=== PATIENT | female | born 1935 | race Caucasian/White ===

== ENCOUNTER → 2016-03-06 | Outpatient (CLI) | payer OTHER ==
[~2016-03-06] MED LIST: ALEN70TA2 PO; ASPI81TA28 PO; CHOL100010 PO; CLCC1250 PO; CYAN100020 PO; CYM/30 PO; ENAL10TA88 PO; HYDR-3983 PO; LORA-741 PO; LPT/40 PO; LVQ250 PO; METO25TA3 PO; MULTTAB52 PO; POLY335019 PO; RXC5 PO; SNK PO; TRAM-10 PO; WLLSR/100 PO
[2016-03-06 11:21] LABS: BASO % 0.4 %; BASO ABS # 0.05 K/uL (0-0.2); COMPLETE YES; EOS % 2.4 %; IG% 0.2 %; LYMPH % 27.5 %; LYMPH ABS # 3.17 K/uL (1.2-3.4); MEAN CELL VOLUME 89.6 fL (80-100); MEAN CORPUSCULAR HEMOGLOBIN 30.4 pg (25-34); MEAN PLATELET VOLUME 10.5 fL (7.4-10.4); MONO % 4.9 %; NEUT % 64.6 %; PLATELET COUNT 396 K/uL (130-400); WHITE BLOOD COUNT 11.53 K/uL (4.8-10.8)
[2016-03-06 11:32] LABS: BLOOD UREA NITROGEN 24 mg/dl (7-18); BUN/CREATININE RATIO 21.4 (10-20); CALCIUM 10.1 mg/dl (8.5-10.1); CARBON DIOXIDE 25 mmol/L (21-32); CHLORIDE 107 mmol/L (98-107); GLUCOSE 128 mg/dl (70-99); POTASSIUM 4.1 mmol/L (3.5-5.1); SODIUM 142 mmol/L (136-145)
[2016-03-06 11:51] LABS: MANUAL MICROSCOPIC REQUIRED? NO; URINE APPEARANCE SL CLOUDY (CLEAR); URINE BILIRUBIN NEG (NEG); URINE COLOR YELLOW; URINE NITRITE NEG (NEG); URINE PH 5.5 (4.5-7.5); UROBILINOGEN NEG (NEG)
[2016-03-06 12:03] LABS: REVIEW REQ? NO
== END | disposition home or self-care (01) ==
LOC: C.LAB 09:49
PROVIDERS: ATTEND Orthopaedic Surgery Orthopaedic Surgery of the Spine
DX: Z01.812 Encounter for preprocedural laboratory examination (principal)

== ENCOUNTER 2016-03-13 10:44 | Inpatient (IN) | payer OTHER ==
[2016-03-06 15:38] VITALS: BMI 26.0
[~2016-03-13] VITALS: Ht 167.6 cm; Wt 75.0 kg
[~2016-03-13 10:44] MED LIST changes: -ALEN70TA2 PO; -ASPI81TA28 PO; +CEFAZOLIN 2000 MG/60 ML D5W IV SCH; -CHOL100010 PO; -CLCC1250 PO; -CYAN100020 PO; +CeleBREX 200 MG CAP PO SCH; -ENAL10TA88 PO; -HYDR-3983 PO; +LACTATED RINGER'S 1000ML 1,000 ML IV SCH; -LVQ250 PO; -MULTTAB52 PO; -POLY335019 PO; +PREGABALIN 75 MG CAP PO SCH; -RXC5 PO; -SNK PO; -WLLSR/100 PO
[2016-03-13 11:13] VITALS: BP 134/71; PULSE 74; TEMP 36.5; O2SAT 99; Ht 167.6 cm; Wt 75.0 kg
[2016-03-13] MEDS ORDERED: LIDOCAINE HCL 2% 2 ML VIAL (20MG/ML) ONE ×2 (11:42→11:46)
[2016-03-13] MEDS ORDERED: FENTANYL CITRATE INJ 50 MCG/1 ML 2 ML VIAL ONE ×3 (11:42→14:38)
[2016-03-13] MEDS ORDERED: MIDAZOLAM HCL 1 MG/ML 2ML VIAL ONE (11:46)
[2016-03-13] MEDS ORDERED: NEOSTIGMINE METHYLSULFATE 1 MG/ML 10ML VIAL ONE (11:46)
[2016-03-13] MEDS ORDERED: DEXAMETHASONE SOD INJ 4 MG/ML VIAL ONE (11:46)
[2016-03-13] MEDS ORDERED: ONDANSETRON INJ 2 MG/ML 2 ML VIAL ONE ×2 (11:46→14:41)
[2016-03-13] MEDS ORDERED: PROPOFOL IV EMULSION 10 MG/ML 20 ML VIAL IV ONE (11:46)
[2016-03-13] MEDS ORDERED: ROCURONIUM BROMIDE 10 MG/ML 5 ML VIAL ONE ×2 (11:46→13:42)
[2016-03-13] MEDS ORDERED: GLYCOPYRROLATE INJ 0.2 MG/ML VIAL ONE (11:46)
[2016-03-13] MEDS ORDERED: ONDANSETRON INJ 2 MG/ML 2 ML VIAL IV PRN ×2 (12:30→15:45)
[2016-03-13] MEDS ORDERED: LACTATED RINGER'S 1000ML 1,000 ML IV PRN (12:30)
--- NOTE | 2016-03-13 12:32 | History and Physical ---
History & Physical Date Mar 13, 2016. Chief Complaint LBP and neurogenic claudication History of Present Illness The patient is a 80 year old female with complaints of above that are longstanding and progressive. She reports a significant decline in ambulation and independence. MRI shows multilevel spinal stenosis and scoliosis. She had a prior hemilaminectomy at L3-4. No numbness. functional weakness. She was cleared by cardiology from a cardiac perspective. He expressed concern about possible cognitive concerns, but her mentation improved after stopping her cymbalta. Past Medical/Surgical History Medical Problems: (1) Degenerative joint disease of low back (2) Diabetes mellitus, type II (3) Dyslipidemia (4) Hypertension (5) Osteoarthritis (6) PMR (polymyalgia rheumatica) (7) Temporal arteritis CAD Surgical Problems: (1) H/O thumb surgery (2) H/O tubal ligation (3) History of arthroscopy of left shoulder (4) History of arthroscopy of right shoulder (5) History of cataract surgery (6) History of hysterectomy (7) S/P hip replacement (8) S/P knee replacement Additional History Hepatic Disease: No Endocrine Disorder: No Kidney Disease: No Hypertension: Yes Heart Disease: Yes (recent stress test negative) Bleeding Tendencies: No Infectious Diseases: No Allergies Coded Allergies: Propoxyphene (Verified Adverse Reaction, Intermediate, N/V, 03/13/16) Morphine (Verified Adverse Reaction, Unknown, SEVERE NAUSEA AND VOMITING, 03/13/16) Home Medications Scheduled Aspirin (Aspirin Ec), 81 MG PO QAM Bupropion Hcl (Wellbutrin Sr), 100 MG PO BID Calcium Carbonate (Os-Calixto 500 *), 1 TAB PO BID Cholecalciferol (Vitamin D), 1,000 INTER.UNIT PO QAM Cyanocobalamin (Vitamin B12), 1 TAB PO QAM Enalapril (Vasotec), 20 MG PO BID Multiple Vitamins W/ Minerals (Cerovite Senior), 1 TAB PO QPM Scheduled PRN Lorazepam (Ativan), 0.5 MG PO TID PRN for Anxiety Polyethylene Glycol 3350 (Miralax), 17 GM PO DAILY PRN for PRN Tramadol (Ultram), 100 MG PO Q6H PRN for Pain Physical Examination Skin: warm/dry Eyes: normal inspection ENT: normal ENT inspection Head: normocephalic, atraumatic Neck: supple, trachea midline Respiratory/Chest: lungs clear, no respiratory distress Cardiovascular: regular rate, rhythm Back: normal inspection (scar) Extremities: normal inspection Neurologic/Psych: no motor/sensory deficits, alert, normal reflexes, oriented x 3 Diagnosis lumbar stenosis and scoliosis/spondylolisthesis Plan of Treatment L1-5 decompression/fusion
[2016-03-13] MEDS ORDERED: ALBUMIN HUMAN 5% 12.5 GM/250 ML VIAL IV ONE (14:36)
[2016-03-13] MEDS ORDERED: THROMBIN 5000 UNITS KIT TOP ONE (15:21)
[2016-03-13] MEDS ORDERED: FLOSEAL HEMOSTATIC MATRIX 10ML TOP ONE (15:21)
[2016-03-13] MEDS ORDERED: THROMBIN FOR SOLN 20000 UNIT KIT TOP ONE (15:21)
[2016-03-13] MEDS ORDERED: BACITRACIN 50000 UNIT VIAL IR ONE (15:21)
[2016-03-13] MEDS ORDERED: BUPIVACAINE/EPINEPHRINE 0.5% MPF 1:200,000 30 ML VIAL INJ ONE (15:21)
[2016-03-13] MEDS: SODIUM CHLORIDE 0.9% 1000ML 1,000 ML IV SCH (15:31)
[2016-03-13] MEDS ORDERED: SODIUM CHLORIDE 0.9% 1000ML 1,000 ML IV SCH (15:31)
--- NOTE | 2016-03-13 15:31 | [facility] Post Operative Brief Note ---
Immediate Operative Summary Operative Date Mar 13, 2016. Pre-Operative Diagnosis L1-L5 Lumbar Stenosis and Scoliosis/Spondylolisthesis Post-Operative Diagnosis L1-L5 Lumbar Stenosis and Scoliosis/Spondylolisthesis Procedure(s) Performed L1-L5 Decompression and Instrumented Fusion; [place] Arteriocyte Surgeon Dr. Chavira Field Irrigation Worker Surgeon(s) Amy Meneses RN Estimated Blood Loss 300mL Findings dict Specimens None
[2016-03-13] MEDS ORDERED: HYDROmorphone HCL 0.5MG/ML 50 ML CASSETTE ONE (15:40)
[2016-03-13] MEDS ORDERED: LORAZEPAM INJ 0.5 MG in SYRINGE 0 ML IV PRN (15:45)
[2016-03-13] MEDS ORDERED: NALOXONE HCL 0.4 MG/1 ML VIAL/CARP IV PRN ×2 (15:45)
[2016-03-13] MEDS ORDERED: PROMETHAZINE HCL INJ 12.5 MG in SODIUM CHLORIDE 0.9% 50ML 50 ML IV PRN (15:45)
[2016-03-13] MEDS ORDERED: SOD PHOSPHATE/SOD BIPHOSPHATE ENEMA 132 ML BTL PR PRN (15:45)
[2016-03-13] MEDS ORDERED: HYDROmorphone HCL 0.5MG/ML 50 ML CASSETTE IV PRN (15:45)
[2016-03-13] MEDS ORDERED: METOCLOPRAMIDE HCL INJ 5 MG/ML 2 ML VIAL IV PRN (15:45)
[2016-03-13] MEDS ORDERED: LORAZEPAM 0.5 MG TAB PO PRN (15:45)
[2016-03-13] MEDS ORDERED: hydrOXYzine HCL 25 MG TAB PO PRN (15:45)
[2016-03-13] MEDS ORDERED: MAGNESIUM HYDROXIDE SUSP 30 ML UDC PO PRN (15:45)
[2016-03-13] MEDS ORDERED: ACETAMINOPHEN IV 100 ML IV PRN (15:45)
[2016-03-13] MEDS ORDERED: ALUMINUM/MAGNESIUM SUSP 30 ML UDC PO PRN (15:45)
[2016-03-13] MEDS ORDERED: BISACODYL 10 MG SUPP PR PRN (15:45)
--- NOTE | 2016-03-13 15:45 | DIAGNOSTIC IMAGING REPORT ---
INTRAOPERATIVE RADIOGRAPHS CLINICAL HISTORY: L1-L5 spinal fusion. Fluoroscopy time: 7 seconds. FINDINGS: 3 spot fluoroscopic views of lumbar spine are presented. There are changes from laminectomy and posterior fusion from L1 -L5. Interpedicular screws are present at all levels. The orthopedic hardware is grossly intact. A surgical drain is in place. IMPRESSION: Intraoperative images from L1 -L5 spinal fusion as above. Electronically signed by: Betito Nguyễn M.D. 03/13/2016 3:44 PM Dictated Date/Time: 03/13/2016 3:43 PM
[2016-03-13] MEDS ORDERED: ESMOLOL HCL 10 MG/ML 10 ML VIAL ONE (15:46)
[2016-03-13] MEDS: FENTANYL CITRATE INJ 50 MCG/1 ML 2 ML VIAL IV PRN ×4 (15:47→16:02)
--- NOTE | 2016-03-13 16:09 | Anesthesiology Progress Note ---
Anesthesia Post Op Note Date & Time Mar 13, 2016 at 16:09 Vital Signs Pain Intensity: 6.0 Vital Signs Past 12 Hours Date Time Temp Pulse Resp B/P Pulse Ox O2 Delivery O2 Flow Rate FiO2 03/13/16 15:55 73 16 144/72 99 Mask 10 03/13/16 15:44 36.6 87 16 154/84 100 Mask 10 03/13/16 11:13 36.5 74 18 134/71 99 Room Air Notes Mental Status: alert / awake / arousable, participated in evaluation Pt Amnestic to Procedure: Yes Nausea / Vomiting: adequately controlled Pain: adequately controlled Airway Patency, RR, SpO2: stable & adequate BP & HR: stable & adequate Hydration State: stable & adequate Anesthetic Complications: no major complications apparent
[2016-03-13 16:45] VITALS: O2SAT 100
[2016-03-13 17:45] VITALS: BP 131/74; PULSE 74; TEMP 36.6; O2SAT 99
[2016-03-13] MEDS: DEXAMETHASONE INJ 6 MG in SYRINGE 0 ML IV SCH (18:17)
[2016-03-13 18:45] VITALS: BP 116/62; PULSE 75; TEMP 36.7; O2SAT 99
[2016-03-13 19:45] VITALS: BP 100/60; PULSE 75; TEMP 37.3; O2SAT 99
[2016-03-13] MEDS: BuPROPion SR 100 MG TABCR PO SCH (20:29)
[2016-03-13] MEDS: CEFAZOLIN IV 1,000 MG in DEXTROSE 5% 50ML 50 ML IV SCH (20:29)
[2016-03-13] MEDS: DOCUSATE SODIUM/SENNA 50/8.6MG TAB PO SCH (20:29)
[2016-03-13] MEDS ORDERED: FAMOTIDINE 20 MG TAB PO PRN (21:00)
[2016-03-13] MEDS: ENALAPRIL MALEATE 10 MG TAB PO SCH (21:00)
--- NOTE | 2016-03-13 22:01 | History and Physical ---
History & Physical Date & Time of Service: Mar 13, 2016 at 21:51 Chief Complaint: Lumbar Spinal Stenosis Primary Care Physician: Dedrick Restrepo III, M.D. History of Present Illness Source: patient This is a 80 yo f that was referred to us for medical mx s/p l2-l3 hemilaminectomy. The surgery was today and patient has been doing well since. She has a h/o Dm and HTN. She states that her diabetes was controlled with metformin but she was recently d/c from metformin. She typically checks her sugars in the am only and they have been acceptable. She also has htn which is well controlled with her current medication regimen. Pain is well controlled with current regiment at this time. Past Medical/Surgical History Medical Problems: (1) Degenerative joint disease of low back Status: Chronic (2) Diabetes mellitus, type II Status: Chronic (3) Dyslipidemia Status: Chronic (4) Hypertension Status: Chronic (5) Osteoarthritis Status: Chronic (6) PMR (polymyalgia rheumatica) Status: Chronic (7) Temporal arteritis Status: Resolved Surgical Problems: (1) H/O thumb surgery Status: Chronic (2) H/O tubal ligation Status: Chronic (3) History of arthroscopy of left shoulder Status: Chronic (4) History of arthroscopy of right shoulder Status: Chronic (5) History of cataract surgery Status: Chronic (6) History of hysterectomy Status: Chronic (7) S/P hip replacement Status: Chronic (8) S/P knee replacement Status: Chronic Family History Heart disease Hypertension Lung disease Social History Smoking Status: Never Smoker Smokeless Tobacco Use: No Alcohol Use: none Drug Use: none Marital Status: Housing status: lives with significant other Immunizations History of Influenza Vaccine: Yes Influenza Vaccine Date: May 17, 2015 History of Tetanus Vaccine?: Yes Tetanus Immunization Date: May 28, 2010 History of Pneumococcal: Yes Pneumococcal Date: Apr 26, 2014 Multi-Drug Resistant Organisms History of MDRO: No Allergies Coded Allergies: Propoxyphene (Verified Adverse Reaction, Intermediate, N/V, 03/13/16) Morphine (Verified Adverse Reaction, Unknown, SEVERE NAUSEA AND VOMITING, 03/13/16) Home Medications Scheduled Aspirin (Aspirin Ec), 81 MG PO QAM Bupropion Hcl (Wellbutrin Sr), 100 MG PO BID Calcium Carbonate (Os-Calixto 500 *), 1 TAB PO BID Cholecalciferol (Vitamin D), 1,000 INTER.UNIT PO QAM Cyanocobalamin (Vitamin B12), 1 TAB PO QAM Enalapril (Vasotec), 20 MG PO BID Multiple Vitamins W/ Minerals (Cerovite Senior), 1 TAB PO QPM Scheduled PRN Lorazepam (Ativan), 0.5 MG PO TID PRN for Anxiety Polyethylene Glycol 3350 (Miralax), 17 GM PO DAILY PRN for PRN Tramadol (Ultram), 100 MG PO Q6H PRN for Pain Review of Systems Constitutional: No fever Eyes: No worsening of vision ENT: No hearing loss Respiratory: No cough, No dyspnea at rest, No dyspnea on exertion, No shortness of breath, No sputum, No wheezing Cardiovascular: No chest pain Abdomen: + problem reported (abdominal bloating since surgery), No constipation , No diarrhea, No nausea, No pain, No vomiting Musculoskeletal: + joint pain, + muscle pain Genitourinary - Female: + dysuria, + hematuria Endocrine: No fatigue Integumentary: No rash Physical Exam Vital Signs Date Time Temp Pulse Resp B/P Pulse Ox O2 Delivery O2 Flow Rate FiO2 03/13/16 19:45 37.3 75 18 100/60 99 Nasal Cannula 2.0 03/13/16 18:45 36.7 75 16 116/62 99 Nasal Cannula 2.0 03/13/16 17:45 36.6 74 18 131/74 99 Nasal Cannula 2.0 03/13/16 16:15 68 16 137/70 100 Nasal Cannula 4 03/13/16 16:05 70 16 139/67 100 Nasal Cannula 4 03/13/16 15:55 73 16 144/72 99 Mask 10 03/13/16 15:44 36.6 87 16 154/84 100 Mask 10 03/13/16 11:13 36.5 74 18 134/71 99 Room Air General Appearance: WD/WN, no apparent distress Head: normocephalic, atraumatic Eyes: normal inspection ENT: normal ENT inspection Neck: supple Respiratory/Chest: lungs clear, normal breath sounds, no respiratory distress, no accessory muscle use Cardiovascular: regular rate, rhythm, no murmur Abdomen/GI: normal bowel sounds, non tender, soft, + distended (mildly) Back: normal inspection Extremities/Musculoskelatal: normal inspection, no calf tenderness, no pedal edema, + pertinent finding (SCD on) Neurologic/Psych: alert, normal mood/affect, oriented x 3 Skin: normal color, warm/dry, no rash Lymphatic: no adenopathy Diagnostics Laboratory Results Results Past 24 Hours Test 03/13/16 15:47 Range/Units Bedside Glucose 152 70-90 mg/dl Impression Assessment and Plan This is an 80 yo f s/p l2-l3 hemilaminectomy with a h/o DM, HTN HTN - continue enalapril Depression/ anxiety - continue bupropion and lorazepam prn DMII - ISS - BSG AC/HS s/p Hemilaminectomy - mx per primary team DVT Prophylaxis scd discharge per primary team Resident Physician Supervision Note: I was present with [Name of resident] during the history and exam. I discussed the case with the resident and agree with the findings and plan as documented in the note. Any exceptions or clarifications are listed here: Pt seen/examined - discussed above with management with resident Pt is post laminectomy and we are consulted for DM and HTN Pt as no specific complaints aside from surgery-related pain Placed on sliding scale post-op and will resume scheduled antihypertensives Med to follow pending D/C Documented By: Henry Jimenez Advanced Directives Existing Advance Directive: Yes Existing Living Will: Yes Existing Power of Dynamite Reclaimer: Yes Resuscitation Status FULL RESUSCITATION VTE Prophylaxis VTE Risk Assessment Done? Y/N: Yes Risk Level: Low Given or contraindicated: SCD's Social Service Consult None Apply Note Total Time: Critical Care 30 - 74 minutes Additional Copies To Dedrick Restrepo III, M.D.
[2016-03-13] MEDS ORDERED: GLUCAGON FOR INJ 1 MG VIAL SQ PRN (22:15)
[2016-03-13] MEDS ORDERED: DEXTROSE 50% 50 ML SYR IV PRN (22:15)
[2016-03-13] MEDS ORDERED: GLUCOSE 40% GEL 15 GM TUBE PO PRN (22:15)
[2016-03-13] MEDS ORDERED: GLUCOSE 10 TABS/TUBE PO PRN (22:15)
[2016-03-13 23:26] VITALS: BP 108/61; PULSE 103; TEMP 36.7; O2SAT 98
[2016-03-14] MEDS: DEXAMETHASONE INJ 6 MG in SYRINGE 0 ML IV SCH ×2 (02:16→10:00)
[2016-03-14 03:54] VITALS: BP 99/51; PULSE 71; TEMP 36.8; O2SAT 100
[2016-03-14] MEDS: CEFAZOLIN IV 1,000 MG in DEXTROSE 5% 50ML 50 ML IV SCH (04:08)
[2016-03-14] MEDS: SODIUM CHLORIDE 0.9% 1000ML 1,000 ML IV SCH (05:19)
[2016-03-14 05:43] LABS: COMPLETE YES; HEMATOCRIT 30.3 % (37-47); IG% 0.2 %; LYMPH % 6.1 %; LYMPH ABS # 0.95 K/uL (1.2-3.4); MEAN CELL VOLUME 90.2 fL (80-100); MEAN CORPUSCULAR HEMOGLOBIN 29.8 pg (25-34); MEAN PLATELET VOLUME 10.2 fL (7.4-10.4); MONO % 1.4 %; NEUT % 92.3 %; PLATELET COUNT 253 K/uL (130-400); RED BLOOD COUNT 3.36 M/uL (4.2-5.4); WHITE BLOOD COUNT 15.68 K/uL (4.8-10.8)
[2016-03-14] MEDS ORDERED: DC PCA PRN (06:00)
[2016-03-14] MEDS ORDERED: HYDROmorphone INJ 0.5 MG/0.5 ML SYR IV PRN ×2 (06:00)
[2016-03-14 06:11] LABS: BUN/CREATININE RATIO 12.1 (10-20); CALCIUM 8.5 mg/dl (8.5-10.1); CREATININE 1.3 mg/dl (0.60-1.20); POTASSIUM 4.5 mmol/L (3.5-5.1)
--- NOTE | 2016-03-14 07:48 | Clinical Documentation Query ---
RELL Farah : CLINICAL DOCUMENTATION QUERY QUERY 1 OF 2 Patient is an 80 year old female who on 03/13 underwent L1-L5 posterior decompression and fusion. EBL for the procedure was 300 ml's with subsequently documented losses totaling an additional 255 ml's to date. I/O is positive at this time for a net of 600 ml's. Preoperative hemoglobin and hematocrit were 14.6 g/dl and 43%. POD #1, repeat values are 10.0 g/dl and 30.3%. She is being monitored with serial hematology and I/O including drain outputs. In your clinical opinion is this patient being managed for: ( ) Acute blood loss and hemodilutional anemia ( ) Other explanation of clinical findings (Please Explain) ( ) Unable to determine (Please Define) ( ) Need to Discuss ( ) Not Agree The medical record reflects the following clinical findings, treatment, and risk factors. Clinical Indicators: As above Treatment:She is being monitored with serial hematology and I/O including drain outputs. Risk Factors: Acute perioperative blood losses and IVF administration. QUERY 2 OF 2 Chemistries this a.m. (03/14) demonstrate a BUN, creatinine, and estimated GFR value of 16 mg/dl, 1.30 mg/dl, and 38 ml/min. Estimated GFR range from 10/13/14 to present is 35-62 ml/min. Risk factors include age, hypertension, and type 2 diabetes mellitus. In your clinical opinion is this patient being managed for: ( ) Chronic kidney disease, stage 3 ( ) Other explanation of clinical findings (Please Explain) ( ) Unable to determine (Please Define) ( ) Need to Discuss ( ) Not Agree The medical record reflects the following clinical findings, treatment, and risk factors. Clinical Indicators: As above Treatment: Monitoring of serum chemistries, IVF Risk Factors:age, hypertension, and type 2 diabetes mellitus. Please clarify and document your clinical opinion in the progress notes and discharge summary. Terms such as "probable", "suspected", "likely", "questionable", "possible", or "still to be ruled out" are acceptable. IF IN AGREEMENT, YOU MUST DOCUMENT ABOVE DIAGNOSTIC STATEMENT IN DAILY PROGRESS NOTES AND DISCHARGE SUMMARY. This document is not part of the patient's record. Thank You, Kemar Issa, ANNE MARIE [phone]
--- NOTE | 2016-03-14 07:57 | Anesthesiology Progress Note ---
Anesthesia Post Op Note Date & Time Mar 14, 2016 at 07:57 Vital Signs Vital Signs Past 12 Hours Date Time Temp Pulse Resp B/P Pulse Ox O2 Delivery O2 Flow Rate FiO2 03/14/16 03:54 36.8 71 16 99/51 100 Nasal Cannula 2.0 03/14/16 00:10 Room Air 03/13/16 23:26 36.7 103 16 108/61 98 Nasal Cannula 2.0 Notes Mental Status: alert / awake / arousable, participated in evaluation Pt Amnestic to Procedure: Yes Nausea / Vomiting: adequately controlled Pain: adequately controlled Airway Patency, RR, SpO2: stable & adequate BP & HR: stable & adequate Hydration State: stable & adequate Anesthetic Complications: no major complications apparent
--- NOTE | 2016-03-14 07:59 | Hospitalist Progress Note ---
Hospitalist Progress Note Date of Service Mar 14, 2016. (Barbie Zee PA-C) Subjective Pt evaluation today including: conversation w/ patient, physical exam, chart review, lab review, review of studies, review of inpatient medication list Pain: Mild, lower back PO Intake: Good Voiding: dent catheter in place The patient was seen and examined this morning. Pt reports feeling well today. She is slightly sore in her low back. While sitting up it seems to be more painful vs lying flat. Pt denies numbness/tingling or pain radiating down her legs. She is passing gas, denies bowel movement since surgery. PT reports a history of issues with constipation. Dent catheter still in place but reports nursing was planning on removing this today. She is anticipating working with PT/OT today as well. Pt is from home and lives with her . She already has home health care and plans on having PT come into her home once she's discharged. Constitutional: No chills, No fever, No sweats Eyes: No problem reported ENT: No sore throat, No tinnitus Respiratory: No cough, No dyspnea at rest, No shortness of breath Cardiovascular: No chest pain, No palpitations Abdomen: + nausea (early this morning but has since gone away), No pain, No vomiting Musculoskeletal: No calf pain, No joint pain, No swelling Skin: No rash (Barbie Zee, SVETLANA) Objective Vital Signs Date Time Temp Pulse Resp B/P Pulse Ox O2 Delivery O2 Flow Rate FiO2 03/14/16 03:54 36.8 71 16 99/51 100 Nasal Cannula 2.0 03/14/16 00:10 Room Air 03/13/16 23:26 36.7 103 16 108/61 98 Nasal Cannula 2.0 03/13/16 19:45 37.3 75 18 100/60 99 Nasal Cannula 2.0 03/13/16 18:45 36.7 75 16 116/62 99 Nasal Cannula 2.0 03/13/16 17:45 36.6 74 18 131/74 99 Nasal Cannula 2.0 03/13/16 16:45 100 Nasal Cannula 4.0 03/13/16 16:45 100 Nasal Cannula 4.0 03/13/16 16:15 68 16 137/70 100 Nasal Cannula 4 03/13/16 16:05 70 16 139/67 100 Nasal Cannula 4 03/13/16 15:55 73 16 144/72 99 Mask 10 03/13/16 15:44 36.6 87 16 154/84 100 Mask 10 03/13/16 11:13 36.5 74 18 134/71 99 Room Air (Barbie Zee PA-C) Physical Exam General Appearance: WD/WN, no apparent distress Eyes: PERRL, EOMI ENT: hearing grossly normal, pharynx normal Neck: supple, no JVD Respiratory/Chest: lungs clear, normal breath sounds, no respiratory distress, no accessory muscle use Cardiovascular: regular rate, rhythm, no murmur Abdomen: normal bowel sounds, non tender, soft Extremities: non-tender, no pedal edema Neurologic/Psychiatric: alert, normal mood/affect, oriented x 3 Skin: normal color, warm/dry (Barbie Zee, SVETLANA) Laboratory Results Last 24 Hours Test 03/13/16 15:47 03/13/16 21:56 03/14/16 05:20 Bedside Glucose 152 mg/dl 225 mg/dl White Blood Count 15.68 K/uL Red Blood Count 3.36 M/uL Hemoglobin 10.0 g/dL Hematocrit 30.3 % Mean Corpuscular Volume 90.2 fL Mean Corpuscular Hemoglobin 29.8 pg Mean Corpuscular Hemoglobin Concent 33.0 g/dl Platelet Count 253 K/uL Mean Platelet Volume 10.2 fL Neutrophils (%) (Auto) 92.3 % Lymphocytes (%) (Auto) 6.1 % Monocytes (%) (Auto) 1.4 % Eosinophils (%) (Auto) 0.0 % Basophils (%) (Auto) 0.0 % Neutrophils # (Auto) 14.48 K/uL Lymphocytes # (Auto) 0.95 K/uL Monocytes # (Auto) 0.22 K/uL Eosinophils # (Auto) 0.00 K/uL Basophils # (Auto) 0.00 K/uL RDW Standard Deviation 45.7 fL RDW Coefficient of Variation 13.8 % Immature Granulocyte % (Auto) 0.2 % Immature Granulocyte # (Auto) 0.03 K/uL Sodium Level 143 mmol/L Potassium Level 4.5 mmol/L Chloride Level 107 mmol/L Carbon Dioxide Level 26 mmol/L Anion Gap 10.0 mmol/L Blood Urea Nitrogen 16 mg/dl Creatinine 1.30 mg/dl Est Creatinine Clear Calc Drug Dose 34.5 ml/min Estimated GFR () 44.2 Estimated GFR (Non- 38.2 BUN/Creatinine Ratio 12.1 Random Glucose 221 mg/dl Calcium Level 8.5 mg/dl (Barbie Zee PA-C) Assessment and Plan 80 yo F with PMHx HTN, DM, who underwent a L1-L2 hemilaminectomy on 03/13/[address] Dee. She has been consulted for medical management. S/p L1-L2 hemilaminectomy - Analgesia per the primary team - pt is not on anticoagulation. - Continue bowel regimen daily with narcotic use and pt hx of constipation. - PT/OT conuslted. pt is anticipating d/c with home health and PT services. Lives with her at home and cares for him. Currently has aids coming into their house every day. Acute blood loss and hemodilutional anemia - Hgb dropped to 10.0 from 14.6 - LEXUS drain in place with outs ~140 mL since 2400 today with total 395mL out. Other blood loss estimated at ~600. HTN - Cont airplane captain asa 81 mg, enalapril maleate 20 mg BID - Currently on NSS running at 75mL/hr - pt ate breakfast but had some nausea so will keep fluids for the morning and can likely dc if she tolerates lunch DM - ISS with accuchecks ACHS - Here glucose has been running around 150 - 200, considering decadron inj prior to surg this is expected. Can titrate sliding scale appropriately. CKD stage III - Cr. baseline appears to be about 1.2-1.3, currently 1.3 - Encourage oral hydration Depression/Anxiety - Cont wellbutrin SR 100 mg BID for depression and ativan 0.5 mg PO TID for anxiety DVT ppx: SCDs, OOB Disposition: From home, will ask CM to assist with home health services/PT upon discharge. (Barbie Zee, SVETLANA) Reviewed: Pt Seen/Exam by Me, HO Notes, Labs (Arely Toledo MD) History PA Supervision Note: I interviewed and examined the patient. Discussed with the PA and agree with findings and plan as documented in the note. Any exceptions or clarifications are listed here: Pt doing very well, pain controlled. No CP or SOB. Is collins po. Vitals reviewed NAD, AAOx3 RRR no mgr CTAB no wcr Abd soft NT ND +BS Ext no edema MSK-back with dressing in place c/d/i A/P: 80 yo female with HTN, DMII, here for hemilaminectomy. DOing well post-op, continue home BP meds, SSI and accuchecks, not on home meds for DMII. Renally dose all meds for CKD stage III. Plan for dc in 2 days, will follow Documented By: Arely Toledo (Arely Toledo MD)
[2016-03-14 08:04] VITALS: BP 119/52; PULSE 70; TEMP 36.6; O2SAT 98
[2016-03-14] MEDS: ASPIRIN 81 MG ECTAB PO SCH (08:43)
[2016-03-14] MEDS: BuPROPion SR 100 MG TABCR PO SCH ×2 (08:43→21:05)
[2016-03-14] MEDS: ENALAPRIL MALEATE 10 MG TAB PO SCH ×2 (08:44→21:05)
[2016-03-14] MEDS: OXYCODONE HCL IR 5 MG TAB (IMMEDIATE RELEASE) PO PRN ×4 (08:52→21:06)
[2016-03-14] MEDS ORDERED: COUGH DROP (SUGAR FREE) LOZ 24 LOZ/1 BOX PO PRN (09:00)
[2016-03-14] MEDS ORDERED: NURSING DECISION MEDICATION ORDER SCH (09:00)
[2016-03-14] MEDS: INSULIN ASPART 100 UNITS/ML 3 ML PEN SC SCH ×4 (09:12→21:00)
[2016-03-14] MEDS ORDERED: NURSING VERBAL MED ORDER ONE (09:30)
[2016-03-14 09:45] VITALS: O2SAT 98
[2016-03-14 11:47] VITALS: BP 139/60; PULSE 76; TEMP 36.7; O2SAT 98
--- NOTE | 2016-03-14 12:38 | Clinical Documentation Query ---
FABIANA OCASIO : CLINICAL DOCUMENTATION QUERIES QUERY 1 OF 2 Patient is an 80 year old female who on 03/13 underwent L1-L5 posterior decompression and fusion. EBL for the procedure was 300 ml's with subsequently documented losses totaling an additional 255 ml's to date. I/O is positive at this time for a net of 600 ml's. Preoperative hemoglobin and hematocrit were 14.6 g/dl and 43%. POD #1, repeat values are 10.0 g/dl and 30.3%. She is being monitored with serial hematology and I/O including drain outputs. In your clinical opinion is this patient being managed for: ( X ) Acute blood loss and hemodilutional anemia ( ) Other explanation of clinical findings (Please Explain) ( ) Unable to determine (Please Define) ( ) Need to Discuss ( ) Not Agree The medical record reflects the following clinical findings, treatment, and risk factors. Clinical Indicators: As above Treatment:She is being monitored with serial hematology and I/O including drain outputs. Risk Factors: Acute perioperative blood losses and IVF administration. QUERY 2 OF 2 Chemistries this a.m. (03/14) demonstrate a BUN, creatinine, and estimated GFR value of 16 mg/dl, 1.30 mg/dl, and 38 ml/min. Estimated GFR range from 10/13/14 to present is 35-62 ml/min. Risk factors include age, hypertension, and type 2 diabetes mellitus. In your clinical opinion is this patient being managed for: (X ) Chronic kidney disease, stage 3 ( ) Other explanation of clinical findings (Please Explain) ( ) Unable to determine (Please Define) ( ) Need to Discuss ( ) Not Agree The medical record reflects the following clinical findings, treatment, and risk factors. Clinical Indicators: As above Treatment: Monitoring of serum chemistries, IVF Risk Factors:age, hypertension, and type 2 diabetes mellitus. Please clarify and document your clinical opinion in the progress notes and discharge summary. Terms such as "probable", "suspected", "likely", "questionable", "possible", or "still to be ruled out" are acceptable. IF IN AGREEMENT, YOU MUST DOCUMENT ABOVE DIAGNOSTIC STATEMENT IN DAILY PROGRESS NOTES AND DISCHARGE SUMMARY. This document is not part of the patient's record. Thank You, Kemar Issa, ANNE MARIE [phone]
--- NOTE | 2016-03-14 14:46 | Orthopedic Progress Note ---
Orthopedic Progress Note Date of Service Mar 14, 2016. Subjective Post OP Day: 1 Reports: feeling well Objective calves soft nontender, N/V intact, dressing C/D/I, A&O x3 Date Time Temp Pulse Resp B/P Pulse Ox O2 Delivery O2 Flow Rate FiO2 03/14/16 11:47 36.7 76 12 139/60 98 Room Air 03/14/16 09:45 98 Room Air 03/14/16 08:04 36.6 70 12 119/52 98 Room Air 03/14/16 07:30 Room Air 03/14/16 03:54 36.8 71 16 99/51 100 Nasal Cannula 2.0 03/14/16 00:10 Room Air 03/13/16 23:26 36.7 103 16 108/61 98 Nasal Cannula 2.0 03/13/16 19:45 37.3 75 18 100/60 99 Nasal Cannula 2.0 03/13/16 18:45 36.7 75 16 116/62 99 Nasal Cannula 2.0 03/13/16 17:45 36.6 74 18 131/74 99 Nasal Cannula 2.0 03/13/16 16:45 100 Nasal Cannula 4.0 03/13/16 16:45 100 Nasal Cannula 4.0 03/13/16 16:15 68 16 137/70 100 Nasal Cannula 4 03/13/16 16:05 70 16 139/67 100 Nasal Cannula 4 03/13/16 15:55 73 16 144/72 99 Mask 10 03/13/16 15:44 36.6 87 16 154/84 100 Mask 10 Laboratory Results 24 Hours: Test 03/14/16 05:20 White Blood Count 15.68 K/uL Red Blood Count 3.36 M/uL Hemoglobin 10.0 g/dL Hematocrit 30.3 % Mean Corpuscular Volume 90.2 fL Mean Corpuscular Hemoglobin 29.8 pg Mean Corpuscular Hemoglobin Concent 33.0 g/dl Platelet Count 253 K/uL Mean Platelet Volume 10.2 fL Neutrophils (%) (Auto) 92.3 % Lymphocytes (%) (Auto) 6.1 % Monocytes (%) (Auto) 1.4 % Eosinophils (%) (Auto) 0.0 % Basophils (%) (Auto) 0.0 % Neutrophils # (Auto) 14.48 K/uL Lymphocytes # (Auto) 0.95 K/uL Monocytes # (Auto) 0.22 K/uL Eosinophils # (Auto) 0.00 K/uL Basophils # (Auto) 0.00 K/uL Discharge Planning Discharge Planning: home with home health Pain Management: Oxy IR DVT Prophylaxis: SCDs Therapy: Physical Therapy, Occupational Therapy
[2016-03-14 15:00] VITALS: BP 125/69; PULSE 74; TEMP 36.5; O2SAT 98
[2016-03-14] MEDS: DOCUSATE SODIUM/SENNA 50/8.6MG TAB PO SCH (21:05)
[2016-03-14 23:08] VITALS: BP 104/55; PULSE 66; TEMP 36.7; O2SAT 98
[2016-03-15 06:12] LABS: EOS % 0.1 %; HEMATOCRIT 25.8 % (37-47); IG% 0.2 %; LYMPH % 18.9 %; LYMPH ABS # 2.72 K/uL (1.2-3.4); MEAN CELL VOLUME 89.3 fL (80-100); MEAN CORPUSCULAR HEMOGLOBIN 29.8 pg (25-34); MEAN CORPUSCULAR HGB CONC 33.3 g/dl (32-36); MEAN PLATELET VOLUME 10.3 fL (7.4-10.4); MONO % 7.5 %; NEUT % 73.3 %; PLATELET COUNT 226 K/uL (130-400); RED BLOOD COUNT 2.89 M/uL (4.2-5.4)
[2016-03-15] MEDS: POLYETHYLENE (MIRALAX) 17 GM PACK PO SCH ×3 (06:20→17:21)
[2016-03-15] MEDS: OXYCODONE HCL IR 5 MG TAB (IMMEDIATE RELEASE) PO PRN ×3 (06:26→20:57)
[2016-03-15 06:35] LABS: BUN/CREATININE RATIO 24.3 (10-20); CALCIUM 8.8 mg/dl (8.5-10.1); CREATININE 1.2 mg/dl (0.60-1.20); POTASSIUM 4.4 mmol/L (3.5-5.1)
[2016-03-15 07:09] VITALS: BP 94/55; PULSE 64; TEMP 36.7; O2SAT 98
[2016-03-15 07:20] LABS: COMPLETE YES
--- NOTE | 2016-03-15 07:42 | Orthopedic Progress Note ---
Orthopedic Progress Note Date of Service Mar 15, 2016. Subjective Post OP Day: 2 Reports: feeling well, pain controlled w PO medications, Denies: SOB, calf pain , chest pain, complaints, light headedness, nausea / vomiting Additional Notes: Doing well, lying in bed. No complaints. Pain is controlled with medication. She did not do PT yesterday although she was up with OT without difficulty. She is stable medically. No other issues to report. Objective calves soft nontender, N/V intact, capillary refill less than 2 sec., dressing C /D/I, A&O x3, toes mobile, hemovac drainage Date Time Temp Pulse Resp B/P Pulse Ox O2 Delivery O2 Flow Rate FiO2 03/15/16 07:09 36.7 64 16 94/55 98 Room Air 03/15/16 00:45 Room Air 03/14/16 23:08 36.7 66 16 104/55 98 Room Air 03/14/16 16:15 Room Air 03/14/16 15:00 36.5 74 18 125/69 98 Room Air 03/14/16 11:47 36.7 76 12 139/60 98 Room Air 03/14/16 09:45 98 Room Air 03/14/16 08:04 36.6 70 12 119/52 98 Room Air Laboratory Results 24 Hours: Test 03/15/16 05:47 White Blood Count 14.40 K/uL Red Blood Count 2.89 M/uL Hemoglobin 8.6 g/dL Hematocrit 25.8 % Mean Corpuscular Volume 89.3 fL Mean Corpuscular Hemoglobin 29.8 pg Mean Corpuscular Hemoglobin Concent 33.3 g/dl Platelet Count 226 K/uL Mean Platelet Volume 10.3 fL Neutrophils (%) (Auto) 73.3 % Lymphocytes (%) (Auto) 18.9 % Monocytes (%) (Auto) 7.5 % Eosinophils (%) (Auto) 0.1 % Basophils (%) (Auto) 0.0 % Neutrophils # (Auto) 10.56 K/uL Lymphocytes # (Auto) 2.72 K/uL Monocytes # (Auto) 1.08 K/uL Eosinophils # (Auto) 0.01 K/uL Basophils # (Auto) 0.00 K/uL Assessment & Plan Assessment: s/p L1-5 decomp/fusion Plan: Patient is to complete PT today. She continues to want to return home. I had a long discussion with her regarding this. We will base our final decision off PT progress. Continue LEXUS drain. Pain control as indicated. Disposition to follow. Discharge Planning Discharge Planning: home with home health Pain Management: Oxy IR DVT Prophylaxis: SCDs Therapy: Physical Therapy, Occupational Therapy
[2016-03-15] MEDS ORDERED: RXC5 PO (07:43)
--- NOTE | 2016-03-15 07:44 | Discharge Instructions ---
Discharge Instructions Admission Reason for Admission: Lumbar Spinal Stenosis Discharge Discharge Diagnosis / Problem: Lumbar Stenosis Discharge Goals Goal(s): Decrease discomfort, Improve function, Increase independence Activity Recommendations Activity Limitations: as noted below Lifting Limitations: no more than 5 pounds Exercise/Sports Limitations: until after follow-up appointment May Resume Sexual Activity: after follow-up appointment Shower/Bathe: may shower/bathe in 3 days . Instructions / Follow-Up Instructions / Follow-Up ACTIVITY RECOMMENDATIONS: SELF CARE INSTRUCTIONS AFTER THORACIC/LUMBAR FUSIONS 1. You may walk to your tolerance. It is good exercise for your legs and back. Expect some back and intermittent leg aches and pains. 2. You may perform "counter-top" level activities (make a sandwich, jyotsna with a project, etc.). 3. No bending or lifting of more than 10 pounds or back twisting of any nature (roll like a log when turning in bed). 4. You may ride in a car for 20-30 minutes at a time. No driving until after your first visit with your doctor. 5. Frequent changes of position and restricting sitting to 30 minutes at a time will help limit the amount of back spasms and stiffness you may experience. 6. You may discontinue the use of ambulatory aids (cane, crutches, etc.) once your strength and confidence allow. 7. You may foreclosure field inspector the shower and let water strike your incision when you arrive home at least once daily. Do not take a tub bath, sit in a hot tub or go into a swimming pool until after your first recheck in the office. SPECIAL CARE INSTRUCTIONS: VERY IMPORTANT TO READ AND REVIEW A. Your surgical incision has been closed with a cosmetic suture under the skin that will dissolve in about 6 weeks. In 14 days, you can use a pair of clean scissors and cut the suture that is left outside of the skin at the ends of your incision. 1. The small skin tapes can be removed 7 days after surgery if they have not fallen off by that point. 2. You may keep the wound open to air as much as possible to promote healing after post-op day number 5 unless told otherwise by your doctor. 3. If you think the wound looks like it is becoming infected (redness or worsening drainage) and/or you are experiencing fever, chill or worsening back pain and muscle spasms, contact the office so that we may evaluate you as soon as possible. B. Complications are uncommon, but please contact us if you have any signs or symptoms of: 1. wound infection (fever higher than 102.5 degrees F, redness, separation of wound, drainage, or increasing pain from the incision) 2. blood clots in legs (pain, swelling, redness and warmth in legs) 3. urinary tract infection (fever higher than 102.5 degrees F, burning upon urination or increased frequency of urination) 4. nerve problems (inability to walk on your toes or heels, numbness, loss of bowel or bladder control) 5. any other symptoms that concern you C. Please call the office at if you have any concerns or questions about your operation or recovery. D. No smoking! Smoking drastically decreases the chance of a solid fusion. E. Do not take any anti-inflammatory medications (Indocin, Advil, Motrin, Aspirin, Naprosyn, etc.) as these may inhibit the chance of a solid fusion. Tylenol is okay to take for pain. MANAGING PAIN AFTER SPINAL SURGERY 1. Narcotic medication is intended for short-term use and will be provided for surgical pain. Surgical pain usually lasts for a period of 4-6 weeks. Narcotic medication includes Percocet, Vicodin, Darvocet, Tylenol #3 or Lortab. 2. Longer-term pain is more appropriately treated with non-narcotic medication such as Tylenol ES. 3. Muscle spasm is not appropriately treated with narcotics. Muscle relaxers such as Soma, Flexeril or Skelaxin can be used along with Tylenol ES. 4. Remember that we all live with some "aches and pains". This is not unusual or uncommon after an injury or as we get older. a. Back pain is expected and may include muscle spasms for 4 to 6 weeks after surgery. The pain should gradually improve. If the pain worsens for no apparent reason, please contact the office. b. Intermittent leg pain may also be experienced and should not be concerned about unless it worsens for no apparent reason. If so, please contact the office. 5. We will provide appropriate medication within the normal guidelines of their prescribed use. We will also be very cautious and aware of potential abuse and extended duration of patients' medication needs. a. Pain medications are for your comfort and to assist with sleep and rest so that the tissue can heal. They are not provided in order to return to normal activity and should not be used through the day. To do so or worsening pain at night can result from ongoing tissue damage and development of tolerance to the prescribed medicine. 6. Please allow 2-3 days to process refills. Prescriptions will not be mailed but must be picked up at the office. FOLLOW UP VISIT: Keep your scheduled follow-up appointment. Any questions, please call the office at . Current Hospital Diet Patient's current hospital diet: Diabetes Type 2 Diet Discharge Diet Recommended Diet: Regular Diet Procedures Procedures Performed: L1-L5 Decompression and Instrumented Fusion; Infuse, Arteriocyte Pending Studies Studies pending at discharge: no Medical Emergencies . Who to Call and When: Medical Emergencies: If at any time you feel your situation is an emergency, please call 911 immediately. . Non-Emergent Contact Non-Emergency issues call your: Surgeon Call Non-Emergent contact if: temperature is above 101, your pain is not controlled, your pain is worsening, your pain is unusual for you, your pain is concerning you, wound has increased drainage, wound has increased redness, wound has increased pain, you have any medication questions . "Provider Documentation" section prepared by Ahmet Lackey. VTE Core Measure Inpt VTE Proph given/why not?: Lauryn Fletcher, SCD's
[2016-03-15 08:28] VITALS: BP 150/53
[2016-03-15] MEDS: ENALAPRIL MALEATE 10 MG TAB PO SCH ×2 (08:47→20:53)
[2016-03-15] MEDS: BuPROPion SR 100 MG TABCR PO SCH ×2 (08:47→20:50)
[2016-03-15] MEDS: ASPIRIN 81 MG ECTAB PO SCH (08:47)
[2016-03-15] MEDS: INSULIN ASPART 100 UNITS/ML 3 ML PEN SC SCH ×4 (08:49→20:57)
--- NOTE | 2016-03-15 14:32 | Hospitalist Progress Note ---
Hospitalist Progress Note Date of Service Mar 15, 2016. Subjective Pt evaluation today including: conversation w/ patient, conversation w/ family , physical exam, chart review, lab review, review of inpatient medication list PO Intake: collins po Voiding: no voiding problems Doing well, pain controlled, was up with PT today. BP low this AM but was just waking up and now is high normal. No CP or SOB. No BM yet. Constitutional: No fever Respiratory: No shortness of breath Cardiovascular: No chest pain Abdomen: No nausea, No pain All Other Systems: Reviewed and Negative Objective Vital Signs Date Time Temp Pulse Resp B/P Pulse Ox O2 Delivery O2 Flow Rate FiO2 03/15/16 08:28 150/53 03/15/16 07:12 Room Air 03/15/16 07:09 36.7 64 16 94/55 98 Room Air 03/15/16 00:45 Room Air 03/14/16 23:08 36.7 66 16 104/55 98 Room Air 03/14/16 16:15 Room Air 03/14/16 15:00 36.5 74 18 125/69 98 Room Air Physical Exam General Appearance: WD/WN, no apparent distress Eyes: normal inspection, sclerae normal Neck: trachea midline Respiratory/Chest: lungs clear, normal breath sounds, no respiratory distress, no accessory muscle use Cardiovascular: regular rate, rhythm, no edema, no gallop, no murmur Abdomen: normal bowel sounds, non tender, soft Extremities: non-tender, normal inspection, no pedal edema Neurologic/Psychiatric: alert, normal mood/affect, oriented x 3 Skin: normal color, warm/dry, no rash Laboratory Results Last 24 Hours Test 03/14/16 17:06 03/14/16 21:00 03/15/16 05:47 03/15/16 08:18 Bedside Glucose 141 mg/dl 177 mg/dl 125 mg/dl White Blood Count 14.40 K/uL Red Blood Count 2.89 M/uL Hemoglobin 8.6 g/dL Hematocrit 25.8 % Mean Corpuscular Volume 89.3 fL Mean Corpuscular Hemoglobin 29.8 pg Mean Corpuscular Hemoglobin Concent 33.3 g/dl Platelet Count 226 K/uL Mean Platelet Volume 10.3 fL Neutrophils (%) (Auto) 73.3 % Lymphocytes (%) (Auto) 18.9 % Monocytes (%) (Auto) 7.5 % Eosinophils (%) (Auto) 0.1 % Basophils (%) (Auto) 0.0 % Neutrophils # (Auto) 10.56 K/uL Lymphocytes # (Auto) 2.72 K/uL Monocytes # (Auto) 1.08 K/uL Eosinophils # (Auto) 0.01 K/uL Basophils # (Auto) 0.00 K/uL RDW Standard Deviation 46.0 fL RDW Coefficient of Variation 14.1 % Immature Granulocyte % (Auto) 0.2 % Immature Granulocyte # (Auto) 0.03 K/uL Red Blood Cell Morphology Unremarkable Sodium Level 144 mmol/L Potassium Level 4.4 mmol/L Chloride Level 108 mmol/L Carbon Dioxide Level 27 mmol/L Anion Gap 9.0 mmol/L Blood Urea Nitrogen 29 mg/dl Creatinine 1.20 mg/dl Est Creatinine Clear Calc Drug Dose 37.4 ml/min Estimated GFR () 48.7 Estimated GFR (Non- 42.1 BUN/Creatinine Ratio 24.3 Random Glucose 135 mg/dl Calcium Level 8.8 mg/dl Test 03/15/16 12:12 Bedside Glucose 144 mg/dl Assessment and Plan 80 yo F with PMHx HTN, DMII, who underwent a L1-L2 hemilaminectomy on 03/13/[address] Dee. Hospitalist service has been consulted for medical management. S/p L1-L2 hemilaminectomy - Analgesia per the primary team - Continue bowel regimen daily with narcotic use and pt hx of constipation. - PT/OT -pt is anticipating d/c with home health and PT services. Lives with her at home and cares for him. Currently has aides coming into their house every day. Acute blood loss and hemodilutional anemia - Hgb dropped to 8.6 from 10.0 from 14.6, however vitals fairly stable, no need for transfusion - follow CBC, transfuse for Hgb<7-8 HTN-stable - Cont lpta asa 81 mg, enalapril maleate 20 mg BID DMII-diet controlled at home - ISS with accuchecks ACHS - Here glucose initially running around 150 - 200, considering decadron inj prior to surg this is expected. Now improved - Can titrate sliding scale appropriately. -expect no meds upon return to home CKD stage III - Cr. baseline appears to be about 1.2-1.3, currently 1.2 - Encourage oral hydration -renally dose all meds -avoid nephrotoxins Depression/Anxiety - Cont wellbutrin SR 100 mg BID for depression and ativan 0.5 mg PO TID prn for anxiety Pulm nodules-seen on CT 10/2015 -due for repeat CT Chest 04/2016 DVT ppx: SCDs, OOB Disposition: to home, will ask CM to assist with home health services/PT upon discharge.
[2016-03-15 15:30] VITALS: BP 101/59; PULSE 71; TEMP 36.8; O2SAT 99
[2016-03-15 20:51] VITALS: BP 119/66; PULSE 70
[2016-03-15] MEDS: DOCUSATE SODIUM/SENNA 50/8.6MG TAB PO SCH (20:53)
[2016-03-15] MEDS: LORAZEPAM 0.5 MG TAB PO PRN (20:56)
[2016-03-15 23:39] VITALS: BP 102/56; PULSE 72; TEMP 36.7; O2SAT 98
[2016-03-16] MEDS: POLYETHYLENE (MIRALAX) 17 GM PACK PO SCH ×3 (00:55→12:00)
[2016-03-16] MEDS: OXYCODONE HCL IR 5 MG TAB (IMMEDIATE RELEASE) PO PRN ×2 (05:17→10:35)
[2016-03-16 07:18] VITALS: BP 113/65; PULSE 81; TEMP 36.6; O2SAT 97
[2016-03-16] MEDS: LORAZEPAM 0.5 MG TAB PO PRN (07:47)
--- NOTE | 2016-03-16 08:04 | Orthopedic Progress Note ---
Orthopedic Progress Note Date of Service Mar 16, 2016. Subjective Additional Notes: Doing well with PT, pain is controlled for the most part, medically stable. Objective calves soft nontender, N/V intact, capillary refill less than 2 sec., dressing C /D/I, A&O x3, toes mobile, hemovac drainage Date Time Temp Pulse Resp B/P Pulse Ox O2 Delivery O2 Flow Rate FiO2 03/16/16 07:25 Room Air 03/16/16 07:18 36.6 81 16 113/65 97 Room Air 03/15/16 23:39 36.7 72 18 102/56 98 Room Air 03/15/16 20:51 70 119/66 03/15/16 19:25 Room Air 03/15/16 15:30 36.8 71 16 101/59 99 Room Air 03/15/16 14:57 Room Air 03/15/16 08:28 150/53 Assessment & Plan Assessment: s/p L1-5 decomp/fusion Plan: Patient is cleared by PT, pain is controlled, ok for discharge home today Discharge Planning Discharge Planning: home with home health Pain Management: Oxy IR DVT Prophylaxis: SCDs Therapy: Physical Therapy, Occupational Therapy
[2016-03-16] MEDS: BuPROPion SR 100 MG TABCR PO SCH (08:31)
[2016-03-16] MEDS: ASPIRIN 81 MG ECTAB PO SCH (08:31)
[2016-03-16] MEDS: ENALAPRIL MALEATE 10 MG TAB PO SCH (08:31)
[2016-03-16] MEDS: INSULIN ASPART 100 UNITS/ML 3 ML PEN SC SCH (08:33)
[2016-03-16 08:35] VITALS: BP 113/65; PULSE 81; TEMP 36.6; O2SAT 97
[2016-03-17] MEDS ORDERED: MULTTAB52 PO (10:42)
[2016-03-17] MEDS ORDERED: WLLSR/100 PO (11:16)
[2016-03-17] MEDS ORDERED: CHOL100010 PO (11:17)
[2016-03-17] MEDS ORDERED: CYAN100020 PO (13:44)
[2016-03-17] MEDS ORDERED: ASPI81TA28 PO (13:44)
[2016-03-17] MEDS ORDERED: POLY335019 PO (16:08)
[2016-03-17] MEDS ORDERED: CLCC1250 PO (20:01)
[2016-03-17] MEDS ORDERED: ENAL10TA88 PO (20:01)
--- NOTE | 2016-03-25 11:05 | DISCHARGE SUMMARY ---
PRINCIPAL DIAGNOSES: Included, L1-L5 lumbar spinal stenosis, scoliosis and spondylolisthesis. POSTOPERATIVE DIAGNOSIS: Remained the same. PROCEDURE: L1-L5 decompression and instrumented fusion. SURGEON: Dr. Domenico Chavira. HISTORY OF PRESENT ILLNESS: Please refer to EMR. HOSPITAL COURSE: On 03/13/2016, Ms. Lopez was admitted to [facility] with the above diagnoses. She was taken to preoperative holding where she was identified and evaluated in clear surgical procedure. She was transported to the operating room, introduced to general endotracheal anesthesia, sterile conditions were set and she successfully underwent the above procedure without complication or issue. She was awakened in stable and satisfactory condition and transported to postoperative recovery. Here her vital signs and pain were monitored and managed. She remained medically stable with no complications to note. She was then taken to orthopedic floor for continued care throughout her stay. Pain was well managed. Vital signs and labs were routinely monitored and managed through physician directions. She participated in physical therapy with good noted progress. DVT and GI prophylactic measures were taken. Throughout her stay there were no complications or noted issues. She was evaluated on 03/16/2016 and indicated for return home. On this date, she was discharged from [facility]. DISPOSITION: Home. DISPOSITION CONDITION: Stable. NOTED COMPLICATIONS OR ISSUES: Zero. DISCHARGE INSTRUCTIONS: Please refer to EMR.
--- NOTE | 2016-03-25 14:52 | OPERATIVE REPORT ---
DATE OF OPERATION: 03/13/2016 PREOPERATIVE DIAGNOSES: Lumbar scoliosis, spondylolisthesis and spinal stenosis. POSTOPERATIVE DIAGNOSIS: Same. PROCEDURES: 1. Laminectomies of L2-3 with midline decompression L1-2 and L2-3 with foraminotomies L1-2 and L2-3. 2. Segmental pedicle screw instrumentation -- bilateral L1, L2, L3, L4 and L5 with K2M Columbia pedicle screws. 3. Posterolateral fusion L1-L5 -- bilateral with Infuse BMP on a collagen sponge, tricalcium phosphate, local bone, bone putty and bone marrow aspirate concentrated with Arteriocyte. 4. Right iliac crest bone marrow aspiration with stem cell concentration with Arteriocyte. SURGEON: Dr. Chavira. RECORDS COORDINATOR: OR staff. ANESTHESIA: General endotracheal anesthesia. COMPLICATIONS: None. ESTIMATED BLOOD LOSS: 300 mL. OPERATION AND FINDINGS: PROCEDURE: After identification of patient and operative level, she was brought to the OR where she underwent induction of general anesthesia. She was then positioned prone on Cheng OR table with all bony prominences well padded. Care was taken to avoid pressure on the periorbital area. Lumbosacral area was sterilely prepped and draped in usual fashion. Antibiotics were administered. Time-out was performed. Level was confirmed and skin incision was made after infiltration with Marcaine from spinous process of T12 to the sacrum. Posterior exposure was accomplished. Gelpi retractors were placed and level was confirmed with fluoroscopy and operative levels were marked. Areas of greatest stenosis were decompressed with midline decompression being accomplished by removing the spinous process and lamina of L2 and L3 and undercutting the L1 lamina. I then removed the medial facets at L2-L3 and L3-L4 to facilitate decompression. I completed decompression with Kerrisons, palpated the nerve roots were decompressed from L1 to L4 bilaterally. I then proceeded to place pedicle screws bilaterally at L1, L2, L3, L4 and L5 with K2M Columbia pedicle screws. I checked screw lengths, trajectory and position with fluoroscopy and then lowered the Rashaad frame to restore lordosis. I then applied rods and end caps with final tightening of all end CAPS and placement of a crosslink. Bone marrow aspirate was taken from the right iliac crest via separate stab incision with a Jamshidi needle and concentrated with Arteriocyte system applied to bone graft software solutions architect. I then decorticated the transverse process from L1-L5 bilaterally with a high speed bur as well as the remaining facets. I then irrigated with bacitracin solution and packed the lateral gutters with bone graft mixture from L1-L5 bilaterally. I then closed in layered fashion over LEXUS drain. All sponge and needle counts were correct at the end of the case. I attest to the content of the Intraoperative Record and any orders documented therein. Any exceptio ns are noted below.
== END 2016-03-16 12:45 | disposition home health service (06) | DRG 460 ==
LOC: ENRESERVDT → ENRESERVTM → C.ACU 10:44 → C.3E 12:30
PROVIDERS: ADMIT Orthopaedic Surgery Orthopaedic Surgery of the Spine; ATTEND Orthopaedic Surgery Orthopaedic Surgery of the Spine
PROC: 0SG10A1 (ICD-10-PCS; principal; 2016-03-13 12:15)
DX: M48.06 Spinal stenosis, lumbar region (principal); D62 Acute posthemorrhagic anemia; E78.5 Hyperlipidemia, unspecified; I12.9 Hypertensive chronic kidney disease with stage 1 through stage 4 chronic kidney disease, or unspecified chronic kidney disease; N18.3 Chronic kidney disease, stage 3 (moderate); E11.22 Type 2 diabetes mellitus with diabetic chronic kidney disease; I25.10 Atherosclerotic heart disease of native coronary artery without angina pectoris; F32.9 Major depressive disorder, single episode, unspecified; M43.16 Spondylolisthesis, lumbar region; F41.9 Anxiety disorder, unspecified

== ENCOUNTER 2016-03-17 08:50 | Emergency (ER) | payer OTHER ==
[~2016-03-17] VITALS: Ht 170.2 cm; Wt 80.0 kg
[~2016-03-17 08:50] MED LIST changes: -CEFAZOLIN 2000 MG/60 ML D5W IV SCH; -CYM/30 PO; -CeleBREX 200 MG CAP PO SCH; -LACTATED RINGER'S 1000ML 1,000 ML IV SCH; -LPT/40 PO; -METO25TA3 PO; -PREGABALIN 75 MG CAP PO SCH; +RXC5 PO; -TRAM-10 PO
[2016-03-17 09:04] VITALS: TEMP 37.6; Ht 170.2 cm; Wt 80.0 kg
[2016-03-17] MEDS ORDERED: SODIUM CHLORIDE 0.9% 1000ML 1,000 ML IV STA (09:11)
--- NOTE | 2016-03-17 09:20 | EMERGENCY ROOM VISIT NOTE ---
History Report prepared by Jose M: Suki Oquendo Under the Supervision of: Gerhard SouthO. First contact with patient: 09:01 Chief Complaint: BACK PAIN Stated Complaint: FALL/ BACK PAIN History of Present Illness The patient is an 80 year old female who presents to the Emergency Room with complaints of persistent back pain. The patient arrived at the emergency department via ambulance. The patient slid off of the bed and had low back pain. She did not have a significant fall but she is status post lumbar decompression. The patient was given fentanyl en route to the hospital. She also received Percocet at home. The patient describes low back pain. She also complains of shortness of breath. She denies any numbness or weakness in her legs however it sounds as though they had a very difficult time getting her off the floor and the family finally called the influence after she sat on the floor for approximate 5 hours. The patient appears somewhat confused and only answers questions intermittently. There is no other family members here at this time. History significantly limited secondary to intermittent alteration in mental status. I'm unsure if the patient is understanding my questions half of the time. I was alerted by the nursing staff that the patient has been having episodes of narrow complex tachycardia. On one instance when I was in the room she appeared to go into SVT. This broke spontaneously. Source of History: patient History Limited By: AMS Onset: today Position: back Timing: other (persistent) Review of Systems See HPI for pertinent positives & negatives. A total of 10 systems reviewed and were otherwise negative. 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 (2) Diabetes mellitus, type II (3) Dyslipidemia (4) Hypertension (5) Osteoarthritis (6) PMR (polymyalgia rheumatica) (7) Scoliosis (8) Temporal arteritis Surgical Problems: (1) H/O thumb surgery (2) H/O tubal ligation (3) History of arthroscopy of left shoulder (4) History of arthroscopy of right shoulder (5) History of cataract surgery (6) History of hysterectomy (7) S/P hip replacement (8) S/P knee replacement Family History Heart disease Hypertension Lung disease Social History Smoking Status: Never Smoker Alcohol Use: none Drug Use: none Marital Status: Housing Status: lives with significant other Current/Historical Medications Scheduled Aspirin (Aspirin Ec), 81 MG PO QAM Bupropion Hcl (Wellbutrin Sr), 100 MG PO BID Calcium Carbonate (Os-Calixto 500 *), 1 TAB PO BID Cholecalciferol (Vitamin D), 1,000 INTER.UNIT PO QAM Cyanocobalamin (Vitamin B12), 1 TAB PO QAM Enalapril (Vasotec), 20 MG PO BID Multiple Vitamins W/ Minerals (Cerovite Senior), 1 TAB PO QPM Scheduled PRN Lorazepam (Ativan), 0.5 MG PO TID PRN for Anxiety Oxycodone HCl (Oxycodone HCl), 5-10 MG PO Q4H PRN for Moderate - severe pain Polyethylene Glycol 3350 (Miralax), 17 GM PO DAILY PRN for PRN Allergies Coded Allergies: Propoxyphene (Verified Adverse Reaction, Intermediate, N/V, 03/17/16) Morphine (Verified Adverse Reaction, Unknown, SEVERE NAUSEA AND VOMITING, 03/17/16) Physical Exam Vital Signs Date Time Temp Pulse Resp B/P Pulse Ox O2 Delivery O2 Flow Rate FiO2 03/17/16 15:45 82 18 138/72 96 Room Air 03/17/16 14:55 83 18 140/75 100 Room Air 03/17/16 13:37 79 18 143/51 96 Room Air 03/17/16 13:09 85 03/17/16 12:03 84 18 140/60 100 Room Air 03/17/16 11:31 182 03/17/16 11:31 72 03/17/16 10:38 85 16 159/65 97 Room Air 03/17/16 09:26 78 03/17/16 09:25 162 03/17/16 09:04 37.6 106 20 115/61 97 Room Air 03/17/16 09:00 68 03/17/16 09:00 174 03/17/16 08:56 107 Physical Exam GENERAL: Patient is awake to verbal commands. She is very slow to answer questions. She appears listless. She follows commands intermittently. EYES: The conjunctivae are clear. The pupils are round and reactive. EARS, NOSE, MOUTH AND THROAT: The nose is without any evidence of any deformity. Mucous members are dry. NECK: The neck is nontender and supple. RESPIRATORY: Normal respiratory effort is noted there is no evidence of wheezing rhonchi or rales CARDIOVASCULAR: Regular rate and rhythm noted there no murmurs rubs or gallops normal S1 normal S2 GASTROINTESTINAL: The abdomen is soft. Bowel sounds are present in all quadrants. Abdomen is nontender BACK: Diffuse tenderness is noted. There is a wound dressing in place. There is no significant erythema noted. MUSCULOSKELETAL/EXTREMITIES: There is no evidence of gross deformity full range of motion is noted in the hips and shoulders SKIN: There is no obvious evidence of any rash. Trace pedal edema was noted bilaterally. NEUROLOGIC: Patient is awake to verbal stimuli. She is oriented to person but not place time or situation at this time. Strength is symmetric but diminished motor lower extremity's. Patellar tendon reflexes are 1 plus bilaterally. Medical Decision & Procedures ER Provider Diagnostic Interpretation: X ray results and stated below per my interpretation and radiology interpretation. Other radiology results per my review and radiologist interpretation: CHEST ONE VIEW PORTABLE CLINICAL HISTORY: fall trauma COMPARISON STUDY: 11/05/2015 FINDINGS: The bones soft tissues and hemidiaphragms are normal. The cardiomediastinal silhouette is normal. The lungs are clear. The pulmonary vasculature is normal. IMPRESSION: Negative chest. Electronically signed by: Molina Alicea M.D. 03/17/2016 9:51 AM Dictated Date/Time: 03/17/2016 9:[address] DOSE: 3148.84 mGy.cm HISTORY: Trauma. Pain. fall TECHNIQUE: Multiaxial CT images of the lumbar spine were performed and reformatted in the sagittal and coronal plane without the use of contrast. COMPARISON: 08/29/2015 FINDINGS: Interval posterior laminectomy and fusion from L1 through L5. Hardware appears to be intact. Degenerative intervertebral disc change is stable. There are no new or interval findings of that noted. No evidence for compression deformity. IMPRESSION: Postoperative and degenerative change. No acute bony abnormality. Electronically signed by: Molina Alicea M.D. 03/17/2016 10:41 AM Dictated Date/Time: 03/17/2016 10:[address] CT DOSE: HISTORY: Trauma. Pain. fall TECHNIQUE: Multiaxial CT images of the head were performed without the use of intravenous contrast. Comparison: 08/04/2015 Findings: The paranasal sinuses and mastoid air cells are clear. The calvarium and skull base are intact. The ventricles and sulci are within normal limits. There is no mass, hematoma, midline shift, or acute infarct. Impression: No acute intracranial abnormality. Electronically signed by: Molina Alicea M.D. 03/17/2016 10:34 AM Dictated Date/Time: 03/17/2016 10:[address] DOSE: HISTORY: Trauma. Pain. fall TECHNIQUE: Multiaxial CT images of the cervical spine were performed and reformatted in the sagittal and coronal plane without the use of contrast. COMPARISON: 08/04/2015 FINDINGS: No fractures. No subluxation. Prevertebral soft tissues and the C1-C2 interval are intact. No pneumothorax. Old mild wedge deformity superior endplates of C6, C7, T1, and T2. These are unchanged from the prior study. Moderate degenerative changes noted throughout. IMPRESSION: Degenerative and chronic changes throughout. No acute process. Electronically signed by: Molina Alicea M.D. 03/17/2016 10:38 AM Dictated Date/Time: 03/17/2016 10:35 AM The status of this report is Signed. Laboratory Results 03/17/16 09:35 Red Blood Count 3.55, Mean Corpuscular Volume 88.7, Mean Corpuscular Hemoglobin 30.1, Mean Corpuscular Hemoglobin Concent 34.0, Mean Platelet Volume 10.6, Neutrophils (%) (Auto) 80.0, Lymphocytes (%) (Auto) 10.8, Monocytes (%) (Auto) 8.7, Eosinophils (%) (Auto) 0.1, Basophils (%) (Auto) 0.1, Neutrophils # (Auto) 13.22, Lymphocytes # (Auto) 1.79, Monocytes # (Auto) 1.44, Eosinophils # (Auto) 0.01, Basophils # (Auto) 0.02 03/17/16 09:35 Test 03/17/16 09:25 03/17/16 09:35 Urine Color YELLOW Urine Appearance CLEAR (CLEAR) Urine pH >= 9.0 (4.5-7.5) Urine Specific Sarver 1.018 (1.000-1.030) Urine Protein NEG (NEG) Urine Glucose (UA) NEG (NEG) Urine Ketones 1+ (NEG) Urine Occult Blood NEG (NEG) Urine Nitrite NEG (NEG) Urine Bilirubin NEG (NEG) Urine Urobilinogen NEG (NEG) Urine Leukocyte Esterase TRACE (NEG) Urine WBC (Auto) 1-5 /hpf (0-5) Urine RBC (Auto) 0-4 /hpf (0-4) Urine Hyaline Casts (Auto) 1-5 /lpf (0-5) Urine Epithelial Cells (Auto) >30 /lpf (0-5) Urine Bacteria (Auto) NEG (NEG) White Blood Count 16.53 K/uL (4.8-10.8) Red Blood Count 3.55 M/uL (4.2-5.4) Hemoglobin 10.7 g/dL (12.0-16.0) Hematocrit 31.5 % (37-47) Mean Corpuscular Volume 88.7 fL (80-100) Mean Corpuscular Hemoglobin 30.1 pg (25-34) Mean Corpuscular Hemoglobin Concent 34.0 g/dl (32-36) Platelet Count 306 K/uL (130-400) Mean Platelet Volume 10.6 fL (7.4-10.4) Neutrophils (%) (Auto) 80.0 % Lymphocytes (%) (Auto) 10.8 % Monocytes (%) (Auto) 8.7 % Eosinophils (%) (Auto) 0.1 % Basophils (%) (Auto) 0.1 % Neutrophils # (Auto) 13.22 K/uL (1.4-6.5) Lymphocytes # (Auto) 1.79 K/uL (1.2-3.4) Monocytes # (Auto) 1.44 K/uL (0.11-0.59) Eosinophils # (Auto) 0.01 K/uL (0-0.5) Basophils # (Auto) 0.02 K/uL (0-0.2) RDW Standard Deviation 45.0 fL (36.4-46.3) RDW Coefficient of Variation 13.7 % (11.5-14.5) Immature Granulocyte % (Auto) 0.3 % Immature Granulocyte # (Auto) 0.05 K/uL (0.00-0.02) Prothrombin Time 10.5 SECONDS (9.0-12.0) Prothromb Time International Ratio 1.0 (0.9-1.1) Activated Partial Thromboplast Time 25.4 SECONDS (21.0-31.0) Partial Thromboplastin Ratio 1.0 Anion Gap 11.0 mmol/L (3-11) Est Creatinine Clear Calc Drug Dose 47.2 ml/min Estimated GFR () 60.8 Estimated GFR (Non- 52.4 BUN/Creatinine Ratio 19.5 (10-20) Calcium Level 9.2 mg/dl (8.5-10.1) Magnesium Level 1.9 mg/dl (1.8-2.4) Total Bilirubin 1.0 mg/dl (0.2-1) Direct Bilirubin 0.2 mg/dl (0-0.2) Aspartate Amino Transf (AST/SGOT) 16 U/L (15-37) Alanine Aminotransferase (ALT/SGPT) 12 U/L (12-78) Alkaline Phosphatase 83 U/L (45-117) Total Creatine Kinase 172 U/L (26-192) Creatine Kinase MB < 0.5 ng/ml (0.5-3.6) Creatine Kinase MB Ratio (0-3.0) Troponin I < 0.015 ng/ml (0-0.045) Total Protein 7.6 gm/dl (6.4-8.2) Albumin 3.0 gm/dl (3.4-5.0) Lipase 55 U/L (73-393) Thyroid Stimulating Hormone (TSH) 1.290 uIu/ml (0.300-4.500) Free Thyroxine 1.64 ng/dl (0.80-1.60) Laboratory results per my review. Medications Administered Medications (Trade) Dose Ordered Sig/Eve Route Start Time Stop Time Status Last Admin Dose Admin Sodium Chloride (Nss 1000ml) 1,000 ml @ 999 mls/hr Q1H1M STAT IV 03/17/16 09:11 03/17/16 10:11 DC 03/17/16 09:11 999 MLS/HR Fentanyl Citrate (Fentanyl Inj) 25 mcg NOW STAT IV 03/17/16 14:05 03/17/16 14:06 DC 03/17/16 14:57 25 MCG ECG Indication: altered mental status Rate (beats per minute): 81 Rhythm: normal sinus Findings: no acute ischemic change, no ectopy Change: no significant change (11/06/2015) ED Course 0901: The patient was evaluated in room B3B. A complete history and physical examination were performed. 0911: Ordered Sodium Chloride 1000 ml @ 999 mls/hr IV. 1059: I reevaluated the patient and she is resting comfortably. I discussed the exam findings with her and I discussed the treatment plan. She verbalized complete understanding and agreement. We are waiting for a call back from orthopedics. 1123: I discussed the patients case with Zach Singerspine. He reviewed the scans and does not feel that there are any new compromises. 1402: The patient has been accepted at [facility] for further evaluation and treatment. She will be transferred there shortly. 1405: Ordered Fentanyl Inj 25 mcg IV. Medical Decision Prior records/ancillary studies reviewed and summarized above. Nursing notes reviewed. The patient's history was concerning for altered mental status. Differential diagnosis: Etiologies such as metabolic, infection, hypoglycemia, electrolyte abnormalities , cardiac sources, intracerebral event, toxicologic, neurologic, as well as others were entertained. The patient is an 80-year-old female who presented to the emergency department for an evaluation of back pain. The patient had recent lumbar decompression surgery. She had a fall where she slid out of bed early this morning. Her family members were unable to get her back into bed. The ambulance was called this morning and the patient was brought to the emergency department for evaluation. I discussed patient's laboratory and radiographic studies with her. She was treated with pain medication at home as well as prior to arrival. Her mental status was somewhat confused upon arrival. I have a feeling this is secondary to the patient's recent pain medication use could longer she was evaluated in the emergency department she started to be much more awake alert and oriented times 3. I discussed the patient's laboratory and radiographic studies with her. She also had a few episodes of SVT while she was in the emergency department. These were nonsustained. After she was treated with IV fluids this seemed to resolve. I discussed his case with the patient's primary orthopedic surgeon. Initial attempts were made to send the patient to inpatient rehabilitation after surgery but she refused to do this. When I discussed this with her she agreed that she would probably need inpatient rehabilitation management after what happened this morning. I discussed his case with the emergency Department showcase maker and they were able to refer the patient for inpatient rehabilitation. The patient was transferred to rehabilitation for further management. Transfer paperwork was filled out by myself. Consults Time Called: 1049 Consulting Physician: Alejandra Singer-spine Returned Call: [phone] I discussed the patients case with Zach Singerspine. He reviewed the scans and does not feel that there are any new compromises. Impression Primary Impression: Low back pain Additional Impressions: Weakness recent lumbar spine surgery SVT (supraventricular tachycardia) Scribe Attestation The scribe's documentation has been prepared under my direction and personally reviewed by me in its entirety. I confirm that the note above accurately reflects all work, treatment, procedures, and medical decision making performed by me. Departure Information Dispostion Rehab Inpatient Facility Referrals Dedrick Restrepo III, M.D. (PCP) Problem Qualifiers
[2016-03-17 09:44] LABS: URINE APPEARANCE CLEAR (CLEAR); URINE BILIRUBIN NEG (NEG); URINE COLOR YELLOW; URINE EPITHELIAL CELL AUTO >30 /lpf (0-5); URINE NITRITE NEG (NEG); URINE PH >= 9.0 (4.5-7.5); URINE SPECIFIC GRAVITY 1.018 (1.000-1.030); UROBILINOGEN NEG (NEG); ZZURINE CULT IF INDIC CATH NO
[2016-03-17 09:49] LABS: MANUAL MICROSCOPIC REQUIRED? NO; REVIEW REQ? NO; SULFASALICYLIC ACID NEG (NEG)
--- NOTE | 2016-03-17 09:52 | DIAGNOSTIC IMAGING REPORT ---
CHEST ONE VIEW PORTABLE CLINICAL HISTORY: fall trauma COMPARISON STUDY: 11/05/2015 FINDINGS: The bones soft tissues and hemidiaphragms are normal. The cardiomediastinal silhouette is normal. The lungs are clear. The pulmonary vasculature is normal. IMPRESSION: Negative chest. Electronically signed by: Molina Alicea M.D. 03/17/2016 9:51 AM Dictated Date/Time: 03/17/2016 9:50 AM
[2016-03-17 10:07] LABS: BASO % 0.1 %; BASO ABS # 0.02 K/uL (0-0.2); COMPLETE YES; EOS % 0.1 %; HEMATOCRIT 31.5 % (37-47); IG% 0.3 %; LYMPH % 10.8 %; LYMPH ABS # 1.79 K/uL (1.2-3.4); MEAN CELL VOLUME 88.7 fL (80-100); MEAN CORPUSCULAR HEMOGLOBIN 30.1 pg (25-34); MEAN PLATELET VOLUME 10.6 fL (7.4-10.4); MONO % 8.7 %; PLATELET COUNT 306 K/uL (130-400); RED BLOOD COUNT 3.55 M/uL (4.2-5.4); WHITE BLOOD COUNT 16.53 K/uL (4.8-10.8)
[2016-03-17 10:14] LABS: PROTHROMBIN TIME (PATIENT) 10.5 SECONDS (9.0-12.0)
[2016-03-17 10:30] LABS: ALT/SGPT 12 U/L (12-78); BLOOD UREA NITROGEN 20 mg/dl (7-18); BUN/CREATININE RATIO 19.5 (10-20); CALCIUM 9.2 mg/dl (8.5-10.1); CARBON DIOXIDE 24 mmol/L (21-32); CHLORIDE 101 mmol/L (98-107); GLUCOSE 163 mg/dl (70-99); POTASSIUM 3.6 mmol/L (3.5-5.1); SODIUM 136 mmol/L (136-145)
[2016-03-17 10:34] LABS: ALKALINE PHOSPHATASE 83 U/L (45-117); AST/SGOT 16 U/L (15-37)
--- NOTE | 2016-03-17 10:35 | DIAGNOSTIC IMAGING REPORT ---
HEAD CT NONCONTRAST CT DOSE: HISTORY: Trauma. Pain. fall TECHNIQUE: Multiaxial CT images of the head were performed without the use of intravenous contrast. Comparison: 08/04/2015 Findings: The paranasal sinuses and mastoid air cells are clear. The calvarium and skull base are intact. The ventricles and sulci are within normal limits. There is no mass, hematoma, midline shift, or acute infarct. Impression: No acute intracranial abnormality. Electronically signed by: Molina Alicea M.D. 03/17/2016 10:34 AM Dictated Date/Time: 03/17/2016 10:31 AM
--- NOTE | 2016-03-17 10:39 | DIAGNOSTIC IMAGING REPORT ---
CERVICAL SPINE CT CT DOSE: HISTORY: Trauma. Pain. fall TECHNIQUE: Multiaxial CT images of the cervical spine were performed and reformatted in the sagittal and coronal plane without the use of contrast. COMPARISON: 08/04/2015 FINDINGS: No fractures. No subluxation. Prevertebral soft tissues and the C1-C2 interval are intact. No pneumothorax. Old mild wedge deformity superior endplates of C6, C7, T1, and T2. These are unchanged from the prior study. Moderate degenerative changes noted throughout. IMPRESSION: Degenerative and chronic changes throughout. No acute process. Electronically signed by: Molina Alicea M.D. 03/17/2016 10:38 AM Dictated Date/Time: 03/17/2016 10:35 AM
[2016-03-17] MEDS ORDERED: MULTTAB52 PO (10:42)
--- NOTE | 2016-03-17 10:42 | DIAGNOSTIC IMAGING REPORT ---
LUMBAR SPINE CT CT DOSE: 3148.84 mGy.cm HISTORY: Trauma. Pain. fall TECHNIQUE: Multiaxial CT images of the lumbar spine were performed and reformatted in the sagittal and coronal plane without the use of contrast. COMPARISON: 08/29/2015 FINDINGS: Interval posterior laminectomy and fusion from L1 through L5. Hardware appears to be intact. Degenerative intervertebral disc change is stable. There are no new or interval findings of that noted. No evidence for compression deformity. IMPRESSION: Postoperative and degenerative change. No acute bony abnormality. Electronically signed by: Molina Alicea M.D. 03/17/2016 10:41 AM Dictated Date/Time: 03/17/2016 10:38 AM
[2016-03-17 10:44] LABS: MAGNESIUM 1.9 mg/dl (1.8-2.4); THYROID STIMULATING HORMONE 1.29 uIu/ml (0.300-4.500)
[2016-03-17] MEDS ORDERED: WLLSR/100 PO (11:16)
[2016-03-17] MEDS ORDERED: CHOL100010 PO (11:17)
[2016-03-17] MEDS ORDERED: CYAN100020 PO (13:44)
[2016-03-17] MEDS ORDERED: ASPI81TA28 PO (13:44)
[2016-03-17] MEDS ORDERED: FENTANYL CITRATE INJ 50 MCG/1 ML 2 ML VIAL IV STA (14:05)
[2016-03-17 15:45] VITALS: BP 138/72; PULSE 82; O2SAT 96
[2016-03-17] MEDS ORDERED: POLY335019 PO (16:08)
[2016-03-17] MEDS ORDERED: CLCC1250 PO (20:01)
[2016-03-17] MEDS ORDERED: ENAL10TA88 PO (20:01)
== END 2016-03-17 16:02 ==
LOC: EDBD 08:50 → C.EDB 08:51
DX: M54.5 Low back pain (principal); R53.1 Weakness; I47.1 Supraventricular tachycardia; R06.02 Shortness of breath; R41.82 Altered mental status, unspecified; E11.9 Type 2 diabetes mellitus without complications; E78.5 Hyperlipidemia, unspecified; I10 Essential (primary) hypertension; M35.3 Polymyalgia rheumatica; M19.90 Unspecified osteoarthritis, unspecified site; Z79.82 Long term (current) use of aspirin; Z79.899 Other long term (current) drug therapy; Z98.890 Other specified postprocedural states; Z88.5 Allergy status to narcotic agent; Z88.8 Allergy status to other drugs, medicaments and biological substances; Z82.49 Family history of ischemic heart disease and other diseases of the circulatory system; Z83.6 Family history of other diseases of the respiratory system; W06.XXXA Fall from bed, initial encounter; Y92.003 Bedroom of unspecified non-institutional (private) residence as the place of occurrence of the external cause

== ENCOUNTER 2017-07-03 21:14 | Emergency (ER) | payer OTHER ==
[~2017-07-03] VITALS: Ht 167.6 cm; Wt 84.0 kg
[~2017-07-03 21:14] MED LIST changes: +ASPI81TA28 PO; +CHOL100010 PO; +CLCC1250 PO; +CYAN100020 PO; +ENAL10TA88 PO; +MULTTAB52 PO; +POLY335019 PO; +WLLSR/100 PO
[2017-07-03 21:18] VITALS: TEMP 36.5; Ht 167.6 cm; Wt 84.0 kg
[2017-07-03] MEDS ORDERED: SODIUM CHLORIDE 0.9% 1000ML 1,000 ML IV STA (21:34)
[2017-07-03] MEDS ORDERED: OPTIRAY 320 IV PRN (21:45)
[2017-07-03 22:02] LABS: ISTAT CREATININE 1.3 mg/dl (0.6-1.3); ISTAT IONIZED CALCIUM 1.22 mmol/l (1.12-1.32); ISTAT POTASSIUM 3.9 mEq/L (3.3-5.0)
[2017-07-03 22:07] LABS: BASO % 0.2 %; BASO ABS # 0.02 K/uL (0-0.2); EOS % 1.4 %; EOS ABS # 0.15 K/uL (0-0.5); HEMATOCRIT 39.6 % (37-47); HEMOGLOBIN 13.8 g/dL (12.0-16.0); IG# 0.04 K/uL (0.00-0.02); LYMPH % 31.6 %; LYMPH ABS # 3.31 K/uL (1.2-3.4); MEAN CELL VOLUME 89.2 fL (80-100); MEAN CORPUSCULAR HEMOGLOBIN 31.1 pg (25-34); MEAN CORPUSCULAR HGB CONC 34.8 g/dl (32-36); MEAN PLATELET VOLUME 10.1 fL (7.4-10.4); MONO % 9.6 %; MONO ABS # 1.01 K/uL (0.11-0.59); NEUT % 56.8 %; NEUT ABS # 5.96 K/uL (1.4-6.5); PLATELET COUNT 268 K/uL (130-400); RED CELL DISTRIBUTION WIDTH CV 14.2 % (11.5-14.5); RED CELL DISTRIBUTION WIDTH SD 46.8 fL (36.4-46.3); WHITE BLOOD COUNT 10.49 K/uL (4.8-10.8)
--- NOTE | 2017-07-03 22:20 | DIAGNOSTIC IMAGING REPORT ---
CHEST ONE VIEW PORTABLE CLINICAL HISTORY: EVALUATE FOR TRAUMA/INJURY COMPARISON STUDY: Chest radiograph March 17, 2016. FINDINGS: Linear left lower lung opacity suggests atelectasis. There is no consolidation or evidence for pulmonary edema. No pneumothorax or pleural effusion is noted. Cardiomediastinal silhouette is unremarkable. IMPRESSION: No acute cardiopulmonary findings. Electronically signed by: Kiran Lyle M.D. 07/03/2017 10:19 PM Dictated Date/Time: 07/03/2017 10:17 PM
[2017-07-03] MEDS ORDERED: ROSU5TAB PO (22:22)
[2017-07-03] MEDS ORDERED: PRED-301 PO (22:22)
[2017-07-03] MEDS ORDERED: CALC12502 PO (22:22)
[2017-07-03] MEDS ORDERED: PRD/1 PO (22:22)
[2017-07-03] MEDS ORDERED: BUPR150T7 PO (22:22)
[2017-07-03] MEDS ORDERED: TRAM-10 PO (22:22)
[2017-07-03 22:29] LABS: ALBUMIN 3.6 gm/dl (3.4-5.0); CALCIUM 9.8 mg/dl (8.5-10.1); TOTAL PROTEIN 7.5 gm/dl (6.4-8.2)
--- NOTE | 2017-07-03 22:32 | DIAGNOSTIC IMAGING REPORT ---
L HUMERUS MIN 2 VIEWS ROUTINE CLINICAL HISTORY: Left arm pain following fall. COMPARISON: Left elbow radiograph November 04, 2015. FINDINGS: No acute fracture of the left humerus is identified. Degenerative changes of the left shoulder and elbow are noted. The anterior fat pad of the left elbow is prominent and the posterior fat pad may be visualized. This raises the possibility of an occult left elbow fracture. IMPRESSION: 1. No definite acute fracture of the left humerus. 2. Possible left elbow joint effusion which raises the possibility of an occult intra-articular fracture. Electronically signed by: Kiran Lyle M.D. 07/03/2017 10:30 PM Dictated Date/Time: 07/03/2017 10:28 PM
[2017-07-03 22:33] VITALS: O2SAT 98
[2017-07-03] MEDS ORDERED: MoRPHine SULFATE 4 MG/ML 1 ML CARP\\VIAL IV STA (22:36)
--- NOTE | 2017-07-03 22:37 | DIAGNOSTIC IMAGING REPORT ---
L FOREARM 2 VIEWS ROUTINE CLINICAL HISTORY: Left arm and wrist pain following fall. COMPARISON: Left elbow radiographs November 04, 2015. FINDINGS: No acute fracture of the left radius or ulna is identified. Prominence of the anterior fat pad of the left elbow. Degenerative changes of the left wrist and elbow are noted. IMPRESSION: No acute fracture of the left radius or ulna identified. However, prominence of the anterior fat pad of the left elbow raises the possibility of an occult intra-articular fracture. Electronically signed by: Kiran Lyle M.D. 07/03/2017 10:36 PM Dictated Date/Time: 07/03/2017 10:31 PM
--- NOTE | 2017-07-03 22:40 | DIAGNOSTIC IMAGING REPORT ---
L HAND MIN 3 VIEWS ROUTINE CLINICAL HISTORY: FALL COMPARISON: None FINDINGS: No acute fracture within the left hand is identified. Chondrocalcinosis within the left wrist is noted. There is severe arthritis within multiple articulations of the left hand. There is dorsal left wrist soft tissue swelling. IMPRESSION: 1. No acute fracture or dislocation within the left hand. 2. Dorsal left wrist soft tissue swelling. No definite fracture identified although sensitivity for detection of distal left radial fractures is diminished given extensive chondrocalcinosis. 3. 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 Electronically signed by: Kiran Lyle M.D. 07/03/2017 10:39 PM Dictated Date/Time: 07/03/2017 10:36 PM
--- NOTE | 2017-07-03 22:49 | DIAGNOSTIC IMAGING REPORT ---
CT OF THE HEAD WITHOUT CONTRAST CLINICAL HISTORY: EVALUATE FOR TRAUMA/INJURY COMPARISON STUDY: Head CT March 27, 2016. CT DOSE: 3143.68 mGy.cm TECHNIQUE: Helical axial images of the head were obtained without IV contrast. Automated exposure control was utilized for the study. A dose lowering technique was utilized adhering to the principles of ALARA. FINDINGS: No acute intracranial hemorrhage, midline shift or mass effect is present. Ventricular system is stable. Basilar cisterns are patent. There are no extra-axial collections. There is no calvarial fracture. Note is made of small right temporal and frontal scalp contusions. There is mild mucosal thickening of the sinuses. Mastoid air cells are clear. IMPRESSION: 1. No acute intracranial findings. 2. Small frontal and right temporal scalp contusions. No calvarial fracture. Electronically signed by: Kiran Lyle M.D. 07/03/2017 10:47 PM Dictated Date/Time: 07/03/2017 10:45 PM
--- NOTE | 2017-07-03 22:52 | DIAGNOSTIC IMAGING REPORT ---
MAXILLOFACIAL CT WITHOUT CONTRAST CLINICAL HISTORY: EVALUATE FOR TRAUMA/INJURY COMPARISON STUDY: Head CT March 27, 2016. TECHNIQUE: A maxillofacial CT was performed without IV contrast. Coronal and sagittal reformats were viewed. A dose lowering technique was utilized adhering to the principles of ALARA. FINDINGS: Right temporal scalp contusion is noted. Globes are intact. There is no retrobulbar hematoma. There is no acute facial fracture. Cervical spine CT will be reported separately. There is moderate mucosal thickening of the ethmoid sinuses. Alignment of the temporomandibular joints is anatomic. The orbital floors are intact. IMPRESSION: No acute facial fracture. Electronically signed by: Kiran Lyle M.D. 07/03/2017 10:50 PM Dictated Date/Time: 07/03/2017 10:48 PM
[2017-07-03 22:53] LABS: CREATININE 1.34 mg/dl (0.60-1.20)
[2017-07-03] MEDS ORDERED: ONDANSETRON INJ 2 MG/ML 2 ML VIAL ONE (22:55)
--- NOTE | 2017-07-03 23:13 | DIAGNOSTIC IMAGING REPORT ---
CT OF THE CERVICAL SPINE WITHOUT CONTRAST CLINICAL HISTORY: EVALUATE FOR TRAUMA/INJURY COMPARISON STUDY: Cervical spine CT March 17, 2016. TECHNIQUE: Helical axial images of the cervical spine were obtained without IV contrast. Sagittal and coronal reconstructions were viewed. A dose lowering technique was utilized adhering to the principles of ALARA. FINDINGS: Alignment of the cervical spine is anatomic with the exception of mild anterolisthesis of C5 on C6 which is unchanged. There is no fracture. Moderate multilevel degenerative disc disease and facet arthrosis is present. There is no prevertebral edema. The chest CT will be reported separately. IMPRESSION: No acute cervical spine fracture or subluxation. Electronically signed by: Kiran Lyle M.D. 07/03/2017 11:12 PM Dictated Date/Time: 07/03/2017 11:09 PM
--- NOTE | 2017-07-03 23:22 | DIAGNOSTIC IMAGING REPORT ---
CT OF THE CHEST WITH IV CONTRAST CLINICAL HISTORY: Trauma. COMPARISON STUDY: Chest CT November 04, 2015 and chest radiograph performed earlier today. TECHNIQUE: Following IV administration of 116 mL of Optiray-320, helical axial images of the chest were obtained. Sagittal and coronal reconstructions were viewed as well as maximal intensity projections on an independent 3-D workstation. A dose lowering technique was utilized adhering to the principles of ALARA. FINDINGS: There is no evidence of traumatic injury to the thoracic aorta. The size the heart is at the upper limits of normal. There is moderate coronary artery calcification. No enlarged thoracic lymph nodes are present. There is no pneumothorax or pulmonary contusion. No acute rib or thoracic spine fracture is identified. The CT of the abdomen and pelvis will be reported separate. There are old left-sided rib fractures. IMPRESSION: No acute traumatic findings within the chest. Electronically signed by: Kiran Lyle M.D. 07/03/2017 11:21 PM Dictated Date/Time: 07/03/2017 11:12 PM
--- NOTE | 2017-07-03 23:28 | DIAGNOSTIC IMAGING REPORT ---
CT OF THE ABDOMEN AND PELVIS WITH CONTRAST CLINICAL HISTORY: fall down 12 steps COMPARISON STUDY: CT of the abdomen and pelvis November 04, 2015. TECHNIQUE: Following IV administration of 116 mL of Optiray-320, axial images of the abdomen and pelvis were obtained from the lung bases to the proximal femurs. Images were reviewed in the axial, sagittal, and coronal planes. IV contrast was administered without complication. A dose lowering technique was utilized adhering to the principles of ALARA. FINDINGS: There is no hemoperitoneum or pneumoperitoneum. The chest will be reported separately. There is no evidence for traumatic injury to the liver, spleen, adrenal glands, kidneys or pancreas. Caliber and wall thickness of small and large bowel are normal. There are postoperative findings within the spine as well as bilateral total hip resurfacing. Streak artifact from hardware compromises this exam but no acute traumatic findings are identified. There is no free fluid. No acute pelvic fractures identified. Sacroiliac joints are intact. IMPRESSION: No acute traumatic findings within the abdomen or pelvis. Electronically signed by: Kiran Lyle M.D. 07/03/2017 11:27 PM Dictated Date/Time: 07/03/2017 11:21 PM
--- NOTE | 2017-07-03 23:48 | EMERGENCY ROOM VISIT NOTE ---
History Report prepared by Brianibbenson: Carole Kidd Under the Supervision of: Dr. Doyle Burroughs D.O. First contact with patient: 21:22 Chief Complaint: FALL Stated Complaint: FELL DOWN 12 STEPS, LUMP ON HEAD, WRIST,BLEEDING History of Present Illness The patient is an 82 year old female who presents to the Emergency Room with complaints of a fall that occurred prior to arrival. She states she missed a step and lost her balance, falling down 12 steps. She did hit her head but denies any loss of consciousness. She does take a daily Aspirin. She denies any hip or leg pain. She sustained skin tears to her left wrist and elbow as well as an abrasion to the right knee and left lower zaragoza. She complains of a headache, but states "it's not that bad". Pt denies change in vision, fevers, chest pain, shortness of breath, nausea, vomiting, diarrhea, pain with urination , and melena. 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 A total of 10 systems reviewed and were otherwise negative. 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 (2) Diabetes mellitus, type II (3) Dyslipidemia (4) Hypertension (5) Osteoarthritis (6) PMR (polymyalgia rheumatica) (7) Scoliosis (8) Temporal arteritis Surgical Problems: (1) H/O thumb surgery (2) H/O tubal ligation (3) History of arthroscopy of left shoulder (4) History of arthroscopy of right shoulder (5) History of cataract surgery (6) History of hysterectomy (7) S/P hip replacement (8) S/P knee replacement Family History Heart disease Hypertension Lung disease Social History Smoking Status: Never Smoker Alcohol Use: none Drug Use: none Marital Status: Housing Status: lives with significant other Occupation Status: retired Current/Historical Medications Scheduled Aspirin (Aspirin Ec), 81 MG PO QAM Bupropion Hcl (Wellbutrin Sr), 150 MG PO BID Calcium Carbonate (Os-Calixto 500), 500 MG PO QAM Cyanocobalamin (Vitamin B12), 1 TAB PO QAM Enalapril (Vasotec), 20 MG PO BID Polyethylene Glycol 3350 (Miralax), 17 GM PO DAILY Prednisone (Prednisone), 1 MG PO DAILY Prednisone (Prednisone), 5 MG PO DAILY Rosuvastatin Calcium (Crestor), 5 MG PO DAILY Tramadol (Ultram), 100 MG PO BID Scheduled PRN Lorazepam (Ativan), 0.5 MG PO BID PRN for Anxiety Allergies Coded Allergies: Morphine (Verified Adverse Reaction, Severe, SEVERE NAUSEA AND VOMITING, ) Propoxyphene (Verified Adverse Reaction, Intermediate, N/V, 03/17/16) Physical Exam Vital Signs Date Time Temp Pulse Resp B/P (MAP) Pulse Ox O2 Delivery O2 Flow Rate FiO2 07/03/17 22:42 81 07/03/17 22:33 98 Room Air 07/03/17 22:33 68 18 147/67 98 Room Air 07/03/17 21:18 36.5 81 20 145/77 98 Room Air Physical Exam GENERAL: alert, well appearing, well nourished, no distress, non-toxic HEAD: normal cephalic, atraumatic EYE EXAM: normal conjunctiva, PERRL and EOM's grossly intact OROPHARYNX: no exudate, no erythema, lips, buccal mucosa, and tongue normal and mucous membranes are moist EARS: TMs clear b/l NECK: supple, no nuchal rigidity, no adenopathy, non-tender CHEST: stable to compression anteriorly and posteriorly LUNGS: clear to auscultation. Normal chest wall mechanics HEART: no murmurs, S1 normal and S2 normal ABDOMEN: abdomen soft, non-tender, normo-active bowel sounds, no masses, no rebound or guarding. PELVIS: stable to compression anteriorly and posteriorly BACK: Back is symmetrical on inspection and there is no deformity, no midline tenderness, no CVA tenderness. UPPER EXTREMITIES: full active and passive range of motion of all joints without tenderness to palpation, abrasion and contusion to medial aspect of right elbow, small contusion/abrasion to dorsal aspect of the left thumb, skin tear to dorsal aspect of left wrist and elbow LOWER EXTREMITIES: full active and passive range of motion of all joints without tenderness to palpation, scrapes to bilateral legs NEURO EXAM: Normal sensorium, cranial nerves II-XII grossly intact, normal speech, no gross weakness of arms, no gross weakness of legs. GCS: 15. Medical Decision & Procedures ER Provider Diagnostic Interpretation: Radiology results as stated below per my review and the radiologist's interpretation: CHEST ONE VIEW PORTABLE CLINICAL HISTORY: EVALUATE FOR TRAUMA/INJURY COMPARISON STUDY: Chest radiograph March 17, 2016. FINDINGS: Linear left lower lung opacity suggests atelectasis. There is no consolidation or evidence for pulmonary edema. No pneumothorax or pleural effusion is noted. Cardiomediastinal silhouette is unremarkable. IMPRESSION: No acute cardiopulmonary findings. Electronically signed by: Kiran Lyle M.D. 07/03/2017 10:19 PM L HAND MIN 3 VIEWS ROUTINE CLINICAL HISTORY: FALL COMPARISON: None FINDINGS: No acute fracture within the left hand is identified. Chondrocalcinosis within the left wrist is noted. There is severe arthritis within multiple articulations of the left hand. There is dorsal left wrist soft tissue swelling. IMPRESSION: 1. No acute fracture or dislocation within the left hand. 2. Dorsal left wrist soft tissue swelling. No definite fracture identified although sensitivity for detection of distal left radial fractures is diminished given extensive chondrocalcinosis. 3. 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 Electronically signed by: Kiran Lyle M.D. 07/03/2017 10:39 PM L FOREARM 2 VIEWS ROUTINE CLINICAL HISTORY: Left arm and wrist pain following fall. COMPARISON: Left elbow radiographs November 04, 2015. FINDINGS: No acute fracture of the left radius or ulna is identified. Prominence of the anterior fat pad of the left elbow. Degenerative changes of the left wrist and elbow are noted. IMPRESSION: No acute fracture of the left radius or ulna identified. However, prominence of the anterior fat pad of the left elbow raises the possibility of an occult intra-articular fracture. Electronically signed by: Kiran Lyle M.D. 07/03/2017 10:[address] OF THE HEAD WITHOUT CONTRAST CLINICAL HISTORY: EVALUATE FOR TRAUMA/INJURY COMPARISON STUDY: Head CT March 27, 2016. CT DOSE: 3143.68 mGy.cm TECHNIQUE: Helical axial images of the head were obtained without IV contrast. Automated exposure control was utilized for the study. A dose lowering technique was utilized adhering to the principles of ALARA. FINDINGS: No acute intracranial hemorrhage, midline shift or mass effect is present. Ventricular system is stable. Basilar cisterns are patent. There are no extra-axial collections. There is no calvarial fracture. Note is made of small right temporal and frontal scalp contusions. There is mild mucosal thickening of the sinuses. Mastoid air cells are clear. IMPRESSION: 1. No acute intracranial findings. 2. Small frontal and right temporal scalp contusions. No calvarial fracture. Electronically signed by: Kiran Lyle M.D. 07/03/2017 10:47 PM L HUMERUS MIN 2 VIEWS ROUTINE CLINICAL HISTORY: Left arm pain following fall. COMPARISON: Left elbow radiograph November 04, 2015. FINDINGS: No acute fracture of the left humerus is identified. Degenerative changes of the left shoulder and elbow are noted. The anterior fat pad of the left elbow is prominent and the posterior fat pad may be visualized. This raises the possibility of an occult left elbow fracture. IMPRESSION: 1. No definite acute fracture of the left humerus. 2. Possible left elbow joint effusion which raises the possibility of an occult intra-articular fracture. Electronically signed by: Kiran Lyle M.D. 07/03/2017 10:[address] WITHOUT CONTRAST CLINICAL HISTORY: EVALUATE FOR TRAUMA/INJURY COMPARISON STUDY: Head CT March 27, 2016. TECHNIQUE: A maxillofacial CT was performed without IV contrast. Coronal and sagittal reformats were viewed. A dose lowering technique was utilized adhering to the principles of ALARA. FINDINGS: Right temporal scalp contusion is noted. Globes are intact. There is no retrobulbar hematoma. There is no acute facial fracture. Cervical spine CT will be reported separately. There is moderate mucosal thickening of the ethmoid sinuses. Alignment of the temporomandibular joints is anatomic. The orbital floors are intact. IMPRESSION: No acute facial fracture. Electronically signed by: Kiran Lyle M.D. 07/03/2017 10:[address] OF THE CERVICAL SPINE WITHOUT CONTRAST CLINICAL HISTORY: EVALUATE FOR TRAUMA/INJURY COMPARISON STUDY: Cervical spine CT March 17, 2016. TECHNIQUE: Helical axial images of the cervical spine were obtained without IV contrast. Sagittal and coronal reconstructions were viewed. A dose lowering technique was utilized adhering to the principles of ALARA. FINDINGS: Alignment of the cervical spine is anatomic with the exception of mild anterolisthesis of C5 on C6 which is unchanged. There is no fracture. Moderate multilevel degenerative disc disease and facet arthrosis is present. There is no prevertebral edema. The chest CT will be reported separately. IMPRESSION: No acute cervical spine fracture or subluxation. Electronically signed by: Kiran Lyle M.D. 07/03/2017 11:[address] OF THE ABDOMEN AND PELVIS WITH CONTRAST CLINICAL HISTORY: fall down 12 steps COMPARISON STUDY: CT of the abdomen and pelvis November 04, 2015. TECHNIQUE: Following IV administration of 116 mL of Optiray-320, axial images of the abdomen and pelvis were obtained from the lung bases to the proximal femurs. Images were reviewed in the axial, sagittal, and coronal planes. IV contrast was administered without complication. A dose lowering technique was utilized adhering to the principles of ALARA. FINDINGS: There is no hemoperitoneum or pneumoperitoneum. The chest will be reported separately. There is no evidence for traumatic injury to the liver, spleen, adrenal glands, kidneys or pancreas. Caliber and wall thickness of small and large bowel are normal. There are postoperative findings within the spine as well as bilateral total hip resurfacing. Streak artifact from hardware compromises this exam but no acute traumatic findings are identified. There is no free fluid. No acute pelvic fractures identified. Sacroiliac joints are intact. IMPRESSION: No acute traumatic findings within the abdomen or pelvis. Electronically signed by: Kiran Lyle M.D. 07/03/2017 11:[address] OF THE CHEST WITH IV CONTRAST CLINICAL HISTORY: Trauma. COMPARISON STUDY: Chest CT November 04, 2015 and chest radiograph performed earlier today. TECHNIQUE: Following IV administration of 116 mL of Optiray-320, helical axial images of the chest were obtained. Sagittal and coronal reconstructions were viewed as well as maximal intensity projections on an independent 3-D workstation. A dose lowering technique was utilized adhering to the principles of ALARA. FINDINGS: There is no evidence of traumatic injury to the thoracic aorta. The size the heart is at the upper limits of normal. There is moderate coronary artery calcification. No enlarged thoracic lymph nodes are present. There is no pneumothorax or pulmonary contusion. No acute rib or thoracic spine fracture is identified. The CT of the abdomen and pelvis will be reported separate. There are old left-sided rib fractures. IMPRESSION: No acute traumatic findings within the chest. Electronically signed by: Kiran Lyle M.D. 07/03/2017 11:21 PM Radiology results as stated below per my review and interpretation: RIGHT ELBOW, 3 VIEWS No acute fracture or dislocation seen on X-Ray Laboratory Results 07/03/17 21:43 Red Blood Count 4.44, Mean Corpuscular Volume 89.2, Mean Corpuscular Hemoglobin 31.1, Mean Corpuscular Hemoglobin Concent 34.8, Mean Platelet Volume 10.1, Neutrophils (%) (Auto) 56.8, Lymphocytes (%) (Auto) 31.6, Monocytes (%) (Auto) 9.6, Eosinophils (%) (Auto) 1.4, Basophils (%) (Auto) 0.2, Neutrophils # (Auto) 5.96, Lymphocytes # (Auto) 3.31, Monocytes # (Auto) 1.01, Eosinophils # (Auto) 0.15, Basophils # (Auto) 0.02 07/03/17 21:43 Test 07/03/17 21:43 07/03/17 21:49 07/03/17 21:52 07/03/17 22:11 White Blood Count 10.49 K/uL (4.8-10.8) Red Blood Count 4.44 M/uL (4.2-5.4) Hemoglobin 13.8 g/dL (12.0-16.0) Hematocrit 39.6 % (37-47) Mean Corpuscular Volume 89.2 fL (80-100) Mean Corpuscular Hemoglobin 31.1 pg (25-34) Mean Corpuscular Hemoglobin Concent 34.8 g/dl (32-36) Platelet Count 268 K/uL (130-400) Mean Platelet Volume 10.1 fL (7.4-10.4) Neutrophils (%) (Auto) 56.8 % Lymphocytes (%) (Auto) 31.6 % Monocytes (%) (Auto) 9.6 % Eosinophils (%) (Auto) 1.4 % Basophils (%) (Auto) 0.2 % Neutrophils # (Auto) 5.96 K/uL (1.4-6.5) Lymphocytes # (Auto) 3.31 K/uL (1.2-3.4) Monocytes # (Auto) 1.01 K/uL (0.11-0.59) Eosinophils # (Auto) 0.15 K/uL (0-0.5) Basophils # (Auto) 0.02 K/uL (0-0.2) RDW Standard Deviation 46.8 fL (36.4-46.3) RDW Coefficient of Variation 14.2 % (11.5-14.5) Immature Granulocyte % (Auto) 0.4 % Immature Granulocyte # (Auto) 0.04 K/uL (0.00-0.02) Est Creatinine Clear Calc Drug Dose 34.1 ml/min Estimated GFR () 42.1 Estimated GFR (Non- 36.3 BUN/Creatinine Ratio 26.0 (10-20) Calcium Level 9.8 mg/dl (8.5-10.1) Total Bilirubin 0.4 mg/dl (0.2-1) Direct Bilirubin 0.2 mg/dl (0-0.2) Aspartate Amino Transf (AST/SGOT) 14 U/L (15-37) Alanine Aminotransferase (ALT/SGPT) 21 U/L (12-78) Alkaline Phosphatase 80 U/L (45-117) Total Protein 7.5 gm/dl (6.4-8.2) Albumin 3.6 gm/dl (3.4-5.0) Bedside Glucose 160 mg/dl (70-90) Bedside Hemoglobin 13.6 g/dl (12.0-16.0) Bedside Hematocrit 40 % (37-47) Bedside Sodium 139 mEq/L (135-144) Bedside Potassium 3.9 mEq/L (3.3-5.0) Bedside Chloride 108 mEq/L (101-112) Bedside Total CO2 23 mEq/l (24-31) Anion Gap 13.0 mmol/L (16-25) Bedside Blood Urea Nitrogen 40 mg/dl (7-18) Bedside Creatinine 1.3 mg/dl (0.6-1.3) Bedside Glucose (other) 156 mg/dl (70-99) Bedside Ionized Calcium (Ana) 1.22 mmol/l (1.12-1.32) Urine Color YELLOW Urine Appearance CLEAR (CLEAR) Urine pH 5.0 (4.5-7.5) Urine Specific [place] 1.022 (1.000-1.030) Urine Protein NEG (NEG) Urine Glucose (UA) TRACE (NEG) Urine Ketones NEG (NEG) Urine Occult Blood NEG (NEG) Urine Nitrite NEG (NEG) Urine Bilirubin NEG (NEG) Urine Urobilinogen NEG (NEG) Urine Leukocyte Esterase NEG (NEG) Laboratory results per my review. Medications Administered Medications (Trade) Dose Ordered Sig/Eve Route Start Time Stop Time Status Last Admin Dose Admin Sodium Chloride 1,000 ml @ 999 mls/hr Q1H1M STAT IV 07/03/17 21:34 07/03/17 22:35 DC 07/03/17 21:34 999 MLS/HR Morphine Sulfate (MoRPHine SULFATE INJ) 4 mg NOW STAT IV 07/03/17 22:36 07/03/17 22:37 DC 07/03/17 22:59 4 MG Ondansetron HCl (Zofran Inj) 4 mg STK-MED ONCE .ROUTE 07/03/17 22:55 07/03/17 22:56 DC 07/03/17 22:58 4 MG ED Course ED COURSE: Vital signs were reviewed and showed normal vital signs. The patients medical record was reviewed The above diagnostic studies were performed and reviewed. ED treatments and interventions as stated above. 8: The patient was evaluated in room C6. A complete history and physical examination was performed. 2134: NSS 1000 ml @ 999 mls/hr IV. 5: I reevaluated the patient. She is doing well and resting. 2236: Morphine Sulfate 4 mg IV. 2255: Zofran 4 mg IV. 2336: I updated the patient on her imaging results. She verbalized complete understanding. 0005: Upon reevaluation, the patient is resting comfortably and ready to go home. I discussed my findings with the patient and she understands and agrees with the treatment plan. Based on the patients age, coexisting illnesses, exam and lab findings the decision to treat as an outpatient was made. The patient remained stable while under my care. The patient appeared well at the time of discharge. Medical Decision Differential diagnoses include major intracranial, cervical, spinal, thoracic, abdominal, pelvic and neurologic injury. Fracture, contusion, sprain, strain, laceration, abrasions included as well. Patient is an 82-year-old female who presents the ER status post mechanical fall down 12 steps. Patient has a headache and left elbow and hand pain. CT of the head, cervical spine, chest abdomen pelvis were all benign. X-rays of the left elbow do show small joint effusion. X-rays of the left hand are otherwise unremarkable. Ring was removed. CBC along with BMP, LFTs, bilirubin was unremarkable. UA was negative. Patient was cleaned and skin was repaired by my PA. Tetanus is up-to-date. She did have some pain in her right elbow and consequently x-rays obtained and were unremarkable. She was discharged with an arm sling to follow-up with orthopedics early next week and take Tylenol or Motrin as needed for pain. Discussed with Pt concerning signs and symptoms to watch out for. Pt was instructed to follow up with their PCP and discussed with the patient their option to return to the ED at anytime for persistent or worsening symptoms. The appropriate anticipatory guidance and out- patient management, including indications for return to the emergency department , were explained at length to the patient and understood. Medication Reconcilliation Current Medication List: was personally reviewed by me Blood Pressure Screening Patient's blood pressure: Elevated blood pressure Blood pressure disposition: Referred to PCP Impression Primary Impression: Effusion into joint Additional Impressions: Contusion Abrasion Contusion of multiple sites Scribe Attestation The scribe's documentation has been prepared under my direction and personally reviewed by me in its entirety. I confirm that the note above accurately reflects all work, treatment, procedures, and medical decision making performed by me. Departure Information Dispostion Home / Self-Care Referrals Dedrick Restrepo III, M.D. (PCP) Patient Instructions My [facility] Additional Instructions Please follow up with your primary care doctor with in the next 24 hours. Any worsening of your symptoms, please return to the ED immediately. This includes any fevers greater than 100.4, worsening pain, chest pain, shortness breath, persistent nausea, vomiting, unable to eat or drink, or any other concerning signs or symptoms from your standpoint. Please keep your wounds clean and dry. Please take Tylenol or Motrin as needed for pain. Your found to have a small joint effusion of the left elbow. Please have this followed up by orthopedics on Thursday. Their numbers listed below contact. Problem Qualifiers Additional Impressions: Contusion Encounter type: initial encounter Contusion area: head Contusion of head detail: unspecified part of head Qualified Codes: S00.93XA - Contusion of unspecified part of head, initial encounter
[2017-07-04 00:11] VITALS: BP 142/67; PULSE 67; O2SAT 96
--- NOTE | 2017-07-04 00:36 | EMERGENCY ROOM VISIT NOTE ---
ED Visit Note Patient was seen and evaluated by Dr. Burroughs. I was asked to perform wound cleansing and closure of the abrasion/wounds. Consent was obtained. She has an abrasion noted to left elbow which was cleansed and dressed with a bacitracin dressing. She also has a skin tear to the dorsal left wrist which was cleansed also with Betadine and sterile saline and was closed with Steri- Strips. This repair was approximately 3 cm in length. I then cleansed the other wound on the right elbow which was an abrasion with normal saline and placed a bacitracin dressing. Patient tolerated this well. No suturable wounds. Please refer to further documentation regarding her stay.
--- NOTE | 2017-07-04 07:59 | DIAGNOSTIC IMAGING REPORT ---
RIGHT ELBOW 3 VIEWS HISTORY: Right elbow pain. COMPARISON: None. FINDINGS: There is no fracture or dislocation. Soft tissue swelling along the ulnar side of the elbow. Chondrocalcinosis. Mild degenerative changes within the right elbow. No significant elbow effusion. No radiopaque foreign bodies. IMPRESSION: Soft tissue swelling along the ulnar side of the elbow. No fracture or dislocation. Electronically signed by: Sachin Maya M.D. 07/04/2017 7:58 AM Dictated Date/Time: 07/04/2017 7:56 AM
== END 2017-07-04 00:25 | disposition home or self-care (01) ==
LOC: C.EDB 21:15 → C.EDC 07-04 00:25
DX: M25.422 Effusion, left elbow (principal); S80.211A Abrasion, right knee, initial encounter; S80.811A Abrasion, right lower leg, initial encounter; S80.812A Abrasion, left lower leg, initial encounter; S50.311A Abrasion of right elbow, initial encounter; S60.312A Abrasion of left thumb, initial encounter; S61.512A Laceration without foreign body of left wrist, initial encounter; S51.012A Laceration without foreign body of left elbow, initial encounter; W10.9XXA Fall (on) (from) unspecified stairs and steps, initial encounter; R40.2412 Glasgow coma scale score 13-15, at arrival to emergency department; R51 Headache; E11.9 Type 2 diabetes mellitus without complications; I10 Essential (primary) hypertension; Z79.82 Long term (current) use of aspirin; Z79.52 Long term (current) use of systemic steroids; Z79.899 Other long term (current) drug therapy; Z88.6 Allergy status to analgesic agent

== ENCOUNTER 2021-02-01 10:12 | Inpatient (IN) ==
--- NOTE | 2021-02-01 10:56 | Emergency Department Note ---
ED Visit Note This patient was seen in concert with Dr. Chapman and we discussed and agreed upon the history, physical, assessment and plan. See attending's note for details. . Resident Activity Tracking Resident Involvement: Resident Care Provided Care Provided: Adult ED
--- NOTE | 2021-02-01 11:20 | XRay Report ---
XR chest 1V portable CLINICAL HISTORY: cough COMPARISON STUDY: Chest radiograph April 13, 2019. FINDINGS: Lung volumes are normal. Incidental note is made of degenerative changes of both shoulders with elevation of the humeral heads. There is no pneumothorax or pleural effusion. There is no eviden ce for pulmonary edema. Cardiomediastinal silhouette is normal. Bilateral airspace opacities are note d, predominantly linear in configuration. A few nodular opacities are also present. IMPRESSION: Mild bilateral airspace opacities. The findings favor an infectious process. Atelectasis could appear similar. Radiographic follow-up to ensure resolution is recommended. ACT 112: Negative or not required by law. Electronically signed by: Kiran Lyle M.D. 02/01/2021 11:19 AM
[2021-02-01 11:33] LABS: Basophils # (auto) 0.02 K/uL (0-0.2); Basophils % (auto) 0.1 %; Eosinophils # (auto) 0.02 K/uL (0-0.5); Eosinophils % (auto) 0.1 %; Hematocrit (blood only) 39.8 % (37-47); Hemoglobin 13.4 g/dL (12.0-16.0); Immature Granulocytes # (auto) 0.71 K/uL (0.00-0.02); Immature Granulocytes % (auto) 3.8 %; Lymphocytes # (auto) 1.26 K/uL (1.2-3.4); Lymphocytes % (auto) 6.8 %; Mean Corpuscular Hemoglobin 32.1 pg (25-34); Mean Corpuscular Hgb Conc 33.7 g/dL (32-36); Mean Corpuscular Volume 95.2 fL (80-100); Mean Platelet Volume 9.6 fL (7.4-10.4); Monocytes # (auto) 1.07 K/uL (0.11-0.59); Monocytes % (auto) 5.8 %; Neutrophils % (auto) 83.4 %; Platelet Count 397 K/uL (130-400); RDW Coefficient of Variation 13.7 % (11.5-14.5); RDW Standard Deviation 47.3 fL (36.4-46.3); Red Blood Count 4.18 M/uL (4.2-5.4); White Blood Count 18.58 K/uL (4.8-10.8)
[2021-02-01 12:15] LABS: Albumin Globulin Ratio 0.4 (0.9-2); Albumin Level 2.5 gm/dl (3.4-5.0); BUN Creatinine Ratio 26.3 (10-20); Bilirubin,Total 0.5 mg/dl (0.2-1); Creatinine Clr Calc Pharmacy 30.2 ml/min; Est GFR (African American) 40.1 ml/min; Est GFR (Non-African American) 34.6 ml/min; Globulin 5.7 gm/dl (2.5-4.0); Total Protein 8.2 gm/dl (6.4-8.2)
[2021-02-01] MEDS ORDERED: CEFEPIME 2,000 MG/20 ML VIAL IV STA (12:16)
[2021-02-01 12:34] LABS: Influenza A virus by PCR Negative (Neg); Influenza B virus by PCR Negative (Neg); RSV by PCR Negative (Neg)
[2021-02-01 12:49] LABS: SARS CoV2 RNA(COVID-19) InHosp POSITIVE (Negative)
[2021-02-01 13:02] LABS: Appearance Urine Clear (Clear); Bacteria Urine Automated 3+ (Negative); Bilirubin Urine Negative (Negative); Blood Urine Negative (Negative); Color Urine Yellow; Epithelial Cell Urine Auto >30 /lpf (0-5); Glucose Urine UA Negative (Negative); Ketones Urine Trace (Negative); Leukocyte Esterase Urine 1+ (Negative); Nitrite Urine Negative (Negative); Protein Urine Negative (Negative); RBC Urine Automated 0-4 /hpf (0-4); Specific Gravity Urine 1.018 (1.000-1.030); Urobilinogen Urine Negative (Negative)
[2021-02-01 13:17] LABS: Potassium 4.1 mmol/L (3.5-5.1)
[2021-02-01] MEDS ORDERED: dexAMETHasone**PF** 10 MG/ML VIAL IV ONE (13:43)
--- NOTE | 2021-02-01 14:27 | Emergency Department Note ---
History of Present Illness General Chief complaint: Illness Stated complaint: Illness Time Seen by Provider: 02/01/21 10:42 History of Present Illness 85-year-old female presents to the ED with a somewhat poor historian. She reports a cough. She states that she has had it for couple of months although this does not seem to be the case per EMS who provided much of the history. The patient has a daughter who recently had Covid believes to be a couple weeks ago. The patient has fallen sick recently. She states that she was so sick she has not been able to eat or drink. She was sent in here for some weakness and shortness of breath. Her mental status baseline is unclear at this time. She is somewhat of a poor historian. She reports feeling weak. No additional useful information was obtained from the patient. Home Medications Medication Instructions Recorded Confirmed Type aspirin 81 mg tablet,delayed 81 mg PO QAM 01/07/18 04/13/19 History release bupropion HCl 200 mg tablet,12 hr 200 mg PO BID 01/07/18 02/01/21 History sustained-release cyanocobalamin (vitamin B-12) 1,000 mg PO QAM 01/07/18 02/01/21 History 1,000 mcg tablet enalapril maleate 20 mg tablet 20 mg PO BID 01/07/18 02/01/21 History prednisone 5 mg tablet 5 mg PO QAM 01/07/18 02/01/21 History rosuvastatin 5 mg tablet 5 mg PO DAILY 01/07/18 04/13/19 History calcium carbonate 600 mg calcium 600 mg PO DAILY 04/13/19 04/13/19 History (1,500 mg) tablet (Calcium) tramadol 50 mg tablet 100 mg PO BID PRN 04/13/19 02/01/21 History vitamins A,C,W-fwcc-ealjxb 14,320 1 cap PO BID 04/13/19 04/13/19 History unit-226 mg-200 unit capsule (PreserVision AREDS) Allergies Allergy/AdvReac Type Severity Reaction Status Date / Time morphine AdvReac Severe SEVERE Verified 04/13/19 12:02 NAUSEA AND VOMITING; confusion propoxyphene AdvReac Intermediate N/V Verified 04/13/19 12:02 Opioids - Morphine Analogues AdvReac Confusion Verified 04/13/19 12:02 oxycodone AdvReac Confusion Verified 04/13/19 12:02 Past Med/Surg History Medical History (Updated 02/01/21 @ 14:43 by Tarun Chapman DO) Degenerative joint disease of low back Diabetes mellitus, type II Dyslipidemia Hypertension Multiple rib fractures Osteoarthritis PMR (polymyalgia rheumatica) Surgical History H/O tubal ligation History of arthroscopy of left shoulder History of arthroscopy of right shoulder History of cataract surgery History of hysterectomy S/P hip replacement Family History Other Family history non-contributory Social History Smoking Status: Former smoker Second Hand Exposure: No; Hx Alcohol Use: No Hx Substance Use: No Preferred Language: Portuguese Communication Ability: Effective 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 Beliefs That Will Affect Care: None marital status: Current Living Situation: Spouse current occupational status: retired Feels Safe at Home: Yes Assistive Devices: Walker Review of Systems Unobtainable due to cognitive status Physical Exam Vital Signs Vital Signs - 24 hr 02/01/21 10:37 02/01/21 10:44 02/01/21 12:37 Temperature 36.7 C 36.7 C Temperature Source Oral Oral Pulse Rate [Apical] 82 74 Pulse Rhythm [Apical] Regular Pulse Strength [Apical] Normal Respiratory Rate 20 28 H Respiratory Effort / Characteristics Non-Labored Respiratory Depth Normal Respiratory Pattern Regular Blood Pressure [Right Arm] 142/65 H 106/72 Blood Pressure Mean [Right Arm] 90 83 Blood Pressure Position [Right Arm] Sitting Pulse Oximetry 92 91 Oxygen Delivery Method Nasal Cannula Nasal Cannula Oxygen Flow Rate 2 3 Sepsis Recent Fever Within 48 Hours Yes Sepsis New/Unexplained Change in Mental Status No Sepsis Action Taken by Nursing No Action Required 02/01/21 13:30 Temperature Temperature Source Pulse Rate [Apical] 73 Pulse Rhythm [Apical] Pulse Strength [Apical] Respiratory Rate 18 Respiratory Effort / Characteristics Respiratory Depth Respiratory Pattern Blood Pressure [Right Arm] 134/62 Blood Pressure Mean [Right Arm] 86 Blood Pressure Position [Right Arm] Pulse Oximetry 95 Oxygen Delivery Method Room Air Oxygen Flow Rate Sepsis Recent Fever Within 48 Hours Sepsis New/Unexplained Change in Mental Status Sepsis Action Taken by Nursing CONSTITUTIONAL/VITAL SIGNS: Reviewed / noted above. GENERAL: Non-toxic in appearance. INTEGUMENTARY: Warm, dry, and [place]. HEAD: Normocephalic. EYES: without scleral icterus or trauma. ENT/OROPHARYNX: clear and moist. LYMPHADENOPATHY/NECK: Is supple without lymphadenopathy or meningismus. RESPIRATORY: Clear to auscultation bilaterally. No increased work of breathing. CARDIOVASCULAR: Regular rate and rhythm. GI/ABDOMEN: Soft and nontender. No organomegaly or pulsatile mass. EXTREMITIES: Warm and well perfused. BACK: No CVA tenderness. NEUROLOGICAL: Intact without focal deficits. PSYCHIATRIC: normal affect. MUSCULOSKELETAL: Normally developed with good muscle tone. TRIAGE NURSING DOCUMENTATION REVIEWED. Course Administered Medications Discontinued Medications Dexamethasone Sodium Phosphate (DexamethasonePf 10 Mg/Ml Vial) 6 mg IV NOW ONE Stop: 02/01/21 13:44 Last Admin: 02/01/21 13:51 Dose: 6 mg Documented by: [id number] Cefepime HCl (Maxipime) 2,000 mg in 20 mls @ 5 mls/min IV NOW STA; Protocol Stop: 02/01/21 12:19 Last Admin: 02/01/21 12:48 Dose: 5 mls/min Documented by: [id number] Medical Decision Making Differential Diagnosis The differential was considered includes acute myocardial infarction, acute coronary syndrome, myocarditis, pericarditis, pericardial effusions /tamponad, esophageal perforation, pulmonary embolism, pneumonia, pneumothorax, cardiomyopathy, congestive heart, anemia , COPD/asthma exacerbation. Medical Records Attestation: I reviewed the patient's medical records. Home Medications Current Medication List: was personally reviewed by me Laboratory Data Attestation: I reviewed the patient's lab results. Result diagrams: 02/01/21 11:22 02/01/21 12:23 Lab Results 02/01/21 02/01/21 02/01/21 Range/Units 11:10 11:22 11:22 WBC 18.58 H (4.8-10.8) K/uL RBC 4.18 L (4.2-5.4) M/uL Hgb 13.4 (12.0-16.0) g/dL Hct 39.8 (37-47) % MCV 95.2 (80-100) fL MCH 32.1 (25-34) pg MCHC 33.7 (32-36) g/dL RDW Std Deviation 47.3 H (36.4-46.3) fL RDW Coeff of Nandini 13.7 (11.5-14.5) % Plt Count 397 (130-400) K/uL MPV 9.6 (7.4-10.4) fL Immature Gran % (Auto) 3.8 % Neut % (Auto) 83.4 % Lymph % (Auto) 6.8 % Hinds % (Auto) 5.8 % Eos % (Auto) 0.1 % Baso % (Auto) 0.1 % Neut # (Auto) 15.50 H (1.4-6.5) K/uL Lymph # (Auto) 1.26 (1.2-3.4) K/uL Hinds # (Auto) 1.07 H (0.11-0.59) K/uL Eos # (Auto) 0.02 (0-0.5) K/uL Baso # (Auto) 0.02 (0-0.2) K/uL Immature Gran # (Auto) 0.71 H (0.00-0.02) K/uL Sodium 130 L (136-145) mmol/L Potassium (3.5-5.1) mmol/L Chloride 95 L (98-107) mmol/L Carbon Dioxide 24 (21-32) mmol/L Anion Gap 11.0 (3-11) BUN 36 H (7-18) mg/dl Creatinine 1.37 H (0.6-1.2) mg/dl Est Cr Clr Drug Dosing 30.2 ml/min Est GFR ( Amer) 40.1 ml/min Est GFR (Non-Af Amer) 34.6 ml/min BUN/Creatinine Ratio 26.3 H (10-20) Glucose 202 H (70-99) mg/dl Calcium 10.0 (8.5-10.1) mg/dl Total Bilirubin 0.5 (0.2-1) mg/dl AST (15-37) U/L ALT 27 (12-78) Alkaline Phosphatase 90 (45-117) U/L Total Protein 8.2 (6.4-8.2) gm/dl Albumin 2.5 L (3.4-5.0) gm/dl Globulin 5.7 H (2.5-4.0) gm/dl Albumin/Globulin Ratio 0.4 L (0.9-2) Procalcitonin Specimen Hemolysis Urine Color Urine Appearance (Clear) Urine pH (4.5-7.5) Ur Specific [place] (1.000-1.030) Urine Protein (Negative) Urine Glucose (UA) (Negative) Urine Ketones (Negative) Urine Blood (Negative) Urine Nitrite (Negative) Urine Bilirubin (Negative) Urine Urobilinogen (Negative) Ur Leukocyte Esterase (Negative) Urine WBC (Auto) (0-5) /hpf Urine RBC (Auto) (0-4) /hpf U Hyaline Cast (Auto) (0-5) /lpf U Epithel Cells (Auto) (0-5) /lpf Urine Bacteria (Auto) (Negative) SARS-CoV-2 (PCR) POSITIVE A* (Negative) Influenza Type A (PCR) Negative (Neg) Influenza Type B (PCR) Negative (Neg) RSV (RT-PCR) Negative (Neg) 02/01/21 02/01/21 02/01/21 Range/Units 11:22 12:23 12:23 WBC (4.8-10.8) K/uL RBC (4.2-5.4) M/uL Hgb (12.0-16.0) g/dL Hct (37-47) % MCV (80-100) fL MCH (25-34) pg MCHC (32-36) g/dL RDW Std Deviation (36.4-46.3) fL RDW Coeff of Nandini (11.5-14.5) % Plt Count (130-400) K/uL MPV (7.4-10.4) fL Immature Gran % (Auto) % Neut % (Auto) % Lymph % (Auto) % Hind[place] % (Auto) % Eos % (Auto) % Baso % (Auto) % Neut # (Auto) (1.4-6.5) K/uL Lymph # (Auto) (1.2-3.4) K/uL [place] # (Auto) (0.11-0.59) K/uL Eos # (Auto) (0-0.5) K/uL Baso # (Auto) (0-0.2) K/uL Immature Gran # (Auto) (0.00-0.02) K/uL Sodium (136-145) mmol/L Potassium 4.1 (3.5-5.1) mmol/L Chloride (98-107) mmol/L Carbon Dioxide (21-32) mmol/L Anion Gap (3-11) BUN (7-18) mg/dl Creatinine (0.6-1.2) mg/dl Est Cr Clr Drug Dosing ml/min Est GFR ( Amer) ml/min Est GFR (Non-Af Amer) ml/min BUN/Creatinine Ratio (10-20) Glucose (70-99) mg/dl Calcium (8.5-10.1) mg/dl Total Bilirubin (0.2-1) mg/dl AST 34 (15-37) U/L ALT (12-78) Alkaline Phosphatase (45-117) U/L Total Protein (6.4-8.2) gm/dl Albumin (3.4-5.0) gm/dl Globulin (2.5-4.0) gm/dl Albumin/Globulin Ratio (0.9-2) Procalcitonin Cancelled 1.75 H Specimen Hemolysis Urine Color Urine Appearance (Clear) Urine pH (4.5-7.5) Ur Specific [place] (1.000-1.030) Urine Protein (Negative) Urine Glucose (UA) (Negative) Urine Ketones (Negative) Urine Blood (Negative) Urine Nitrite (Negative) Urine Bilirubin (Negative) Urine Urobilinogen (Negative) Ur Leukocyte Esterase (Negative) Urine WBC (Auto) (0-5) /hpf Urine RBC (Auto) (0-4) /hpf U Hyaline Cast (Auto) (0-5) /lpf U Epithel Cells (Auto) (0-5) /lpf Urine Bacteria (Auto) (Negative) SARS-CoV-2 (PCR) (Negative) Influenza Type A (PCR) (Neg) Influenza Type B (PCR) (Neg) RSV (RT-PCR) (Neg) 02/01/21 Range/Units 12:38 WBC (4.8-10.8) K/uL RBC (4.2-5.4) M/uL Hgb (12.0-16.0) g/dL Hct (37-47) % MCV (80-100) fL MCH (25-34) pg MCHC (32-36) g/dL RDW Std Deviation (36.4-46.3) fL RDW Coeff of Nandini (11.5-14.5) % Plt Count (130-400) K/uL MPV (7.4-10.4) fL Immature Gran % (Auto) % Neut % (Auto) % Lymph % (Auto) % [place] % (Auto) % Eos % (Auto) % Baso % (Auto) % Neut # (Auto) (1.4-6.5) K/uL Lymph # (Auto) (1.2-3.4) K/uL [place] # (Auto) (0.11-0.59) K/uL Eos # (Auto) (0-0.5) K/uL Baso # (Auto) (0-0.2) K/uL Immature Gran # (Auto) (0.00-0.02) K/uL Sodium (136-145) mmol/L Potassium (3.5-5.1) mmol/L Chloride (98-107) mmol/L Carbon Dioxide (21-32) mmol/L Anion Gap (3-11) BUN (7-18) mg/dl Creatinine (0.6-1.2) mg/dl Est Cr Clr Drug Dosing ml/min Est GFR ( Amer) ml/min Est GFR (Non-Af Amer) ml/min BUN/Creatinine Ratio (10-20) Glucose (70-99) mg/dl Calcium (8.5-10.1) mg/dl Total Bilirubin (0.2-1) mg/dl AST (15-37) U/L ALT (12-78) Alkaline Phosphatase (45-117) U/L Total Protein (6.4-8.2) gm/dl Albumin (3.4-5.0) gm/dl Globulin (2.5-4.0) gm/dl Albumin/Globulin Ratio (0.9-2) Procalcitonin Specimen Hemolysis Urine Color Yellow Urine Appearance Clear (Clear) Urine pH 5.0 (4.5-7.5) Ur Specific [place] 1.018 (1.000-1.030) Urine Protein Negative (Negative) Urine Glucose (UA) Negative (Negative) Urine Ketones Trace H (Negative) Urine Blood Negative (Negative) Urine Nitrite Negative (Negative) Urine Bilirubin Negative (Negative) Urine Urobilinogen Negative (Negative) Ur Leukocyte Esterase 1+ H (Negative) Urine WBC (Auto) 1-5 (0-5) /hpf Urine RBC (Auto) 0-4 (0-4) /hpf U Hyaline Cast (Auto) 1-5 (0-5) /lpf U Epithel Cells (Auto) >30 H (0-5) /lpf Urine Bacteria (Auto) 3+ H (Negative) SARS-CoV-2 (PCR) (Negative) Influenza Type A (PCR) (Neg) Influenza Type B (PCR) (Neg) RSV (RT-PCR) (Neg) Imaging Data Radiologist's Impression: Chest X-Ray 02/01/21 10:53 XR chest 1V portable CLINICAL HISTORY: cough COMPARISON STUDY: Chest radiograph April 13, 2019. FINDINGS: Lung volumes are normal. Incidental note is made of degenerative changes of both shoulders with elevation of the humeral heads. There is no pneumothorax or pleural effusion. There is no evidence for pulmonary edema. Cardiomediastinal silhouette is normal. Bilateral airspace opacities are noted, predominantly linear in configuration. A few nodular opacities are also present. IMPRESSION: Mild bilateral airspace opacities. The findings favor an infectious process. Atelectasis could appear similar. Radiographic follow-up to ensure resolution is recommended. ACT 112: Negative or not required by law. Electronically signed by: Kiran Lyle M.D. 02/01/2021 11:19 AM ECG Data Attestation: I personally reviewed and interpreted this ECG as follows: MDM Narrative 85-year-old female presents with some upper respiratory symptoms. Not exactly clear when her symptoms started at this point. She was a somewhat poor historian. Her sats are 87% on room air. She is requiring 2 L of oxygen. She has been previously vaccinated for Covid. She is positive for Covid today. Her daughter recently had Covid. Her white blood cell count was 18,000. The rest of her blood tests were relatively unremarkable. She might be a little dehydrated. Her urine does not appear to show an obvious infection but does appear to be contaminated. Chest x-ray shows some mild pneumonia. The patient will be seen by the hospitalist for further inpatient evaluation and care. She was given some IV Decadron here. She was also given empiric cefepime for pneumonia. Impression & Plan COVID-19, Pneumonia of both lower lobes Discharge Plan Visit Data Chief Complaint: Illness Stated Complaint: Illness ED Provider: Tarun Chapman ED Midlevel Provider: Kaylin Courtney Discharge Problem: COVID-19, Pneumonia of both lower lobes Patient Disposition: Being Evaluated by Hospitalist Forms Stand Alone Forms: My [facility] Prescriptions Prescriptions: No Action enalapril maleate 20 mg tablet 20 mg PO BID RF: 0 prednisone 5 mg tablet 5 mg PO QAM RF: 0 cyanocobalamin (vitamin B-12) 1,000 mcg tablet 1,000 mg PO QAM RF: 0 aspirin 81 mg Tablet,Delayed Release (Dr/Ec) 81 mg PO QAM RF: 0 bupropion HCl 200 mg tablet sustained-release 12 hr 200 mg PO BID RF: 0 rosuvastatin 5 mg tablet 5 mg PO DAILY RF: 0 tramadol 50 mg tablet 100 mg PO BID PRN (Reason: Pain) RF: 0 calcium carbonate [Calcium 600] 600 mg calcium (1,500 mg) Tablet 600 mg PO DAILY RF: 0 PreserVision AREDS [id number] Capsule 1 cap PO BID RF: 0 Referrals Referrals: Dedrick Restrepo MD [Primary Care Provider] -
[2021-02-01 14:43] LABS: C Reactive Protein 6.73 mg/dl (0-0.29); Ferritin 430.8 ng/ml (8-388)
[2021-02-01] MEDS ORDERED: GLUCOSE 10 TABS/TUBE PO PRN (16:05)
[2021-02-01] MEDS ORDERED: ALBUTEROL HFA 8 GM INHALER INH PRN (16:05)
[2021-02-01] MEDS ORDERED: GLUCOSE 40% GEL 15 GM TUBE PO PRN (16:05)
[2021-02-01] MEDS ORDERED: GLUCAGON FOR INJ 1 MG VIAL SQ PRN (16:05)
[2021-02-01] MEDS ORDERED: DEXTROSE 50% 50 ML SYRINGE IV PRN (16:05)
[2021-02-01] MEDS ORDERED: traMADol HCL 50 MG TABLET PO PRN (16:05)
[2021-02-01] MEDS ORDERED: SODIUM CHLORIDE 0.9% 1000ML 1,000 ML IV SCH (16:05)
[2021-02-01] MEDS ORDERED: CARBOHYDRATES FOR HYPOGLYCEMIA PO PRN (16:05)
[2021-02-01] MEDS ORDERED: ONDANSETRON INJ 2 MG/ML 2 ML VIAL IV PRN (16:05)
[2021-02-01 16:47] LABS: Magnesium 2.2 mg/dl (1.8-2.4)
[2021-02-01] MEDS: ROSUVASTATIN CALCIUM 5 MG TAB PO SCH (17:18)
[2021-02-01] MEDS: INSULIN ASPART PER UNIT SC SCH ×2 (17:45→20:03)
[2021-02-01] MEDS ORDERED: REMDESIVIR 200 MG in SODIUM CHLORIDE 0.9% 210 ML IV ONE (18:00)
[2021-02-01] MEDS: SODIUM CHLORIDE 0.9% 10ML FLUSH IV SCH (19:29)
[2021-02-01] MEDS: DOXYCYCLINE HYCLATE 100 MG CAP PO SCH (19:49)
[2021-02-01] MEDS: guaiFENesin 600 MG TABCR PO SCH (19:50)
[2021-02-01] MEDS: buPROPion SR 100 MG TABCR PO SCH (19:50)
[2021-02-01] MEDS: ENALAPRIL MALEATE 10 MG TAB PO SCH (19:50)
[2021-02-01] MEDS: HEPARIN SOD 5,000 UNIT/0.5 ML VIAL SQ SCH (19:51)
[2021-02-01] MEDS: INSULIN GLARGINE SOLOSTAR 100 UNITS/ML 3 ML PEN SC SCH (20:03)
--- NOTE | 2021-02-01 20:59 | History & Physical Report ---
Date of Service February 01, 2021 Assessment & Plan (1) Pneumonia due to 2019 novel coronavirus: (2) Hypoxia: Plan: SEPSIS: Meets SIRS + Source - pneumonia Covid pneumonia, bacterial pneumonia Patient is 85-year-old female with PMH DM II, HTN, dyslipidemia, CKD III, depression presented to ER for cough. 01/24/2021 patient was more lethargic and was not getting out of bed. 01/31/2021 patient started with cough and noted shortness of breath. oxygen saturations were in the 80s at home. Patient's daughter tested positive for COVID-19 5 to 6 days ago. Reported patient had COVID-19 vaccine on 04/03/2020 and 04/24/2020. Has not been boosted. Today in ER patient afebrile, reported sats high 80s by EMS and patient was placed on 2 L nasal cannula with sats 92%, other vitals stable. WBC: 18, procalcitonin: 1.75, positive COVID-19 PCR. CXR: Bilateral opacities In ER given dexamethasone, cefepime Continue supplemental O2 CRP, ferritin pending Dexamethasone Remdesivir Cont. w/ Ceftriaxone, doxycycline Albuterol as needed Flutter valve, incentive spirometry CBC, BMP in a.m. UA appears like contaminant. Urine culture pending Metabolic Encephalopathy Likely secondary to underlying infection. Treat as above Monitor DM II Diet controlled A1c: 6.7 on 01/10/2021 Basal bolus insulin per protocol Suspect BSGs elevated secondary to steroid use HTN Hold enalapril currently Dyslipidemia Continue rosuvastatin CKD III Cr: 1.37. Baseline Cr: ~1.1 Monitor renal functions, avoid nephrotoxic agents when possible Depression Continue bupropion Chronic pain Patient had suspected PMR by PCP. Patient followed up with rheumatology and does not suspect PMR secondary to prednisone not helping pain Patient currently on prednisone however is being tapered Hold prednisone currently as is on dexamethasone DVT Prophylaxis Heparin SQ Full Code as per discussion with pt and pt's daughter Follows with Dr Restrepo for routine care Pt was seen and care coordinated with Dr Moore. See addendum Patient's daughter-Fariha Shirley would like updates. History of Present Illness Chief Complaint: Cough, confusion, hypoxia Primary Care Provider: Dedrick Restrepo MD Patient is 85-year-old female with PMH DM II, HTN, dyslipidemia, CKD III, depression presented to ER for cough. History is obtained from patient's daughter secondary to patient's current confusion. Patient's daughter reports 01/22/2021 patient was noted to be feeling down and daughter thought that patient was just having depression symptoms. She states 01/24/2021 patient was more lethargic and was not getting out of bed. Patient has not been eating or drinking well. 01/31/2021 patient started with cough and noted shortness of breath. Patient's daughter reports that her oxygen saturations were in the 80s at home. She reports patient is noted to be confused and was having visual hallucinations which is not patient's baseline. Patient's daughter tested positive for COVID-19 5 to 6 days ago. Reported patient had COVID-19 vaccine on 04/03/2020 and 04/24/2020. Has not been boosted. Denies any known fever, chills, hemoptysis, nausea, vomiting, diarrhea. Patient was not reporting abdominal pain or chest pain. Today in ER patient afebrile, reported sats high 80s by EMS and patient was placed on 2 L nasal cannula with sats 92%, other vitals stable. WBC: 18, procalcitonin: 1.75, positive COVID-19 PCR. CXR: Bilateral opacities In ER given dexamethasone, cefepime Allergies Allergy/AdvReac Type Severity Reaction Status Date / Time morphine AdvReac Severe SEVERE Verified 04/13/19 12:02 NAUSEA AND VOMITING; confusion propoxyphene AdvReac Intermediate N/V Verified 04/13/19 12:02 Opioids - Morphine Analogues AdvReac Confusion Verified 04/13/19 12:02 oxycodone AdvReac Confusion Verified 04/13/19 12:02 Home Medications Medication Instructions Recorded Confirmed Type aspirin 81 mg tablet,delayed 81 mg PO QAM 01/07/18 02/01/21 History release bupropion HCl 200 mg tablet,12 hr 200 mg PO BID 01/07/18 02/01/21 History sustained-release cyanocobalamin (vitamin B-12) 1,000 mg PO QAM 01/07/18 02/01/21 History 1,000 mcg tablet enalapril maleate 20 mg tablet 20 mg PO BID 01/07/18 02/01/21 History prednisone 5 mg tablet 20 mg PO QAM 01/07/18 02/01/21 History rosuvastatin 5 mg tablet 5 mg PO MOWEFR 01/07/18 02/01/21 History calcium carbonate 600 mg calcium 600 mg PO DAILY 04/13/19 02/01/21 History (1,500 mg) tablet (Calcium) tramadol 50 mg tablet 50 mg PO Q6H PRN 04/13/19 02/01/21 History vitamins A,C,H-ysxx-dlfqqy 14,320 1 cap PO BID 04/13/19 02/01/21 History unit-226 mg-200 unit capsule (PreserVision AREDS) Past Med/Surg History Medical History (Updated 02/02/21 @ 00:04 by Rachel Nation) Degenerative joint disease of low back Diabetes mellitus, type II Dyslipidemia Hypertension Multiple rib fractures Osteoarthritis PMR (polymyalgia rheumatica) Surgical History H/O tubal ligation History of arthroscopy of left shoulder History of arthroscopy of right shoulder History of cataract surgery History of hysterectomy S/P hip replacement Family History Other Family history non-contributory Social History Smoking Status: Former smoker Second Hand Exposure: No; Hx Alcohol Use: No Hx Substance Use: No Preferred Language: [place] Communication Ability: Effective Assistant Hairstylist Required: No Beliefs That Will Affect Care: None marital status: Current Living Situation: Spouse current occupational status: retired Feels Safe at Home: Yes Assistive Devices: Walker Review of Systems Review of Systems: Unobtainable due to cognitive status Physical Exam Physical Exam: General: no acute distress, WDWN Head: normocephalic, atraumatic Eyes: PERRL, EOM's intact, conjunctiva non-injected, anicteric ENT: normal inspection external ears, nose, mucous membranes moist Neck: supple, trachea midline Lungs: +scattered rhonchi, 92% on 2L nasal canula CV: RRR, no pretibial edema Abd: normal BS, soft, non-tender Ext: no cyanosis, no calf tenderness Neuro: Alert. Oriented to person only. cooperative, no focal deficits noted. Pt does report 2 people in room (only myself in room) Skin: warm, dry Results & Data Results & Data ([facility]) Vital Signs (Past 12 Hours) Vital Signs Temp Pulse Resp BP Pulse Ox 02/01/21 13:30 73 18 134/62 95 02/01/21 12:37 74 28 H 106/72 91 02/01/21 10:44 36.7 C 02/01/21 10:37 36.7 C 82 20 142/65 H 92 Laboratory Results Short CBC 02/01/21 Range/Units 11:22 WBC 18.58 H (4.8-10.8) K/uL Hgb 13.4 (12.0-16.0) g/dL Hct 39.8 (37-47) % Plt Count 397 (130-400) K/uL BMP 02/01/21 02/01/21 11:22 12:23 Sodium 130 L Potassium 4.1 Chloride 95 L Carbon Dioxide 24 BUN 36 H Creatinine 1.37 H Glucose 202 H Calcium 10.0 Liver Function 02/01/21 02/01/21 Range/Units 11:22 12:23 Total Bilirubin 0.5 (0.2-1) mg/dl AST 34 (15-37) U/L ALT 27 (12-78) Alkaline Phosphatase 90 (45-117) U/L Albumin 2.5 L (3.4-5.0) gm/dl Urine 02/01/21 Range/Units 12:38 Urine Color Yellow Urine Appearance Clear (Clear) Urine pH 5.0 (4.5-7.5) Ur Specific [place] 1.018 (1.000-1.030) Urine Protein Negative (Negative) Urine Glucose (UA) Negative (Negative) Diagnostic Findings Chest X-Ray 02/01/21 10:53 XR chest 1V portable CLINICAL HISTORY: cough COMPARISON STUDY: Chest radiograph April 13, 2019. FINDINGS: Lung volumes are normal. Incidental note is made of degenerative changes of both shoulders with elevation of the humeral heads. There is no pneumothorax or pleural effusion. There is no evidence for pulmonary edema. Cardiomediastinal silhouette is normal. Bilateral airspace opacities are noted, predominantly linear in configuration. A few nodular opacities are also present. IMPRESSION: Mild bilateral airspace opacities. The findings favor an infectious process. Atelectasis could appear similar. Radiographic follow-up to ensure resolution is recommended. ACT 112: Negative or not required by law. Electronically signed by: Kiran Lyle M.D. 02/01/2021 11:19 AM Code Status & VTE Plan VTE Prophylaxis Plan VTE Prophylaxis will be ordered: Yes Supervising Physician Co-Signing Physician Notes Patient seen and examined by me, care coordinated with Jose Enrique Houser PA-C, please refer to her note above for further detail. Patient is an 85 yo female with PMH DM II, HTN, dyslipidemia, CKD III, depression who presents with cough, confusion, hypoxia, secondary to COVID-19 infection/pneumonia. Patient is able to answer simple questions appropriately, and she is cooperative, however somewhat confused. Currently however moving her oxygen/nasal cannula. She is awake and in no acute distress. Mild rhonchi noted on physical exam, persistent cough. Heart sounds regular. Abdomen soft nontender nondistended, no lower extremity edema noted. Skin is warm and dry. Patient does move extremities spontaneously. Started regimen with dexamethasone and remdesivir. Given elevated white blood cell count, elevated procalcitonin, concern for bacterial superimposed infection, and therefore we will also start ceftriaxone and doxycycline. Closely monitor, supplement oxygen as needed, keep saturations above 92%. Hasmukh Moore MD
[2021-02-02] MEDS: HEPARIN SOD 5,000 UNIT/0.5 ML VIAL SQ SCH ×3 (04:40→20:36)
[2021-02-02 07:22] LABS: Basophils # (auto) 0.01 K/uL (0-0.2); Basophils % (auto) 0.1 %; Hematocrit (blood only) 35.1 % (37-47); Hemoglobin 11.6 g/dL (12.0-16.0); Immature Granulocytes # (auto) 0.51 K/uL (0.00-0.02); Immature Granulocytes % (auto) 3.8 %; Lymphocytes # (auto) 1.22 K/uL (1.2-3.4); Mean Corpuscular Hemoglobin 31.8 pg (25-34); Mean Corpuscular Volume 96.2 fL (80-100); Mean Platelet Volume 9.5 fL (7.4-10.4); Monocytes # (auto) 0.85 K/uL (0.11-0.59); Monocytes % (auto) 6.3 %; Neutrophils # (auto) 10.93 K/uL (1.4-6.5); Neutrophils % (auto) 80.8 %; Platelet Count 384 K/uL (130-400); RDW Coefficient of Variation 13.9 % (11.5-14.5); RDW Standard Deviation 49.2 fL (36.4-46.3); Red Blood Count 3.65 M/uL (4.2-5.4); White Blood Count 13.52 K/uL (4.8-10.8)
[2021-02-02 07:57] LABS: BUN Creatinine Ratio 29.8 (10-20); Calcium 9.1 mg/dl (8.5-10.1); Creatinine Clr Calc Pharmacy 31.2 ml/min; Est GFR (African American) 47.5 ml/min; Magnesium 2.3 mg/dl (1.8-2.4)
[2021-02-02 08:02] LABS: C Reactive Protein 7.3 mg/dl (0-0.29); Phosphorus 3.7 mg/dl (2.5-4.9)
--- NOTE | 2021-02-02 08:56 | Hospitalist Progress Note ---
Date of Service February 02, 2021 Assessment & Plan (1) Pneumonia due to 2019 novel coronavirus: (2) Hypoxia: Plan: SEPSIS: Meets SIRS + Source - pneumonia Covid pneumonia, bacterial pneumonia Patient is 85-year-old female with PMH DM II, HTN, dyslipidemia, CKD III, depression presented to ER for cough. 01/24/2021 patient was more lethargic and was not getting out of bed. 01/31/2021 patient started with cough and noted shortness of breath. oxygen saturations were in the 80s at home. Patient's daughter tested positive for COVID-19 5 to 6 days ago. Reported patient had COVID-19 vaccine on 04/03/2020 and 04/24/2020. Has not been boosted. Today in ER patient afebrile, reported sats high 80s by EMS and patient was placed on 2 L nasal cannula with sats 92%, other vitals stable. WBC: 18, procalcitonin: 1.75, positive COVID-19 PCR. CXR: Bilateral opacities In ER given dexamethasone, cefepime Continue supplemental O2 CRP elevated at 7 Dexamethasone Remdesivir Cont. w/ Ceftriaxone, doxycycline Albuterol as needed Flutter valve, incentive spirometry monitor CBC, BMP UA appears like contaminant. Urine culture pending Metabolic Encephalopathy Likely secondary to underlying infection. Treat as above Monitor Mental status much improved - likely back to baseline DM II Diet controlled A1c: 6.7 on 01/10/2021 Basal bolus insulin per protocol Suspect BSGs elevated secondary to steroid use HTN Hold enalapril currently Dyslipidemia Continue rosuvastatin CKD III Cr: 1.37. Baseline Cr: ~1.1 Monitor renal functions, avoid nephrotoxic agents when possible Depression Continue bupropion Chronic pain Patient had suspected PMR by PCP. Patient followed up with rheumatology and does not suspect PMR secondary to prednisone not helping pain Patient currently on prednisone however is being tapered Hold prednisone currently as is on dexamethasone DVT Prophylaxis Heparin SQ Full Code as per discussion with pt and pt's daughter Follows with Dr Restrepo for routine care Patient's daughter-Fariha Shirley would like updates. Admission and Anticipated Discharge Date Admission Date: February 01, 2021 Subjective Patient seen in follow-up of acute hypoxic resp. failure due to COVID-19 pneumonia Patient is currently sitting up in bed, in no acute distress Mental status is much improved she is able to answer questions appropriately However she is now requiring 8 L of oxygen, per nursing staff her oxygen requirement increased this morning as she was eating We will try to wean off oxygen as much as we can Patient currently denies fevers, chills, chest pain, abdominal pain, nausea vomiting or diarrhea She has persistent dry cough Review of Systems Review of Systems: All systems reviewed & are unremarkable except as noted in Subjective Physical Exam Physical Exam: General: no acute distress, WDWN Head: normocephalic, atraumatic Eyes: PERRL, EOM's intact, conjunctiva non-injected, anicteric ENT: normal inspection external ears, nose, mucous membranes moist Neck: supple, trachea midline Lungs: +scattered rhonchi, 94% on 8L suppl. O2 CV: RRR, no pretibial edema Abd: normal BS, soft, non-tender Ext: no cyanosis, no calf tenderness Neuro: Awake, alert and answering questions appropriately. Mental status much improved from yesterday. No facial asymmetry, speech fluent, moves extremities. Skin: warm, dry Results & Data Results & Data ([facility]) Vital Signs (Past 12 Hours) Vital Signs Temp Pulse Pulse Resp BP Pulse Ox 02/02/21 07:42 36.7 C 60 18 123/61 98 02/02/21 07:15 63 02/02/21 05:02 100 02/02/21 04:39 36.7 C 64 22 123/66 94 02/02/21 02:26 99 02/02/21 02:17 69 02/02/21 00:51 99 02/01/21 23:00 36.8 C 56 L 18 151/63 H 91 02/01/21 22:27 83 L Laboratory Results 02/02/21 02/02/21 02/02/21 Range/Units 07:47 06:54 06:54 WBC 13.52 H (4.8-10.8) K/uL RBC 3.65 L (4.2-5.4) M/uL Hgb 11.6 L (12.0-16.0) g/dL Hct 35.1 L (37-47) % MCV 96.2 (80-100) fL MCH 31.8 (25-34) pg MCHC 33.0 (32-36) g/dL RDW Std Deviation 49.2 H (36.4-46.3) fL RDW Coeff of Nandini 13.9 (11.5-14.5) % Plt Count 384 (130-400) K/uL MPV 9.5 (7.4-10.4) fL Immature Gran % (Auto) 3.8 % Neut % (Auto) 80.8 % Lymph % (Auto) 9.0 % [place] % (Auto) 6.3 % Eos % (Auto) 0.0 % Baso % (Auto) 0.1 % Neut # (Auto) 10.93 H (1.4-6.5) K/uL Lymph # (Auto) 1.22 (1.2-3.4) K/uL [place] # (Auto) 0.85 H (0.11-0.59) K/uL Eos # (Auto) 0.00 (0-0.5) K/uL Baso # (Auto) 0.01 (0-0.2) K/uL Immature Gran # (Auto) 0.51 H (0.00-0.02) K/uL Sodium 136 (136-145) mmol/L Potassium 4.0 (3.5-5.1) mmol/L Chloride 104 (98-107) mmol/L Carbon Dioxide 26 (21-32) mmol/L Anion Gap 6.0 (3-11) BUN 35 H (7-18) mg/dl Creatinine 1.19 (0.6-1.2) mg/dl Est Cr Clr Drug Dosing 31.2 ml/min Est GFR ( Amer) 47.5 ml/min Est GFR (Non-Af Amer) 41.0 ml/min BUN/Creatinine Ratio 29.8 H (10-20) Glucose 144 H (70-99) mg/dl POC Glucose 154 H (70-99) mg/dl Calcium 9.1 (8.5-10.1) mg/dl Phosphorus 3.7 (2.5-4.9) mg/dl Magnesium 2.3 (1.8-2.4) mg/dl Ferritin (8-388) ng/ml Total Bilirubin (0.2-1) mg/dl AST (15-37) U/L ALT (12-78) Alkaline Phosphatase (45-117) U/L C-Reactive Protein 7.30 H (0-0.29) mg/dl Total Protein (6.4-8.2) gm/dl Albumin (3.4-5.0) gm/dl Globulin (2.5-4.0) gm/dl Albumin/Globulin Ratio (0.9-2) Procalcitonin Specimen Hemolysis Urine Color Urine Appearance (Clear) Urine pH (4.5-7.5) Ur Specific [place] (1.000-1.030) Urine Protein (Negative) Urine Glucose (UA) (Negative) Urine Ketones (Negative) Urine Blood (Negative) Urine Nitrite (Negative) Urine Bilirubin (Negative) Urine Urobilinogen (Negative) Ur Leukocyte Esterase (Negative) Urine WBC (Auto) (0-5) /hpf Urine RBC (Auto) (0-4) /hpf U Hyaline Cast (Auto) (0-5) /lpf U Epithel Cells (Auto) (0-5) /lpf Urine Bacteria (Auto) (Negative) SARS-CoV-2 (PCR) (Negative) Influenza Type A (PCR) (Neg) Influenza Type B (PCR) (Neg) RSV (RT-PCR) (Neg) 02/01/21 02/01/21 02/01/21 Range/Units 19:47 17:29 12:38 WBC (4.8-10.8) K/uL RBC (4.2-5.4) M/uL Hgb (12.0-16.0) g/dL Hct (37-47) % MCV (80-100) fL MCH (25-34) pg MCHC (32-36) g/dL RDW Std Deviation (36.4-46.3) fL RDW Coeff of Nandini (11.5-14.5) % Plt Count (130-400) K/uL MPV (7.4-10.4) fL Immature Gran % (Auto) % Neut % (Auto) % Lymph % (Auto) % [place] % (Auto) % Eos % (Auto) % Baso % (Auto) % Neut # (Auto) (1.4-6.5) K/uL Lymph # (Auto) (1.2-3.4) K/uL [place] # (Auto) (0.11-0.59) K/uL Eos # (Auto) (0-0.5) K/uL Baso # (Auto) (0-0.2) K/uL Immature Gran # (Auto) (0.00-0.02) K/uL Sodium (136-145) mmol/L Potassium (3.5-5.1) mmol/L Chloride (98-107) mmol/L Carbon Dioxide (21-32) mmol/L Anion Gap (3-11) BUN (7-18) mg/dl Creatinine (0.6-1.2) mg/dl Est Cr Clr Drug Dosing ml/min Est GFR ( Amer) ml/min Est GFR (Non-Af Amer) ml/min BUN/Creatinine Ratio (10-20) Glucose (70-99) mg/dl POC Glucose 204 H 300 H (70-99) mg/dl Calcium (8.5-10.1) mg/dl Phosphorus (2.5-4.9) mg/dl Magnesium (1.8-2.4) mg/dl Ferritin (8-388) ng/ml Total Bilirubin (0.2-1) mg/dl AST (15-37) U/L ALT (12-78) Alkaline Phosphatase (45-117) U/L C-Reactive Protein (0-0.29) mg/dl Total Protein (6.4-8.2) gm/dl Albumin (3.4-5.0) gm/dl Globulin (2.5-4.0) gm/dl Albumin/Globulin Ratio (0.9-2) Procalcitonin Specimen Hemolysis Urine Color Yellow Urine Appearance Clear (Clear) Urine pH 5.0 (4.5-7.5) Ur Specific [place] 1.018 (1.000-1.030) Urine Protein Negative (Negative) Urine Glucose (UA) Negative (Negative) Urine Ketones Trace H (Negative) Urine Blood Negative (Negative) Urine Nitrite Negative (Negative) Urine Bilirubin Negative (Negative) Urine Urobilinogen Negative (Negative) Ur Leukocyte Esterase 1+ H (Negative) Urine WBC (Auto) 1-5 (0-5) /hpf Urine RBC (Auto) 0-4 (0-4) /hpf U Hyaline Cast (Auto) 1-5 (0-5) /lpf U Epithel Cells (Auto) >30 H (0-5) /lpf Urine Bacteria (Auto) 3+ H (Negative) SARS-CoV-2 (PCR) (Negative) Influenza Type A (PCR) (Neg) Influenza Type B (PCR) (Neg) RSV (RT-PCR) (Neg) 02/01/21 02/01/21 02/01/21 Range/Units 12:23 12:23 12:23 WBC (4.8-10.8) K/uL RBC (4.2-5.4) M/uL Hgb (12.0-16.0) g/dL Hct (37-47) % MCV (80-100) fL MCH (25-34) pg MCHC (32-36) g/dL RDW Std Deviation (36.4-46.3) fL RDW Coeff of Nandini (11.5-14.5) % Plt Count (130-400) K/uL MPV (7.4-10.4) fL Immature Gran % (Auto) % Neut % (Auto) % Lymph % (Auto) % [place] % (Auto) % Eos % (Auto) % Baso % (Auto) % Neut # (Auto) (1.4-6.5) K/uL Lymph # (Auto) (1.2-3.4) K/uL [place] # (Auto) (0.11-0.59) K/uL Eos # (Auto) (0-0.5) K/uL Baso # (Auto) (0-0.2) K/uL Immature Gran # (Auto) (0.00-0.02) K/uL Sodium (136-145) mmol/L Potassium 4.1 (3.5-5.1) mmol/L Chloride (98-107) mmol/L Carbon Dioxide (21-32) mmol/L Anion Gap (3-11) BUN (7-18) mg/dl Creatinine (0.6-1.2) mg/dl Est Cr Clr Drug Dosing ml/min Est GFR ( Amer) ml/min Est GFR (Non-Af Amer) ml/min BUN/Creatinine Ratio (10-20) Glucose (70-99) mg/dl POC Glucose (70-99) mg/dl Calcium (8.5-10.1) mg/dl Phosphorus 3.0 (2.5-4.9) mg/dl Magnesium 2.2 (1.8-2.4) mg/dl Ferritin 430.8 H (8-388) ng/ml Total Bilirubin (0.2-1) mg/dl AST 34 (15-37) U/L ALT (12-78) Alkaline Phosphatase (45-117) U/L C-Reactive Protein 6.73 H (0-0.29) mg/dl Total Protein (6.4-8.2) gm/dl Albumin (3.4-5.0) gm/dl Globulin (2.5-4.0) gm/dl Albumin/Globulin Ratio (0.9-2) Procalcitonin 1.75 H Specimen Hemolysis Urine Color Urine Appearance (Clear) Urine pH (4.5-7.5) Ur Specific [place] (1.000-1.030) Urine Protein (Negative) Urine Glucose (UA) (Negative) Urine Ketones (Negative) Urine Blood (Negative) Urine Nitrite (Negative) Urine Bilirubin (Negative) Urine Urobilinogen (Negative) Ur Leukocyte Esterase (Negative) Urine WBC (Auto) (0-5) /hpf Urine RBC (Auto) (0-4) /hpf U Hyaline Cast (Auto) (0-5) /lpf U Epithel Cells (Auto) (0-5) /lpf Urine Bacteria (Auto) (Negative) SARS-CoV-2 (PCR) (Negative) Influenza Type A (PCR) (Neg) Influenza Type B (PCR) (Neg) RSV (RT-PCR) (Neg) 02/01/21 02/01/21 02/01/21 Range/Units 11:22 11:22 11:22 WBC 18.58 H (4.8-10.8) K/uL RBC 4.18 L (4.2-5.4) M/uL Hgb 13.4 (12.0-16.0) g/dL Hct 39.8 (37-47) % MCV 95.2 (80-100) fL MCH 32.1 (25-34) pg MCHC 33.7 (32-36) g/dL RDW Std Deviation 47.3 H (36.4-46.3) fL RDW Coeff of Nandini 13.7 (11.5-14.5) % Plt Count 397 (130-400) K/uL MPV 9.6 (7.4-10.4) fL Immature Gran % (Auto) 3.8 % Neut % (Auto) 83.4 % Lymph % (Auto) 6.8 % [place] % (Auto) 5.8 % Eos % (Auto) 0.1 % Baso % (Auto) 0.1 % Neut # (Auto) 15.50 H (1.4-6.5) K/uL Lymph # (Auto) 1.26 (1.2-3.4) K/uL [place] # (Auto) 1.07 H (0.11-0.59) K/uL Eos # (Auto) 0.02 (0-0.5) K/uL Baso # (Auto) 0.02 (0-0.2) K/uL Immature Gran # (Auto) 0.71 H (0.00-0.02) K/uL Sodium 130 L (136-145) mmol/L Potassium (3.5-5.1) mmol/L Chloride 95 L (98-107) mmol/L Carbon Dioxide 24 (21-32) mmol/L Anion Gap 11.0 (3-11) BUN 36 H (7-18) mg/dl Creatinine 1.37 H (0.6-1.2) mg/dl Est Cr Clr Drug Dosing 30.2 ml/min Est GFR ( Amer) 40.1 ml/min Est GFR (Non-Af Amer) 34.6 ml/min BUN/Creatinine Ratio 26.3 H (10-20) Glucose 202 H (70-99) mg/dl POC Glucose (70-99) mg/dl Calcium 10.0 (8.5-10.1) mg/dl Phosphorus (2.5-4.9) mg/dl Magnesium (1.8-2.4) mg/dl Ferritin (8-388) ng/ml Total Bilirubin 0.5 (0.2-1) mg/dl AST (15-37) U/L ALT 27 (12-78) Alkaline Phosphatase 90 (45-117) U/L C-Reactive Protein (0-0.29) mg/dl Total Protein 8.2 (6.4-8.2) gm/dl Albumin 2.5 L (3.4-5.0) gm/dl Globulin 5.7 H (2.5-4.0) gm/dl Albumin/Globulin Ratio 0.4 L (0.9-2) Procalcitonin Cancelled Specimen Hemolysis Urine Color Urine Appearance (Clear) Urine pH (4.5-7.5) Ur Specific [place] (1.000-1.030) Urine Protein (Negative) Urine Glucose (UA) (Negative) Urine Ketones (Negative) Urine Blood (Negative) Urine Nitrite (Negative) Urine Bilirubin (Negative) Urine Urobilinogen (Negative) Ur Leukocyte Esterase (Negative) Urine WBC (Auto) (0-5) /hpf Urine RBC (Auto) (0-4) /hpf U Hyaline Cast (Auto) (0-5) /lpf U Epithel Cells (Auto) (0-5) /lpf Urine Bacteria (Auto) (Negative) SARS-CoV-2 (PCR) (Negative) Influenza Type A (PCR) (Neg) Influenza Type B (PCR) (Neg) RSV (RT-PCR) (Neg) 02/01/21 Range/Units 11:10 WBC (4.8-10.8) K/uL RBC (4.2-5.4) M/uL Hgb (12.0-16.0) g/dL Hct (37-47) % MCV (80-100) fL MCH (25-34) pg MCHC (32-36) g/dL RDW Std Deviation (36.4-46.3) fL RDW Coeff of Nandini (11.5-14.5) % Plt Count (130-400) K/uL MPV (7.4-10.4) fL Immature Gran % (Auto) % Neut % (Auto) % Lymph % (Auto) % [place] % (Auto) % Eos % (Auto) % Baso % (Auto) % Neut # (Auto) (1.4-6.5) K/uL Lymph # (Auto) (1.2-3.4) K/uL [place] # (Auto) (0.11-0.59) K/uL Eos # (Auto) (0-0.5) K/uL Baso # (Auto) (0-0.2) K/uL Immature Gran # (Auto) (0.00-0.02) K/uL Sodium (136-145) mmol/L Potassium (3.5-5.1) mmol/L Chloride (98-107) mmol/L Carbon Dioxide (21-32) mmol/L Anion Gap (3-11) BUN (7-18) mg/dl Creatinine (0.6-1.2) mg/dl Est Cr Clr Drug Dosing ml/min Est GFR ( Amer) ml/min Est GFR (Non-Af Amer) ml/min BUN/Creatinine Ratio (10-20) Glucose (70-99) mg/dl POC Glucose (70-99) mg/dl Calcium (8.5-10.1) mg/dl Phosphorus (2.5-4.9) mg/dl Magnesium (1.8-2.4) mg/dl Ferritin (8-388) ng/ml Total Bilirubin (0.2-1) mg/dl AST (15-37) U/L ALT (12-78) Alkaline Phosphatase (45-117) U/L C-Reactive Protein (0-0.29) mg/dl Total Protein (6.4-8.2) gm/dl Albumin (3.4-5.0) gm/dl Globulin (2.5-4.0) gm/dl Albumin/Globulin Ratio (0.9-2) Procalcitonin Specimen Hemolysis Urine Color Urine Appearance (Clear) Urine pH (4.5-7.5) Ur Specific [place] (1.000-1.030) Urine Protein (Negative) Urine Glucose (UA) (Negative) Urine Ketones (Negative) Urine Blood (Negative) Urine Nitrite (Negative) Urine Bilirubin (Negative) Urine Urobilinogen (Negative) Ur Leukocyte Esterase (Negative) Urine WBC (Auto) (0-5) /hpf Urine RBC (Auto) (0-4) /hpf U Hyaline Cast (Auto) (0-5) /lpf U Epithel Cells (Auto) (0-5) /lpf Urine Bacteria (Auto) (Negative) SARS-CoV-2 (PCR) POSITIVE A* (Negative) Influenza Type A (PCR) Negative (Neg) Influenza Type B (PCR) Negative (Neg) RSV (RT-PCR) Negative (Neg) Medications Administered Current Inpatient Medications Acetaminophen (Acetaminophen 325 Mg Tab) 650 mg PO Q4H PRN PRN Reason: Pain or Fever Stop: 03/03/21 16:04 Albuterol (Albuterol Hfa 8 Gm Inhaler) 2 puffs INH Q6H PRN PRN Reason: Shortness Of Breath Or Wheezin Stop: 03/03/21 16:04 Aspirin (Aspirin 81 Mg Ectab) 81 mg PO QAM [facility] Stop: 03/04/21 08:59 Bupropion HCl (Bupropion Sr 100 Mg Tabcr) 200 mg PO BID [facility] Stop: 03/03/21 20:59 Last Admin: 02/01/21 19:50 Dose: 200 mg Documented by: Cyanocobalamin (Cyanocobalamin 500 Mcg Tablet (Vitamin B-12)) 1,000 mcg PO QAM [facility] Stop: 03/04/21 08:59 Dextrose (Dextrose 50% 50 Ml Syringe) 25 - 50 ml IV UD PRN; Protocol PRN Reason: Hypoglycemia Protocol Stop: 03/03/21 16:04 Doxycycline Hyclate (Doxycycline Hyclate 100 Mg Cap) 100 mg PO BID [facility] Stop: 02/08/21 20:59 Last Admin: 02/01/21 19:49 Dose: 100 mg Documented by: Enalapril Maleate (Enalapril Maleate 10 Mg Tab) 20 mg PO BID [facility] Stop: 03/03/21 20:59 Last Admin: 02/01/21 19:50 Dose: 20 mg Documented by: Glucagon (Glucagon For Inj 1 Mg Vial) 1 mg SQ UD PRN; Protocol PRN Reason: Hypoglycemia Protocol Stop: 03/03/21 16:04 Glucose (Glucose 10 Tabs/Tube) 4 - 8 tabs PO UD PRN; Protocol PRN Reason: Hypoglycemia Protocol Stop: 03/03/21 16:04 Glucose (Glucose 40% Gel 15 Gm Tube) 15 - 30 gm PO UD PRN; Protocol PRN Reason: Hypoglycemia Protocol Stop: 03/03/21 16:04 Guaifenesin (Guaifenesin 600 Mg Tabcr) 600 mg PO Q12 [facility] Stop: 03/03/21 20:59 Last Admin: 02/01/21 19:50 Dose: 600 mg Documented by: Heparin Sodium (Porcine) (Heparin Sod 5,000 Unit/0.5 Ml Vial) 7,500 units SQ Q8 [facility] Stop: 03/03/21 21:59 Last Admin: 02/02/21 04:40 Dose: 7,500 units Documented by: Dexamethasone 6 mg/ Syringe 1.5 mls @ 1 mls/min IV DAILY [facility] Stop: 02/12/21 08:59 Ceftriaxone Sodium 2,000 mg/ (Dextrose) 70 mls @ 140 mls/hr IV Q24H [facility]; Protocol Stop: 02/09/21 11:59 Remdesivir 100 mg/ Sodium (Chloride) 250 mls @ 250 mls/hr IV Q24H [facility]; Protocol Stop: 02/05/21 20:59 Insulin Aspart (Insulin Aspart Per Unit) 0 units SC ACHS [facility] Stop: 03/03/21 16:29 Last Admin: 02/01/21 20:03 Dose: 2 units Documented by: Insulin Glargine (Insulin Glargine Solostar 100 Units/Ml 3 Ml Pen) 0 - 8 units SC BID [facility]; Protocol Stop: 03/03/21 20:59 Last Admin: 02/01/21 20:03 Dose: 8 units Documented by: Miscellaneous (Carbohydrates For Hypoglycemia ) 15 - 30 gm PO UD PRN PRN Reason: Hypoglycemia Protocol Stop: 03/03/21 16:04 Ondansetron HCl (Ondansetron Inj 2 Mg/Ml 2 Ml Vial) 4 mg IV Q6H PRN PRN Reason: Nausea Stop: 03/03/21 16:04 Pantoprazole Sodium (Pantoprazole 40 Mg Tab) 40 mg PO QAM [facility] Stop: 03/04/21 08:59 Polyethylene Glycol (Polyethylene (Miralax) 17 Gm Pack) 17 gm PO DAILY PRN PRN Reason: Constipation Stop: 03/03/21 16:04 Rosuvastatin Calcium (Rosuvastatin Calcium 5 Mg Tab) 5 mg PO MoWeFr@0900 [facility] Stop: 03/03/21 16:59 Last Admin: 02/01/21 17:18 Dose: 5 mg Documented by: Sodium Chloride (Sodium Chloride 0.9% 10ml Flush) 30 ml IV DAILY@2000 [facility] Stop: 02/05/21 20:01 Last Admin: 02/01/21 19:29 Dose: 30 ml Documented by: Tramadol HCl (Tramadol Hcl 50 Mg Tablet) 50 mg PO Q6H PRN PRN Reason: Pain Stop: 03/03/21 16:04
[2021-02-02] MEDS ORDERED: CALCIUM CARBONATE 1250MG TAB PO SCH (09:00)
[2021-02-02] MEDS: DOXYCYCLINE HYCLATE 100 MG CAP PO SCH ×2 (09:14→20:35)
[2021-02-02] MEDS: ASPIRIN 81 MG ECTAB PO SCH (09:14)
[2021-02-02] MEDS: PANTOprazole 40 MG TAB PO SCH (09:14)
[2021-02-02] MEDS: guaiFENesin 600 MG TABCR PO SCH ×2 (09:14→20:35)
[2021-02-02] MEDS: buPROPion SR 100 MG TABCR PO SCH ×2 (09:14→20:35)
[2021-02-02] MEDS: CYANOCOBALAMIN 500 MCG TABLET (VITAMIN B-12) PO SCH (09:15)
[2021-02-02] MEDS: dexAMETHasone 6 MG in SYRINGE 0 ML IV SCH (09:48)
[2021-02-02] MEDS: INSULIN ASPART PER UNIT SC SCH ×4 (09:48→20:23)
[2021-02-02] MEDS: INSULIN GLARGINE SOLOSTAR 100 UNITS/ML 3 ML PEN SC SCH ×2 (09:48→21:35)
[2021-02-02] MEDS: cefTRIAXone SODIUM 2,000 MG in DEXTROSE 5% 50 ML IV SCH (12:52)
[2021-02-02] MEDS: ACETAMINOPHEN 325 MG TAB PO PRN ×2 (14:55→20:34)
[2021-02-02] MEDS: POLYETHYLENE (MIRALAX) 17 GM PACK PO PRN (14:56)
[2021-02-02] MEDS: SODIUM CHLORIDE 0.9% 10ML FLUSH IV SCH (20:34)
[2021-02-02] MEDS: REMDESIVIR 100 MG in SODIUM CHLORIDE 0.9% 230 ML IV SCH (20:34)
[2021-02-03] MEDS: HEPARIN SOD 5,000 UNIT/0.5 ML VIAL SQ SCH ×3 (05:16→19:45)
[2021-02-03 07:18] LABS: Hematocrit (blood only) 38.4 % (37-47); Hemoglobin 12.5 g/dL (12.0-16.0); Mean Corpuscular Hemoglobin 31.4 pg (25-34); Mean Corpuscular Hgb Conc 32.6 g/dL (32-36); Mean Corpuscular Volume 96.5 fL (80-100); Mean Platelet Volume 9.6 fL (7.4-10.4); Platelet Count 429 K/uL (130-400); RDW Coefficient of Variation 14.2 % (11.5-14.5); RDW Standard Deviation 50.4 fL (36.4-46.3); Red Blood Count 3.98 M/uL (4.2-5.4); White Blood Count 15.33 K/uL (4.8-10.8)
[2021-02-03 07:35] LABS: BUN Creatinine Ratio 27.9 (10-20); Calcium 8.9 mg/dl (8.5-10.1); Creatinine Clr Calc Pharmacy 26.9 ml/min; Est GFR (African American) 39.7 ml/min; Est GFR (Non-African American) 34.3 ml/min
[2021-02-03 07:45] LABS: Phosphorus 2.3 mg/dl (2.5-4.9)
[2021-02-03] MEDS: guaiFENesin 600 MG TABCR PO SCH ×2 (08:33→19:44)
[2021-02-03] MEDS: buPROPion SR 100 MG TABCR PO SCH ×2 (08:33→19:46)
[2021-02-03] MEDS: PANTOprazole 40 MG TAB PO SCH (08:33)
[2021-02-03] MEDS: DOXYCYCLINE HYCLATE 100 MG CAP PO SCH ×2 (08:33→19:45)
[2021-02-03] MEDS: CYANOCOBALAMIN 500 MCG TABLET (VITAMIN B-12) PO SCH (08:33)
[2021-02-03] MEDS: ASPIRIN 81 MG ECTAB PO SCH (08:33)
[2021-02-03] MEDS: ACETAMINOPHEN 325 MG TAB PO PRN ×2 (08:43→12:22)
[2021-02-03] MEDS: dexAMETHasone 6 MG in SYRINGE 0 ML IV SCH (08:44)
--- NOTE | 2021-02-03 08:51 | Hospitalist Progress Note ---
Date of Service February 03, 2021 Assessment & Plan (1) Pneumonia due to 2019 novel coronavirus: (2) Hypoxia: Plan: SEPSIS: Meets SIRS + Source - pneumonia Covid pneumonia, bacterial pneumonia Patient is 85-year-old female with PMH DM II, HTN, dyslipidemia, CKD III, depression presented to ER for cough. 01/24/2021 patient was more lethargic and was not getting out of bed. 01/31/2021 patient started with cough and noted shortness of breath. oxygen saturations were in the 80s at home. Patient's daughter tested positive for COVID-19 5 to 6 days ago. Reported patient had COVID-19 vaccine on 04/03/2020 and 04/24/2020. Has not been boosted. In ER patient afebrile, reported sats high 80s by EMS and patient was placed on 2 L nasal cannula with sats 92%, other vitals stable. WBC: 18, procalcitonin: 1.75, positive COVID-19 PCR. CXR: Bilateral opacities In ER given dexamethasone, cefepime Continue supplemental O2 CRP elevated at 7 Dexamethasone Remdesivir Cont. w/ Ceftriaxone, doxycycline Albuterol as needed Flutter valve, incentive spirometry monitor CBC, BMP UA appears like contaminant. Urine culture - likely skin antoinette Metabolic Encephalopathy Likely secondary to underlying infection. Treat as above Monitor Mental status much improved - likely back to baseline DM II Diet controlled A1c: 6.7 on 01/10/2021 Basal bolus insulin per protocol Suspect BSGs elevated secondary to steroid use HTN Hold enalapril currently Dyslipidemia Continue rosuvastatin CKD III Cr: 1.37. Baseline Cr: ~1.1 Monitor renal functions, avoid nephrotoxic agents when possible Depression Continue bupropion Chronic pain Patient had suspected PMR by PCP. Patient followed up with rheumatology and does not suspect PMR secondary to prednisone not helping pain Patient currently on prednisone however is being tapered Hold prednisone currently as is on dexamethasone DVT Prophylaxis Heparin SQ Full Code as per discussion with pt and pt's daughter Follows with Dr Restrepo for routine care Patient's daughter-Fariha Shirley would like updates. Admission and Anticipated Discharge Date Admission Date: February 01, 2021 Subjective Patient seen in follow-up of acute hypoxic resp. failure due to COVID-19 pneumonia Patient is currently sitting up in bed, in no acute distress Mental status is much improved she is able to answer questions appropriately This AM on 10L (yesterday on 3L) of oxygen, however already able to wean off to 3L today We will try to wean off oxygen as much as we can Patient currently denies fevers, chills, chest pain, abdominal pain, nausea vomiting or diarrhea She has persistent dry cough Review of Systems Review of Systems: All systems reviewed & are unremarkable except as noted in Subjective Physical Exam Physical Exam: General: no acute distress, WDWN Head: normocephalic, atraumatic Eyes: PERRL, EOM's intact, conjunctiva non-injected, anicteric ENT: normal inspection external ears, nose, mucous membranes moist Neck: supple, trachea midline Lungs: +scattered mild rhonchi, on 3L suppl. O2 CV: RRR, no pretibial edema Abd: normal BS, soft, non-tender Ext: no cyanosis, no calf tenderness Neuro: Awake, alert and answering questions appropriately. Mental status back to baseline. No facial asymmetry, speech fluent, moves extremities. Skin: warm, dry Results & Data Results & Data ([facility]) Vital Signs (Past 12 Hours) Vital Signs Temp Pulse Pulse Resp BP Pulse Ox 02/03/21 07:56 36.8 C 74 19 118/65 98 02/03/21 03:57 83 L 02/03/21 03:44 36.7 C 63 18 119/60 92 02/03/21 01:41 62 02/02/21 23:04 36.7 C 65 18 102/62 97 Laboratory Results 02/03/21 02/03/21 02/03/21 Range/Units 07:42 06:50 06:50 WBC 15.33 H (4.8-10.8) K/uL RBC 3.98 L (4.2-5.4) M/uL Hgb 12.5 (12.0-16.0) g/dL Hct 38.4 (37-47) % MCV 96.5 (80-100) fL MCH 31.4 (25-34) pg MCHC 32.6 (32-36) g/dL RDW Std Deviation 50.4 H (36.4-46.3) fL RDW Coeff of Nandini 14.2 (11.5-14.5) % Plt Count 429 H (130-400) K/uL MPV 9.6 (7.4-10.4) fL Sodium 137 (136-145) mmol/L Potassium 4.0 (3.5-5.1) mmol/L Chloride 105 (98-107) mmol/L Carbon Dioxide 26 (21-32) mmol/L Anion Gap 6.0 (3-11) BUN 39 H (7-18) mg/dl Creatinine 1.38 H (0.6-1.2) mg/dl Est Cr Clr Drug Dosing 26.9 ml/min Est GFR ( Amer) 39.7 ml/min Est GFR (Non-Af Amer) 34.3 ml/min BUN/Creatinine Ratio 27.9 H (10-20) Glucose 104 H (70-99) mg/dl POC Glucose 119 H (70-99) mg/dl Calcium 8.9 (8.5-10.1) mg/dl Phosphorus 2.3 L D (2.5-4.9) mg/dl Magnesium 2.0 (1.8-2.4) mg/dl AST 34 (15-37) U/L ALT 31 (12-78) 02/02/21 02/02/21 02/02/21 Range/Units 19:45 17:17 11:50 WBC (4.8-10.8) K/uL RBC (4.2-5.4) M/uL Hgb (12.0-16.0) g/dL Hct (37-47) % MCV (80-100) fL MCH (25-34) pg MCHC (32-36) g/dL RDW Std Deviation (36.4-46.3) fL RDW Coeff of Nandini (11.5-14.5) % Plt Count (130-400) K/uL MPV (7.4-10.4) fL Sodium (136-145) mmol/L Potassium (3.5-5.1) mmol/L Chloride (98-107) mmol/L Carbon Dioxide (21-32) mmol/L Anion Gap (3-11) BUN (7-18) mg/dl Creatinine (0.6-1.2) mg/dl Est Cr Clr Drug Dosing ml/min Est GFR ( Amer) ml/min Est GFR (Non-Af Amer) ml/min BUN/Creatinine Ratio (10-20) Glucose (70-99) mg/dl POC Glucose 151 H 202 H 148 H (70-99) mg/dl Calcium (8.5-10.1) mg/dl Phosphorus (2.5-4.9) mg/dl Magnesium (1.8-2.4) mg/dl AST (15-37) U/L ALT (12-78) Medications Administered Current Inpatient Medications Acetaminophen (Acetaminophen 325 Mg Tab) 650 mg PO Q4H PRN PRN Reason: Pain or Fever Stop: 03/03/21 16:04 Last Admin: 02/03/21 08:43 Dose: 650 mg Documented by: Albuterol (Albuterol Hfa 8 Gm Inhaler) 2 puffs INH Q6H PRN PRN Reason: Shortness Of Breath Or Wheezin Stop: 03/03/21 16:04 Aspirin (Aspirin 81 Mg Ectab) 81 mg PO QAM [facility] Stop: 03/04/21 08:59 Last Admin: 02/03/21 08:33 Dose: 81 mg Documented by: Bupropion HCl (Bupropion Sr 100 Mg Tabcr) 200 mg PO BID [facility] Stop: 03/03/21 20:59 Last Admin: 02/03/21 08:33 Dose: 200 mg Documented by: Cyanocobalamin (Cyanocobalamin 500 Mcg Tablet (Vitamin B-12)) 1,000 mcg PO QAM [facility] Stop: 03/04/21 08:59 Last Admin: 02/03/21 08:33 Dose: 1,000 mcg Documented by: Dextrose (Dextrose 50% 50 Ml Syringe) 25 - 50 ml IV UD PRN; Protocol PRN Reason: Hypoglycemia Protocol Stop: 03/03/21 16:04 Doxycycline Hyclate (Doxycycline Hyclate 100 Mg Cap) 100 mg PO BID [facility] Stop: 02/08/21 20:59 Last Admin: 02/03/21 08:33 Dose: 100 mg Documented by: Enalapril Maleate (Enalapril Maleate 10 Mg Tab) 20 mg PO BID [facility] Stop: 03/03/21 20:59 Last Admin: 02/01/21 19:50 Dose: 20 mg Documented by: Glucagon (Glucagon For Inj 1 Mg Vial) 1 mg SQ UD PRN; Protocol PRN Reason: Hypoglycemia Protocol Stop: 03/03/21 16:04 Glucose (Glucose 10 Tabs/Tube) 4 - 8 tabs PO UD PRN; Protocol PRN Reason: Hypoglycemia Protocol Stop: 03/03/21 16:04 Glucose (Glucose 40% Gel 15 Gm Tube) 15 - 30 gm PO UD PRN; Protocol PRN Reason: Hypoglycemia Protocol Stop: 03/03/21 16:04 Guaifenesin (Guaifenesin 600 Mg Tabcr) 600 mg PO Q12 [facility] Stop: 03/03/21 20:59 Last Admin: 02/03/21 08:33 Dose: 600 mg Documented by: Heparin Sodium (Porcine) (Heparin Sod 5,000 Unit/0.5 Ml Vial) 7,500 units SQ Q8 [facility] Stop: 03/03/21 21:59 Last Admin: 02/03/21 05:16 Dose: 7,500 units Documented by: Dexamethasone 6 mg/ Syringe 1.5 mls @ 1 mls/min IV DAILY [facility] Stop: 02/12/21 08:59 Last Admin: 02/03/21 08:44 Dose: 1 mls/min Documented by: Ceftriaxone Sodium 2,000 mg/ (Dextrose) 70 mls @ 140 mls/hr IV Q24H [facility]; Protocol Stop: 02/09/21 11:59 Last Infusion: 02/02/21 13:22 Dose: Infused Documented by: Remdesivir 100 mg/ Sodium (Chloride) 250 mls @ 250 mls/hr IV Q24H [facility]; Protocol Stop: 02/05/21 20:59 Last Infusion: 02/02/21 21:36 Dose: Infused Documented by: Insulin Aspart (Insulin Aspart Per Unit) 0 units SC ACHS [facility] Stop: 03/03/21 16:29 Last Admin: 02/02/21 20:23 Dose: Not Given Documented by: Insulin Glargine (Insulin Glargine Solostar 100 Units/Ml 3 Ml Pen) 0 - 8 units SC BID [facility]; Protocol Stop: 03/03/21 20:59 Last Admin: 02/02/21 21:35 Dose: 4 units Documented by: Miscellaneous (Carbohydrates For Hypoglycemia ) 15 - 30 gm PO UD PRN PRN Reason: Hypoglycemia Protocol Stop: 03/03/21 16:04 Ondansetron HCl (Ondansetron Inj 2 Mg/Ml 2 Ml Vial) 4 mg IV Q6H PRN PRN Reason: Nausea Stop: 03/03/21 16:04 Pantoprazole Sodium (Pantoprazole 40 Mg Tab) 40 mg PO QAM [facility] Stop: 03/04/21 08:59 Last Admin: 02/03/21 08:33 Dose: 40 mg Documented by: Polyethylene Glycol (Polyethylene (Miralax) 17 Gm Pack) 17 gm PO DAILY PRN PRN Reason: Constipation Stop: 03/03/21 16:04 Last Admin: 02/02/21 14:56 Dose: 17 gm Documented by: Potassium Phosphate (Pot Phosphate Monobasic W/ Sod Tab) 1 tab PO QID [facility] Stop: 03/05/21 08:59 Rosuvastatin Calcium (Rosuvastatin Calcium 5 Mg Tab) 5 mg PO MoWeFr@0900 [facility] Stop: 03/03/21 16:59 Last Admin: 02/01/21 17:18 Dose: 5 mg Documented by: Sodium Chloride (Sodium Chloride 0.9% 10ml Flush) 30 ml IV DAILY@1999 [facility] Stop: 02/05/21 20:01 Last Admin: 02/02/21 20:34 Dose: 30 ml Documented by: Tramadol HCl (Tramadol Hcl 50 Mg Tablet) 50 mg PO Q6H PRN PRN Reason: Pain Stop: 03/03/21 16:04
[2021-02-03] MEDS: INSULIN ASPART PER UNIT SC SCH ×4 (09:02→21:13)
[2021-02-03] MEDS: INSULIN GLARGINE SOLOSTAR 100 UNITS/ML 3 ML PEN SC SCH ×2 (09:02→21:13)
[2021-02-03] MEDS ORDERED: COUGH DROP (SUGAR FREE) LOZ 24 LOZ/1 BOX BUCCAL ONE (09:17)
[2021-02-03] MEDS: POT PHOSPHATE MONOBASIC W/ SOD TAB PO SCH ×4 (09:18→19:44)
--- NOTE | 2021-02-03 09:24 | XRay Report ---
XR chest 1V portable CLINICAL HISTORY: Follow-up bilateral airspace opacities. COMPARISON STUDY: 02/01/2021 TECHNIQUE: 1 view of the chest FINDINGS: Single frontal view of the chest demonstrates the cardiomediastinal silhouette to be within normal li mits. Compared to previous examination, there has been significant interval worsening of interstitial and alveolar airspace opacities most characteristic of a viral type pneumonitis and Covid pneumonia. There is no evidence for pleural effusion. There is no evidence for vascular congestion. There is no acute osseous pathology. IMPRESSION: Interval worsening of bilateral interstitial and alveolar opacities most characteristic o f Covid pneumonia. ACT 112: Negative or not required by law. Electronically signed by: Chemo George M.D. 02/03/2021 9:22 AM
[2021-02-03] MEDS: cefTRIAXone SODIUM 2,000 MG in DEXTROSE 5% 50 ML IV SCH (12:22)
[2021-02-03] MEDS: COUGH DROP (SUGAR FREE) LOZ 24 LOZ/1 BOX BUCCAL PRN ×2 (14:35→19:46)
[2021-02-03] MEDS: REMDESIVIR 100 MG in SODIUM CHLORIDE 0.9% 230 ML IV SCH (19:39)
[2021-02-03] MEDS: SODIUM CHLORIDE 0.9% 10ML FLUSH IV SCH (19:43)
[2021-02-04] MEDS: HEPARIN SOD 5,000 UNIT/0.5 ML VIAL SQ SCH ×3 (05:59→22:15)
[2021-02-04 07:10] LABS: Hematocrit (blood only) 34.9 % (37-47); Hemoglobin 11.5 g/dL (12.0-16.0); Mean Corpuscular Hemoglobin 31.9 pg (25-34); Mean Corpuscular Volume 96.9 fL (80-100); Mean Platelet Volume 9.5 fL (7.4-10.4); Platelet Count 465 K/uL (130-400); RDW Standard Deviation 49.9 fL (36.4-46.3)
[2021-02-04 07:45] LABS: C Reactive Protein 11.8 mg/dl (0-0.29); Calcium 8.7 mg/dl (8.5-10.1); Creatinine Clr Calc Pharmacy 32.3 ml/min; Est GFR (African American) 49.5 ml/min; Est GFR (Non-African American) 42.7 ml/min; Magnesium 2.1 mg/dl (1.8-2.4); Phosphorus 2.8 mg/dl (2.5-4.9); Potassium 3.9 mmol/L (3.5-5.1)
[2021-02-04] MEDS: guaiFENesin 600 MG TABCR PO SCH ×2 (08:29→20:12)
[2021-02-04] MEDS: buPROPion SR 100 MG TABCR PO SCH ×2 (08:29→20:12)
[2021-02-04] MEDS: dexAMETHasone 6 MG in SYRINGE 0 ML IV SCH (08:30)
[2021-02-04] MEDS: ROSUVASTATIN CALCIUM 5 MG TAB PO SCH (08:30)
[2021-02-04] MEDS: CYANOCOBALAMIN 500 MCG TABLET (VITAMIN B-12) PO SCH (08:30)
[2021-02-04] MEDS: ASPIRIN 81 MG ECTAB PO SCH (08:30)
[2021-02-04] MEDS: PANTOprazole 40 MG TAB PO SCH (08:31)
[2021-02-04] MEDS: POT PHOSPHATE MONOBASIC W/ SOD TAB PO SCH ×4 (08:31→20:11)
[2021-02-04] MEDS: DOXYCYCLINE HYCLATE 100 MG CAP PO SCH ×2 (08:31→20:13)
--- NOTE | 2021-02-04 08:46 | Hospitalist Progress Note ---
Date of Service February 04, 2021 Assessment & Plan (1) Pneumonia due to 2019 novel coronavirus: (2) Hypoxia: Plan: SEPSIS: Meets SIRS + Source - pneumonia Covid pneumonia, bacterial pneumonia Patient is 85-year-old female with PMH DM II, HTN, dyslipidemia, CKD III, depression presented to ER for cough. 01/24/2021 patient was more lethargic and was not getting out of bed. 01/31/2021 patient started with cough and noted shortness of breath. oxygen saturations were in the 80s at home. Patient's daughter tested positive for COVID-19 5 to 6 days ago. Reported patient had COVID-19 vaccine on 04/03/2020 and 04/24/2020. Has not been boosted. In ER patient afebrile, reported sats high 80s by EMS and patient was placed on 2 L nasal cannula with sats 92%, other vitals stable. WBC: 18, procalcitonin: 1.75, positive COVID-19 PCR. CXR: Bilateral opacities In ER given dexamethasone, cefepime Continue supplemental O2 WBC elevated at 18k on admission , now down to 12K CRP elevated at 7, now increased at 11 Dexamethasone- up to 10 days Remdesivir- up to 5 days Cont. w/ Ceftriaxone, doxycycline Albuterol as needed Flutter valve, incentive spirometry monitor CBC, BMP UA appears like contaminant. Urine culture - likely skin antoinette Metabolic Encephalopathy -resolved Likely secondary to underlying infection. Treat as above Monitor Mental status much improved - back to baseline DM II Diet controlled A1c: 6.7 on 01/10/2021 Basal bolus insulin per protocol Suspect BSGs elevated secondary to steroid use HTN Hold enalapril currently Dyslipidemia Continue rosuvastatin CKD III Cr: 1.37. Baseline Cr: ~1.1 Monitor renal functions, avoid nephrotoxic agents when possible Current Cr 1.15 Depression Continue bupropion Chronic pain Patient had suspected PMR by PCP. Patient followed up with rheumatology and does not suspect PMR secondary to prednisone not helping pain Patient currently on prednisone however is being tapered Hold prednisone currently as is on dexamethasone DVT Prophylaxis Heparin SQ Full Code as per discussion with pt and pt's daughter Follows with Dr Restrepo for routine care Patient's daughter-Fariha Shirley. Admission and Anticipated Discharge Date Admission Date: February 01, 2021 Subjective Patient seen in follow-up of acute hypoxic resp. failure due to COVID-19 pneumonia Patient is currently sitting up in bed, in no acute distress Mental status is much improved , back to baseline, she is able to answer questions appropriately Says that she is feeling well Continues to be on 3 days of oxygen, unchanged from yesterday We will try to wean off oxygen as much as we can Patient currently denies fevers, chills, chest pain, abdominal pain, nausea vomiting or diarrhea She has persistent dry cough She says she has good appetite Also says that she has been on the phone with her daughter Review of Systems Review of Systems: All systems reviewed & are unremarkable except as noted in Subjective Physical Exam Physical Exam: General: no acute distress, WDWN Head: normocephalic, atraumatic Eyes: PERRL, EOM's intact, conjunctiva non-injected, anicteric ENT: normal inspection external ears, nose, mucous membranes moist Neck: supple, trachea midline Lungs: +scattered mild rhonchi, on 3L suppl. O2 CV: RRR, no pretibial edema Abd: normal BS, soft, non-tender Ext: no cyanosis, no calf tenderness Neuro: Awake, alert and answering questions appropriately. Mental status back to baseline. No facial asymmetry, speech fluent, moves extremities. Skin: warm, dry Results & Data Results & Data ([facility]) Vital Signs (Past 12 Hours) Vital Signs Temp Pulse Pulse Resp BP Pulse Ox 02/04/21 08:15 36.8 C 65 12 115/50 L 91 02/04/21 07:36 81 02/04/21 02:21 36.6 C 60 16 110/50 L 92 02/03/21 23:37 63 02/03/21 21:52 36.6 C 65 18 98/52 L 96 Laboratory Results 02/04/21 02/04/21 02/04/21 Range/Units 08:14 06:31 06:31 WBC 12.50 H (4.8-10.8) K/uL RBC 3.60 L (4.2-5.4) M/uL Hgb 11.5 L (12.0-16.0) g/dL Hct 34.9 L (37-47) % MCV 96.9 (80-100) fL MCH 31.9 (25-34) pg MCHC 33.0 (32-36) g/dL RDW Std Deviation 49.9 H (36.4-46.3) fL RDW Coeff of Nandini 14.0 (11.5-14.5) % Plt Count 465 H (130-400) K/uL MPV 9.5 (7.4-10.4) fL Sodium 140 (136-145) mmol/L Potassium 3.9 (3.5-5.1) mmol/L Chloride 106 (98-107) mmol/L Carbon Dioxide 25 (21-32) mmol/L Anion Gap 8.0 (3-11) BUN 37 H (7-18) mg/dl Creatinine 1.15 (0.6-1.2) mg/dl Est Cr Clr Drug Dosing 32.3 ml/min Est GFR ( Amer) 49.5 ml/min Est GFR (Non-Af Amer) 42.7 ml/min BUN/Creatinine Ratio 32.0 H (10-20) Glucose 132 H (70-99) mg/dl POC Glucose 120 H (70-99) mg/dl Calcium 8.7 (8.5-10.1) mg/dl Phosphorus 2.8 (2.5-4.9) mg/dl Magnesium 2.1 (1.8-2.4) mg/dl AST 16 (15-37) U/L ALT 23 (12-78) C-Reactive Protein 11.80 H (0-0.29) mg/dl 02/03/21 02/03/21 02/03/21 Range/Units 19:35 17:06 12:01 WBC (4.8-10.8) K/uL RBC (4.2-5.4) M/uL Hgb (12.0-16.0) g/dL Hct (37-47) % MCV (80-100) fL MCH (25-34) pg MCHC (32-36) g/dL RDW Std Deviation (36.4-46.3) fL RDW Coeff of Nandini (11.5-14.5) % Plt Count (130-400) K/uL MPV (7.4-10.4) fL Sodium (136-145) mmol/L Potassium (3.5-5.1) mmol/L Chloride (98-107) mmol/L Carbon Dioxide (21-32) mmol/L Anion Gap (3-11) BUN (7-18) mg/dl Creatinine (0.6-1.2) mg/dl Est Cr Clr Drug Dosing ml/min Est GFR ( Amer) ml/min Est GFR (Non-Af Amer) ml/min BUN/Creatinine Ratio (10-20) Glucose (70-99) mg/dl POC Glucose 247 H 178 H 121 H (70-99) mg/dl Calcium (8.5-10.1) mg/dl Phosphorus (2.5-4.9) mg/dl Magnesium (1.8-2.4) mg/dl AST (15-37) U/L ALT (12-78) C-Reactive Protein (0-0.29) mg/dl Medications Administered Current Inpatient Medications Acetaminophen (Acetaminophen 325 Mg Tab) 650 mg PO Q4H PRN PRN Reason: Pain or Fever Stop: 03/03/21 16:04 Last Admin: 02/03/21 12:22 Dose: 650 mg Documented by: Albuterol (Albuterol Hfa 8 Gm Inhaler) 2 puffs INH Q6H PRN PRN Reason: Shortness Of Breath Or Wheezin Stop: 03/03/21 16:04 Aspirin (Aspirin 81 Mg Ectab) 81 mg PO QAM [facility] Stop: 03/04/21 08:59 Last Admin: 02/04/21 08:30 Dose: 81 mg Documented by: Bupropion HCl (Bupropion Sr 100 Mg Tabcr) 200 mg PO BID [facility] Stop: 03/03/21 20:59 Last Admin: 02/04/21 08:29 Dose: 200 mg Documented by: Cyanocobalamin (Cyanocobalamin 500 Mcg Tablet (Vitamin B-12)) 1,000 mcg PO QAM [facility] Stop: 03/04/21 08:59 Last Admin: 02/04/21 08:30 Dose: 1,000 mcg Documented by: Dextrose (Dextrose 50% 50 Ml Syringe) 25 - 50 ml IV UD PRN; Protocol PRN Reason: Hypoglycemia Protocol Stop: 03/03/21 16:04 Doxycycline Hyclate (Doxycycline Hyclate 100 Mg Cap) 100 mg PO BID [facility] Stop: 02/08/21 20:59 Last Admin: 02/04/21 08:31 Dose: 100 mg Documented by: Enalapril Maleate (Enalapril Maleate 10 Mg Tab) 20 mg PO BID [facility] Stop: 03/03/21 20:59 Last Admin: 02/01/21 19:50 Dose: 20 mg Documented by: Glucagon (Glucagon For Inj 1 Mg Vial) 1 mg SQ UD PRN; Protocol PRN Reason: Hypoglycemia Protocol Stop: 03/03/21 16:04 Glucose (Glucose 10 Tabs/Tube) 4 - 8 tabs PO UD PRN; Protocol PRN Reason: Hypoglycemia Protocol Stop: 03/03/21 16:04 Glucose (Glucose 40% Gel 15 Gm Tube) 15 - 30 gm PO UD PRN; Protocol PRN Reason: Hypoglycemia Protocol Stop: 03/03/21 16:04 Guaifenesin (Guaifenesin 600 Mg Tabcr) 600 mg PO Q12 [facility] Stop: 03/03/21 20:59 Last Admin: 02/04/21 08:29 Dose: 600 mg Documented by: Heparin Sodium (Porcine) (Heparin Sod 5,000 Unit/0.5 Ml Vial) 7,500 units SQ Q8 [facility] Stop: 03/03/21 21:59 Last Admin: 02/04/21 05:59 Dose: 7,500 units Documented by: Dexamethasone 6 mg/ Syringe 1.5 mls @ 1 mls/min IV DAILY [facility] Stop: 02/12/21 08:59 Last Admin: 02/04/21 08:30 Dose: 1 mls/min Documented by: Ceftriaxone Sodium 2,000 mg/ (Dextrose) 70 mls @ 140 mls/hr IV Q24H [facility]; Protocol Stop: 02/09/21 11:59 Last Infusion: 02/03/21 12:52 Dose: Infused Documented by: Remdesivir 100 mg/ Sodium (Chloride) 250 mls @ 250 mls/hr IV Q24H [facility]; Protocol Stop: 02/05/21 20:59 Last Infusion: 02/03/21 21:06 Dose: Infused Documented by: Insulin Aspart (Insulin Aspart Per Unit) 0 units SC ACHS [facility] Stop: 03/03/21 16:29 Last Admin: 02/03/21 21:13 Dose: 4 units Documented by: Insulin Glargine (Insulin Glargine Solostar 100 Units/Ml 3 Ml Pen) 0 - 8 units SC BID [facility]; Protocol Stop: 03/03/21 20:59 Last Admin: 02/03/21 21:13 Dose: 8 units Documented by: Menthol (Cough Drop (Sugar Free) Rodolfo 24 Rodolfo/1 Box) 1 rodolfo BUCCAL UD PRN PRN Reason: Cough Stop: 03/05/21 14:35 Last Admin: 02/03/21 19:46 Dose: 1 rodolfo Documented by: Miscellaneous (Carbohydrates For Hypoglycemia ) 15 - 30 gm PO UD PRN PRN Reason: Hypoglycemia Protocol Stop: 03/03/21 16:04 Ondansetron HCl (Ondansetron Inj 2 Mg/Ml 2 Ml Vial) 4 mg IV Q6H PRN PRN Reason: Nausea Stop: 03/03/21 16:04 Pantoprazole Sodium (Pantoprazole 40 Mg Tab) 40 mg PO QAM [facility] Stop: 03/04/21 08:59 Last Admin: 02/04/21 08:31 Dose: 40 mg Documented by: Polyethylene Glycol (Polyethylene (Miralax) 17 Gm Pack) 17 gm PO DAILY PRN PRN Reason: Constipation Stop: 03/03/21 16:04 Last Admin: 02/02/21 14:56 Dose: 17 gm Documented by: Potassium Phosphate (Pot Phosphate Monobasic W/ Sod Tab) 1 tab PO QID [facility] Stop: 03/05/21 08:59 Last Admin: 02/04/21 08:31 Dose: 1 tab Documented by: Rosuvastatin Calcium (Rosuvastatin Calcium 5 Mg Tab) 5 mg PO MoWeFr@0900 [facility] Stop: 03/03/21 16:59 Last Admin: 02/04/21 08:30 Dose: 5 mg Documented by: Sodium Chloride (Sodium Chloride 0.9% 10ml Flush) 30 ml IV DAILY@2000 [facility] Stop: 02/05/21 20:01 Last Admin: 02/03/21 19:43 Dose: 30 ml Documented by: Tramadol HCl (Tramadol Hcl 50 Mg Tablet) 50 mg PO Q6H PRN PRN Reason: Pain Stop: 03/03/21 16:04
[2021-02-04] MEDS: INSULIN ASPART PER UNIT SC SCH ×4 (09:31→21:52)
[2021-02-04] MEDS: INSULIN GLARGINE SOLOSTAR 100 UNITS/ML 3 ML PEN SC SCH ×2 (09:32→21:53)
[2021-02-04] MEDS: cefTRIAXone SODIUM 2,000 MG in DEXTROSE 5% 50 ML IV SCH (12:38)
[2021-02-04] MEDS: REMDESIVIR 100 MG in SODIUM CHLORIDE 0.9% 230 ML IV SCH (20:13)
[2021-02-04] MEDS: SODIUM CHLORIDE 0.9% 10ML FLUSH IV SCH (20:52)
[2021-02-05] MEDS: HEPARIN SOD 5,000 UNIT/0.5 ML VIAL SQ SCH ×2 (06:43→12:52)
[2021-02-05 07:42] LABS: Hematocrit (blood only) 36.1 % (37-47); Hemoglobin 11.8 g/dL (12.0-16.0); Mean Corpuscular Hemoglobin 31.3 pg (25-34); Mean Corpuscular Hgb Conc 32.7 g/dL (32-36); Mean Corpuscular Volume 95.8 fL (80-100); Mean Platelet Volume 9.6 fL (7.4-10.4); Platelet Count 487 K/uL (130-400); RDW Coefficient of Variation 14.1 % (11.5-14.5); Red Blood Count 3.77 M/uL (4.2-5.4); White Blood Count 14.44 K/uL (4.8-10.8)
[2021-02-05 08:19] LABS: BUN Creatinine Ratio 32.9 (10-20); Calcium 8.6 mg/dl (8.5-10.1); Creatinine Clr Calc Pharmacy 36.4 ml/min; Est GFR (African American) 57.3 ml/min; Est GFR (Non-African American) 49.4 ml/min; Potassium 3.7 mmol/L (3.5-5.1)
[2021-02-05] MEDS: CYANOCOBALAMIN 500 MCG TABLET (VITAMIN B-12) PO SCH (08:57)
[2021-02-05] MEDS: DOXYCYCLINE HYCLATE 100 MG CAP PO SCH ×2 (08:57→20:47)
[2021-02-05] MEDS: buPROPion SR 100 MG TABCR PO SCH ×2 (08:57→20:47)
[2021-02-05] MEDS: ASPIRIN 81 MG ECTAB PO SCH (08:57)
[2021-02-05] MEDS: guaiFENesin 600 MG TABCR PO SCH (08:57)
[2021-02-05] MEDS: dexAMETHasone 6 MG in SYRINGE 0 ML IV SCH (08:57)
[2021-02-05] MEDS: PANTOprazole 40 MG TAB PO SCH (08:58)
[2021-02-05] MEDS: POT PHOSPHATE MONOBASIC W/ SOD TAB PO SCH ×3 (08:58→17:54)
[2021-02-05] MEDS: INSULIN GLARGINE SOLOSTAR 100 UNITS/ML 3 ML PEN SC SCH ×2 (09:03→21:35)
[2021-02-05] MEDS: INSULIN ASPART PER UNIT SC SCH ×4 (09:19→21:35)
[2021-02-05] MEDS: cefTRIAXone SODIUM 2,000 MG in DEXTROSE 5% 50 ML IV SCH (11:52)
--- NOTE | 2021-02-05 16:45 | Hospitalist Progress Note ---
Date of Service February 05, 2021 Assessment & Plan (1) Acute metabolic encephalopathy: Plan: Likely secondary to underlying infection. Resolved. (2) Pneumonia due to 2019 novel coronavirus: Plan: Vaccinated female, hypoxia secondary to pneumonia. Clinically improved. On arrival procalcitonin was slightly elevated and she was started on a short course of antibiotics. She did meet sepsis criteria which may have been the reason for the elevated procalcitonin. She has completed a short course of remdesivir and is continuing on daily dexamethasone. Doing well, CRP trending down. Continue current treatment. (3) Hypoxia: Plan: Secondary to above, continue plan per #1. (4) Diabetes mellitus, type II: Plan: Likely secondary to chronic steroid use, diet controlled A1c: 6.7 on 01/10/2021 Glucose appears controlled, continue basal bolus insulin per protocol (5) Hypertension: Plan: Chronic, at goal, continue home enalapril. (6) CKD (chronic kidney disease), stage III: Plan: Chronic, at baseline. Avoid nephrotoxic substances. 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 When completes dexamethasone, continue prednisone per outpatient regimen (8) DVT prophylaxis: Plan: Lovenox Full code Disposition-to home when off oxygen Madison Goodwin DO [facility] Hospitalist Admission and Anticipated Discharge Date Admission Date: February 01, 2021 Subjective 85 yo F admitted for Covid pneumonia with hypoxia Reporting minimal cough Reporting improved shortness of breath Denies chest pain Afebrile Denies diarrhea Denies headache Tolerating p.o. Review of Systems Review of Systems: All systems reviewed and negative except as indicated above. Physical Exam Physical Exam: CONSTITUTIONAL: WNWD, vitals as above, generally well- appearing EYES: normal conjunctivae, no scleral icterus ENT: external ear and nose normal, MMM NECK: trachea midline RESPIRATORY: clear to auscultation bilaterally, no crackles, rales or wheezes, normal respiratory effort CARDIOVASCULAR: regular rate and rhythm, S1 and 2 heard without murmurs, g allops or rubs, no JVD, no peripheral edema GASTROINTESTINAL: soft, nontender, ND no guarding MUSCULOSKELETAL: strength 5/5 throughout, head is normocephalic and atraumatic SKIN: warm and dry NEUROLOGIC: CN 2-12 grossly intact, no sensory deficit, normal cognition, normal speech, no tremor, no gross focal deficits. PSYCHIATRIC: alert cooperative and oriented to person, place and time. Results & Data Results & Data ([facility]) Vital Signs (Past 12 Hours) Vital Signs Temp Pulse Pulse Resp BP Pulse Ox 02/05/21 14:16 63 02/05/21 11:49 37 C 63 20 117/50 L 93 02/05/21 08:10 36.9 C 63 18 144/63 H 91 02/05/21 06:19 59 L 02/05/21 05:25 64 Laboratory Results Short CBC 02/05/21 Range/Units 07:08 WBC 14.44 H (4.8-10.8) K/uL Hgb 11.8 L (12.0-16.0) g/dL Hct 36.1 L (37-47) % Plt Count 487 H (130-400) K/uL BMP 02/05/21 07:08 Sodium 140 Potassium 3.7 Chloride 108 H Carbon Dioxide 23 BUN 34 H Creatinine 1.02 Glucose 76 Calcium 8.6 Liver Function 02/05/21 Range/Units 07:08 AST 14 L (15-37) U/L ALT 24 (12-78) Medications Administered Current Inpatient Medications Acetaminophen (Acetaminophen 325 Mg Tab) 650 mg PO Q4H PRN PRN Reason: Pain or Fever Stop: 03/03/21 16:04 Last Admin: 02/03/21 12:22 Dose: 650 mg Documented by: Albuterol (Albuterol Hfa 8 Gm Inhaler) 2 puffs INH Q6H PRN PRN Reason: Shortness Of Breath Or Wheezin Stop: 03/03/21 16:04 Aspirin (Aspirin 81 Mg Ectab) 81 mg PO [facility] Stop: 03/04/21 08:59 Last Admin: 02/05/21 08:57 Dose: 81 mg Documented by: Bupropion HCl (Bupropion Sr 100 Mg Tabcr) 200 mg PO BID [facility] Stop: 03/03/21 20:59 Last Admin: 02/05/21 08:57 Dose: 200 mg Documented by: Cyanocobalamin (Cyanocobalamin 500 Mcg Tablet (Vitamin B-12)) 1,000 mcg PO QAM [facility] Stop: 03/04/21 08:59 Last Admin: 02/05/21 08:57 Dose: 1,000 mcg Documented by: Dextrose (Dextrose 50% 50 Ml Syringe) 25 - 50 ml IV UD PRN; Protocol PRN Reason: Hypoglycemia Protocol Stop: 03/03/21 16:04 Doxycycline Hyclate (Doxycycline Hyclate 100 Mg Cap) 100 mg PO BID [facility] Stop: 02/08/21 20:59 Last Admin: 02/05/21 08:57 Dose: 100 mg Documented by: Enalapril Maleate (Enalapril Maleate 10 Mg Tab) 20 mg PO BID [facility] Stop: 03/03/21 20:59 Last Admin: 02/01/21 19:50 Dose: 20 mg Documented by: Glucagon (Glucagon For Inj 1 Mg Vial) 1 mg SQ UD PRN; Protocol PRN Reason: Hypoglycemia Protocol Stop: 03/03/21 16:04 Glucose (Glucose 10 Tabs/Tube) 4 - 8 tabs PO UD PRN; Protocol PRN Reason: Hypoglycemia Protocol Stop: 03/03/21 16:04 Glucose (Glucose 40% Gel 15 Gm Tube) 15 - 30 gm PO UD PRN; Protocol PRN Reason: Hypoglycemia Protocol Stop: 03/03/21 16:04 Guaifenesin (Guaifenesin 600 Mg Tabcr) 600 mg PO Q12 [facility] Stop: 03/03/21 20:59 Last Admin: 02/05/21 08:57 Dose: 600 mg Documented by: Heparin Sodium (Porcine) (Heparin Sod 5,000 Unit/0.5 Ml Vial) 7,500 units SQ Q8 [facility] Stop: 03/03/21 21:59 Last Admin: 02/05/21 12:52 Dose: 7,500 units Documented by: Dexamethasone 6 mg/ Syringe 1.5 mls @ 1 mls/min IV DAILY [facility] Stop: 02/12/21 08:59 Last Admin: 02/05/21 08:57 Dose: 1 mls/min Documented by: Ceftriaxone Sodium 2,000 mg/ (Dextrose) 70 mls @ 140 mls/hr IV Q24H [facility]; Protocol Stop: 02/09/21 11:59 Last Infusion: 02/05/21 12:22 Dose: Infused Documented by: Remdesivir 100 mg/ Sodium (Chloride) 250 mls @ 250 mls/hr IV Q24H [facility]; Protocol Stop: 02/05/21 20:59 Last Infusion: 02/04/21 22:13 Dose: Infused Documented by: Insulin Aspart (Insulin Aspart Per Unit) 0 units SC ACHS [facility] Stop: 03/03/21 16:29 Last Admin: 02/05/21 12:51 Dose: 5 units Documented by: Insulin Glargine (Insulin Glargine Solostar 100 Units/Ml 3 Ml Pen) 0 - 8 units SC BID [facility]; Protocol Stop: 03/03/21 20:59 Last Admin: 02/05/21 09:03 Dose: Not Given Documented by: Menthol (Cough Drop (Sugar Free) Rodolfo 24 Rodolfo/1 Box) 1 rodolfo BUCCAL UD PRN PRN Reason: Cough Stop: 03/05/21 14:35 Last Admin: 02/03/21 19:46 Dose: 1 rodolfo Documented by: Miscellaneous (Carbohydrates For Hypoglycemia ) 15 - 30 gm PO UD PRN PRN Reason: Hypoglycemia Protocol Stop: 03/03/21 16:04 Ondansetron HCl (Ondansetron Inj 2 Mg/Ml 2 Ml Vial) 4 mg IV Q6H PRN PRN Reason: Nausea Stop: 03/03/21 16:04 Pantoprazole Sodium (Pantoprazole 40 Mg Tab) 40 mg PO QAM [facility] Stop: 03/04/21 08:59 Last Admin: 02/05/21 08:58 Dose: 40 mg Documented by: Polyethylene Glycol (Polyethylene (Miralax) 17 Gm Pack) 17 gm PO DAILY PRN PRN Reason: Constipation Stop: 03/03/21 16:04 Last Admin: 02/02/21 14:56 Dose: 17 gm Documented by: Potassium Phosphate (Pot Phosphate Monobasic W/ Sod Tab) 1 tab PO QID [facility] Stop: 03/05/21 08:59 Last Admin: 02/05/21 12:03 Dose: 1 tab Documented by: Rosuvastatin Calcium (Rosuvastatin Calcium 5 Mg Tab) 5 mg PO MoWeFr@0900 [facility] Stop: 03/03/21 16:59 Last Admin: 02/04/21 08:30 Dose: 5 mg Documented by: Sodium Chloride (Sodium Chloride 0.9% 10ml Flush) 30 ml IV DAILY@2000 [facility] Stop: 02/05/21 20:01 Last Admin: 02/04/21 20:52 Dose: 30 ml Documented by: Tramadol HCl (Tramadol Hcl 50 Mg Tablet) 50 mg PO Q6H PRN PRN Reason: Pain Stop: 03/03/21 16:04
[2021-02-05] MEDS: REMDESIVIR 100 MG in SODIUM CHLORIDE 0.9% 230 ML IV SCH (20:43)
[2021-02-05] MEDS: SODIUM CHLORIDE 0.9% 10ML FLUSH IV SCH (20:44)
[2021-02-05] MEDS: ENALAPRIL MALEATE 10 MG TAB PO SCH (20:50)
[2021-02-06 06:26] LABS: Hematocrit (blood only) 36.6 % (37-47); Hemoglobin 11.9 g/dL (12.0-16.0); Mean Corpuscular Hemoglobin 31.2 pg (25-34); Mean Corpuscular Hgb Conc 32.5 g/dL (32-36); Mean Corpuscular Volume 96.1 fL (80-100); Mean Platelet Volume 9.7 fL (7.4-10.4); Platelet Count 518 K/uL (130-400); RDW Coefficient of Variation 14.2 % (11.5-14.5); RDW Standard Deviation 49.6 fL (36.4-46.3); Red Blood Count 3.81 M/uL (4.2-5.4); White Blood Count 13.51 K/uL (4.8-10.8)
[2021-02-06 06:57] LABS: BUN Creatinine Ratio 27.9 (10-20); Calcium 8.9 mg/dl (8.5-10.1); Creatinine Clr Calc Pharmacy 38.6 ml/min; Est GFR (African American) 61.6 ml/min; Est GFR (Non-African American) 53.2 ml/min; Potassium 4.2 mmol/L (3.5-5.1)
[2021-02-06 07:00] LABS: C Reactive Protein 5.61 mg/dl (0-0.29)
[2021-02-06] MEDS: INSULIN ASPART PER UNIT SC SCH ×4 (08:45→20:30)
[2021-02-06] MEDS: DOXYCYCLINE HYCLATE 100 MG CAP PO SCH ×2 (08:47→20:33)
[2021-02-06] MEDS: buPROPion SR 100 MG TABCR PO SCH ×2 (08:47→20:34)
[2021-02-06] MEDS: ROSUVASTATIN CALCIUM 5 MG TAB PO SCH (08:47)
[2021-02-06] MEDS: dexAMETHasone 6 MG in SYRINGE 0 ML IV SCH (08:47)
[2021-02-06] MEDS: ASPIRIN 81 MG ECTAB PO SCH (08:48)
[2021-02-06] MEDS: PANTOprazole 40 MG TAB PO SCH (08:48)
[2021-02-06] MEDS: CYANOCOBALAMIN 500 MCG TABLET (VITAMIN B-12) PO SCH (08:48)
[2021-02-06] MEDS: INSULIN GLARGINE SOLOSTAR 100 UNITS/ML 3 ML PEN SC SCH ×2 (08:52→20:35)
[2021-02-06] MEDS: POLYETHYLENE (MIRALAX) 17 GM PACK PO PRN (09:02)
[2021-02-06] MEDS: ENALAPRIL MALEATE 10 MG TAB PO SCH ×2 (10:16→20:32)
[2021-02-06] MEDS: cefTRIAXone SODIUM 2,000 MG in DEXTROSE 5% 50 ML IV SCH (12:46)
--- NOTE | 2021-02-06 14:52 | Hospitalist Progress Note ---
Date of Service February 06, 2021 Assessment & Plan (1) Acute metabolic encephalopathy: Plan: Likely secondary to underlying infection. Resolved. (2) Pneumonia due to 2019 novel coronavirus: Plan: Vaccinated female, hypoxia secondary to pneumonia. Clinically improved. On arrival procalcitonin was slightly elevated and she was started on a short course of antibiotics. She did meet sepsis criteria which may have been the reason for the elevated procalcitonin. She has completed a short course of remdesivir and is continuing on daily dexamethasone. Doing well, CRP trending down. Continue current treatment. Procalcitonin is now normal and she remains afebrile and clinically well. Will dc antibiotics now. (3) Hypoxia: Plan: Secondary to above, continue plan per #1. (4) Diabetes mellitus, type II: Plan: Likely secondary to chronic steroid use, diet controlled A1c: 6.7 on 01/10/2021 Glucose appears controlled, continue basal bolus insulin per protocol (5) Hypertension: Plan: Chronic, at goal, continue home enalapril. (6) CKD (chronic kidney disease), stage III: Plan: Chronic, at baseline. Avoid nephrotoxic substances. 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 When completes dexamethasone, continue prednisone per outpatient regimen (8) DVT prophylaxis: Plan: Lovenox Full code Disposition-to home when off oxygen, per PT/OT recommendations. [facility]ist Admission and Anticipated Discharge Date Admission Date: February 01, 2021 Subjective 85 yo F admitted for Covid pneumonia with hypoxia Reporting minimal cough Reporting improved shortness of breath Denies chest pain Afebrile Denies diarrhea Denies headache Tolerating p.o. Review of Systems Review of Systems: All systems reviewed and negative except as indicated above. Physical Exam Physical Exam: CONSTITUTIONAL: WNWD, vitals as above, generally well- appearing EYES: normal conjunctivae, no scleral icterus ENT: external ear and nose normal, MMM NECK: trachea midline RESPIRATORY: clear to auscultation bilaterally, no crackles, rales or wheezes, normal respiratory effort CARDIOVASCULAR: regular rate and rhythm, S1 and 2 heard without murmurs, gallops or rubs, no JVD, no peripheral edema GASTROINTESTINAL: soft, nontender, ND no guarding MUSCULOSKELETAL: strength 5/5 throughout, head is normocephalic and atraumatic SKIN: warm and dry NEUROLOGIC: CN 2-12 grossly intact, no sensory deficit, normal cognition, normal speech, no tremor, no gross focal deficits. PSYCHIATRIC: alert cooperative and oriented to person, place and time. Results & Data Results & Data ([facility]) Vital Signs (Past 12 Hours) Vital Signs Temp Pulse Resp BP Pulse Ox 02/06/21 08:00 36.6 C 66 18 117/53 L 93 Laboratory Results Short CBC 02/06/21 Range/Units 05:33 WBC 13.51 H (4.8-10.8) K/uL Hgb 11.9 L (12.0-16.0) g/dL Hct 36.6 L (37-47) % Plt Count 518 H (130-400) K/uL BMP 02/06/21 05:33 Sodium 139 Potassium 4.2 Chloride 107 Carbon Dioxide 25 BUN 27 H Creatinine 0.96 Glucose 96 Calcium 8.9 Liver Function 02/06/21 Range/Units 05:33 AST 14 L (15-37) U/L ALT 22 (12-78) Medications Administered Current Inpatient Medications Acetaminophen (Acetaminophen 325 Mg Tab) 650 mg PO Q4H PRN PRN Reason: Pain or Fever Stop: 03/03/21 16:04 Last Admin: 02/03/21 12:22 Dose: 650 mg Documented by: Albuterol (Albuterol Hfa 8 Gm Inhaler) 2 puffs INH Q6H PRN PRN Reason: Shortness Of Breath Or Wheezin Stop: 03/03/21 16:04 Aspirin (Aspirin 81 Mg Ectab) 81 mg PO [facility] Stop: 03/04/21 08:59 Last Admin: 02/06/21 08:48 Dose: 81 mg Documented by: Bupropion HCl (Bupropion Sr 100 Mg Tabcr) 200 mg PO BID [facility] Stop: 03/03/21 20:59 Last Admin: 02/06/21 08:47 Dose: 200 mg Documented by: Cyanocobalamin (Cyanocobalamin 500 Mcg Tablet (Vitamin B-12)) 1,000 mcg PO QAM [facility] Stop: 03/04/21 08:59 Last Admin: 02/06/21 08:48 Dose: 1,000 mcg Documented by: Dextrose (Dextrose 50% 50 Ml Syringe) 25 - 50 ml IV UD PRN; Protocol PRN Reason: Hypoglycemia Protocol Stop: 03/03/21 16:04 Doxycycline Hyclate (Doxycycline Hyclate 100 Mg Cap) 100 mg PO BID [facility] Stop: 02/08/21 20:59 Last Admin: 02/06/21 08:47 Dose: 100 mg Documented by: Enalapril Maleate (Enalapril Maleate 10 Mg Tab) 20 mg PO BID [facility] Stop: 03/03/21 20:59 Last Admin: 02/06/21 10:16 Dose: 20 mg Documented by: Enoxaparin Sodium (Enoxaparin Inj 40 Mg/0.4 Ml Syr) 40 mg SQ Q24H [facility] Stop: 03/08/21 14:59 Glucagon (Glucagon For Inj 1 Mg Vial) 1 mg SQ UD PRN; Protocol PRN Reason: Hypoglycemia Protocol Stop: 03/03/21 16:04 Glucose (Glucose 10 Tabs/Tube) 4 - 8 tabs PO UD PRN; Protocol PRN Reason: Hypoglycemia Protocol Stop: 03/03/21 16:04 Glucose (Glucose 40% Gel 15 Gm Tube) 15 - 30 gm PO UD PRN; Protocol PRN Reason: Hypoglycemia Protocol Stop: 03/03/21 16:04 Dexamethasone 6 mg/ Syringe 1.5 mls @ 1 mls/min IV DAILY [facility] Stop: 02/12/21 08:59 Last Admin: 02/06/21 08:47 Dose: 1 mls/min Documented by: Ceftriaxone Sodium 2,000 mg/ (Dextrose) 70 mls @ 140 mls/hr IV Q24H [facility]; Protocol Stop: 02/09/21 11:59 Last Infusion: 02/06/21 13:17 Dose: Infused Documented by: Insulin Aspart (Insulin Aspart Per Unit) 0 units SC ACHS [facility] Stop: 03/03/21 16:29 Last Admin: 02/06/21 12:41 Dose: 5 units Documented by: Insulin Glargine (Insulin Glargine Solostar 100 Units/Ml 3 Ml Pen) 0 - 8 units SC BID [facility]; Protocol Stop: 03/03/21 20:59 Last Admin: 02/06/21 08:52 Dose: Not Given Documented by: Menthol (Cough Drop (Sugar Free) Zach 24 Zach/1 Box) 1 zach BUCCAL UD PRN PRN Reason: Cough Stop: 03/05/21 14:35 Last Admin: 02/03/21 19:46 Dose: 1 zach Documented by: Miscellaneous (Carbohydrates For Hypoglycemia ) 15 - 30 gm PO UD PRN PRN Reason: Hypoglycemia Protocol Stop: 03/03/21 16:04 Ondansetron HCl (Ondansetron Inj 2 Mg/Ml 2 Ml Vial) 4 mg IV Q6H PRN PRN Reason: Nausea Stop: 03/03/21 16:04 Pantoprazole Sodium (Pantoprazole 40 Mg Tab) 40 mg PO QAM [facility] Stop: 03/04/21 08:59 Last Admin: 02/06/21 08:48 Dose: 40 mg Documented by: Polyethylene Glycol (Polyethylene (Miralax) 17 Gm Pack) 17 gm PO DAILY PRN PRN Reason: Constipation Stop: 03/03/21 16:04 Last Admin: 02/06/21 09:02 Dose: 17 gm Documented by: Rosuvastatin Calcium (Rosuvastatin Calcium 5 Mg Tab) 5 mg PO MoWeFr@0900 [facility] Stop: 03/03/21 16:59 Last Admin: 02/06/21 08:47 Dose: 5 mg Documented by: Tramadol HCl (Tramadol Hcl 50 Mg Tablet) 50 mg PO Q6H PRN PRN Reason: Pain Stop: 03/03/21 16:04
[2021-02-06] MEDS: ENOXAPARIN INJ 40 MG/0.4 ML SYR SQ SCH (20:32)
[2021-02-07] MEDS: INSULIN ASPART PER UNIT SC SCH ×4 (08:20→20:43)
[2021-02-07] MEDS: DOXYCYCLINE HYCLATE 100 MG CAP PO SCH (08:22)
[2021-02-07] MEDS: buPROPion SR 100 MG TABCR PO SCH ×2 (08:23→20:45)
[2021-02-07] MEDS: CYANOCOBALAMIN 500 MCG TABLET (VITAMIN B-12) PO SCH (08:23)
[2021-02-07] MEDS: ENALAPRIL MALEATE 10 MG TAB PO SCH ×2 (08:23→20:44)
[2021-02-07] MEDS: ASPIRIN 81 MG ECTAB PO SCH (08:23)
[2021-02-07] MEDS: dexAMETHasone 6 MG in SYRINGE 0 ML IV SCH (08:23)
[2021-02-07] MEDS: PANTOprazole 40 MG TAB PO SCH (08:23)
[2021-02-07] MEDS: INSULIN GLARGINE SOLOSTAR 100 UNITS/ML 3 ML PEN SC SCH ×2 (08:24→20:47)
[2021-02-07] MEDS: cefTRIAXone SODIUM 2,000 MG in DEXTROSE 5% 50 ML IV SCH (12:12)
--- NOTE | 2021-02-07 12:18 | Hospitalist Progress Note ---
Date of Service February 07, 2021 Assessment & Plan (1) Acute metabolic encephalopathy: Plan: Likely secondary to underlying infection. Resolved. (2) Pneumonia due to 2019 novel coronavirus: Plan: Vaccinated, hypoxia secondary to pneumonia. Clinically improved but seems to require more supplementation with ambulation and needs to recover for a more prolonged period of time. She has completed a short course of remdesivir and is continuing on daily dexamethasone. Doing well, CRP trending down. Continue current treatment. Procalcitonin is now normal and she remains afebrile and clinically well. Antibiotics were stopped. Trend CRP in am. 2 step test in am as patient is very eager to get home. (3) Hypoxia: Plan: Secondary to above, continue plan per #1. (4) Diabetes mellitus, type II: Plan: Likely secondary to chronic steroid use, diet controlled A1c: 6.7 on 01/10/2021 Glucose appears controlled, continue basal bolus insulin per protocol (5) Hypertension: Plan: Chronic, at goal, continue home enalapril. (6) CKD (chronic kidney disease), stage III: Plan: Chronic, at baseline. Avoid nephrotoxic substances. 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 When completes dexamethasone, continue prednisone per outpatient regimen (8) DVT prophylaxis: Plan: Lovenox Full code Disposition-to home when off oxygen, per PT/OT recommendations. [facility]ist Admission and Anticipated Discharge Date Admission Date: February 01, 2021 Subjective 85 yo F admitted for Covid pneumonia with hypoxia Reporting improved shortness of breath Denies chest pain Afebrile Denies diarrhea Denies headache Tolerating p.o. Reports ambulating today and says "I did well" Eager to return home Nurse reports an episode of desaturation while ambulating to restroom today- dropped to 84% Review of Systems Review of Systems: All systems reviewed and negative except as indicated above. Physical Exam Physical Exam: CONSTITUTIONAL: WNWD, vitals as above, generally well- appearing EYES: normal conjunctivae, no scleral icterus ENT: external ear and nose normal, MMM NECK: trachea midline RESPIRATORY: clear to auscultation bilaterally, no crackles, rales or wheezes, normal respiratory effort CARDIOVASCULAR: regular rate and rhythm, S1 and 2 heard without murmurs, gallops or rubs, no JVD, no peripheral edema GASTROINTESTINAL: soft, nontender, ND no guarding MUSCULOSKELETAL: strength 5/5 throughout, head is normocephalic and atraumatic SKIN: warm and dry NEUROLOGIC: CN 2-12 grossly intact, no sensory deficit, normal cognition, normal speech, no tremor, no gross focal deficits. PSYCHIATRIC: alert cooperative and oriented to person, place and time. Results & Data Results & Data ([facility]) Vital Signs (Past 12 Hours) Vital Signs Temp Pulse Resp BP Pulse Ox 02/07/21 09:59 89 L 02/07/21 08:05 36.6 C 61 24 111/56 L 96 Medications Administered Current Inpatient Medications Acetaminophen (Acetaminophen 325 Mg Tab) 650 mg PO Q4H PRN PRN Reason: Pain or Fever Stop: 03/03/21 16:04 Last Admin: 02/03/21 12:22 Dose: 650 mg Documented by: Albuterol (Albuterol Hfa 8 Gm Inhaler) 2 puffs INH Q6H PRN PRN Reason: Shortness Of Breath Or Wheezin Stop: 03/03/21 16:04 Aspirin (Aspirin 81 Mg Ectab) 81 mg PO QAM [facility] Stop: 03/04/21 08:59 Last Admin: 02/07/21 08:23 Dose: 81 mg Documented by: Bupropion HCl (Bupropion Sr 100 Mg Tabcr) 200 mg PO BID [facility] Stop: 03/03/21 20:59 Last Admin: 02/07/21 08:23 Dose: 200 mg Documented by: Cyanocobalamin (Cyanocobalamin 500 Mcg Tablet (Vitamin B-12)) 1,000 mcg PO QAM [facility] Stop: 03/04/21 08:59 Last Admin: 02/07/21 08:23 Dose: 1,000 mcg Documented by: Dextrose (Dextrose 50% 50 Ml Syringe) 25 - 50 ml IV UD PRN; Protocol PRN Reason: Hypoglycemia Protocol Stop: 03/03/21 16:04 Doxycycline Hyclate (Doxycycline Hyclate 100 Mg Cap) 100 mg PO BID [facility] Stop: 02/08/21 20:59 Last Admin: 02/07/21 08:22 Dose: 100 mg Documented by: Enalapril Maleate (Enalapril Maleate 10 Mg Tab) 20 mg PO BID [facility] Stop: 03/03/21 20:59 Last Admin: 02/07/21 08:23 Dose: 20 mg Documented by: Enoxaparin Sodium (Enoxaparin Inj 40 Mg/0.4 Ml Syr) 40 mg SQ Q24H [facility] Stop: 03/08/21 14:59 Last Admin: 02/06/21 20:32 Dose: 40 mg Documented by: Glucagon (Glucagon For Inj 1 Mg Vial) 1 mg SQ UD PRN; Protocol PRN Reason: Hypoglycemia Protocol Stop: 03/03/21 16:04 Glucose (Glucose 10 Tabs/Tube) 4 - 8 tabs PO UD PRN; Protocol PRN Reason: Hypoglycemia Protocol Stop: 03/03/21 16:04 Glucose (Glucose 40% Gel 15 Gm Tube) 15 - 30 gm PO UD PRN; Protocol PRN Reason: Hypoglycemia Protocol Stop: 03/03/21 16:04 Dexamethasone 6 mg/ Syringe 1.5 mls @ 1 mls/min IV DAILY [facility] Stop: 02/12/21 08:59 Last Admin: 02/07/21 08:23 Dose: 1 mls/min Documented by: Ceftriaxone Sodium 2,000 mg/ (Dextrose) 70 mls @ 140 mls/hr IV Q24H [facility]; Protocol Stop: 02/09/21 11:59 Last Admin: 02/07/21 12:12 Dose: 140 mls/hr Documented by: Insulin Aspart (Insulin Aspart Per Unit) 0 units SC ACHS [facility] Stop: 03/03/21 16:29 Last Admin: 02/07/21 12:09 Dose: 5 units Documented by: Insulin Glargine (Insulin Glargine Solostar 100 Units/Ml 3 Ml Pen) 0 - 8 units SC BID [facility]; Protocol Stop: 03/03/21 20:59 Last Admin: 02/07/21 08:24 Dose: Not Given Documented by: Menthol (Cough Drop (Sugar Free) Zach 24 Zach/1 Box) 1 zach BUCCAL UD PRN PRN Reason: Cough Stop: 03/05/21 14:35 Last Admin: 02/03/21 19:46 Dose: 1 zach Documented by: Miscellaneous (Carbohydrates For Hypoglycemia ) 15 - 30 gm PO UD PRN PRN Reason: Hypoglycemia Protocol Stop: 03/03/21 16:04 Ondansetron HCl (Ondansetron Inj 2 Mg/Ml 2 Ml Vial) 4 mg IV Q6H PRN PRN Reason: Nausea Stop: 03/03/21 16:04 Pantoprazole Sodium (Pantoprazole 40 Mg Tab) 40 mg PO QAM [facility] Stop: 03/04/21 08:59 Last Admin: 02/07/21 08:23 Dose: 40 mg Documented by: Polyethylene Glycol (Polyethylene (Miralax) 17 Gm Pack) 17 gm PO DAILY PRN PRN Reason: Constipation Stop: 03/03/21 16:04 Last Admin: 02/06/21 09:02 Dose: 17 gm Documented by: Rosuvastatin Calcium (Rosuvastatin Calcium 5 Mg Tab) 5 mg PO MoWeFr@0900 [facility] Stop: 03/03/21 16:59 Last Admin: 02/06/21 08:47 Dose: 5 mg Documented by: Tramadol HCl (Tramadol Hcl 50 Mg Tablet) 50 mg PO Q6H PRN PRN Reason: Pain Stop: 03/03/21 16:04
[2021-02-07] MEDS: ENOXAPARIN INJ 40 MG/0.4 ML SYR SQ SCH (20:43)
[2021-02-08 06:31] LABS: Hematocrit (blood only) 35.3 % (37-47); Hemoglobin 11.9 g/dL (12.0-16.0); Mean Corpuscular Hemoglobin 32.5 pg (25-34); Mean Corpuscular Hgb Conc 33.7 g/dL (32-36); Mean Corpuscular Volume 96.4 fL (80-100); Mean Platelet Volume 9.4 fL (7.4-10.4); Platelet Count 500 K/uL (130-400); RDW Coefficient of Variation 14.3 % (11.5-14.5); RDW Standard Deviation 50.2 fL (36.4-46.3); Red Blood Count 3.66 M/uL (4.2-5.4); White Blood Count 14.92 K/uL (4.8-10.8)
[2021-02-08 07:03] LABS: BUN Creatinine Ratio 28.4 (10-20); Calcium 9.3 mg/dl (8.5-10.1); Creatinine Clr Calc Pharmacy 27.7 ml/min; Est GFR (African American) 41.2 ml/min; Est GFR (Non-African American) 35.5 ml/min; Potassium 4.2 mmol/L (3.5-5.1)
[2021-02-08 07:04] LABS: C Reactive Protein 1.98 mg/dl (0-0.29); Phosphorus 3.8 mg/dl (2.5-4.9)
[2021-02-08] MEDS: INSULIN ASPART PER UNIT SC SCH ×3 (08:40→17:21)
[2021-02-08] MEDS: ENALAPRIL MALEATE 10 MG TAB PO SCH (08:48)
[2021-02-08] MEDS: CYANOCOBALAMIN 500 MCG TABLET (VITAMIN B-12) PO SCH (08:48)
[2021-02-08] MEDS: INSULIN GLARGINE SOLOSTAR 100 UNITS/ML 3 ML PEN SC SCH (08:49)
[2021-02-08] MEDS: buPROPion SR 100 MG TABCR PO SCH (08:49)
[2021-02-08] MEDS: PANTOprazole 40 MG TAB PO SCH (08:49)
[2021-02-08] MEDS: ASPIRIN 81 MG ECTAB PO SCH (08:49)
[2021-02-08] MEDS: ROSUVASTATIN CALCIUM 5 MG TAB PO SCH (08:49)
[2021-02-08] MEDS: dexAMETHasone 6 MG in SYRINGE 0 ML IV SCH (09:01)
--- NOTE | 2021-02-08 17:02 | Hospitalist Progress Note ---
Date of Service February 08, 2021 Assessment & Plan (1) Acute metabolic encephalopathy: Plan: Likely secondary to underlying infection. Resolved. (2) Pneumonia due to 2019 novel coronavirus: Plan: Vaccinated, hypoxia secondary to pneumonia. She has completed a course of remdesivir and is continuing on daily dexamethasone. Doing well, CRP trending down. Procalcitonin is now normal and she remains afebrile and clinically well. Antibiotics were stopped. 2 step test obtained - pt requires 3L w/ ambulation (3) Hypoxia: Plan: Secondary to above, continue plan per #1. (4) Diabetes mellitus, type II: Plan: Likely secondary to chronic steroid use, diet controlled A1c: 6.7 on 01/10/2021 Glucose appears controlled, continue basal bolus insulin per protocol (5) Hypertension: Plan: Chronic, at goal, continue home enalapril. (6) CKD (chronic kidney disease), stage III: Plan: Chronic, at baseline. Avoid nephrotoxic substances. (7) Chronic arthritis: Plan: Chronic prednisone use under the care of a editorial cartoonist. When completes dexamethasone, continue prednisone per outpatient regimen (8) DVT prophylaxis: Plan: Lovenox Full code Disposition- Plan to [place] home Admission and Anticipated Discharge Date Admission Date: February 01, 2021 Subjective 85 yo F admitted for Covid pneumonia with hypoxia Currently laying in bed in NAD Says she feels much better and inquiring about going home Denies chest pain, incr. shortness of breath, says her cough is much improved Afebrile Denies diarrhea Mental status back to baseline 2 step ordered Review of Systems Review of Systems: All systems reviewed & are unremarkable except as noted in Subjective Physical Exam Physical Exam: General: elderly F in no acute distress, WDWN Head: normocephalic, atraumatic Eyes: PERRL, EOM's intact, conjunctiva non-injected, anicteric ENT: normal inspection external ears, nose, mucous membranes moist Neck: supple, trachea midline Lungs: + mild rhonchi, no wheezing, on suppl. O2 via NC CV: RRR, no LE edema Abd: normal BS, soft, non-tender Ext: no cyanosis, no calf tenderness Neuro: Awake, alert and answering questions appropriately. Mental status back to baseline. No facial asymmetry, speech fluent, moves extremities. Skin: warm, dry Results & Data Results & Data ([facility]) Vital Signs (Past 12 Hours) Vital Signs Temp Pulse Pulse Pulse Pulse Pulse Pulse 02/08/21 15:20 36.5 C 69 02/08/21 08:38 83 81 86 78 79 02/08/21 08:09 36.4 C L 61 Pulse Resp Resp Resp Resp Resp Resp 02/08/21 15:20 20 02/08/21 08:38 71 18 18 18 18 18 02/08/21 08:09 20 Resp BP Pulse Ox Pulse Ox Pulse Ox Pulse Ox Pulse Ox 02/08/21 15:20 114/67 96 02/08/21 08:38 16 87 L 88 L 91 85 L 02/08/21 08:09 117/67 96 Pulse Ox Pulse Ox 02/08/21 15:20 02/08/21 08:38 90 92 02/08/21 08:09 Laboratory Results 02/08/21 02/08/21 02/08/21 Range/Units 16:21 11:38 07:54 WBC (4.8-10.8) K/uL RBC (4.2-5.4) M/uL Hgb (12.0-16.0) g/dL Hct (37-47) % MCV (80-100) fL MCH (25-34) pg MCHC (32-36) g/dL RDW Std Deviation (36.4-46.3) fL RDW Coeff of Nandini (11.5-14.5) % Plt Count (130-400) K/uL MPV (7.4-10.4) fL Sodium (136-145) mmol/L Potassium (3.5-5.1) mmol/L Chloride (98-107) mmol/L Carbon Dioxide (21-32) mmol/L Anion Gap (3-11) BUN (7-18) mg/dl Creatinine (0.6-1.2) mg/dl Est Cr Clr Drug Dosing ml/min Est GFR ( Amer) ml/min Est GFR (Non-Af Amer) ml/min BUN/Creatinine Ratio (10-20) Glucose (70-99) mg/dl POC Glucose 190 H 209 H 117 H (70-99) mg/dl Calcium (8.5-10.1) mg/dl Phosphorus (2.5-4.9) mg/dl Magnesium (1.8-2.4) mg/dl C-Reactive Protein (0-0.29) mg/dl 02/08/21 02/08/21 02/07/21 Range/Units 06:16 06:16 20:39 WBC 14.92 H (4.8-10.8) K/uL RBC 3.66 L (4.2-5.4) M/uL Hgb 11.9 L (12.0-16.0) g/dL Hct 35.3 L (37-47) % MCV 96.4 (80-100) fL MCH 32.5 (25-34) pg MCHC 33.7 (32-36) g/dL RDW Std Deviation 50.2 H (36.4-46.3) fL RDW Coeff of Nandini 14.3 (11.5-14.5) % Plt Count 500 H (130-400) K/uL MPV 9.4 (7.4-10.4) fL Sodium 137 (136-145) mmol/L Potassium 4.2 (3.5-5.1) mmol/L Chloride 107 (98-107) mmol/L Carbon Dioxide 25 (21-32) mmol/L Anion Gap 5.0 (3-11) BUN 38 H (7-18) mg/dl Creatinine 1.34 H (0.6-1.2) mg/dl Est Cr Clr Drug Dosing 27.7 ml/min Est GFR ( Amer) 41.2 ml/min Est GFR (Non-Af Amer) 35.5 ml/min BUN/Creatinine Ratio 28.4 H (10-20) Glucose 121 H (70-99) mg/dl POC Glucose 147 H (70-99) mg/dl Calcium 9.3 (8.5-10.1) mg/dl Phosphorus 3.8 (2.5-4.9) mg/dl Magnesium 2.0 (1.8-2.4) mg/dl C-Reactive Protein 1.98 H (0-0.29) mg/dl Medications Administered Current Inpatient Medications Acetaminophen (Acetaminophen 325 Mg Tab) 650 mg PO Q4H PRN PRN Reason: Pain or Fever Stop: 03/03/21 16:04 Last Admin: 02/03/21 12:22 Dose: 650 mg Documented by: Albuterol (Albuterol Hfa 8 Gm Inhaler) 2 puffs INH Q6H PRN PRN Reason: Shortness Of Breath Or Wheezin Stop: 03/03/21 16:04 Aspirin (Aspirin 81 Mg Ectab) 81 mg PO QAM [facility] Stop: 03/04/21 08:59 Last Admin: 02/08/21 08:49 Dose: 81 mg Documented by: Bupropion HCl (Bupropion Sr 100 Mg Tabcr) 200 mg PO BID [facility] Stop: 03/03/21 20:59 Last Admin: 02/08/21 08:49 Dose: 200 mg Documented by: Cyanocobalamin (Cyanocobalamin 500 Mcg Tablet (Vitamin B-12)) 1,000 mcg PO QAM [facility] Stop: 03/04/21 08:59 Last Admin: 02/08/21 08:48 Dose: 1,000 mcg Documented by: Dextrose (Dextrose 50% 50 Ml Syringe) 25 - 50 ml IV UD PRN; Protocol PRN Reason: Hypoglycemia Protocol Stop: 03/03/21 16:04 Enalapril Maleate (Enalapril Maleate 10 Mg Tab) 20 mg PO BID [facility] Stop: 03/03/21 20:59 Last Admin: 02/08/21 08:48 Dose: 20 mg Documented by: Enoxaparin Sodium (Enoxaparin Inj 30 Mg/0.3 Ml Syr) 30 mg SQ Q24H [facility] Stop: 03/10/21 19:59 Glucagon (Glucagon For Inj 1 Mg Vial) 1 mg SQ UD PRN; Protocol PRN Reason: Hypoglycemia Protocol Stop: 03/03/21 16:04 Glucose (Glucose 10 Tabs/Tube) 4 - 8 tabs PO UD PRN; Protocol PRN Reason: Hypoglycemia Protocol Stop: 03/03/21 16:04 Glucose (Glucose 40% Gel 15 Gm Tube) 15 - 30 gm PO UD PRN; Protocol PRN Reason: Hypoglycemia Protocol Stop: 03/03/21 16:04 Dexamethasone 6 mg/ Syringe 1.5 mls @ 1 mls/min IV DAILY [facility] Stop: 02/12/21 08:59 Last Admin: 02/08/21 09:01 Dose: 1 mls/min Documented by: Insulin Aspart (Insulin Aspart Per Unit) 0 units SC ACHS [facility] Stop: 03/03/21 16:29 Last Admin: 02/08/21 12:29 Dose: 4 units Documented by: Insulin Glargine (Insulin Glargine Solostar 100 Units/Ml 3 Ml Pen) 0 - 8 units SC BID [facility]; Protocol Stop: 03/03/21 20:59 Last Admin: 02/08/21 08:49 Dose: 4 units Documented by: Menthol (Cough Drop (Sugar Free) Rodolfo 24 Rodolfo/1 Box) 1 rodolfo BUCCAL UD PRN PRN Reason: Cough Stop: 03/05/21 14:35 Last Admin: 02/03/21 19:46 Dose: 1 rodolfo Documented by: Miscellaneous (Carbohydrates For Hypoglycemia ) 15 - 30 gm PO UD PRN PRN Reason: Hypoglycemia Protocol Stop: 03/03/21 16:04 Ondansetron HCl (Ondansetron Inj 2 Mg/Ml 2 Ml Vial) 4 mg IV Q6H PRN PRN Reason: Nausea Stop: 03/03/21 16:04 Pantoprazole Sodium (Pantoprazole 40 Mg Tab) 40 mg PO QAM [facility] Stop: 03/04/21 08:59 Last Admin: 02/08/21 08:49 Dose: 40 mg Documented by: Polyethylene Glycol (Polyethylene (Miralax) 17 Gm Pack) 17 gm PO DAILY PRN PRN Reason: Constipation Stop: 03/03/21 16:04 Last Admin: 02/06/21 09:02 Dose: 17 gm Documented by: Rosuvastatin Calcium (Rosuvastatin Calcium 5 Mg Tab) 5 mg PO [id number] [facility] Stop: 03/03/21 16:59 Last Admin: 02/08/21 08:49 Dose: 5 mg Documented by: Tramadol HCl (Tramadol Hcl 50 Mg Tablet) 50 mg PO Q6H PRN PRN Reason: Pain Stop: 03/03/21 16:04
[2021-02-08] MEDS ORDERED: ENOXAPARIN INJ 30 MG/0.3 ML SYR SQ SCH (20:00)
--- NOTE | 2021-02-09 00:39 | Discharge Summary ---
Date of Service February 08, 2021 Admission HPI Per Admitting Provider Patient is 85-year-old female with PMH DM II, HTN, dyslipidemia, CKD III, depression presented to ER for cough. History is obtained from patient's daughter secondary to patient's current confusion. Patient's daughter reports 01/22/2021 patient was noted to be feeling down and daughter thought that patient was just having depression symptoms. She states 01/24/2021 patient was more lethargic and was not getting out of bed. Patient has not been eating or drinking well. 01/31/2021 patient started with cough and noted shortness of breath. Patient's daughter reports that her oxygen saturations were in the 80s at home. She reports patient is noted to be confused and was having visual hallucinations which is not patient's baseline. Patient's daughter tested positive for COVID-19 5 to 6 days ago. Reported patient had COVID-19 vaccine on 04/03/2020 and 04/24/2020. Has not been boosted. Denies any known fever, chills, hemoptysis, nausea, vomiting, diarrhea. Patient was not reporting abdominal pain or chest pain. Today in ER patient afebrile, reported sats high 80s by EMS and patient was placed on 2 L nasal cannula with sats 92%, other vitals stable. WBC: 18, procalcitonin: 1.75, positive COVID-19 PCR. CXR: Bilateral opacities In ER given dexamethasone, cefepime Admission Exam Per Admitting Provider General: no acute distress, WDWN Head: normocephalic, atraumatic Eyes: PERRL, EOM's intact, conjunctiva non-injected, anicteric ENT: normal inspection external ears, nose, mucous membranes moist Neck: supple, trachea midline Lungs: +scattered rhonchi, 92% on 2L nasal canula CV: RRR, no pretibial edema Abd: normal BS, soft, non-tender Ext: no cyanosis, no calf tenderness Neuro: Alert. Oriented to person only. cooperative, no focal deficits noted. Pt does report 2 people in room (only myself in room) Skin: warm, dry Principal Diagnosis Encephalopathy Acute hypoxic respiratory failure, secondary to Covid pneumonia Discharge Exam General: elderly F in no acute distress, WDWN Head: normocephalic, atraumatic Eyes: PERRL, EOM's intact, conjunctiva non-injected, anicteric ENT: normal inspection external ears, nose, mucous membranes moist Neck: supple, trachea midline Lungs: + mild rhonchi, no wheezing, on suppl. O2 via NC CV: RRR, no LE edema Abd: normal BS, soft, non-tender Ext: no cyanosis, no calf tenderness Neuro: Awake, alert and answering questions appropriately. Mental status back to baseline. No facial asymmetry, speech fluent, moves extremities. Skin: warm, dry Discharge Data Allergies Allergy/AdvReac Type Severity Reaction Status Date / Time morphine AdvReac Severe SEVERE Verified 04/13/19 12:02 NAUSEA AND VOMITING; confusion propoxyphene AdvReac Intermediate N/V Verified 04/13/19 12:02 Opioids - Morphine Analogues AdvReac Confusion Verified 04/13/19 12:02 oxycodone AdvReac Confusion Verified 04/13/19 12:02 Consultations 02/01/21 13:42 ED Decision to Admit Stat Hospital Course (1) Acute metabolic encephalopathy: Likely secondary to underlying infection. Resolved. (2) Pneumonia due to 2019 novel coronavirus: Hypoxia secondary to pneumonia. She has completed a course of remdesivir and is continuing on daily dexamethasone. Doing well, CRP trending down. Procalcitonin is now normal and she remains afebrile and clinically well. Antibiotics were stopped. 2 step test obtained - pt requires 3L w/ ambulation (3) Hypoxia: Secondary to above, continue plan per #1. (4) Diabetes mellitus, type II: Likely secondary to chronic steroid use, diet controlled A1c: 6.7 on 01/10/2021 Glucose appears controlled, continue basal bolus insulin per protocol (5) Hypertension: Chronic, at goal, continue home enalapril. (6) CKD (chronic kidney disease), stage III: Chronic, at baseline. Avoid nephrotoxic substances. (7) Chronic arthritis: Chronic prednisone use under the care of a microscopist. When completes dexamethasone, continue prednisone per outpatient regimen (8) DVT prophylaxis: Total Time Total Time Spent Total Time Spent (In Minutes): 40 Discharge Plan Discharge Items Patient Disposition: Home - Home Health Services Reason For Visit: COVID PNEUMONIA Discharge Diagnosis: Encephalopathy Acute hypoxic respiratory failure, secondary to Covid pneumonia Activity: Per Instructions section Non-emergency contact: Primary Care Provider Call non-emergency contact if: you have any medication questions and your symptoms worsen Follow-up/Referrals: Dedrick Restrepo MD [Primary Care Provider] - Diet: Carb Consistent or DM2 Addtl Attending Provider Instructions: Follow up with your primary care doctor, within 1 to 2 weeks. This visit may be via telemedicine. Finish treatment with steroid, take Decadron, for next 4 days. While taking Decadron, do not take prednisone, resume your regular prednisone after you finish treatment with Decadron. Take pantoprazole as prescribed, this is to protect your stomach from steroid use. Continue taking guaifenesin/Mucinex to help clear up your lungs. In addition, use incentive spirometer and flutter valve. You will need to use oxygen, as prescribed, 3 L/min with ambulation. It would be helpful if you have a pulse ox at home, so you can check your oxygen saturation at home. Addtl Double Bass Player Provider Instructions: Home Isolation COVID-19 Instructions The following information about Home Isolation is from the CDC Website: https://www.cdc.gov/coronavirus/2019-ncov/hcp/gaxvudaq-ldmbpmq-uyials.html Stay home except to get medical care People who are mildly ill with COVID-19 are able to isolate at home during their illness. You should restrict activities outside your home, except for getting medical care. Do not go to work, school, or public areas. Avoid using public transportation, ride-sharing, or taxis. Separate yourself from other people and animals in your home People: As much as possible, you should stay in a specific room and away from other people in your home. Also, you should use a separate bathroom, if available. Animals: You should restrict contact with pets and other animals while you are sick with COVID-19, just like you would around other people. Although there have not been reports of pets or other animals becoming sick with COVID-19, it is still recommended that people sick with COVID-19 limit contact with animals until more information is known about the virus. When possible, have another member of your household care for your animals while you are sick. If you are sick with COVID-19, avoid contact with your pet, including petting, snuggling, b eing kissed or licked, and sharing food. If you must care for your pet or be around animals while you are sick, wash your hands before and after you interact with pets and wear a face mask. Call ahead before visiting your doctor If you have a medical appointment, call the healthcare provider and tell them that you have or may have COVID-19. This will help the healthcare providers office take steps to keep other people from getting infected or exposed. Wear a face mask You should wear a face mask when you are around other people (e.g., sharing a room or vehicle) or pets and before you enter a healthcare providers office. If you are not able to wear a face mask (for example, because it causes trouble breathing), then people who live with you should not stay in the same room with you, or they should wear a face mask if they enter your room. Cover your coughs and sneezes Cover your mouth and nose with a tissue when you cough or sneeze. Throw used tissues in a lined trash can. Immediately wash your hands with soap and water for at least 20 seconds or, if soap and water are not available, clean your hands with an alcohol-based hand automation sales manager that contains at least 60% alcohol. Clean your hands often Wash your hands often with soap and water for at least 20 seconds, especially af ter blowing your nose, coughing, or sneezing; going to the bathroom; and before eating or preparing food. If soap and water are not readily available, use an alcohol-based hand automation sales manager with at least 60% alcohol, covering all surfaces of your hands and rubbing them together until they feel dry. Soap and water are the best option if hands are visibly dirty. Avoid touching your eyes, nose, and mouth with unwashed hands. Avoid sharing personal household items You should not share dishes, drinking glasses, cups, eating utensils, towels, or bedding with other people or pets in your home. After using these items, they should be washed thoroughly with soap and water. Clean all high-touch surfaces everyday High touch surfaces include counters, tabletops, doorknobs, bathroom fixtures, toilets, phones, keyboards, tablets, and bedside tables. Also, clean any surfaces that may have blood, stool, or body fluids on them. Use a household cleaning spray or wipe, according to the label instructions. Labels contain instructions for safe and effective use of the cleaning product including precautions you should take when applying the product, such as wearing gloves and making sure you have good ventilation during use of the product. Monitor your symptoms Seek prompt medical attention if your illness is worsening (e.g., difficulty breathing).Beforeseeking care, call your healthcare provider and tell them that you have, or are being evaluated for, COVID-19. Put on a face mask before you enter the facility. These steps will help the healthcare providers office to keep other people in the office or waiting room from getting infected or exposed. Ask your healthcare provider to call the local or state health department. Persons who are placed under active monitoring or facilitated self- monitoring should follow instructions provided by their local health department or occupational health professionals, as appropriate. When working with your local health department check their available hours. If you have a medical emergency and need to call 911, notify the dispatch personnel that you have, or are being evaluated for COVID-19. If possible, put on a face mask before emergency medical services arrive. Discontinuing home isolation Patients with confirmed COVID-19 should remain under home isolation precautions until the risk of secondary transmission to others is thought to be low. The decision to discontinue home isolation precautions should be made on a [id number] basis, in consultation with healthcare providers and state and local health departments. Coronavirus disease 2019 (COVID-19) is a virus that causes a respiratory illness. It is caused by a coronavirus called 2019 novel coronavirus (2019- nCoV). There are many types of coronavirus. Coronaviruses are a very common cause of bronchitis. They may sometimes cause lung infection(pneumonia). Symptoms can range from mild to severe respiratory illness. These viruses are also foundin some animals. COVID-19 was first found in people in [facility], in late 2019. In 2020, several cases of COVID-19 have been confirmed in the [place] Public health officials are working to find the source. How the virus spreads is not yet fully known. It may be spread through droplets of fluid that a person coughs or sneezes into the air. It may be spread if you touch a surface with virus on it, such as a handle or object, and then touch your mouth. What are the symptoms of COVID-19? Some people have no symptoms or mild symptoms. Symptoms may appear 2 to 14 days after contact with the virus. Symptoms can include: Fever Coughing Trouble breathing What are possible complications from COVID-19? In many cases, this virus can cause infection (pneumonia) in both lungs. In some cases, this can cause . How is COVID-19 diagnosed? Your healthcare provider will ask about your symptoms. He or she will also ask about your recent travel and contact with sick people. Testing for the virus is only done through the CDC. If yourhealthcare provider thinks you may have COVID- 19, he or she will work with your local health department and the CDC on testing. Follow all instructions from your healthcare provider. COVID-19 is diagnosed by: Nasal and throat swab. A cotton-tipped swab is wiped inside your nose or throat. This is done to check for viruses in your nasal mucus. Sputum culture. A small sample of mucus coughed from your lungs (sputum) is collected if you have a cough. It is checked for the virus. How is COVID-19 treated? There is currently no medicine to treat the virus. Treatment is done to help your body while it fights the virus. This is known as supportive care. Supportive care may include: Pain medicine. These include acetaminophen and ibuprofen. They are used to help ease pain and reduce fever. Bed rest. This helps your body fight the illness. For severe illness, you may need to stay in the hospital. Care during severe illness may include: IV (intravenous) fluids.These are given through a vein to help keep your body hydrated. Oxygen. Supplemental oxygen or ventilation with a breathing machine (ventilator) may be given. This is done to keep enough oxygen in your body. Are you at risk for COVID-19? If youve been to a place where people have been sick with this virus, you are at risk for infection. You are at risk if you: Recently traveled to an affected area Had contact with a sick person who recently traveled to this area Had contact with a person who was diagnosed with COVID-19 How can COVID-19 be prevented? There is no vaccine yet. The best prevention is to not have contact with the virus. The CDC advises that people should not travel to areas where there are COVID-19 outbreaks right now for any reason that is not urgent. To help prevent spreading the infection, wash your hands often, or use an alcohol-basedhand automation sales manager. If you are in an area with COVID-19: Wash your hands often. Or use an alcohol-based hand automation sales manager often. Only touch your eyes, nose, or mouth with clean hands. Dont have contact with people who are sick. Follow local instructions about being in public. For example, you may be told to not use public transport for a period of time. Stay away from markets that have live or animals. Wash your hands after touching any animals. Don't touch animals that may be sick. Dont share eating or drinking tools with sick people. Dont kiss someone who is sick. Clean surfaces often with disinfectant. If you were in an area with COVID-19 in the last 14 days: Call your healthcare provider. He or she can talk with local health staff to see what action may be needed. Follow all instructions from your provider. Take your temperature every morning and evening for at least 14 days. This is to check for fever. Keep a record of the readings. Keep watch for symptoms of the virus. Tell your provider right away if you have symptoms. If you were in an area with COVID-19 and have a fever or other symptoms: Dont panic. Keep in mind that other illnesses can cause similar symptoms. Stay away from work, school, and public places. Limit physical contact with family members. Don't kiss anyone or share eating or drinking utensils. Clean surfaces you touch with disinfectant. This is to help prevent the virus from spreading. Call your healthcare provider. Explain that you have been exposed to COVID-19 and have symptoms. Do this before going to any hospital. Wait for instructions. Keep in mind that healthcare staff may wear protective equipment such as masks, gowns, gloves, and eye protection. You may be put in a separate room. This is to prevent the possible virus from spreading. Tell the healthcare staff about recent travel. This includes local travel on public transport. Staff may need to find other people you have been in contact with. Follow all instructions the healthcare staff give you. If you have been diagnosed with COVID-19 Follow all instructions from your healthcare provider. Dont leave your home, except to get medical care. Call your healthcare providers office before going. They can prepare and give you instructions. This will help prevent the virus from spreading. Dont go to work, school, or public areas. Dont use public transport or taxis. Stay away from other people in your home. Have them wear face masks around you. Dont share household items or food. Wear a face mask if you can. This includes at home or in a medical facility. Cover your face with a tissue when you cough or sneeze. Throw the tissue away. Wash your hands. Wash your hands often. Caregivers should: Follow all instructions from healthcare staff. Wear a face mask and protective clothing as advised. Wash hands often. Keep track of the sick persons symptoms. Clean surfaces, fabrics, and laundry thoroughly. Keep other people away from the sick person. When to call your healthcare provider Call your healthcare provider: If youve recently traveled and have symptoms If you have been diagnosed with COVID-19 and your symptoms are worse To learn more To find out more about COVID-19, visit the CDC website at www.cdc.gov/coronavirus/2019-ncov/index.html. 0780-[address] [employer]. [address] [place] [address]. All rights reserved. This information is not intended as a substitute for professional medical care. Always follow your healthcare professional's instructions. This information has been adapted from [employer] Pending Studies at Discharge: No Stand-Alone Forms: My [facility] [email or web address], Smoking Cessation Medications and DC Order Prescriptions: New pantoprazole 40 mg Tablet,Delayed Release (Dr/Ec) 40 mg PO QAM 5 Days Qty: 5 RF: 0 dexamethasone [Decadron] 6 mg tablet 6 mg PO DAILY 4 Days Qty: 4 RF: 0 guaifenesin 600 mg tablet extended release 12hr 600 mg PO BID PRN (Reason: cough) 5 Days Qty: 10 RF: 0 Continued enalapril maleate 20 mg tablet 20 mg PO BID RF: 0 prednisone 5 mg tablet 20 mg PO QAM RF: 0 cyanocobalamin (vitamin B-12) 1,000 mcg tablet 1,000 mg PO QAM RF: 0 aspirin 81 mg Tablet,Delayed Release (Dr/Ec) 81 mg PO QAM RF: 0 bupropion HCl 200 mg tablet sustained-release 12 hr 200 mg PO BID RF: 0 rosuvastatin 5 mg tablet 5 mg PO MOWEFR RF: 0 tramadol 50 mg tablet 50 mg PO Q6H PRN (Reason: Pain) RF: 0 calcium carbonate [Calcium 600] 600 mg calcium (1,500 mg) Tablet 600 mg PO DAILY RF: 0 PreserVision AREDS [id number] Capsule 1 cap PO BID RF: 0 Discharge Orders: Discharge Order (Routine); Ordered 02/08/21 Ordered By: Abrahan Moore Admission Data Admit Date/Time: 02/01/21 14:04 Attending Provider: Abrahan Moore Admit Provider: Abrahan Moore Primary Care Provider: Dedrick Restrepo Other Providers: Abrahan Moore ; Madison Goodwin ; [facility] Other Interventions: Discharge Summary Assessment (RN) Last Done: 02/08/21 17:25
--- NOTE | 2021-02-26 09:10 | Coding Query ---
To promote full compliance with coding requirements relating to patient care, provider participation is requested in all cases of nuclear technologist uncertainty. Please assist us with the question(s) below: Coding Question(s): The diagnosis(es) below was documented in the H&P and early progress notes then subsequently fell off all further documentation. Please indicate if it is still a possible diagnosis or ruled out. Physician's Response(s): SEPSIS/SIRS ( ) Diagnosed and POA ( ) Diagnosed and not POA ( ) Ruled out ( ) Other (please specify) Thank you for your assistance, Terri Choi - Certified Corporate Travel Executive MED
== END 2021-02-08 19:02 | disposition home health service (06) | DRG 871 ==
LOC: ED 10:12 → 2N 14:04 → SUATTDRO 14:04 → 2N 16:23 → 2W 02-05 23:36

== ENCOUNTER 2021-07-06 10:36 | Inpatient (IN) ==
[2021-07-06] MEDS ORDERED: SODIUM CHLORIDE 0.9% 1000ML 1,000 ML IV ONE (11:09)
--- NOTE | 2021-07-06 11:13 | Emergency Department Note ---
Impression & Plan Cystitis, Recurrent falls, UTI (urinary tract infection), Weakness, Leukocytosis ED Provider Note NAME: PEDRITO Frost THURSDAY AGE: 86 SEX: F : 1935 ARRIVES VIA: Ambulance INFORMANT: Patient ED PROVIDER(S): TIN CHIEF COMPLAINT: Altered mental status HPI: Patient is an 86-year-old female who presents the ER for weakness and recurrent falls over the past 2 weeks. She has been having some dysuria as well over this past 2 weeks. She was started on Keflex over 12 days ago. She finished up a course about 10 days ago. She still been confused and still falling. They switched her to Bactrim. She notes her dysuria has improved slightly. No headache or change in vision. No chest pain or shortness of breath. She admits to lower abdominal pain. No weakness or numbness in the arms or legs. She lives at home with her daughter and son-in-law. ROS: See above HPI for pertinent positives & negatives. A total of 10 systems reviewed and were otherwise negative. PAST MEDICAL HISTORY:See Below PAST SURGICAL HISTORY:See Below FAMILY HISTORY:See Below SOCIAL HISTORY:See Below HOME MEDICATIONS:See Below ALLERGIES:See Below VITALS:See Below PHYSICAL EXAMINATION: GENERAL: alert, well appearing, well nourished, no distress, non-toxic HEAD: normal cephalic, atraumatic EYE EXAM: normal conjunctiva, PERRL and EOM's grossly intact OROPHARYNX: no exudate, no erythema, lips, buccal mucosa, and tongue normal and mucous membranes are moist EARS: TMs clear b/l NECK: supple, no nuchal rigidity, no adenopathy, non-tender CHEST: stable to compression anteriorly and posteriorly LUNGS: clear to auscultation. Normal chest wall mechanics HEART: no murmurs, S1 normal and S2 normal ABDOMEN: abdomen soft, non-tender, normo-active bowel sounds, no masses, no rebound or guarding. PELVIS: stable to compression anteriorly and posteriorly BACK: Back is symmetrical on inspection and there is no deformity, no midline tenderness, no CVA tenderness. UPPER EXTREMITIES: full active and passive range of motion of all joints without tenderness to palpation LOWER EXTREMITIES: full active and passive range of motion of all joints without tenderness to palpation NEURO EXAM: Oriented to person but not president cranial nerves II-XII grossly intact, normal speech, no gross weakness of arms, no gross weakness of legs. GCS: 14. MEDICAL DECISION MAKING: Patient is an 86-year-old female who presents the ER for the boasting complaint. IV was established blood work was obtained. Labs show a leukocytosis 15,000. No significant anemia. BMP with slightly elevated chloride. LFTs bilirubin and lipase unremarkable. UA with leukocytes whites but was contaminated with greater than 30 epis. COVID was negative. With the worsening confusion and falls patient was placed on IV Rocephin. Updated bedside. Discussed with the hospitalist admitted for further work-up. CT head and abdomen pelvis was unremarkable. Triage Nursing notes reviewed. Limited review of prior medical records performed Vital Signs: reviewed and remarkable for tachy Differential diagnosis: Infection, dehydration, metabolic abnormality, hypo/hyperglycemia, electrolyte disturbance, anemia, hypoxia, cardiac sources, intracerebral event, toxicologic, neurologic, as well as other pathologies. ER treatment provided: See below Diagnostics interpreted by me: ECG: none Cardiac Monitoring: An order was placed for continuous cardiac monitoring. The monitor shows a rate of 82 with sinus rhythm. Laboratory studies: As stated above and show below. Imaging studies: CT head and abdomen pelvis were unremarkable Consult[facility] Procedures: none Critical Care: None Past Med/Surg History Medical History (Updated 07/06/21 @ 16:26 by Doyle Burroughs DO) Anxiety CKD (chronic kidney disease), stage III COVID-19 Degenerative joint disease of low back Depression Diabetes mellitus, type II Dyslipidemia History of nonmelanoma skin cancer Hypertension Memory loss Multiple rib fractures Osteoarthritis PMR (polymyalgia rheumatica) Pneumonia due to 2019 novel coronavirus Surgical History H/O tubal ligation History of arthroscopy of left shoulder History of arthroscopy of right shoulder History of cataract surgery History of hysterectomy S/P hip replacement Family History Other Family history non-contributory Social History Smoking Status: Never smoker Second Hand Exposure: No; Hx Alcohol Use: No Hx Substance Use: No Preferred Language: Iraqi Communication Ability: Effective 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 Hand Required: No Beliefs That Will Affect Care: None marital status: Current Living Situation: Spouse current occupational status: retired Feels Safe at Home: Yes Assistive Devices: Walker Allergies Allergies Allergy/AdvReac Type Severity Reaction Status Date / Time morphine AdvReac Severe SEVERE Verified 07/06/21 13:02 NAUSEA AND VOMITING; confusion propoxyphene AdvReac Intermediate N/V Verified 07/06/21 13:02 Opioids - Morphine Analogues AdvReac Confusion Verified 07/06/21 13:02 oxycodone AdvReac Confusion Verified 07/06/21 13:02 Home Meds Home Medications Medication Instructions Recorded Confirmed bupropion HCl 200 mg tablet,12 hr 200 mg PO BID 01/07/18 07/06/21 sustained-release cyanocobalamin (vitamin B-12) 1,000 mg PO QAM 01/07/18 07/06/21 1,000 mcg tablet enalapril maleate 20 mg tablet 20 mg PO HS 01/07/18 07/06/21 rosuvastatin 5 mg tablet 2.5 mg PO 2XWK 01/07/18 07/06/21 calcium carbonate 600 mg calcium 600 mg PO DAILY 04/13/19 07/06/21 (1,500 mg) tablet (Calcium) tramadol 50 mg tablet 50 mg PO BID PRN 04/13/19 07/06/21 vitamins A,C,K-itzd-zbsgls 14,320 1 cap PO BID 04/13/19 07/06/21 unit-226 mg-200 unit capsule (PreserVision AREDS) multivitamin with minerals-folic 0 tab PO QAM 06/23/21 07/06/21 acid 200 mcg chewable tablet (Multivitamin Gummies) aspirin 81 mg tablet,delayed 81 mg PO QAM 07/06/21 07/06/21 release duloxetine 60 mg capsule,delayed 60 mg PO HS 07/06/21 07/06/21 release sulfamethoxazole 800 1 tab PO BID 07/06/21 07/06/21 mg-trimethoprim 160 mg tablet Results & Data (ED) Vital Signs Vital Signs - 24 hr 07/06/21 10:36 07/06/21 11:00 07/06/21 11:09 Temperature 36.7 C Temperature Source Oral Pulse Rate 104 H 103 H 104 H Pulse Rate from SpO2 Sensor 99 H Pulse Rhythm Regular Respiratory Rate 16 15 16 Respiratory Effort / Characteristics Non-Labored Respiratory Depth Normal Respiratory Pattern Regular Blood Pressure 140/84 142/80 H Blood Pressure Mean 102 100 Pulse Oximetry 97 93 97 Oxygen Delivery Method Room Air Room Air Room Air Sepsis Recent Fever Within 48 Hours No Sepsis New/Unexplained Change in Mental Status No Sepsis Action Taken by Nursing No Action Required 07/06/21 11:30 07/06/21 12:00 07/06/21 12:38 Temperature Temperature Source Pulse Rate 98 H 71 97 H Pulse Rate from SpO2 Sensor 97 H Pulse Rhythm Respiratory Rate 20 23 21 Respiratory Effort / Characteristics Respiratory Depth Respiratory Pattern Blood Pressure 138/77 110/80 Blood Pressure Mean 97 90 Pulse Oximetry 95 Oxygen Delivery Method Sepsis Recent Fever Within 48 Hours Sepsis New/Unexplained Change in Mental Status Sepsis Action Taken by Nursing 07/06/21 13:00 07/06/21 13:30 07/06/21 14:00 Temperature Temperature Source Pulse Rate 99 H 99 H 98 H Pulse Rate from SpO2 Sensor Pulse Rhythm Respiratory Rate 16 22 18 Respiratory Effort / Characteristics Respiratory Depth Respiratory Pattern Blood Pressure 127/63 133/64 150/60 H Blood Pressure Mean 84 87 90 Pulse Oximetry Oxygen Delivery Method Sepsis Recent Fever Within 48 Hours Sepsis New/Unexplained Change in Mental Status Sepsis Action Taken by Nursing 07/06/21 14:30 Temperature Temperature Source Pulse Rate 99 H Pulse Rate from SpO2 Sensor Pulse Rhythm Respiratory Rate 15 Respiratory Effort / Characteristics Respiratory Depth Respiratory Pattern Blood Pressure 105/61 Blood Pressure Mean 75 Pulse Oximetry Oxygen Delivery Method Sepsis Recent Fever Within 48 Hours Sepsis New/Unexplained Change in Mental Status Sepsis Action Taken by Nursing Laboratory Data Result diagrams: 07/06/21 10:45 07/06/21 10:45 Lab Results 07/06/21 07/06/21 07/06/21 Range/Units 10:45 10:45 11:24 WBC 15.10 H (4.8-10.8) K/uL RBC 3.83 L (4.2-5.4) M/uL Hgb 12.4 (12.0-16.0) g/dL Hct 36.6 L (37-47) % MCV 95.6 (80-100) fL MCH 32.4 (25-34) pg MCHC 33.9 (32-36) g/dL RDW Std Deviation 49.3 H (36.4-46.3) fL RDW Coeff of Nandini 14.2 (11.5-14.5) % Plt Count 442 H (130-400) K/uL MPV 10.2 (7.4-10.4) fL Immature Gran % (Auto) 0.3 % Neut % (Auto) 71.0 % Lymph % (Auto) 18.8 % [place] % (Auto) 8.1 % Eos % (Auto) 1.4 % Baso % (Auto) 0.4 % Neut # (Auto) 10.72 H (1.4-6.5) K/uL Lymph # (Auto) 2.84 (1.2-3.4) K/uL [place] # (Auto) 1.23 H (0.11-0.59) K/uL Eos # (Auto) 0.21 (0-0.5) K/uL Baso # (Auto) 0.06 (0-0.2) K/uL Immature Gran # (Auto) 0.04 H (0.00-0.02) K/uL Sodium 140 (136-145) mmol/L Potassium 3.8 (3.5-5.1) mmol/L Chloride 108 H (98-107) mmol/L Carbon Dioxide 23 (21-32) mmol/L Anion Gap 9 (3-11) BUN 17 (6-23) mg/dl Creatinine 0.90 (0.6-1.2) mg/dl Est Cr Clr Drug Dosing 41.7 ml/min Est GFR ( Amer) 66.2 ml/min Est GFR (Non-Af Amer) 57.1 ml/min BUN/Creatinine Ratio 18.9 (10-20) Glucose 150 H (70-99(Fasting)) mg/dl Calcium 9.5 (8.5-10.1) mg/dl Total Bilirubin 0.5 (0.2-1.0) mg/dl AST 14 (13-39) U/L ALT 12 (7-52) U/L Alkaline Phosphatase 97 (34-104) U/L Total Protein 7.0 (6.0-8.3) gm/dl Albumin 3.7 (3.4-5.0) gm/dl Globulin 3.3 (2.5-4.0) gm/dl Albumin/Globulin Ratio 1.1 (0.9-2) Lipase 17 (11-82) U/L Urine Color Dark Yellow Urine Appearance Clear (Clear) Urine pH 5.0 (4.5-7.5) Ur Specific [place] 1.026 (1.000-1.030) Urine Protein Negative (Negative) Urine Glucose (UA) Negative (Negative) Urine Ketones Trace H (Negative) Urine Blood Negative (Negative) Urine Nitrite Negative (Negative) Urine Bilirubin Negative (Negative) Urine Urobilinogen Negative (Negative) Ur Leukocyte Esterase 2+ H (Negative) Urine WBC (Auto) >30 H (0-5) /hpf Urine RBC (Auto) 0-4 (0-4) /hpf U Hyaline Cast (Auto) 1-5 (0-5) /lpf U Epithel Cells (Auto) >30 H (0-5) /lpf Urine Bacteria (Auto) Negative (Negative) Ur Renal Epithelial Cell Not Reportable SARS-CoV-2, RNA, NAAT (NEGATIVE) 07/06/21 Range/Units 14:13 WBC (4.8-10.8) K/uL RBC (4.2-5.4) M/uL Hgb (12.0-16.0) g/dL Hct (37-47) % MCV (80-100) fL MCH (25-34) pg MCHC (32-36) g/dL RDW Std Deviation (36.4-46.3) fL RDW Coeff of Nandini (11.5-14.5) % Plt Count (130-400) K/uL MPV (7.4-10.4) fL Immature Gran % (Auto) % Neut % (Auto) % Lymph % (Auto) % [place] % (Auto) % Eos % (Auto) % Baso % (Auto) % Neut # (Auto) (1.4-6.5) K/uL Lymph # (Auto) (1.2-3.4) K/uL [place] # (Auto) (0.11-0.59) K/uL Eos # (Auto) (0-0.5) K/uL Baso # (Auto) (0-0.2) K/uL Immature Gran # (Auto) (0.00-0.02) K/uL Sodium (136-145) mmol/L Potassium (3.5-5.1) mmol/L Chloride (98-107) mmol/L Carbon Dioxide (21-32) mmol/L Anion Gap (3-11) BUN (6-23) mg/dl Creatinine (0.6-1.2) mg/dl Est Cr Clr Drug Dosing ml/min Est GFR ( Amer) ml/min Est GFR (Non-Af Amer) ml/min BUN/Creatinine Ratio (10-20) Glucose (70-99(Fasting)) mg/dl Calcium (8.5-10.1) mg/dl Total Bilirubin (0.2-1.0) mg/dl AST (13-39) U/L ALT (7-52) U/L Alkaline Phosphatase (34-104) U/L Total Protein (6.0-8.3) gm/dl Albumin (3.4-5.0) gm/dl Globulin (2.5-4.0) gm/dl Albumin/Globulin Ratio (0.9-2) Lipase (11-82) U/L Urine Color Urine Appearance (Clear) Urine pH (4.5-7.5) Ur Specific [place] (1.000-1.030) Urine Protein (Negative) Urine Glucose (UA) (Negative) Urine Ketones (Negative) Urine Blood (Negative) Urine Nitrite (Negative) Urine Bilirubin (Negative) Urine Urobilinogen (Negative) Ur Leukocyte Esterase (Negative) Urine WBC (Auto) (0-5) /hpf Urine RBC (Auto) (0-4) /hpf U Hyaline Cast (Auto) (0-5) /lpf U Epithel Cells (Auto) (0-5) /lpf Urine Bacteria (Auto) (Negative) Ur Renal Epithelial Cell SARS-CoV-2, RNA, NAAT NEGATIVE (NEGATIVE) Administered Medications Discontinued Medications Sodium Chloride (Nss 1000ml) 1,000 mls @ 999 mls/hr IV .Q1H1M ONE Stop: 07/06/21 12:09 Last Infusion: 07/06/21 12:37 Dose: 0 mls/hr Documented by: [id number] Admin: 07/06/21 11:26 Dose: 999 mls/hr Documented by: [id number] Ceftriaxone Sodium (Rocephin) 1,000 mg in 50 mls @ 100 mls/hr IV NOW STA Stop: 07/06/21 14:17 Last Admin: 07/06/21 14:15 Dose: 100 mls/hr Documented by: [id number] Ioversol (Optiray 320 100ml) 94 ml IV ONCE ONE Stop: 07/06/21 12:33 Last Admin: 07/06/21 12:32 Dose: 94 ml Documented by: [id number] Imaging Data Radiologist's Impression: Abdomen/Pelvis CT 07/06/21 11:[address] WITH IV CONTRAST CT DOSE: 1465.11 mGy.cm HISTORY: abd pain lower w/ falls TECHNIQUE: Multiaxial CT images of the abdomen and pelvis were performed following the use of intravenous contrast. A dose lowering technique was utilized adhering to the principles of ALARA. COMPARISON STUDY: Abdomen and pelvis CT 07/03/2017. FINDINGS: Mild motion artifact. Mild dependent changes seen within the lung bases. Bilateral total hip arthroplasties. Old, healed left pubic ring fractures. L1-L5 posterior decompression fusion with pedicle screws and rods. Old, healed left-sided rib fractures. Healing right anterior sixth through eighth rib fractures. No acute rib fractures identified. Small areas of focal fat within the liver adjacent to the falciform ligament. No hepatic or splenic masses. The adrenal glands, pancreas, and gallbladder are unremarkable. Bilateral cortical renal scarring is again noted. No hydronephrosis. The main portal vein is patent. No retroperitoneal lymphadenopathy. Calcified plaque within the normal caliber abdominal aorta. The bladder is not well visualized due to metallic artifact but appears unremarkable. Prior hysterectomy. Trace pelvic free fluid. No evidence for bowel obstruction. Normal appendix. Question of a focal thickening within the proximal descending colon with minimal pericolonic fat stranding best seen on image 127. IMPRESSION: 1. Questionable mild focal circumferential thickening involving the proximal descending colon with minimal adjacent pericolonic fat stranding. This could be due to underdistention or mild focal colitis. Consider follow-up abdomen and pelvis CT with intravenous and oral contrast in 3-6 months to exclude the less likely possibility of a colonic mass. 2. Healing right anterior sixth through eighth rib fractures. No acute fractures identified. 3. Additional findings as described above. ACT 112: Negative or not required by law. Electronically signed by: Sachin Maya M.D. 07/06/2021 12:[address] 07/06/21 11:[address] DOSE: HISTORY: Altered mental status. TECHNIQUE: Multiaxial CT images of the head were performed without the use of intravenous contrast. Automated exposure control was utilized for this study. A dose lowering technique was utilized adhering to the principles of ALARA. Comparison: Head CT 06/23/2021. Findings: There are few opacified left posterior ethmoid air cells. The mastoid air cells are clear. The calvarium and skull base are intact. There is no mass, hematoma, midline shift, acute infarct. White matter hypodensity is nonspecific but suggestive of microvascular ischemic change. The ventricles and sulci demonstrate mild age-related involutional changes. Impression: No acute intracranial abnormality. ACT 112: Negative or not required by law. Electronically signed by: Sachin Maya M.D. 07/06/2021 1:23 PM Discharge Plan Visit Data Chief Complaint: Confusion Stated Complaint: CONFUSION ED Provider: Doyle Burroughs Discharge Problem: Cystitis, Recurrent falls, UTI (urinary tract infection), Weakness, Leukocytosis Patient Disposition: Admitted As Inpatient Discharge Instructions Interventions: ED Discharge Assessment Last Done: 07/06/21 15:47
[2021-07-06 11:33] LABS: Basophils # (auto) 0.06 K/uL (0-0.2); Basophils % (auto) 0.4 %; Eosinophils # (auto) 0.21 K/uL (0-0.5); Eosinophils % (auto) 1.4 %; Hematocrit (blood only) 36.6 % (37-47); Hemoglobin 12.4 g/dL (12.0-16.0); Immature Granulocytes # (auto) 0.04 K/uL (0.00-0.02); Immature Granulocytes % (auto) 0.3 %; Lymphocytes # (auto) 2.84 K/uL (1.2-3.4); Lymphocytes % (auto) 18.8 %; Mean Corpuscular Hemoglobin 32.4 pg (25-34); Mean Corpuscular Hgb Conc 33.9 g/dL (32-36); Mean Corpuscular Volume 95.6 fL (80-100); Mean Platelet Volume 10.2 fL (7.4-10.4); Monocytes # (auto) 1.23 K/uL (0.11-0.59); Monocytes % (auto) 8.1 %; Neutrophils # (auto) 10.72 K/uL (1.4-6.5); Platelet Count 442 K/uL (130-400); RDW Coefficient of Variation 14.2 % (11.5-14.5); RDW Standard Deviation 49.3 fL (36.4-46.3); Red Blood Count 3.83 M/uL (4.2-5.4)
[2021-07-06 11:55] LABS: Albumin Globulin Ratio 1.1 (0.9-2); Albumin Level 3.7 gm/dl (3.4-5.0); BUN Creatinine Ratio 18.9 (10-20); Bilirubin,Total 0.5 mg/dl (0.2-1.0); Calcium 9.5 mg/dl (8.5-10.1); Creatinine Clr Calc Pharmacy 41.7 ml/min; Est GFR (African American) 66.2 ml/min; Est GFR (Non-African American) 57.1 ml/min; Globulin 3.3 gm/dl (2.5-4.0); Potassium 3.8 mmol/L (3.5-5.1)
[2021-07-06 12:02] LABS: Appearance Urine Clear (Clear); Bacteria Urine Automated Negative (Negative); Bilirubin Urine Negative (Negative); Blood Urine Negative (Negative); Color Urine Dark Yellow; Epithelial Cell Urine Auto >30 /lpf (0-5); Glucose Urine UA Negative (Negative); Ketones Urine Trace (Negative); Leukocyte Esterase Urine 2+ (Negative); Nitrite Urine Negative (Negative); Protein Urine Negative (Negative); RBC Urine Automated 0-4 /hpf (0-4); Specific Gravity Urine 1.026 (1.000-1.030); Urobilinogen Urine Negative (Negative); WBC Urine Automated >30 /hpf (0-5)
[2021-07-06] MEDS ORDERED: OPTIRAY 320 100ml IV ONE (12:32)
--- NOTE | 2021-07-06 13:01 | CT Scan Report ---
ABDOMEN AND PELVIS CT WITH IV CONTRAST CT DOSE: 1465.11 mGy.cm HISTORY: abd pain lower w/ falls TECHNIQUE: Multiaxial CT images of the abdomen and pelvis were performed following the use of intrave nous contrast. A dose lowering technique was utilized adhering to the principles of ALARA. COMPARISON STUDY: Abdomen and pelvis CT 07/03/2017. FINDINGS: Mild motion artifact. Mild dependent changes seen within the lung bases. Bilateral total hi p arthroplasties. Old, healed left pubic ring fractures. L1-L5 posterior decompression fusion with pe dicle screws and rods. Old, healed left-sided rib fractures. Healing right anterior sixth through eig hth rib fractures. No acute rib fractures identified. Small areas of focal fat within the liver adjac ent to the falciform ligament. No hepatic or splenic masses. The adrenal glands, pancreas, and gallbl adder are unremarkable. Bilateral cortical renal scarring is again noted. No hydronephrosis. The main portal vein is patent. No retroperitoneal lymphadenopathy. Calcified plaque within the normal calibe r abdominal aorta. The bladder is not well visualized due to metallic artifact but appears unremarkab le. Prior hysterectomy. Trace pelvic free fluid. No evidence for bowel obstruction. Normal appendix. Question of a focal thickening within the proximal descending colon with minimal pericolonic fat stra nding best seen on image 127. IMPRESSION: 1. Questionable mild focal circumferential thickening involving the proximal descending colon with mi nimal adjacent pericolonic fat stranding. This could be due to underdistention or mild focal colitis. Consider follow-up abdomen and pelvis CT with intravenous and oral contrast in 3-6 months to exclude the less likely possibility of a colonic mass. 2. Healing right anterior sixth through eighth rib fractures. No acute fractures identified. 3. Additional findings as described above. ACT 112: Negative or not required by law. Electronically signed by: Sachin Maya M.D. 07/06/2021 12:58 PM
--- NOTE | 2021-07-06 13:25 | CT Scan Report ---
HEAD CT NONCONTRAST CT DOSE: HISTORY: Altered mental status. TECHNIQUE: Multiaxial CT images of the head were performed without the use of intravenous contrast. A utomated exposure control was utilized for this study. A dose lowering technique was utilized adheri ng to the principles of ALARA. Comparison: Head CT 06/23/2021. Findings: There are few opacified left posterior ethmoid air cells. The mastoid air cells are clear. The calvarium and skull base are intact. There is no mass, hematoma, midline shift, acute infarct. Wh ite matter hypodensity is nonspecific but suggestive of microvascular ischemic change. The ventricles and sulci demonstrate mild age-related involutional changes. Impression: No acute intracranial abnormality. ACT 112: Negative or not required by law. Electronically signed by: Sachin Maya M.D. 07/06/2021 1:23 PM
[2021-07-06] MEDS ORDERED: cefTRIAXone SODIUM 1,000 MG/50 ML BAG IV STA (13:48)
--- NOTE | 2021-07-06 14:19 | History & Physical Report ---
Date of Service July 06, 2021 Assessment & Plan (1) Confusion: Plan: Likely multifactorial - underlying mild dementia, partially treated UTI, and recent addition of Cymbalta - Admit for additional evaluation and treatment - Urine culture pending - treat empirically with Ceftriaxone - Monitor mental status closely - Will decrease Cymbalta (daughter reports pt was started on for chronic pain) to 30 mg HS (2) Recurrent falls: Plan: Persistent deconditioning since COVID in Jan as well as confusion - PT/OT - family would be open to rehab if indicated, home PT after last discharge did not seem to be enough - Fall precautions (3) Abnormal CT of the abdomen: Plan: May be underdistention vs. colitis vs. mass - f/u CT in 3-6 months. Discussed this recommendation with pt's daughter. Would also include on the discharge summary. Pt denies abdominal pain and diarrhea at present. If develops diarrhea, consider broadening antibiotic coverage to cefepime and metronidazole. (4) Cystitis: Plan: Urine culture pending - has already completed course of cephalexin and partial course of Bactrim (5) CKD (chronic kidney disease), stage III: Plan: Appears to be at baseline - Daily labs (6) Diabetes mellitus, type II: Plan: Diet-controlled - A1c in AM - last in Jan 2021 was 6.7 - Insulin sliding scale while admitted - Diabetic diet (7) Hypertension: (8) Dyslipidemia: (9) Depression: Plan: Continue other home medications as appropriate. Pt seen and evaluated with collaborating physician, Dr. Minor. Plan of care discussed and as outlined above. Code Status: full code - discussed with pt and her daughter (who is pt's POA) DVT Prophylaxis: heparin subQ Jose Enrique Lincoln PA-C History of Present Illness Chief Complaint: Confusion, falls Primary Care Provider: Dedrick Restrepo MD This is an 86 y/o female with a PMH of DM2, CKD, HTN, arthritis, prior COVID infection in Jan 2021, anxiety, depression, mild memory loss, dyslipidemia, PMR and multiple rib fractures presents to the ED today with worsening confusion and frequent falls. History was obtain from both pt and her daughter (Fariha - by phone). Per pt's daughter, pt has never fully recovered back to baseline after COVID infection in Jan 2021. Initially had home PT but continues to be deconditioned and spends much of her time in bed. Over the past month, she has noticed that pt has been increasingly confused. Daughter also notes that pt was started on Cymbalta two months ago, initially 20 mg then 40 mg daily, which she seemed to tolerate. About a month ago, dose was increased from 40 mg to 60 mg daily, after which the confusion seemed to develop. At baseline, pt is minimally confused, knows where she is, her family, etc. On 06/23, pt was evaluated in the ED here for confusion and falls as well as urinary symptoms - given a dose of ceftriaxone and sent home on cephalexin for six days. Symptoms didn't seem to improve much so on 07/03, they contacted pt's PCP who started her on Bactrim. However, this morning, pt seemed worse - didn't remember that she lived with her daughter, called her son-in-law by her 's name repeatedly, and was very irritated and nasty, which is apparently out of character for pt. She has fallen every day for at least the last five days. Pt lives with her daughter but in her own part of the house. Daughter is able to monitor pt with cameras and has found pt lying on the floor at the foot of her bad the last few mornings. Pt does have three walkers and a scooter at home that she uses to help ambulate. At present, pt's main complaint is pain in her right hip and groin, which is an ongoing issue for her. She has had two injections without relief and is waiting to hear from ortho about additional evaluation. At present, she denies abdominal pain or diarrhea. Some nausea earlier this morning but none at present. No vomiting. Denies dysuria but has apparently had foul-smelling urine at home. Pt felt cold earlier this morning but better now. Pt is aware that she was confused earlier this morning. Allergies Allergy/AdvReac Type Severity Reaction Status Date / Time morphine AdvReac Severe SEVERE Verified 07/06/21 13:02 NAUSEA AND VOMITING; confusion propoxyphene AdvReac Intermediate N/V Verified 07/06/21 13:02 Opioids - Morphine Analogues AdvReac Confusion Verified 07/06/21 13:02 oxycodone AdvReac Confusion Verified 07/06/21 13:02 Home Medications Medication Instructions Recorded Confirmed Type bupropion HCl 200 mg tablet,12 hr 200 mg PO BID 01/07/18 07/06/21 History sustained-release cyanocobalamin (vitamin B-12) 1,000 mg PO QAM 01/07/18 07/06/21 History 1,000 mcg tablet enalapril maleate 20 mg tablet 20 mg PO HS 01/07/18 07/06/21 History rosuvastatin 5 mg tablet 2.5 mg PO 2XWK 01/07/18 07/06/21 History calcium carbonate 600 mg calcium 600 mg PO DAILY 04/13/19 07/06/21 History (1,500 mg) tablet (Calcium) tramadol 50 mg tablet 50 mg PO BID PRN 04/13/19 07/06/21 History vitamins A,C,J-[id number]-tzqiyv 14,320 1 cap PO BID 04/13/19 07/06/21 History unit-226 mg-200 unit capsule (PreserVision AREDS) multivitamin with minerals-folic 0 tab PO QAM 06/23/21 07/06/21 History acid 200 mcg chewable tablet (Multivitamin Gummies) aspirin 81 mg tablet,delayed 81 mg PO QAM 07/06/21 07/06/21 History release duloxetine 60 mg capsule,delayed 60 mg PO HS 07/06/21 07/06/21 History release sulfamethoxazole 800 1 tab PO BID 07/06/21 07/06/21 History mg-trimethoprim 160 mg tablet Past Med/Surg History Medical History (Updated 07/06/21 @ 15:13 by Ann-Marie Lincoln PA-C) Anxiety CKD (chronic kidney disease), stage III COVID-19 Degenerative joint disease of low back Depression Diabetes mellitus, type II Dyslipidemia History of nonmelanoma skin cancer Hypertension Memory loss Multiple rib fractures Osteoarthritis PMR (polymyalgia rheumatica) Pneumonia due to 2019 novel coronavirus Surgical History H/O tubal ligation History of arthroscopy of left shoulder History of arthroscopy of right shoulder History of cataract surgery History of hysterectomy S/P hip replacement Family History Other Family history non-contributory Social History Smoking Status: Never smoker Second Hand Exposure: No; Hx Alcohol Use: No Hx Substance Use: No Preferred Language: Taiwanese Communication Ability: Effective Electrician Rectifier Maintenance Required: No Beliefs That Will Affect Care: None marital status: Current Living Situation: Spouse current occupational status: retired Feels Safe at Home: Yes Assistive Devices: Walker Review of Systems Review of Systems: Limited due to confusion - see HPI Physical Exam Constitutional: well developed and well nourished; no acute distress Eyes: + anicteric sclerae ENMT: external ear and nose normal, oropharynx normal Neck: trachea midline Respiratory: no respiratory distress and no labored breathing Auscultation: lungs clear to auscultation bilaterally; no rales, no rhonchi and no wheezes Cardiovascular: Rate/Rhythm: regular rate and regular rhythm Vessels: dorsalis pedis pulses present and radial pulses present Extremities: + edema (trace bilateral LE) Gastrointestinal (Abdomen): Inspection/Auscultation: normal bowel sounds; abdomen not distended Percussion/Palpation: + abdomen tender (suprapubic and LLQ) and abdomen soft Musculoskeletal: Head/Neck/Chest: neck supple; no chest tenderness Skin: multiple scabbed wounds on LE, thin skin Neurologic: moves all extremities and + confused; no focal motor deficits Psychiatric: Knows name, date, year but not month or date Thinks she is at [facility] in [place] Euthymic affect Results & Data Results & Data ([facility]) Vital Signs (Past 12 Hours) Vital Signs Temp Pulse Resp BP Pulse Ox 07/06/21 12:38 97 H 21 07/06/21 12:00 71 23 110/80 07/06/21 11:30 98 H 20 138/77 95 07/06/21 11:09 104 H 16 97 07/06/21 11:00 103 H 15 142/80 H 93 07/06/21 10:36 36.7 C 104 H 16 140/84 97 Laboratory Results Laboratory Results - last 24 hr 07/06/21 07/06/21 07/06/21 10:45 10:45 11:24 WBC 15.10 H RBC 3.83 L Hgb 12.4 Hct 36.6 L MCV 95.6 MCH 32.4 MCHC 33.9 RDW Std Deviation 49.3 H RDW Coeff of Nandini 14.2 Plt Count 442 H MPV 10.2 Immature Gran % (Auto) 0.3 Neut % (Auto) 71.0 Lymph % (Auto) 18.8 [place] % (Auto) 8.1 Eos % (Auto) 1.4 Baso % (Auto) 0.4 Neut # (Auto) 10.72 H Lymph # (Auto) 2.84 [place] # (Auto) 1.23 H Eos # (Auto) 0.21 Baso # (Auto) 0.06 Immature Gran # (Auto) 0.04 H Sodium 140 Potassium 3.8 Chloride 108 H Carbon Dioxide 23 Anion Gap 9 BUN 17 Creatinine 0.90 Est Cr Clr Drug Dosing 41.7 Est GFR ( Amer) 66.2 Est GFR (Non-Af Amer) 57.1 BUN/Creatinine Ratio 18.9 Glucose 150 H Calcium 9.5 Total Bilirubin 0.5 AST 14 ALT 12 Alkaline Phosphatase 97 Total Protein 7.0 Albumin 3.7 Globulin 3.3 Albumin/Globulin Ratio 1.1 Lipase 17 Urine Color Dark Yellow Urine Appearance Clear Urine pH 5.0 Ur Specific [place] 1.026 Urine Protein Negative Urine Glucose (UA) Negative Urine Ketones Trace H Urine Blood Negative Urine Nitrite Negative Urine Bilirubin Negative Urine Urobilinogen Negative Ur Leukocyte Esterase 2+ H Urine WBC (Auto) >30 H Urine RBC (Auto) 0-4 U Hyaline Cast (Auto) 1-5 U Epithel Cells (Auto) >30 H Urine Bacteria (Auto) Negative Ur Renal Epithelial Cell Not Reportable Diagnostic Findings CT Head 07/06/21 - Impression: No acute intracranial abnormality. CT Abd/Pel 07/06/21 - IMPRESSION: 1. Questionable mild focal circumferential thickening involving the proximal descending colon with minimal adjacent pericolonic fat stranding. This could be due to underdistention or mild focal colitis. Consider follow-up abdomen and pelvis CT with intravenous and oral contrast in 3-6 months to exclude the less likely possibility of a colonic mass. 2. Healing right anterior sixth through eighth rib fractures. No acute fractures identified. 3. Additional findings as described above. Medications Administered Ceftriaxone Sodium (Rocephin) 1,000 mg in 50 mls @ 100 mls/hr IV NOW STA Stop: 07/06/21 14:17 Last Admin: 07/06/21 14:15 Dose: 100 mls/hr Documented by: [id number] Discontinued Medications Sodium Chloride (Nss 1000ml) 1,000 mls @ 999 mls/hr IV .Q1H1M ONE Stop: 07/06/21 12:09 Last Infusion: 07/06/21 12:37 Dose: 0 mls/hr Documented by: [id number] Admin: 07/06/21 11:26 Dose: 999 mls/hr Documented by: [id number] Ioversol (Optiray 320 100ml) 94 ml IV ONCE ONE Stop: 07/06/21 12:33 Last Admin: 07/06/21 12:32 Dose: 94 ml Documented by: [id number] Supervising Physician Co-Signing Physician Notes Pt is a 86 y/o F with hx of DMII, HLD, CKD III, HTN, PMR, Depression/Anxiety, Lumbar stenosis, Dementia, COVID infection, and recent ER visit for UTI admitted for recent fall, AMS with UTI -currently on Bactrim Ds for UTI with UCx positive for pansensitive E.Coli -per pt she lives with her daughter -At baseline she ambulates with walker and cane PE: NAD, well developed Cardiac: Normal S1/S2, no murmur Lungs: CTA, no wheezing or crackles Abd: ND, soft, mild TTP of the suprapubic area and b/l lower abd area MSK: no edema Psych: Normal affect, AAOx1 (not to place or time) A/P: AMS with UTI: -pt has underlying dementia -UCx positive for pansensitive lactobacillius + Ecoli - will continue ceftriaxone -per daughter pts mental status worsened after increase in Cymbalta dose ---- will decrease the dose to 30mg daily Multiple fall: -CT head: no acute finding -Will get PT/OT ---- Likely will benefit from SNF CT abd finding: Questionable mild focal circumferential thickening involving the proximal descending colon with minimal adjacent pericolonic fat stranding -pt denied any acute abd pain, N/V or diarrhea -since pt does not have any GI symptoms no need for further intervention at this time -if pt develops diarrhea then recommend changing the abx coverage to cover anaerobes -Needs outpt CT abd follow up in 3 months Agree with A/P by Ann-Marie Lincoln PA-C
[2021-07-06] MEDS ORDERED: CARBOHYDRATES FOR HYPOGLYCEMIA PO PRN (16:21)
[2021-07-06] MEDS ORDERED: GLUCOSE 40% GEL 15 GM TUBE PO PRN (16:21)
[2021-07-06] MEDS ORDERED: DEXTROSE 50% 50 ML SYRINGE IV PRN (16:21)
[2021-07-06] MEDS ORDERED: GLUCOSE 10 TABS/TUBE PO PRN (16:21)
[2021-07-06] MEDS ORDERED: GLUCAGON FOR INJ 1 MG VIAL SQ PRN (16:21)
[2021-07-06] MEDS: INSULIN ASPART PER UNIT SC SCH ×2 (17:59→21:35)
[2021-07-06] MEDS: ROSUVASTATIN CALCIUM 5 MG TAB PO SCH (20:33)
[2021-07-06] MEDS: buPROPion SR 100 MG TABCR PO SCH (20:33)
[2021-07-06] MEDS: ENALAPRIL MALEATE 10 MG TAB PO SCH (20:33)
[2021-07-06] MEDS: DULoxetine HCL 30 MG CAP PO SCH (20:35)
[2021-07-06] MEDS: HEPARIN SOD 5,000 UNIT/0.5 ML VIAL SQ SCH (20:36)
[2021-07-06] MEDS ORDERED: cefTRIAXone SODIUM 1,000 MG in DEXTROSE 5% 50 ML IV SCH (21:00)
[2021-07-07] MEDS: buPROPion SR 100 MG TABCR PO SCH ×2 (08:17→20:45)
[2021-07-07] MEDS: ASPIRIN 81 MG ECTAB PO SCH (08:17)
[2021-07-07] MEDS: CALCIUM 600MG + VIT D 400 IU TAB PO SCH (08:17)
[2021-07-07 08:18] LABS: Basophils # (auto) 0.09 K/uL (0-0.2); Basophils % (auto) 1.4 %; Eosinophils # (auto) 0.26 K/uL (0-0.5); Eosinophils % (auto) 4.2 %; Hematocrit (blood only) 35.5 % (37-47); Hemoglobin 11.7 g/dL (12.0-16.0); Lymphocytes # (auto) 1.88 K/uL (1.2-3.4); Lymphocytes % (auto) 30.1 %; Mean Corpuscular Hemoglobin 31.5 pg (25-34); Mean Corpuscular Volume 95.7 fL (80-100); Monocytes # (auto) 0.57 K/uL (0.11-0.59); Monocytes % (auto) 9.1 %; Neutrophils # (auto) 3.44 K/uL (1.4-6.5); Neutrophils % (auto) 55.2 %; Platelet Count 383 K/uL (130-400); RDW Coefficient of Variation 14.3 % (11.5-14.5); RDW Standard Deviation 50.3 fL (36.4-46.3); Red Blood Count 3.71 M/uL (4.2-5.4); White Blood Count 6.24 K/uL (4.8-10.8)
[2021-07-07] MEDS: CYANOCOBALAMIN (B-12) 500 MCG TABLET PO SCH (08:18)
[2021-07-07] MEDS: HEPARIN SOD 5,000 UNIT/0.5 ML VIAL SQ SCH ×2 (08:24→20:45)
[2021-07-07] MEDS: cefTRIAXone SODIUM 2,000 MG in DEXTROSE 5% 50 ML IV SCH (08:27)
--- NOTE | 2021-07-07 08:31 | Hospitalist Progress Note ---
Date of Service July 07, 2021 Assessment & Plan (1) Confusion: Plan: Likely multifactorial - underlying mild dementia, partially treated UTI, and recent addition of Cymbalta - Admit for additional evaluation and treatment -Urine culture from June 23, positive for pansensitive E. coli, and lactobacillus -Current urine culture pending - treat empirically with Ceftriaxone - Monitor mental status closely -mental status seems to be already much improved - Decreased Cymbalta on admission (daughter reports pt was started on for chronic pain) to 30 mg HS, will cont. w/ lower dose (2) Recurrent falls: Plan: Persistent deconditioning since COVID in Jan as well as confusion - PT/OT - family would be open to rehab if indicated, home PT after last discharge did not seem to be enough - Fall precautions (3) Abnormal CT of the abdomen: Plan: May be underdistention vs. colitis vs. mass - f/u CT in 3-6 months. Discussed this recommendation with pt's daughter. Would also include on the discharge summary. Pt denies abdominal pain and diarrhea at present. If develops diarrhea, consider broadening antibiotic coverage to cefepime and metronidazole. (4) Cystitis: Plan: Urine culture pending - has already completed course of cephalexin and partial course of Bactrim (5) CKD (chronic kidney disease), stage III: Plan: Appears to be at baseline - Daily labs (6) Diabetes mellitus, type II: Plan: Diet-controlled - A1c in AM - last in Jan 2021 was 6.7 - Insulin sliding scale while admitted - Diabetic diet (7) Hypertension: (8) Dyslipidemia: (9) Depression: Plan: Continue other home medications as appropriate. Code Status: full code - discussed with pt and her daughter (who is pt's POA) DVT Prophylaxis: heparin subQ Admission and Anticipated Discharge Date Admission Date: July 06, 2021 Subjective Patient seen for follow-up of AMS, UTI, abnormal CT scan Currently she is sitting up in bed, in no acute distress Reports that she felt confused, however now she realizes that she is in the hospital Overall feels much better. Denies any fevers, chills, chest pain, shortness of breath, also denies any abdominal pain, nausea or vomiting Review of Systems Review of Systems: All systems reviewed & are unremarkable except as noted in Subjective Physical Exam Physical Exam: Constitutional:L Elderly female, ly ing in bed, in no acute distress Eyes: + anicteric scler ae ENMT: external ear and n ose normal, oropha rynx normal Neck: trachea midline, n shahana supple Respiratory: no respiratory dis tress and no labor ed breathing Ausc ultation: lungs cl ear to auscultatio n bilaterally; no rales, no rhonchi and no wheezes Cardiovascular:L Rate/Rhythm: regul ar rate and regula r rhythm Extremit ies: + edema (trac e bilateral LE) Gastrointestinal ( Abdomen): Inspection/Auscult ation: normal nathaly l sounds; abdomen not distended Per cussion/Palpation: + abdomen tender (suprapubic and LL Q) and abdomen sof t Musculoskeletal: Head/Neck/Chest: n shahana supple; no godfrey st tenderness, mov es extremities Skin: multiple scabbed w ounds on LE, thin skin Neurologic: Awake alert, able to answer simple q uestions appropria tely, no facial as ymmetry, speech fl uent, moves all ex tremities Psychiatric: On admission : micheal palm name, date , year but not thu or date Thought she was at [facility] in [place] Euthymic affec t Results & Data Results & Data ([facility]) Vital Signs (Past 12 Hours) Vital Signs Temp Pulse Resp BP BP Pulse Ox 07/07/21 08:06 36.4 C L 73 16 131/58 L 99 07/06/21 23:05 36.8 C 101 H 18 136/59 L 97 Laboratory Results 07/07/21 07/07/21 07/07/21 Range/Units 07:58 07:36 07:36 WBC (4.8-10.8) K/uL RBC (4.2-5.4) M/uL Hgb (12.0-16.0) g/dL Hct (37-47) % MCV (80-100) fL MCH (25-34) pg MCHC (32-36) g/dL RDW Std Deviation (36.4-46.3) fL RDW Coeff of Nandini (11.5-14.5) % Plt Count (130-400) K/uL MPV (7.4-10.4) fL Immature Gran % (Auto) % Neut % (Auto) % Lymph % (Auto) % [place] % (Auto) % Eos % (Auto) % Baso % (Auto) % Neut # (Auto) (1.4-6.5) K/uL Lymph # (Auto) (1.2-3.4) K/uL [place] # (Auto) (0.11-0.59) K/uL Eos # (Auto) (0-0.5) K/uL Baso # (Auto) (0-0.2) K/uL Immature Gran # (Auto) (0.00-0.02) K/uL Sodium 138 (136-145) mmol/L Potassium 4.0 (3.5-5.1) mmol/L Chloride 106 (98-107) mmol/L Carbon Dioxide 24 (21-32) mmol/L Anion Gap 8 (3-11) BUN 14 (6-23) mg/dl Creatinine 0.96 (0.6-1.2) mg/dl Est Cr Clr Drug Dosing 38.8 ml/min Est GFR ( Amer) 61.2 ml/min Est GFR (Non-Af Amer) 52.8 ml/min BUN/Creatinine Ratio 14.6 (10-20) Glucose 158 H (70-99(Fasting)) mg/dl POC Glucose 175 H (70-99) mg/dl Estimat Average Glucose Pending Hemoglobin A1c Pending Calcium 9.6 (8.5-10.1) mg/dl Total Bilirubin (0.2-1.0) mg/dl AST (13-39) U/L ALT (7-52) U/L Alkaline Phosphatase (34-104) U/L Total Protein (6.0-8.3) gm/dl Albumin (3.4-5.0) gm/dl Globulin (2.5-4.0) gm/dl Albumin/Globulin Ratio (0.9-2) Lipase (11-82) U/L Urine Color Urine Appearance (Clear) Urine pH (4.5-7.5) Ur Specific [place] (1.000-1.030) Urine Protein (Negative) Urine Glucose (UA) (Negative) Urine Ketones (Negative) Urine Blood (Negative) Urine Nitrite (Negative) Urine Bilirubin (Negative) Urine Urobilinogen (Negative) Ur Leukocyte Esterase (Negative) Urine WBC (Auto) (0-5) /hpf Urine RBC (Auto) (0-4) /hpf U Hyaline Cast (Auto) (0-5) /lpf U Epithel Cells (Auto) (0-5) /lpf Urine Bacteria (Auto) (Negative) Ur Renal Epithelial Cell SARS-CoV-2, RNA, NAAT (NEGATIVE) 07/07/21 07/06/21 07/06/21 Range/Units 07:36 21:08 16:28 WBC 6.24 (4.8-10.8) K/uL RBC 3.71 L (4.2-5.4) M/uL Hgb 11.7 L (12.0-16.0) g/dL Hct 35.5 L (37-47) % MCV 95.7 (80-100) fL MCH 31.5 (25-34) pg MCHC 33.0 (32-36) g/dL RDW Std Deviation 50.3 H (36.4-46.3) fL RDW Coeff of Nandini 14.3 (11.5-14.5) % Plt Count 383 (130-400) K/uL MPV 10.0 (7.4-10.4) fL Immature Gran % (Auto) 0.0 % Neut % (Auto) 55.2 % Lymph % (Auto) 30.1 % [place] % (Auto) 9.1 % Eos % (Auto) 4.2 % Baso % (Auto) 1.4 % Neut # (Auto) 3.44 (1.4-6.5) K/uL Lymph # (Auto) 1.88 (1.2-3.4) K/uL [place] # (Auto) 0.57 (0.11-0.59) K/uL Eos # (Auto) 0.26 (0-0.5) K/uL Baso # (Auto) 0.09 (0-0.2) K/uL Immature Gran # (Auto) 0.00 (0.00-0.02) K/uL Sodium (136-145) mmol/L Potassium (3.5-5.1) mmol/L Chloride (98-107) mmol/L Carbon Dioxide (21-32) mmol/L Anion Gap (3-11) BUN (6-23) mg/dl Creatinine (0.6-1.2) mg/dl Est Cr Clr Drug Dosing ml/min Est GFR ( Amer) ml/min Est GFR (Non-Af Amer) ml/min BUN/Creatinine Ratio (10-20) Glucose (70-99(Fasting)) mg/dl POC Glucose 116 H 170 H (70-99) mg/dl Estimat Average Glucose Hemoglobin A1c Calcium (8.5-10.1) mg/dl Total Bilirubin (0.2-1.0) mg/dl AST (13-39) U/L ALT (7-52) U/L Alkaline Phosphatase (34-104) U/L Total Protein (6.0-8.3) gm/dl Albumin (3.4-5.0) gm/dl Globulin (2.5-4.0) gm/dl Albumin/Globulin Ratio (0.9-2) Lipase (11-82) U/L Urine Color Urine Appearance (Clear) Urine pH (4.5-7.5) Ur Specific [place] (1.000-1.030) Urine Protein (Negative) Urine Glucose (UA) (Negative) Urine Ketones (Negative) Urine Blood (Negative) Urine Nitrite (Negative) Urine Bilirubin (Negative) Urine Urobilinogen (Negative) Ur Leukocyte Esterase (Negative) Urine WBC (Auto) (0-5) /hpf Urine RBC (Auto) (0-4) /hpf U Hyaline Cast (Auto) (0-5) /lpf U Epithel Cells (Auto) (0-5) /lpf Urine Bacteria (Auto) (Negative) Ur Renal Epithelial Cell SARS-CoV-2, RNA, NAAT (NEGATIVE) 07/06/21 07/06/21 07/06/21 Range/Units 14:13 11:24 10:45 WBC (4.8-10.8) K/uL RBC (4.2-5.4) M/uL Hgb (12.0-16.0) g/dL Hct (37-47) % MCV (80-100) fL MCH (25-34) pg MCHC (32-36) g/dL RDW Std Deviation (36.4-46.3) fL RDW Coeff of Nandini (11.5-14.5) % Plt Count (130-400) K/uL MPV (7.4-10.4) fL Immature Gran % (Auto) % Neut % (Auto) % Lymph % (Auto) % [place] % (Auto) % Eos % (Auto) % Baso % (Auto) % Neut # (Auto) (1.4-6.5) K/uL Lymph # (Auto) (1.2-3.4) K/uL [place] # (Auto) (0.11-0.59) K/uL Eos # (Auto) (0-0.5) K/uL Baso # (Auto) (0-0.2) K/uL Immature Gran # (Auto) (0.00-0.02) K/uL Sodium 140 (136-145) mmol/L Potassium 3.8 (3.5-5.1) mmol/L Chloride 108 H (98-107) mmol/L Carbon Dioxide 23 (21-32) mmol/L Anion Gap 9 (3-11) BUN 17 (6-23) mg/dl Creatinine 0.90 (0.6-1.2) mg/dl Est Cr Clr Drug Dosing 41.7 ml/min Est GFR ( Amer) 66.2 ml/min Est GFR (Non-Af Amer) 57.1 ml/min BUN/Creatinine Ratio 18.9 (10-20) Glucose 150 H (70-99(Fasting)) mg/dl POC Glucose (70-99) mg/dl Estimat Average Glucose Hemoglobin A1c Calcium 9.5 (8.5-10.1) mg/dl Total Bilirubin 0.5 (0.2-1.0) mg/dl AST 14 (13-39) U/L ALT 12 (7-52) U/L Alkaline Phosphatase 97 (34-104) U/L Total Protein 7.0 (6.0-8.3) gm/dl Albumin 3.7 (3.4-5.0) gm/dl Globulin 3.3 (2.5-4.0) gm/dl Albumin/Globulin Ratio 1.1 (0.9-2) Lipase 17 (11-82) U/L Urine Color Dark Yellow Urine Appearance Clear (Clear) Urine pH 5.0 (4.5-7.5) Ur Specific [place] 1.026 (1.000-1.030) Urine Protein Negative (Negative) Urine Glucose (UA) Negative (Negative) Urine Ketones Trace H (Negative) Urine Blood Negative (Negative) Urine Nitrite Negative (Negative) Urine Bilirubin Negative (Negative) Urine Urobilinogen Negative (Negative) Ur Leukocyte Esterase 2+ H (Negative) Urine WBC (Auto) >30 H (0-5) /hpf Urine RBC (Auto) 0-4 (0-4) /hpf U Hyaline Cast (Auto) 1-5 (0-5) /lpf U Epithel Cells (Auto) >30 H (0-5) /lpf Urine Bacteria (Auto) Negative (Negative) Ur Renal Epithelial Cell Not Reportable SARS-CoV-2, RNA, NAAT NEGATIVE (NEGATIVE) 07/06/21 Range/Units 10:45 WBC 15.10 H (4.8-10.8) K/uL RBC 3.83 L (4.2-5.4) M/uL Hgb 12.4 (12.0-16.0) g/dL Hct 36.6 L (37-47) % MCV 95.6 (80-100) fL MCH 32.4 (25-34) pg MCHC 33.9 (32-36) g/dL RDW Std Deviation 49.3 H (36.4-46.3) fL RDW Coeff of Nandini 14.2 (11.5-14.5) % Plt Count 442 H (130-400) K/uL MPV 10.2 (7.4-10.4) fL Immature Gran % (Auto) 0.3 % Neut % (Auto) 71.0 % Lymph % (Auto) 18.8 % [place] % (Auto) 8.1 % Eos % (Auto) 1.4 % Baso % (Auto) 0.4 % Neut # (Auto) 10.72 H (1.4-6.5) K/uL Lymph # (Auto) 2.84 (1.2-3.4) K/uL [place] # (Auto) 1.23 H (0.11-0.59) K/uL Eos # (Auto) 0.21 (0-0.5) K/uL Baso # (Auto) 0.06 (0-0.2) K/uL Immature Gran # (Auto) 0.04 H (0.00-0.02) K/uL Sodium (136-145) mmol/L Potassium (3.5-5.1) mmol/L Chloride (98-107) mmol/L Carbon Dioxide (21-32) mmol/L Anion Gap (3-11) BUN (6-23) mg/dl Creatinine (0.6-1.2) mg/dl Est Cr Clr Drug Dosing ml/min Est GFR ( Amer) ml/min Est GFR (Non-Af Amer) ml/min BUN/Creatinine Ratio (10-20) Glucose (70-99(Fasting)) mg/dl POC Glucose (70-99) mg/dl Estimat Average Glucose Hemoglobin A1c Calcium (8.5-10.1) mg/dl Total Bilirubin (0.2-1.0) mg/dl AST (13-39) U/L ALT (7-52) U/L Alkaline Phosphatase (34-104) U/L Total Protein (6.0-8.3) gm/dl Albumin (3.4-5.0) gm/dl Globulin (2.5-4.0) gm/dl Albumin/Globulin Ratio (0.9-2) Lipase (11-82) U/L Urine Color Urine Appearance (Clear) Urine pH (4.5-7.5) Ur Specific [place] (1.000-1.030) Urine Protein (Negative) Urine Glucose (UA) (Negative) Urine Ketones (Negative) Urine Blood (Negative) Urine Nitrite (Negative) Urine Bilirubin (Negative) Urine Urobilinogen (Negative) Ur Leukocyte Esterase (Negative) Urine WBC (Auto) (0-5) /hpf Urine RBC (Auto) (0-4) /hpf U Hyaline Cast (Auto) (0-5) /lpf U Epithel Cells (Auto) (0-5) /lpf Urine Bacteria (Auto) (Negative) Ur Renal Epithelial Cell SARS-CoV-2, RNA, NAAT (NEGATIVE) Medications Administered Current Inpatient Medications Acetaminophen (Acetaminophen 325 Mg Tab) 650 mg PO Q4H PRN PRN Reason: pain/fever Stop: 08/05/21 16:20 Aspirin (Aspirin 81 Mg Ectab) 81 mg PO QAM [facility] Stop: 08/06/21 08:59 Last Admin: 07/07/21 08:17 Dose: 81 mg Documented by: Bupropion HCl (Bupropion Sr 100 Mg Tabcr) 200 mg PO BID [facility] Stop: 08/05/21 20:59 Last Admin: 07/07/21 08:17 Dose: 200 mg Documented by: Cyanocobalamin (Cyanocobalamin (B-12) 500 Mcg Tablet) 1,000 mcg PO QAM [facility] Stop: 08/06/21 08:59 Last Admin: 07/07/21 08:18 Dose: 1,000 mcg Documented by: Dextrose (Dextrose 50% 50 Ml Syringe) 25 - 50 ml IV UD PRN; Protocol PRN Reason: Hypoglycemia Protocol Stop: 08/05/21 16:20 Duloxetine HCl (Duloxetine Hcl 30 Mg Cap) 30 mg PO HS [facility] Stop: 08/05/21 20:59 Last Admin: 07/06/21 20:35 Dose: 30 mg Documented by: Enalapril Maleate (Enalapril Maleate 10 Mg Tab) 20 mg PO HS [facility] Stop: 08/05/21 20:59 Last Admin: 07/06/21 20:33 Dose: 20 mg Documented by: Glucagon (Glucagon For Inj 1 Mg Vial) 1 mg SQ UD PRN; Protocol PRN Reason: Hypoglycemia Protocol Stop: 08/05/21 16:20 Glucose (Glucose 10 Tabs/Tube) 4 - 8 tabs PO UD PRN; Protocol PRN Reason: Hypoglycemia Protocol Stop: 08/05/21 16:20 Glucose (Glucose 40% Gel 15 Gm Tube) 15 - 30 gm PO UD PRN; Protocol PRN Reason: Hypoglycemia Protocol Stop: 08/05/21 16:20 Heparin Sodium (Porcine) (Heparin Sod 5,000 Unit/0.5 Ml Vial) 5,000 units SQ Q12 [facility] Stop: 08/05/21 20:59 Last Admin: 07/07/21 08:24 Dose: 5,000 units Documented by: Ceftriaxone Sodium 2,000 mg/ (Dextrose) 70 mls @ 100 mls/hr IV DAILY [facility]; Protocol Stop: 07/11/21 08:59 Last Admin: 07/07/21 08:27 Dose: 100 mls/hr Documented by: Insulin Aspart (Insulin Aspart Per Unit) 0 units SC ACHS [facility] Stop: 08/05/21 16:29 Last Admin: 07/06/21 21:35 Dose: Not Given Documented by: Miscellaneous (Carbohydrates For Hypoglycemia ) 15 - 30 gm PO UD PRN PRN Reason: Hypoglycemia Protocol Stop: 08/05/21 16:20 Multivitamins/Minerals (Calcium 600mg + Vit D 400 Iu Tab) 1 tab PO DAILY [facility] Stop: 08/06/21 08:59 Last Admin: 05/29/22 08:17 Dose: 1 tab Documented by: Rosuvastatin Calcium (Rosuvastatin Calcium 5 Mg Tab) 2.5 mg PO Jose@2100 [facility] Stop: 08/05/21 20:59 Last Admin: 07/06/21 20:33 Dose: 2.5 mg Documented by:
[2021-07-07 08:43] LABS: BUN Creatinine Ratio 14.6 (10-20); Calcium 9.6 mg/dl (8.5-10.1); Creatinine Clr Calc Pharmacy 38.8 ml/min; Est GFR (African American) 61.2 ml/min; Est GFR (Non-African American) 52.8 ml/min
[2021-07-07] MEDS: INSULIN ASPART PER UNIT SC SCH ×4 (09:11→21:32)
[2021-07-07] MEDS: ENALAPRIL MALEATE 10 MG TAB PO SCH (20:46)
[2021-07-07] MEDS: DULoxetine HCL 30 MG CAP PO SCH (20:46)
[2021-07-08 07:02] LABS: Basophils # (auto) 0.06 K/uL (0-0.2); Basophils % (auto) 0.8 %; Eosinophils # (auto) 0.38 K/uL (0-0.5); Eosinophils % (auto) 5.3 %; Hematocrit (blood only) 36.4 % (37-47); Hemoglobin 12.1 g/dL (12.0-16.0); Immature Granulocytes # (auto) 0.01 K/uL (0.00-0.02); Immature Granulocytes % (auto) 0.1 %; Lymphocytes # (auto) 2.35 K/uL (1.2-3.4); Lymphocytes % (auto) 32.9 %; Mean Corpuscular Hemoglobin 31.4 pg (25-34); Mean Corpuscular Hgb Conc 33.2 g/dL (32-36); Mean Corpuscular Volume 94.5 fL (80-100); Mean Platelet Volume 10.8 fL (7.4-10.4); Monocytes # (auto) 0.74 K/uL (0.11-0.59); Monocytes % (auto) 10.4 %; Neutrophils % (auto) 50.5 %; Platelet Count 366 K/uL (130-400); RDW Coefficient of Variation 14.2 % (11.5-14.5); RDW Standard Deviation 48.8 fL (36.4-46.3); Red Blood Count 3.85 M/uL (4.2-5.4); White Blood Count 7.14 K/uL (4.8-10.8)
[2021-07-08 07:26] LABS: BUN Creatinine Ratio 17.7 (10-20); Calcium 9.7 mg/dl (8.5-10.1); Creatinine Clr Calc Pharmacy 32.9 ml/min; Est GFR (African American) 50.3 ml/min; Est GFR (Non-African American) 43.4 ml/min; Magnesium 1.8 mg/dl (1.7-2.4); Phosphorus 3.6 mg/dl (2.5-4.9); Potassium 3.9 mmol/L (3.5-5.1)
[2021-07-08 08:05] LABS: Estimated Average Glucose 140 mg/dl; Hemoglobin A1C 6.5 % (4.5-5.6)
--- NOTE | 2021-07-08 08:19 | Hospitalist Progress Note ---
Date of Service July 08, 2021 Assessment & Plan (1) Confusion: Plan: Likely multifactorial - underlying mild dementia, partially treated UTI, and recent addition of Cymbalta - Admit for additional evaluation and treatment -Urine culture from June 23, positive for pansensitive E. coli, and lactobacillus - current cultx negative - will stop Abx - Monitor mental status closely -mental status seems to be already much improved - Decreased Cymbalta on admission (daughter reports pt was started on for chronic pain) to 30 mg HS, will cont. w/ lower dose (2) Recurrent falls: Plan: Persistent deconditioning since COVID in Dec as well as confusion - PT/OT - family would be open to rehab if indicated, home PT after last discharge did not seem to be enough - Fall precautions (3) Abnormal CT of the abdomen: Plan: May be underdistention vs. colitis vs. mass - f/u CT in 3-6 months. Discussed this recommendation with pt's daughter. Would also include on the discharge summary. Pt denies abdominal pain and diarrhea at present. If develops diarrhea, consider broadening antibiotic coverage to cefepime and metronidazole. (4) Cystitis: Plan: Urine culture negative - as outpt has already completed course of cephalexin and partial course of Bactrim (5) CKD (chronic kidney disease), stage III: Plan: Appears to be at baseline - Daily labs (6) Diabetes mellitus, type II: Plan: Diet-controlled - A1c in AM - last in Jan 2021 was 6.7 - Insulin sliding scale while admitted - Diabetic diet (7) Hypertension: (8) Dyslipidemia: (9) Depression: Plan: Continue other home medications as appropriate. Code Status: full code - discussed with pt and her daughter (who is pt's POA) DVT Prophylaxis: heparin subQ Admission and Anticipated Discharge Date Admission Date: July 06, 2021 Subjective Patient seen for follow-up of AMS, UTI, abnormal CT scan Currently she is sitting up in bed, in no acute distress Reports that she felt confused, however now she feels well, answering questions appropriately, aware of being in the hospital Reports she has been falling at home, lives w/ daughter Overall feels much better. Denies any fevers, chills, chest pain, shortness of breath, also denies any abdominal pain, nausea or vomiting Review of Systems Review of Systems: All systems reviewed & are unremarkable except as noted in Subjective Physical Exam Physical Exam: Constitutional:L Elderly female, ly ing in bed, in no acute distress Eyes: EOMI, PERRL, + ani cteric sclerae ENMT: external ear and n ose normal, oropha rynx normal Neck: trachea midline, n shahana supple Respiratory: no respiratory dis tress and no labor ed breathing Ausc ultation: lungs cl ear to auscultatio n bilaterally; no rales, no rhonchi and no wheezes Cardiovascular: L Rate/Rhythm: regul ar rate and regula r rhythm Extremit ies: + edema (trac e bilateral LE) Gastrointestinal ( Abdomen): Inspection/Auscult ation: normal nathaly l sounds; abdomen not distended Per cussion/Palpation: + abdomen nontend er (resolved)and s oft Musculoskeletal: Head/Neck/Chest: n shahana supple; no godfrey st tenderness, mov es extremities Skin: multiple scabbed w ounds on LE, thin skin Neurologic: Awake alert, able to answer simple q uestions appropria tely (improved), n o facial asymmetry , speech fluent, m oves all extremiti es Psychiatric: Euthymic affect Results & Data Results & Data ([facility]) Vital Signs (Past 12 Hours) Vital Signs Temp Pulse Resp BP BP Pulse Ox 07/08/21 07:54 36.6 C 71 18 120/71 98 07/07/21 22:23 36.8 C 102 H 16 125/54 L 94 Laboratory Results 07/08/21 07/08/21 07/08/21 Range/Units 08:08 06:04 06:04 WBC 7.14 (4.8-10.8) K/uL RBC 3.85 L (4.2-5.4) M/uL Hgb 12.1 (12.0-16.0) g/dL Hct 36.4 L (37-47) % MCV 94.5 (80-100) fL MCH 31.4 (25-34) pg MCHC 33.2 (32-36) g/dL RDW Std Deviation 48.8 H (36.4-46.3) fL RDW Coeff of Nandini 14.2 (11.5-14.5) % Plt Count 366 (130-400) K/uL MPV 10.8 H (7.4-10.4) fL Immature Gran % (Auto) 0.1 % Neut % (Auto) 50.5 % Lymph % (Auto) 32.9 % [place] % (Auto) 10.4 % Eos % (Auto) 5.3 % Baso % (Auto) 0.8 % Neut # (Auto) 3.60 (1.4-6.5) K/uL Lymph # (Auto) 2.35 (1.2-3.4) K/uL [place] # (Auto) 0.74 H (0.11-0.59) K/uL Eos # (Auto) 0.38 (0-0.5) K/uL Baso # (Auto) 0.06 (0-0.2) K/uL Immature Gran # (Auto) 0.01 (0.00-0.02) K/uL Sodium 140 (136-145) mmol/L Potassium 3.9 (3.5-5.1) mmol/L Chloride 106 (98-107) mmol/L Carbon Dioxide 24 (21-32) mmol/L Anion Gap 10 (3-11) BUN 20 (6-23) mg/dl Creatinine 1.13 (0.6-1.2) mg/dl Est Cr Clr Drug Dosing 32.9 ml/min Est GFR ( Amer) 50.3 ml/min Est GFR (Non-Af Amer) 43.4 ml/min BUN/Creatinine Ratio 17.7 (10-20) Glucose 148 H (70-99(Fasting)) mg/dl POC Glucose 166 H (70-99) mg/dl Estimat Average Glucose mg/dl Hemoglobin A1c (4.5-5.6) % Calcium 9.7 (8.5-10.1) mg/dl Phosphorus 3.6 (2.5-4.9) mg/dl Magnesium 1.8 (1.7-2.4) mg/dl 07/07/21 07/07/21 07/07/21 Range/Units 20:39 17:02 11:44 WBC (4.8-10.8) K/uL RBC (4.2-5.4) M/uL Hgb (12.0-16.0) g/dL Hct (37-47) % MCV (80-100) fL MCH (25-34) pg MCHC (32-36) g/dL RDW Std Deviation (36.4-46.3) fL RDW Coeff of Nandini (11.5-14.5) % Plt Count (130-400) K/uL MPV (7.4-10.4) fL Immature Gran % (Auto) % Neut % (Auto) % Lymph % (Auto) % [place] % (Auto) % Eos % (Auto) % Baso % (Auto) % Neut # (Auto) (1.4-6.5) K/uL Lymph # (Auto) (1.2-3.4) K/uL [place] # (Auto) (0.11-0.59) K/uL Eos # (Auto) (0-0.5) K/uL Baso # (Auto) (0-0.2) K/uL Immature Gran # (Auto) (0.00-0.02) K/uL Sodium (136-145) mmol/L Potassium (3.5-5.1) mmol/L Chloride (98-107) mmol/L Carbon Dioxide (21-32) mmol/L Anion Gap (3-11) BUN (6-23) mg/dl Creatinine (0.6-1.2) mg/dl Est Cr Clr Drug Dosing ml/min Est GFR ( Amer) ml/min Est GFR (Non-Af Amer) ml/min BUN/Creatinine Ratio (10-20) Glucose (70-99(Fasting)) mg/dl POC Glucose 105 H 114 H 145 H (70-99) mg/dl Estimat Average Glucose mg/dl Hemoglobin A1c (4.5-5.6) % Calcium (8.5-10.1) mg/dl Phosphorus (2.5-4.9) mg/dl Magnesium (1.7-2.4) mg/dl 07/07/21 07/07/21 07/07/21 Range/Units 07:36 07:36 07:36 WBC 6.24 (4.8-10.8) K/uL RBC 3.71 L (4.2-5.4) M/uL Hgb 11.7 L (12.0-16.0) g/dL Hct 35.5 L (37-47) % MCV 95.7 (80-100) fL MCH 31.5 (25-34) pg MCHC 33.0 (32-36) g/dL RDW Std Deviation 50.3 H (36.4-46.3) fL RDW Coeff of Nandini 14.3 (11.5-14.5) % Plt Count 383 (130-400) K/uL MPV 10.0 (7.4-10.4) fL Immature Gran % (Auto) 0.0 % Neut % (Auto) 55.2 % Lymph % (Auto) 30.1 % [place] % (Auto) 9.1 % Eos % (Auto) 4.2 % Baso % (Auto) 1.4 % Neut # (Auto) 3.44 (1.4-6.5) K/uL Lymph # (Auto) 1.88 (1.2-3.4) K/uL [place] # (Auto) 0.57 (0.11-0.59) K/uL Eos # (Auto) 0.26 (0-0.5) K/uL Baso # (Auto) 0.09 (0-0.2) K/uL Immature Gran # (Auto) 0.00 (0.00-0.02) K/uL Sodium 138 (136-145) mmol/L Potassium 4.0 (3.5-5.1) mmol/L Chloride 106 (98-107) mmol/L Carbon Dioxide 24 (21-32) mmol/L Anion Gap 8 (3-11) BUN 14 (6-23) mg/dl Creatinine 0.96 (0.6-1.2) mg/dl Est Cr Clr Drug Dosing 38.8 ml/min Est GFR ( Amer) 61.2 ml/min Est GFR (Non-Af Amer) 52.8 ml/min BUN/Creatinine Ratio 14.6 (10-20) Glucose 158 H (70-99(Fasting)) mg/dl POC Glucose (70-99) mg/dl Estimat Average Glucose 140 mg/dl Hemoglobin A1c 6.5 H (4.5-5.6) % Calcium 9.6 (8.5-10.1) mg/dl Phosphorus (2.5-4.9) mg/dl Magnesium (1.7-2.4) mg/dl Medications Administered Current Inpatient Medications Acetaminophen (Acetaminophen 325 Mg Tab) 650 mg PO Q4H PRN PRN Reason: pain/fever Stop: 08/05/21 16:20 Aspirin (Aspirin 81 Mg Ectab) 81 mg PO QAM [facility] Stop: 08/06/21 08:59 Last Admin: 07/07/21 08:17 Dose: 81 mg Documented by: Bupropion HCl (Bupropion Sr 100 Mg Tabcr) 200 mg PO BID [facility] Stop: 08/05/21 20:59 Last Admin: 07/07/21 20:45 Dose: 200 mg Documented by: Cyanocobalamin (Cyanocobalamin (B-12) 500 Mcg Tablet) 1,000 mcg PO QAM [facility] Stop: 08/06/21 08:59 Last Admin: 07/07/21 08:18 Dose: 1,000 mcg Documented by: Dextrose (Dextrose 50% 50 Ml Syringe) 25 - 50 ml IV UD PRN; Protocol PRN Reason: Hypoglycemia Protocol Stop: 08/05/21 16:20 Duloxetine HCl (Duloxetine Hcl 30 Mg Cap) 30 mg PO HS [facility] Stop: 08/05/21 20:59 Last Admin: 07/07/21 20:46 Dose: 30 mg Documented by: Enalapril Maleate (Enalapril Maleate 10 Mg Tab) 20 mg PO HS [facility] Stop: 08/05/21 20:59 Last Admin: 07/07/21 20:46 Dose: 20 mg Documented by: Glucagon (Glucagon For Inj 1 Mg Vial) 1 mg SQ UD PRN; Protocol PRN Reason: Hypoglycemia Protocol Stop: 08/05/21 16:20 Glucose (Glucose 10 Tabs/Tube) 4 - 8 tabs PO UD PRN; Protocol PRN Reason: Hypoglycemia Protocol Stop: 08/05/21 16:20 Glucose (Glucose 40% Gel 15 Gm Tube) 15 - 30 gm PO UD PRN; Protocol PRN Reason: Hypoglycemia Protocol Stop: 08/05/21 16:20 Heparin Sodium (Porcine) (Heparin Sod 5,000 Unit/0.5 Ml Vial) 5,000 units SQ Q12 [facility] Stop: 08/05/21 20:59 Last Admin: 07/07/21 20:45 Dose: 5,000 units Documented by: Ceftriaxone Sodium 2,000 mg/ (Dextrose) 70 mls @ 100 mls/hr IV DAILY [facility]; Protocol Stop: 07/11/21 08:59 Last Infusion: 07/07/21 09:14 Dose: Infused Documented by: Insulin Aspart (Insulin Aspart Per Unit) 0 units SC ACHS [facility] Stop: 08/05/21 16:29 Last Admin: 07/07/21 21:32 Dose: Not Given Documented by: Miscellaneous (Carbohydrates For Hypoglycemia ) 15 - 30 gm PO UD PRN PRN Reason: Hypoglycemia Protocol Stop: 08/05/21 16:20 Multivitamins/Minerals (Calcium 600mg + Vit D 400 Iu Tab) 1 tab PO DAILY [facility] Stop: 08/06/21 08:59 Last Admin: 07/07/21 08:17 Dose: 1 tab Documented by: Rosuvastatin Calcium (Rosuvastatin Calcium 5 Mg Tab) 2.5 mg PO TuSa@2100 [facility] Stop: 08/05/21 20:59 Last Admin: 07/06/21 20:33 Dose: 2.5 mg Documented by:
[2021-07-08] MEDS: INSULIN ASPART PER UNIT SC SCH ×4 (09:11→21:39)
[2021-07-08] MEDS: buPROPion SR 100 MG TABCR PO SCH ×2 (09:12→20:48)
[2021-07-08] MEDS: ASPIRIN 81 MG ECTAB PO SCH (09:12)
[2021-07-08] MEDS: HEPARIN SOD 5,000 UNIT/0.5 ML VIAL SQ SCH ×2 (09:12→20:49)
[2021-07-08] MEDS: CALCIUM 600MG + VIT D 400 IU TAB PO SCH (09:13)
[2021-07-08] MEDS: cefTRIAXone SODIUM 2,000 MG in DEXTROSE 5% 50 ML IV SCH (09:28)
[2021-07-08] MEDS: CYANOCOBALAMIN (B-12) 500 MCG TABLET PO SCH (09:28)
[2021-07-08] MEDS: ENALAPRIL MALEATE 10 MG TAB PO SCH (20:49)
[2021-07-08] MEDS: DULoxetine HCL 30 MG CAP PO SCH (20:50)
[2021-07-08] MEDS: ACETAMINOPHEN 325 MG TAB PO PRN (23:40)
[2021-07-09] MEDS: ACETAMINOPHEN 325 MG TAB PO PRN ×2 (05:27→10:35)
[2021-07-09 06:19] LABS: Basophils # (auto) 0.08 K/uL (0-0.2); Basophils % (auto) 1.2 %; Eosinophils # (auto) 0.34 K/uL (0-0.5); Eosinophils % (auto) 5.1 %; Hematocrit (blood only) 36.1 % (37-47); Hemoglobin 12.2 g/dL (12.0-16.0); Immature Granulocytes # (auto) 0.01 K/uL (0.00-0.02); Immature Granulocytes % (auto) 0.2 %; Lymphocytes # (auto) 2.67 K/uL (1.2-3.4); Lymphocytes % (auto) 40.2 %; Mean Corpuscular Hemoglobin 31.9 pg (25-34); Mean Corpuscular Hgb Conc 33.8 g/dL (32-36); Mean Corpuscular Volume 94.3 fL (80-100); Mean Platelet Volume 10.3 fL (7.4-10.4); Monocytes # (auto) 0.53 K/uL (0.11-0.59); Neutrophils # (auto) 3.02 K/uL (1.4-6.5); Neutrophils % (auto) 45.3 %; Platelet Count 379 K/uL (130-400); RDW Coefficient of Variation 14.2 % (11.5-14.5); RDW Standard Deviation 48.6 fL (36.4-46.3); Red Blood Count 3.83 M/uL (4.2-5.4); White Blood Count 6.65 K/uL (4.8-10.8)
[2021-07-09 06:36] LABS: BUN Creatinine Ratio 20.5 (10-20); Calcium 9.7 mg/dl (8.5-10.1); Creatinine Clr Calc Pharmacy 31.8 ml/min; Est GFR (African American) 48.2 ml/min; Est GFR (Non-African American) 41.6 ml/min; Potassium 3.8 mmol/L (3.5-5.1)
--- NOTE | 2021-07-09 08:15 | Hospitalist Progress Note ---
Date of Service July 09, 2021 Assessment & Plan (1) Confusion: Plan: Drug induced metabolic encephalopathy Likely multifactorial - underlying mild dementia, partially treated UTI, and recent addition of Cymbalta - Admit for additional evaluation and treatment -Urine culture from June 23, positive for pansensitive E. coli, and lactobacillus - current cultx negative - Abx stopped (received IV ceftriaxone since admission) - Monitor mental status closely -mental status seems to be already much improved - Decreased Cymbalta on admission (daughter reports pt was started on for chronic pain) to 30 mg HS, will cont. w/ lower dose (2) Recurrent falls: Plan: Persistent deconditioning since COVID in Dec as well as confusion - PT/OT - family would be open to rehab if indicated, home PT after last discharge did not seem to be enough - Fall precautions (3) Abnormal CT of the abdomen: Plan: May be underdistention vs. colitis vs. mass - f/u CT in 3-6 months. Discussed this recommendation with pt's daughter. Would also include on the discharge summary. Pt denies abdominal pain and diarrhea at present. If develops diarrhea, consider broadening antibiotic coverage to cefepime and metronidazole. (4) Cystitis: Plan: Urine culture negative - as outpt has already completed course of cephalexin and partial course of Bactrim (5) CKD (chronic kidney disease), stage III: Plan: Appears to be at baseline - Daily labs (6) Diabetes mellitus, type II: Plan: Diet-controlled - A1c in AM - last in Jan 2021 was 6.7 - Insulin sliding scale while admitted - Diabetic diet (7) Hypertension: (8) Dyslipidemia: (9) Depression: Plan: Continue other home medications as appropriate. Code Status: full code - discussed with pt and her daughter (who is pt's POA) DVT Prophylaxis: heparin subQ Admission and Anticipated Discharge Date Admission Date: July 06, 2021 Subjective Patient seen for follow-up of AMS, UTI, abnormal CT scan Currently she is sitting up in bed, in no acute distress Reports that she felt confused, however now she feels well, answering questions appropriately, aware of being in the hospital Reports she has been falling at home, lives w/ daughter Overall feels much better. Denies any fevers, chills, chest pain, shortness of breath, also denies any abdominal pain, nausea or vomiting Review of Systems Review of Systems: All systems reviewed & are unremarkable except as noted in Subjective Physical Exam Physical Exam: Constitutional:L Elderly female, si tting up in chair, in no acute distr ess Eyes: EOMI, PERRL, + ani cteric sclerae ENMT: external ear and n ose normal, oropha rynx normal Neck: trachea midline, n shahana supple Respiratory: no respiratory dis tress and no labor ed breathing Ausc ultation: lungs cl ear to auscultatio n bilaterally; no rales, no rhonchi and no wheezes Cardiovascular:L Rate/Rhythm: regul ar rate and regula r rhythm Extremit ies: + edema (trac e bilateral LE) Gastrointestinal ( Abdomen): Inspection/Auscult ation: normal nathaly l sounds; abdomen not distended Per cussion/Palpation: + abdomen nontend er (resolved)and s oft Musculoskeletal: Head/Neck/Chest: n shahana supple; no godfrey st tenderness, mov es extremities Skin: multiple scabbed w ounds on LE, thin skin Neurologic: Awake alert, able to answer simple q uestions appropria tely (improved), n o facial asymmetry , speech fluent, m oves all extremiti es Psychiatric: Euthymic affect Results & Data Results & Data ([facility]) Vital Signs (Past 12 Hours) Vital Signs Temp Pulse Resp BP Pulse Ox 07/09/21 07:23 36.6 C 71 18 125/67 98 07/08/21 23:00 36.6 C 69 16 108/66 98 Laboratory Results 07/09/21 07/09/21 07/09/21 Range/Units 08:06 05:45 05:45 WBC 6.65 (4.8-10.8) K/uL RBC 3.83 L (4.2-5.4) M/uL Hgb 12.2 (12.0-16.0) g/dL Hct 36.1 L (37-47) % MCV 94.3 (80-100) fL MCH 31.9 (25-34) pg MCHC 33.8 (32-36) g/dL RDW Std Deviation 48.6 H (36.4-46.3) fL RDW Coeff of Nandini 14.2 (11.5-14.5) % Plt Count 379 (130-400) K/uL MPV 10.3 (7.4-10.4) fL Immature Gran % (Auto) 0.2 % Neut % (Auto) 45.3 % Lymph % (Auto) 40.2 % [place] % (Auto) 8.0 % Eos % (Auto) 5.1 % Baso % (Auto) 1.2 % Neut # (Auto) 3.02 (1.4-6.5) K/uL Lymph # (Auto) 2.67 (1.2-3.4) K/uL [place] # (Auto) 0.53 (0.11-0.59) K/uL Eos # (Auto) 0.34 (0-0.5) K/uL Baso # (Auto) 0.08 (0-0.2) K/uL Immature Gran # (Auto) 0.01 (0.00-0.02) K/uL Sodium 140 (136-145) mmol/L Potassium 3.8 (3.5-5.1) mmol/L Chloride 107 (98-107) mmol/L Carbon Dioxide 23 (21-32) mmol/L Anion Gap 10 (3-11) BUN 24 H (6-23) mg/dl Creatinine 1.17 (0.6-1.2) mg/dl Est Cr Clr Drug Dosing 31.8 ml/min Est GFR ( Amer) 48.2 ml/min Est GFR (Non-Af Amer) 41.6 ml/min BUN/Creatinine Ratio 20.5 H (10-20) Glucose 174 H (70-99(Fasting)) mg/dl POC Glucose 192 H (70-99) mg/dl Calcium 9.7 (8.5-10.1) mg/dl 07/08/21 07/08/21 07/08/21 Range/Units 20:51 17:26 11:56 WBC (4.8-10.8) K/uL RBC (4.2-5.4) M/uL Hgb (12.0-16.0) g/dL Hct (37-47) % MCV (80-100) fL MCH (25-34) pg MCHC (32-36) g/dL RDW Std Deviation (36.4-46.3) fL RDW Coeff of Nandini (11.5-14.5) % Plt Count (130-400) K/uL MPV (7.4-10.4) fL Immature Gran % (Auto) % Neut % (Auto) % Lymph % (Auto) % [place] % (Auto) % Eos % (Auto) % Baso % (Auto) % Neut # (Auto) (1.4-6.5) K/uL Lymph # (Auto) (1.2-3.4) K/uL [place] # (Auto) (0.11-0.59) K/uL Eos # (Auto) (0-0.5) K/uL Baso # (Auto) (0-0.2) K/uL Immature Gran # (Auto) (0.00-0.02) K/uL Sodium (136-145) mmol/L Potassium (3.5-5.1) mmol/L Chloride (98-107) mmol/L Carbon Dioxide (21-32) mmol/L Anion Gap (3-11) BUN (6-23) mg/dl Creatinine (0.6-1.2) mg/dl Est Cr Clr Drug Dosing ml/min Est GFR ( Amer) ml/min Est GFR (Non-Af Amer) ml/min BUN/Creatinine Ratio (10-20) Glucose (70-99(Fasting)) mg/dl POC Glucose 134 H 140 H 145 H (70-99) mg/dl Calcium (8.5-10.1) mg/dl Medications Administered Current Inpatient Medications Acetaminophen (Acetaminophen 325 Mg Tab) 650 mg PO Q4H PRN PRN Reason: pain/fever Stop: 08/05/21 16:20 Last Admin: 07/09/21 05:27 Dose: 650 mg Documented by: Aspirin (Aspirin 81 Mg Ectab) 81 mg PO QAM [facility] Stop: 08/06/21 08:59 Last Admin: 07/08/21 09:12 Dose: 81 mg Documented by: Bupropion HCl (Bupropion Sr 100 Mg Tabcr) 200 mg PO BID [facility] Stop: 08/05/21 20:59 Last Admin: 07/08/21 20:48 Dose: 200 mg Documented by: Cyanocobalamin (Cyanocobalamin (B-12) 500 Mcg Tablet) 1,000 mcg PO QAM [facility] Stop: 08/06/21 08:59 Last Admin: 07/08/21 09:28 Dose: 1,000 mcg Documented by: Dextrose (Dextrose 50% 50 Ml Syringe) 25 - 50 ml IV UD PRN; Protocol PRN Reason: Hypoglycemia Protocol Stop: 08/05/21 16:20 Duloxetine HCl (Duloxetine Hcl 30 Mg Cap) 30 mg PO HS [facility] Stop: 08/05/21 20:59 Last Admin: 07/08/21 20:50 Dose: 30 mg Documented by: Enalapril Maleate (Enalapril Maleate 10 Mg Tab) 20 mg PO HS [facility]EN Stop: 08/05/21 20:59 Last Admin: 07/08/21 20:49 Dose: 20 mg Documented by: Glucagon (Glucagon For Inj 1 Mg Vial) 1 mg SQ UD PRN; Protocol PRN Reason: Hypoglycemia Protocol Stop: 08/05/21 16:20 Glucose (Glucose 10 Tabs/Tube) 4 - 8 tabs PO UD PRN; Protocol PRN Reason: Hypoglycemia Protocol Stop: 08/05/21 16:20 Glucose (Glucose 40% Gel 15 Gm Tube) 15 - 30 gm PO UD PRN; Protocol PRN Reason: Hypoglycemia Protocol Stop: 08/05/21 16:20 Heparin Sodium (Porcine) (Heparin Sod 5,000 Unit/0.5 Ml Vial) 5,000 units SQ Q12 [facility]IREN Stop: 08/05/21 20:59 Last Admin: 07/08/21 20:49 Dose: 5,000 units Documented by: Ceftriaxone Sodium 2,000 mg/ (Dextrose) 70 mls @ 100 mls/hr IV DAILY HIREN; Protocol Stop: 07/11/21 08:59 Last Infusion: 07/08/21 10:19 Dose: Infused Documented by: Insulin Aspart (Insulin Aspart Per Unit) 0 units SC ACHS [facility]IR[facility] Stop: 08/05/21 16:29 Last Admin: 07/08/21 21:39 Dose: Not Given Documented by: Miscellaneous (Carbohydrates For Hypoglycemia ) 15 - 30 gm PO UD PRN PRN Reason: Hypoglycemia Protocol Stop: 08/05/21 16:20 Multivitamins/Minerals (Calcium 600mg + Vit D 400 Iu Tab) 1 tab PO DAILY [facility] Stop: 08/06/21 08:59 Last Admin: 07/08/21 09:13 Dose: 1 tab Documented by: Rosuvastatin Calcium (Rosuvastatin Calcium 5 Mg Tab) 2.5 mg PO TuSa@2100 [facility] Stop: 08/05/21 20:59 Last Admin: 07/06/21 20:33 Dose: 2.5 mg Documented by:
[2021-07-09] MEDS: HEPARIN SOD 5,000 UNIT/0.5 ML VIAL SQ SCH ×2 (08:52→20:05)
[2021-07-09] MEDS: CALCIUM 600MG + VIT D 400 IU TAB PO SCH (08:52)
[2021-07-09] MEDS: buPROPion SR 100 MG TABCR PO SCH ×2 (08:52→20:06)
[2021-07-09] MEDS: ASPIRIN 81 MG ECTAB PO SCH (08:52)
[2021-07-09] MEDS: CYANOCOBALAMIN (B-12) 500 MCG TABLET PO SCH (08:52)
[2021-07-09] MEDS: INSULIN ASPART PER UNIT SC SCH ×4 (09:30→20:54)
[2021-07-09] MEDS: cefTRIAXone SODIUM 2,000 MG in DEXTROSE 5% 50 ML IV SCH (09:31)
[2021-07-09] MEDS: traMADol HCL 50 MG TABLET PO PRN (11:11)
[2021-07-09] MEDS: LIDOCAINE 5% 1 PATCH TD SCH (12:08)
--- NOTE | 2021-07-09 15:45 | CT Scan Report ---
CT head/brain wo con CLINICAL HISTORY: 86 years-old Female with s/p fall. Acutely altered mental status with recent fall TECHNIQUE: Multiple axial CT images of the head were obtained without contrast. A dose lowering tech nique was utilized adhering to the principles of ALARA. CT DOSE: 1228.53 mGy.cm COMPARISON: Head CT 07/06/2021 FINDINGS: No acute intracranial hemorrhage, midline shift, intracranial mass, hydrocephalus, territorial ischem ia or abnormal extra-axial collection. Age-related involutional changes with ex vacuo ventriculomegal y. White matter hypodensities suggest chronic microvascular ischemic disease. The study is motion deg raded. Cerebral vascular calcifications. The calvarium is intact. Partial opacification of the left ethmoid air cells. The mastoid air cells are clear. Unremarkable soft tissues. Prior bilateral lens repair. IMPRESSION: No acute intracranial abnormality. ACT 112: Negative or not required by law. The above report was generated using voice recognition software. It may contain grammatical, syntax o r spelling errors. Electronically signed by: Jeff Valencia M.D. 07/09/2021 3:44 PM
[2021-07-09] MEDS: DULoxetine HCL 30 MG CAP PO SCH (20:05)
[2021-07-09] MEDS: ENALAPRIL MALEATE 10 MG TAB PO SCH (20:06)
[2021-07-09] MEDS: ROSUVASTATIN CALCIUM 5 MG TAB PO SCH (20:06)
[2021-07-10] MEDS: traMADol HCL 50 MG TABLET PO PRN ×2 (06:19→17:24)
[2021-07-10 07:20] LABS: Hematocrit (blood only) 40.1 % (37-47); Hemoglobin 13.4 g/dL (12.0-16.0); Mean Corpuscular Hemoglobin 31.5 pg (25-34); Mean Corpuscular Hgb Conc 33.4 g/dL (32-36); Mean Corpuscular Volume 94.4 fL (80-100); Mean Platelet Volume 9.9 fL (7.4-10.4); Platelet Count 379 K/uL (130-400); RDW Coefficient of Variation 14.4 % (11.5-14.5); RDW Standard Deviation 49.3 fL (36.4-46.3); Red Blood Count 4.25 M/uL (4.2-5.4); White Blood Count 9.47 K/uL (4.8-10.8)
[2021-07-10 07:36] LABS: BUN Creatinine Ratio 20.3 (10-20); Calcium 9.9 mg/dl (8.5-10.1); Creatinine Clr Calc Pharmacy 30.3 ml/min; Est GFR (African American) 45.4 ml/min; Est GFR (Non-African American) 39.1 ml/min; Magnesium 1.7 mg/dl (1.7-2.4); Phosphorus 3.3 mg/dl (2.5-4.9)
[2021-07-10] MEDS: buPROPion SR 100 MG TABCR PO SCH ×2 (08:34→20:52)
[2021-07-10] MEDS: ASPIRIN 81 MG ECTAB PO SCH (08:35)
[2021-07-10] MEDS: LIDOCAINE 5% 1 PATCH TD SCH (08:35)
[2021-07-10] MEDS: CALCIUM 600MG + VIT D 400 IU TAB PO SCH (08:35)
[2021-07-10] MEDS: HEPARIN SOD 5,000 UNIT/0.5 ML VIAL SQ SCH ×2 (08:35→20:52)
[2021-07-10] MEDS: CYANOCOBALAMIN (B-12) 500 MCG TABLET PO SCH (08:35)
[2021-07-10] MEDS: MULTIVITAMIN TAB PO SCH (08:36)
[2021-07-10] MEDS: INSULIN ASPART PER UNIT SC SCH ×4 (08:42→21:09)
--- NOTE | 2021-07-10 17:33 | XRay Report ---
XR lumbar spine 2-3V CLINICAL HISTORY: s/p fall, back pain COMPARISON STUDY: Lumbar spine radiograph 01/07/2018 FINDINGS: In keeping with the prior report there is posterior decompression and fusion from L1 throug h L5 with pedicle screws and rods. The hardware appears intact. Mild periprosthetic lucency at the L1 pedicle screws has progressed. Mild periprosthetic lucency at the L5 pedicle screws remains unchange d. There is minimal levoscoliosis of the lumbar spine. There are are partially visualized healing rig ht anterior rib fractures. There are bilateral total hip arthroplasties. Partial sacralization of the left L5 transverse process demonstrating pseudoarthrosis with the sacrum. Severe disc space narrowin g at T12-L1 which has progressed. No acute fractures. IMPRESSION: 1. No acute fractures identified within the lumbar spine. 2. Mild periprosthetic lucency at the L1 pedicle screws has progressed. Mild periprosthetic lucency a t the L5 pedicle screws remains unchanged. 3. Posterior decompression and fusion from L1 through L5 with pedicle screws and rods. The hardware a ppears intact. 4. Severe disc space narrowing at T12-L1 has progressed. ACT 112: Negative or not required by law. Electronically signed by: Sachin Maya M.D. 07/10/2021 5:31 PM
[2021-07-10] MEDS: ENALAPRIL MALEATE 10 MG TAB PO SCH (20:52)
[2021-07-10] MEDS: DULoxetine HCL 30 MG CAP PO SCH (20:52)
--- NOTE | 2021-07-10 23:56 | Hospitalist Progress Note ---
Date of Service July 10, 2021 Assessment & Plan (1) Confusion: Plan: Drug induced metabolic encephalopathy Likely multifactorial - underlying mild dementia, partially treated UTI, and recent addition of Cymbalta - Admit for additional evaluation and treatment -Urine culture from June 23, positive for pansensitive E. coli, and lactobacillus - current cultx negative - Abx stopped (received IV ceftriaxone since admission) - Monitor mental status closely -mental status seems to be already much improved - Decreased Cymbalta on admission (daughter reports pt was started on for chronic pain) to 30 mg HS, will cont. w/ lower dose - clinically stable (2) Recurrent falls: Plan: Persistent deconditioning since COVID in Dec as well as confusion - Pt fell yesterday - CT head was negative for any abnormality - Will get a Xray lumbar since pt continues to have pain in Low back - Fall precautions (3) Abnormal CT of the abdomen: Plan: May be underdistention vs. colitis vs. mass - f/u CT in 3-6 months. Discussed this recommendation with pt's daughter. Would also include on the discharge s ummary. Pt denies abdominal pain and diarrhea at present. If develops diarrhea, consider broadening antibiotic coverage to cefepime and metronidazole. (4) Cystitis: Plan: Urine culture negative - as outpt has already completed course of cephalexin and partial course of Bactrim (5) CKD (chronic kidney disease), stage III: Plan: Appears to be at baseline - Daily labs (6) Diabetes mellitus, type II: Plan: Diet-controlled - A1c in AM - last in Jan 2021 was 6.7 - Insulin sliding scale while admitted - Diabetic diet (7) Hypertension: (8) Dyslipidemia: (9) Depression: Plan: Continue other home medications as appropriate. Code Status: full code - previous hospitalist team discussed with pt and her daughter (who is pt's POA) DVT Prophylaxis: heparin subQ Admission and Anticipated Discharge Date Admission Date: July 06, 2021 Subjective Pt was seen and examined for follow up of Low back pain Sitting in chair with no acute distress Pt said that she fell backward yesterday She said that she is having more pain lately in her back OT said that she walked about 30 feet 2 days ago and today she only walked 4 feet Denies any chest pain, palpitation, dizziness and SOB Review of Systems Review of Systems: All systems reviewed & are unremarkable except as noted in Subjective Physical Exam Physical Exam: General- No acute distress Head- atraumatic Eyes- PERRL, EOMI, ENT- oropharynx clear Neck- supple, no JVD Lungs- clear to auscultation Heart- regular rhythm; no murmur Abdomen- normal bowel sounds, soft, nontender Extremities- no calf tenderness Neuro- alert, oriented x 3; PERRL, EOMI; no facial palsy; no dysarthria Skin- warm & dry Results & Data Results & Data ([facility]) Vital Signs (Past 12 Hours) Vital Signs Temp Pulse Resp BP BP Pulse Ox 07/10/21 20:55 36.7 C 76 20 107/61 99 07/10/21 15:33 36.5 C 106 H 16 129/61 97
[2021-07-11] MEDS: LIDOCAINE 5% 1 PATCH TD SCH (07:34)
[2021-07-11] MEDS: INSULIN ASPART PER UNIT SC SCH ×4 (08:58→20:31)
[2021-07-11] MEDS: CALCIUM 600MG + VIT D 400 IU TAB PO SCH (09:22)
[2021-07-11] MEDS: MULTIVITAMIN TAB PO SCH (09:22)
[2021-07-11] MEDS: buPROPion SR 100 MG TABCR PO SCH ×2 (09:22→20:55)
[2021-07-11] MEDS: ASPIRIN 81 MG ECTAB PO SCH (09:22)
[2021-07-11] MEDS: HEPARIN SOD 5,000 UNIT/0.5 ML VIAL SQ SCH ×2 (09:23→20:54)
[2021-07-11] MEDS: CYANOCOBALAMIN (B-12) 500 MCG TABLET PO SCH (09:23)
[2021-07-11] MEDS: traMADol HCL 50 MG TABLET PO PRN (12:55)
[2021-07-11] MEDS: ENALAPRIL MALEATE 10 MG TAB PO SCH (20:55)
[2021-07-11] MEDS: DULoxetine HCL 30 MG CAP PO SCH (20:55)
--- NOTE | 2021-07-11 22:16 | Hospitalist Progress Note ---
Date of Service July 11, 2021 Assessment & Plan (1) Confusion: Plan: Drug induced metabolic encephalopathy Likely multifactorial - underlying mild dementia, partially treated UTI, and recent addition of Cymbalta - Admit for additional evaluation and treatment -Urine culture from June 23, positive for pansensitive E. coli, and lactobacillus - current cultx negative - Abx stopped (received IV ceftriaxone since admission) - Monitor mental status closely -mental status seems to be already much improved - Decreased Cymbalta on admission (daughter reports pt was started on for chronic pain) to 30 mg HS, will cont. w/ lower dose - clinically stable (2) Recurrent falls: Plan: Persistent deconditioning since COVID in Dec as well as confusion - Pt fell 2 day ago backward - CT head was negative for any abnormality -Lumbar xray showed mild periprosthetic lucency at the L1 pedicle screws has progressed. Mild periprosthetic lucency at the L5 pedicle screws remains unchanged. Posterior decompression and fusion from L1 through L5 with pedicle screws and rods. The hardware appears intact. Severe disc space narrowing at T12-L1 has progressed. - Ortho consulted - Continue pain control (3) Abnormal CT of the abdomen: Plan: May be underdistention vs. colitis vs. mass - f/u CT in 3-6 months. Discussed this recommendation with pt's daughter. Would also include on the discharge summary. Pt denies abdominal pain and diarrhea at present. If develops diarrhea, consider broadening antibiotic coverage to cefepime and metronidazole. (4) Cystitis: Plan: Urine culture negative - as outpt has already completed course of cephalexin and partial course of Bactrim (5) CKD (chronic kidney disease), stage III: Plan: Appears to be at baseline - Daily labs (6) Diabetes mellitus, type II: Plan: Diet-controlled -Most recent hba1c 6.5 on 07/07/21 - Insulin sliding scale while admitted - Diabetic diet (7) Hypertension: (8) Dyslipidemia: (9) Depression: Plan: Continue other home medications as appropriate. Code Status: full code - previous hospitalist team discussed with pt and her daughter (who is pt's POA) DVT Prophylaxis: heparin subQ Admission and Anticipated Discharge Date Admission Date: July 06, 2021 Subjective Pt was seen and examined for follow up of Low back pain Lying in bed with no acute distress She continues to have low back pain She said that pain is worst with walking, standing and moving Denies any chest pain, palpitation, dizziness and SOB Review of Systems Review of Systems: All systems reviewed & are unremarkable except as noted in Subjective Physical Exam Physical Exam: General- No acute distress Head- atraumatic Eyes- PERRL, EOMI, ENT- oropharynx clear Neck- supple, no JVD Lungs- clear to auscultation Heart- regular rhythm; no murmur Abdomen- normal bowel sounds, soft, nontender Extremities- no calf tenderness Neuro- alert, oriented x 3; PERRL, EOMI; no facial palsy; no dysarthria Skin- warm & dry Results & Data Results & Data ([facility]) Vital Signs (Past 12 Hours) Vital Signs Temp Pulse Resp BP Pulse Ox 07/11/21 20:45 36.6 C 86 20 126/73 93 07/11/21 15:43 37.5 C 103 H 14 114/63 97
[2021-07-12] MEDS: buPROPion SR 100 MG TABCR PO SCH ×2 (08:10→21:06)
[2021-07-12] MEDS: traMADol HCL 50 MG TABLET PO PRN (08:10)
[2021-07-12] MEDS: CYANOCOBALAMIN (B-12) 500 MCG TABLET PO SCH (08:10)
[2021-07-12] MEDS: ASPIRIN 81 MG ECTAB PO SCH (08:11)
[2021-07-12] MEDS: MULTIVITAMIN TAB PO SCH (08:11)
[2021-07-12] MEDS: CALCIUM 600MG + VIT D 400 IU TAB PO SCH (08:11)
[2021-07-12] MEDS: LIDOCAINE 5% 1 PATCH TD SCH (08:11)
[2021-07-12] MEDS: INSULIN ASPART PER UNIT SC SCH ×4 (09:08→21:08)
[2021-07-12] MEDS: HEPARIN SOD 5,000 UNIT/0.5 ML VIAL SQ SCH ×2 (09:11→21:07)
--- NOTE | 2021-07-12 13:47 | Orthopedic Consultation ---
Date of Consultation July 12, 2021 Assessment & Plan (1) Spinal stenosis, lumbar region with neurogenic claudication: Assessment adjacent level spinal stenosis. Plan at this time I am concerned that the patient is experiencing just level spinal stenosis from her previous fusion. I would like to obtain an MRI lumbar spine review these films and make further conditions. Patient stands and agrees. History of Present Illness Reason for Consultation: Patient complaining of back and leg pain and weakness with prolonged standing and walking. Attending Physician: Martin Cummings MD History of Present Illness Patient is admitted with multiple medical issues but notes worsening thoracolumbar back pain. She describes difficulty ambulating for any distance secondary to leg weakness and pain. She is comfortable at this time in bed. Denies any loss of bowel or bladder control. Allergies Allergy/AdvReac Type Severity Reaction Status Date / Time morphine AdvReac Severe SEVERE Verified 07/06/21 13:02 NAUSEA AND VOMITING; confusion propoxyphene AdvReac Intermediate N/V Verified 07/06/21 13:02 Opioids - Morphine Analogues AdvReac Confusion Verified 07/06/21 13:02 oxycodone AdvReac Confusion Verified 07/06/21 13:02 Home Medications Medication Instructions Recorded Confirmed Type bupropion HCl 200 mg tablet,12 hr 200 mg PO BID 01/07/18 07/06/21 History sustained-release cyanocobalamin (vitamin B-12) 1,000 mg PO QAM 01/07/18 07/06/21 History 1,000 mcg tablet enalapril maleate 20 mg tablet 20 mg PO HS 01/07/18 07/06/21 History rosuvastatin 5 mg tablet 2.5 mg PO 2XWK 01/07/18 07/06/21 History calcium carbonate 600 mg calcium 600 mg PO DAILY 04/13/19 07/06/21 History (1,500 mg) tablet (Calcium) tramadol 50 mg tablet 50 mg PO BID PRN 04/13/19 07/06/21 History vitamins A,C,T-uqib-tlvaxt 14,320 1 cap PO BID 04/13/19 07/06/21 History unit-226 mg-200 unit capsule (PreserVision AREDS) multivitamin with minerals-folic 0 tab PO QAM 06/23/21 07/06/21 History acid 200 mcg chewable tablet (Multivitamin Gummies) aspirin 81 mg tablet,delayed 81 mg PO QAM 07/06/21 07/06/21 History release duloxetine 60 mg capsule,delayed 60 mg PO HS 07/06/21 07/06/21 History release sulfamethoxazole 800 1 tab PO BID 07/06/21 07/06/21 History mg-trimethoprim 160 mg tablet Patient History Medical History (Updated 07/12/21 @ 13:49 by Mason Bose DO) Anxiety CKD (chronic kidney disease), stage III COVID-19 Degenerative joint disease of low back Depression Diabetes mellitus, type II Dyslipidemia History of nonmelanoma skin cancer Hypertension Memory loss Multiple rib fractures Osteoarthritis PMR (polymyalgia rheumatica) Pneumonia due to 2019 novel coronavirus Surgical History H/O tubal ligation History of arthroscopy of left shoulder History of arthroscopy of right shoulder History of cataract surgery History of hysterectomy S/P hip replacement Family History Other Family history non-contributory Social History Smoking Status: Never smoker Second Hand Exposure: No; Hx Alcohol Use: No Hx Substance Use: No Preferred Language: Azerbaijani Communication Ability: Impaired Sand Temperer Required: No Beliefs That Will Affect Care: None marital status: Current Living Situation: Family Current Living Situation Comment: Living with daughter- Thursday current occupational status: retired Feels Safe at Home: Yes Assistive Devices: Walker Assistive Devices Comment: 2.5 L oxygen at night Physical Exam Physical Exam: Patient is alert and oriented. She does have reasonable plantar flexion dorsiflexion full sensation to lower extremities. Results & Data ([facility]) Vital Signs (Past 12 Hours) Vital Signs Temp Pulse Resp BP Pulse Ox 07/12/21 07:40 37.5 C 104 H 16 104/51 L 99
--- NOTE | 2021-07-12 18:35 | Magnetic Resonance Report ---
MRI OF THE LUMBAR SPINE WITHOUT IV CONTRAST CLINICAL HISTORY: Chronic low back pain. Recent fall. COMPARISON STUDY: Radiographs of the lumbar spine dated 07/10/2021. CT of the lumbar spine dated 03/17/[address] dated 07/06/2021. TECHNIQUE: MRI of the lumbar spine is performed utilizing various T1 and T2-weighted sequences in the axial and sagittal planes. IV contrast was not administered for this examination. The examination is significantly degraded by susceptibility artifact from metallic spinal hardware. There is also motio n artifact. FINDINGS: Lumbar spine: There is a mild acute to subacute inferior endplate compression fracture of T11 with as sociated marrow edema. No retropulsed fragments are identified. There is also a mild acute to subacut e superior endplate compression fracture of L2 with associated marrow edema. Vertebral body height is otherwise maintained throughout the lumbar spine. There is minimal anterolisthesis at L2-L3. Alignme nt is otherwise preserved. There is straightening of the lumbar lordosis. There is postoperative blackburn ge from laminectomy and posterior fusion seen at L1-L5. Interpedicular screws are present at all leve ls. There is straightening of the lumbar lordosis. Anterior and lateral marginal osteophytes are seen throughout. The transverse processes are intact as visualized. No destructive bony lesion is seen. T here is chronic degenerative endplate change at L3-L4. Degenerative endplate edema is noted at T12-L1 . Intervertebral discs: Degenerative disc desiccation and loss of height is seen throughout the lumbar spine. Loss of height is severe at T12-L1 and L3-L4. Loss of height is mild to moderate at the remain ing lumbar levels. Spinal cord: The visualized spinal cord is normal in morphology and signal intensity. The conus medul adarsh terminates at the T12-L1 interspace. The nerve roots of the cauda equina are normal in morpholo gy. T12-L1: There is a large posterior disc bulge. This causes mild to moderate central canal stenosis wi th a minimum AP diameter of 7 mm. There is right greater than left lateral disc bulge. This contribut es to subarticular stenosis and likely impinges on the exiting right T12 nerve root. There is severe right-sided neural foraminal narrowing. Only mild neural foraminal narrowing is seen in the left. L1-L2: The central canal and neural foramina are grossly patent. L2-L3: Posterior disc bulge abuts the transiting nerve roots. There is mild bilateral subarticular st enosis. The central canal and neural foramina are grossly clear. L3-L4: A posterior disc osteophyte complex eccentric to the right abuts the transiting nerve roots. T here is right lateral disc bulge. This contributes to subarticular stenosis and may impinge the exiti ng right L3 nerve root. In conjunction with facet arthropathy there is moderate to severe right and m ild left neural foraminal stenosis. No significant acquired compromise of the central canal is identi fied. L4-L5: There is posterior disc bulge which abuts the transiting nerve roots. Lateral disc bulge is se en bilaterally, left greater than right. This contributes to bilateral subarticular stenosis and like ly impinges on the exiting left L4 nerve root. In conjunction with facet arthropathy there is moderat e to severe left and mild right neural foraminal narrowing. No significant acquired compromise of the central canal is identified. L5-S1: There is minimal posterior disc bulge. This abuts the transiting nerve roots. There is mild bi lateral subarticular stenosis, right greater than left. There is only mild bilateral neural foraminal narrowing. Sacrum: Visualized sacrum shows normal marrow signal intensity. Soft tissues: There is fatty atrophy of the paraspinous musculature with postoperative change seen po sterior to the thecal sac at the operative levels. The retroperitoneal structures are grossly unremar kable but incompletely evaluated. There is mild paravertebral edema seen at T11. IMPRESSION: 1. There is a mild acute to subacute inferior endplate compression fracture of T11 and a mild acute t o subacute superior endplate compression fracture of L2. No retropulsed fragments are identified. 2. No additional acute fracture is identified. 3. Postoperative and spondylotic changes as above with mild to moderate central canal stenosis at T12 -L1. See discussion for detailed level by level analysis. 4. Additional findings as above. Electronically signed by: Betito Nguyễn M.D. 07/12/2021 6:33 PM
[2021-07-12] MEDS: DULoxetine HCL 30 MG CAP PO SCH (21:06)
[2021-07-12] MEDS: ENALAPRIL MALEATE 10 MG TAB PO SCH (21:07)
--- NOTE | 2021-07-12 23:59 | Hospitalist Progress Note ---
Date of Service July 12, 2021 Assessment & Plan (1) Confusion: Plan: Drug induced metabolic encephalopathy Likely multifactorial - underlying mild dementia, partially treated UTI, and recent addition of Cymbalta - Admit for additional evaluation and treatment -Urine culture from June 23, positive for pansensitive E. coli, and lactobacillus - current cultx negative - Abx stopped (received IV ceftriaxone since admission) - Monitor mental status closely -mental status seems to be already much improved - Decreased Cymbalta on admission (daughter reports pt was started on for chronic pain) to 30 mg HS, will cont. w/ lower dose - clinically stable (2) Recurrent falls: Plan: Persistent deconditioning since COVID in Dec as well as confusion - Pt fell 2 day ago backward - CT head was negative for any abnormality -Lumbar xray showed mild periprosthetic lucency at the L1 pedicle screws has progressed. Mild periprosthetic lucency at the L5 pedicle screws remains unchanged. Posterior decompression and fusion from L1 through L5 with pedicle screws and rods. The hardware appears intact. Severe disc space narrowing at T12-L1 has progressed. - Ortho consulted - Plan to get an MRI of the back - Continue pain control (3) Abnormal CT of the abdomen: Plan: May be underdistention vs. colitis vs. mass - f/u CT in 3-6 months. Discussed this recommendation with pt's daughter. Would also include on the discharge summary. Pt denies abdominal pain and diarrhea at present. If develops diarrhea, consider broadening antibiotic coverage to cefepime and metronidazole. (4) Cystitis: Plan: Urine culture negative - as outpt has already completed course of cephalexin and partial course of Bactrim (5) CKD (chronic kidney disease), stage III: Plan: Appears to be at baseline - Daily labs (6) Diabetes mellitus, type II: Plan: Diet-controlled -Most recent hba1c 6.5 on 07/07/21 - Insulin sliding scale while admitted - Diabetic diet (7) Hypertension: (8) Dyslipidemia: (9) Depression: Plan: Continue other home medications as appropriate. Code Status: full code - previous hospitalist team discussed with pt and her daughter (who is pt's POA) DVT Prophylaxis: heparin subQ Admission and Anticipated Discharge Date Admission Date: July 06, 2021 Subjective Pt was seen and examined for follow up of Low back pain Lying in bed with no acute distress She said that back pain slightly better Spoke with her daughter and provided with updates and answered all questions Denies any chest pain, palpitation, dizziness and SOB Review of Systems Review of Systems: All systems reviewed & are unremarkable except as noted in Subjective Physical Exam Physical Exam: General- No acute distress Head- atraumatic Eyes- PERRL, EOMI, ENT- oropharynx clear Neck- supple, no JVD Lungs- clear to auscultation Heart- regular rhythm; no murmur Abdomen- normal bowel sounds, soft, nontender Extremities- no calf tenderness Neuro- alert, oriented x 3; PERRL, EOMI; no facial palsy; no dysarthria Skin- warm & dry Results & Data Results & Data ([facility]) Vital Signs (Past 12 Hours) Vital Signs Temp Pulse Resp BP BP Pulse Ox 07/12/21 20:58 37.1 C 72 18 112/58 L 97 07/12/21 16:25 36.6 C 103 H 16 92/53 L 97 07/12/21 14:36 36.6 C 102 H 20 103/57 L 99
[2021-07-13] MEDS: INSULIN ASPART PER UNIT SC SCH ×2 (08:42→13:07)
[2021-07-13] MEDS: ASPIRIN 81 MG ECTAB PO SCH (08:43)
[2021-07-13] MEDS: CALCIUM 600MG + VIT D 400 IU TAB PO SCH (08:43)
[2021-07-13] MEDS: buPROPion SR 100 MG TABCR PO SCH (08:43)
[2021-07-13] MEDS: LIDOCAINE 5% 1 PATCH TD SCH (08:44)
[2021-07-13] MEDS: CYANOCOBALAMIN (B-12) 500 MCG TABLET PO SCH (08:44)
[2021-07-13] MEDS: MULTIVITAMIN TAB PO SCH (08:44)
[2021-07-13] MEDS: HEPARIN SOD 5,000 UNIT/0.5 ML VIAL SQ SCH (08:44)
--- NOTE | 2021-07-13 11:10 | Orthopedic Progress Note ---
Date of Service July 13, 2021 Assessment & Plan (1) Spinal stenosis, lumbar region with neurogenic claudication: Plan: MRI clearly demonstrates additional disease T12-L1 with disc osteophyte complex and spinal stenosis. This clearly may be contributing to a component of her leg symptoms with ambulation. She does have a positive logroll. She is status post bilateral total hip arthroplasty years ago. I will update x-rays to ensure there is no loosening of the implants. Regarding her spine she is not interested in any surgical intervention and I would recommend pain management consultation for possible injections. Patient agrees with this plan. Admission and Anticipated Discharge Date Admission Date: July 06, 2021 Subjective Patient does complain of bilateral leg pain with ambulation. Physical Exam Physical Exam: On exam she has reasonable plantar flexion dorsiflexion. She is tender to palpation of the lower extremities. She does have a positive logroll bilaterally. Results & Data ([facility]) Vital Signs (Past 12 Hours) Vital Signs Temp Pulse Resp BP Pulse Ox 07/13/21 06:42 37.3 C 73 18 138/68 97
--- NOTE | 2021-07-13 13:22 | XRay Report ---
XR hip ENMANUEL 2v w pelvis HISTORY: 86 years-old Female hip pain Bilateral hip pain with recent fall COMPARISON: CT abdomen pelvis 07/06/2021 TECHNIQUE: AP view the pelvis with 2 views of the hips FINDINGS: Partially imaged lumbar spinal fusion hardware.. Transitional lumbosacral anatomy. Bilateral hip tota l joint arthroplasties appear unchanged. No acute fracture or dislocation. Evidence of hardware compl ication. Dystrophic calcifications of the hamstrings. IMPRESSION: 1. No acute fracture. 2. Unremarkable appearance of the bilateral hip total joint arthroplasties. No evidence of hardware c omplication. ACT 112: Negative or not required by law. The above report was generated using voice recognition software. It may contain grammatical, syntax o r spelling errors. Electronically signed by: Jeff Valencia M.D. 07/13/2021 1:20 PM
[2021-07-13] MEDS: traMADol HCL 50 MG TABLET PO PRN (13:59)
--- NOTE | 2021-07-13 15:54 | Discharge Summary ---
Date of Service July 13, 2021 Admission HPI Per Admitting Provider This is an 86 y/o female with a PMH of DM2, CKD, HTN, arthritis, prior COVID infection in Jan 2021, anxiety, depression, mild memory loss, dyslipidemia, PMR and multiple rib fractures presents to the ED today with worsening confusion and frequent falls. History was obtain from both pt and her daughter (Fariha - by phone). Per pt's daughter, pt has never fully recovered back to baseline after COVID infection in Jan 2021. Initially had home PT but continues to be deconditioned and spends much of her time in bed. Over the past month, she has noticed that pt has been increasingly confused. Daughter also notes that pt was started on Cymbalta two months ago, initially 20 mg then 40 mg daily, which she seemed to tolerate. About a month ago, dose was increased from 40 mg to 60 mg daily, after which the confusion seemed to develop. At baseline, pt is minimally confused, knows where she is, her family, etc. On 06/23, pt was evaluated in the ED here for confusion and falls as well as urinary symptoms - given a dose of ceftriaxone and sent home on cephalexin for six days. Symptoms didn't seem to improve much so on 07/03, they contacted pt's PCP who started her on Bactrim. However, this morning, pt seemed worse - didn't remember that she lived with her daughter, called her son-in-law by her 's name repeatedly, and was very irritated and nasty, which is apparently out of character for pt. She has fallen every day for at least the last five days. Pt lives with her daughter but in her own part of the house. Daughter is able to monitor pt with cameras and has found pt lying on the floor at the foot of her bad the last few mornings. Pt does have three walkers and a scooter at home that she uses to help ambulate. At present, pt's main complaint is pain in her right hip and groin, which is an ongoing issue for her. She has had two injections without relief and is waiting to hear from ortho about additional evaluation. At present, she denies abdominal pain or diarrhea. Some nausea earlier this morning but none at present. No vomiting. Denies dysuria but has apparently had foul-smelling urine at home. Pt felt cold earlier this morning but better now. Pt is aware that she was confused earlier this morning. Admission Exam Per Admitting Provider Constitutional: well developed and well nourished; no acute distress Eyes: + anicteric sclerae ENMT: external ear and nose normal, oropharynx normal B Neck: trachea midline Respiratory: no respiratory distress and no labored breathing Auscultation: lungs clear to auscultation bilaterally; no rales, no rhonchi and no wheezes Cardiovascular: Rate/Rhythm: regular rate and regular rhythm Vessels: dorsalis pedis pulses present and radial pulses present Extremities: + edema (trace bilateral LE) Gastrointestinal (Abdomen): Inspection/Auscultation: normal bowel sounds; abdomen not distended Percussion/Palpation: + abdomen tender (suprapubic and LLQ) and abdomen soft Musculoskeletal: Head/Neck/Chest: neck supple; no chest tenderness Skin: multiple scabbed wounds on LE, thin skin Neurologic: moves all extremities and + confused; no focal motor deficits Psychiatric: Knows name, date, year but not month or date Thinks she is at [facility] in [place] Euthymic affect Principal Diagnosis Drug induced metabolic encephalopathy Recurrent falls: Abnormal CT of the abdomen: CKD (chronic kidney disease), stage III: Diabetes mellitus, type II: Hypertension: Dyslipidemia: Depression: Discharge Exam General- No acute distress Head- atraumatic Eyes- PERRL, EOMI, ENT- oropharynx clear Neck- supple, no JVD Lungs- clear to auscultation Heart- regular rhythm; no murmur Abdomen- normal bowel sounds, soft, nontender Extremities- no calf tenderness Neuro- alert, oriented x 3; PERRL, EOMI; no facial palsy; no dysarthria Skin- warm & dry Discharge Data Allergies Allergy/AdvReac Type Severity Reaction Status Date / Time morphine AdvReac Severe SEVERE Verified 07/06/21 13:02 NAUSEA AND VOMITING; confusion propoxyphene AdvReac Intermediate N/V Verified 07/06/21 13:02 Opioids - Morphine Analogues AdvReac Confusion Verified 07/06/21 13:02 oxycodone AdvReac Confusion Verified 07/06/21 13:02 Consultations 07/06/21 13:48 ED Decision to Admit Stat 07/11/21 12:25 Consult Orthopedic Surgery Routine Ordered Studies 07/06/21 11:09 CT abd pelvis IV con only Stat CT head/brain wo con Stat 07/09/21 14:43 CT head/brain wo con Stat 07/12/21 13:50 MR lumbar spine wo con Routine XR hip ENMANUEL 2v w pelvis HISTORY: 86 years-old Female hip pain Bilateral hip pain with recent fall COMPARISON: CT abdomen pelvis 07/06/2021 TECHNIQUE: AP view the pelvis with 2 views of the hips FINDINGS: Partially imaged lumbar spinal fusion hardware.. Transitional lumbosacral anatomy. Bilateral hip total joint arthroplasties appear unchanged. No acute fracture or dislocation. Evidence of hardware complication. Dystrophic calcifications of the hamstrings. IMPRESSION: 1. No acute fracture. 2. Unremarkable appearance of the bilateral hip total joint arthroplasties. No evidence of hardware complication. ACT 112: Negative or not required by law. The above report was generated using voice recognition software. It may contain grammatical, syntax or spelling errors. Electronically signed by: Jeff Valencia M.D. 07/13/2021 1:20 PM Dictated:07/13/21 1317 Transcribed: 07/13/21 1317 MRI OF THE LUMBAR SPINE WITHOUT IV CONTRAST CLINICAL HISTORY: Chronic low back pain. Recent fall. COMPARISON STUDY: Radiographs of the lumbar spine dated 07/10/2021. CT of the lumbar spine dated 03/17/2016. Abdominal CT dated 07/06/2021. TECHNIQUE: MRI of the lumbar spine is performed utilizing various T1 and T2- weighted sequences in the axial and sagittal planes. IV contrast was not adminis tered for this examination. The examination is significantly degraded by susceptibility artifact from metallic spinal hardware. There is also motion artifact. FINDINGS: Lumbar spine: There is a mild acute to subacute inferior endplate compression fracture of T11 with associated marrow edema. No retropulsed fragments are identified. There is also a mild acute to subacute superior endplate compression fracture of L2 with associated marrow edema. Vertebral body height is otherwise maintained throughout the lumbar spine. There is minimal anterolisthesis at L2- L3. Alignment is otherwise preserved. There is straightening of the lumbar lordosis. There is postoperative change from laminectomy and posterior fusion seen at L1-L5. Interpedicular screws are present at all levels. There is straightening of the lumbar lordosis. Anterior and lateral marginal osteophytes are seen throughout. The transverse processes are intact as visualized. No destructive bony lesion is seen. There is chronic degenerative endplate change at L3-L4. Degenerative endplate edema is noted at T12-L1. Intervertebral discs: Degenerative disc desiccation and loss of height is seen throughout the lumbar spine. Loss of height is severe at T12-L1 and L3-L4. Loss of height is mild to moderate at the remaining lumbar levels. Spinal cord: The visualized spinal cord is normal in morphology and signal intensity. The conus medullaris terminates at the T12-L1 interspace. The nerve roots of the cauda equina are normal in morphology. T12-L1: There is a large posterior disc bulge. This causes mild to moderate central canal stenosis with a minimum AP diameter of 7 mm. There is right greater than left lateral disc bulge. This contributes to subarticular stenosis and likely impinges on the exiting right T12 nerve root. There is severe right- sided neural foraminal narrowing. Only mild neural foraminal narrowing is seen in the left. L1-L2: The central canal and neural foramina are grossly patent. L2-L3: Posterior disc bulge abuts the transiting nerve roots. There is mild bilateral subarticular stenosis. The central canal and neural foramina are grossly clear. L3-L4: A posterior disc osteophyte complex eccentric to the right abuts the transiting nerve roots. There is right lateral disc bulge. This contributes to subarticular stenosis and may impinge the exiting right L3 nerve root. In conjunction with facet arthropathy there is moderate to severe right and mild left neural foraminal stenosis. No significant acquired compromise of the central canal is identified. L4-L5: There is posterior disc bulge which abuts the transiting nerve roots. Lateral disc bulge is seen bilaterally, left greater than right. This contributes to bilateral subarticular stenosis and likely impinges on the exiting left L4 nerve root. In conjunction with facet arthropathy there is moderate to severe left and mild right neural foraminal narrowing. No significant acquired compromise of the central canal is identified. L5-S1: There is minimal posterior disc bulge. This abuts the transiting nerve roots. There is mild bilateral subarticular stenosis, right greater than left. There is only mild bilateral neural foraminal narrowing. Sacrum: Visualized sacrum shows normal marrow signal intensity. Soft tissues: There is fatty atrophy of the paraspinous musculature with postoperative change seen posterior to the thecal sac at the operative levels. The retroperitoneal structures are grossly unremarkable but incompletely evaluated. There is mild paravertebral edema seen at T11. IMPRESSION: 1. There is a mild acute to subacute inferior endplate compression fracture of T11 and a mild acute to subacute superior endplate compression fracture of L2. No retropulsed fragments are identified. 2. No additional acute fracture is identified. 3. Postoperative and spondylotic changes as above with mild to moderate central canal stenosis at T12-L1. See discussion for detailed level by level analysis. 4. Additional findings as above. Electronically signed by: Betito Nguyễn M.D. 07/12/2021 6:33 PM Dictated:07/12/21 1617 Transcribed: 07/12/211616 XR lumbar spine 2-3V CLINICAL HISTORY: s/p fall, back pain COMPARISON STUDY: Lumbar spine radiograph 01/07/2018 FINDINGS: In keeping with the prior report there is posterior decompression and fusion from L1 through L5 with pedicle screws and rods. The hardware appears intact. Mild periprosthetic lucency at the L1 pedicle screws has progressed. Mild periprosthetic lucency at the L5 pedicle screws remains unchanged. There is minimal levoscoliosis of the lumbar spine. There are are partially visualized healing right anterior rib fractures. There are bilateral total hip arthroplasties. Partial sacralization of the left L5 transverse process demonstrating pseudoarthrosis with the sacrum. Severe disc space narrowing at T12-L1 which has progressed. No acute fractures. IMPRESSION: 1. No acute fractures identified within the lumbar spine. 2. Mild periprosthetic lucency at the L1 pedicle screws has progressed. Mild periprosthetic lucency at the L5 pedicle screws remains unchanged. 3. Posterior decompression and fusion from L1 through L5 with pedicle screws and rods. The hardware appears intact. 4. Severe disc space narrowing at T12-L1 has progressed. ACT 112: Negative or not required by law. Electronically signed by: Sachin Maya M.D. 07/10/2021 5:31 PM Dictated:07/10/211727 Transcribed: 07/10/211727 CT head/brain wo con CLINICAL HISTORY: 86 years-old Female with s/p fall. Acutely altered mental status with recent fall TECHNIQUE: Multiple axial CT images of the head were obtained without contrast. A dose lowering technique was utilized adhering to the principles of ALARA. CT DOSE: 1228.53 mGy.cm COMPARISON: Head CT 07/06/2021 FINDINGS: No acute intracranial hemorrhage, midline shift, intracranial mass, hydrocephalus, territorial ischemia or abnormal extra-axial collection. Age- related involutional changes with ex vacuo ventriculomegaly. White matter hypodensities suggest chronic microvascular ischemic disease. The study is motion degraded. Cerebral vascular calcifications. The calvarium is intact. Partial opacification of the left ethmoid air cells. The mastoid air cells are clear. Unremarkable soft tissues. Prior bilateral lens repair. IMPRESSION: No acute intracranial abnormality. ACT 112: Negative or not required by law. The above report was generated using voice recognition software. It may contain grammatical, syntax or spelling errors. Electronically signed by: Jeff Valencia M.D. 07/09/2021 3:44 PM Dictated:07/09/21 1540 Transcribed: 07/09/[address] DOSE: HISTORY: Altered mental status. TECHNIQUE: Multiaxial CT images of the head were performed without the use of intravenous contrast. Automated exposure control was utilized for this study. A dose lowering technique was utilized adhering to the principles of ALARA. Comparison: Head CT 06/23/2021. Findings: There are few opacified left posterior ethmoid air cells. The mastoid air cells are clear. The calvarium and skull base are intact. There is no mass, hematoma, midline shift, acute infarct. White matter hypodensity is nonspecific but suggestive of microvascular ischemic change. The ventricles and sulci demonstrate mild age-related involutional changes. Impression: No acute intracranial abnormality. ACT 112: Negative or not required by law. Electronically signed by: Sachin Maya M.D. 07/06/2021 1:23 PM Dictated:07/06/21 1321 Transcribed: 07/06/[address] WITH IV CONTRAST CT DOSE: 1465.11 mGy.cm HISTORY: abd pain lower w/ falls TECHNIQUE: Multiaxial CT images of the abdomen and pelvis were performed following the use of intravenous contrast. A dose lowering technique was utilized adhering to the principles of ALARA. COMPARISON STUDY: Abdomen and pelvis CT 07/03/2017. FINDINGS: Mild motion artifact. Mild dependent changes seen within the lung bases. Bilateral total hip arthroplasties. Old, healed left pubic ring fractures. L1-L5 posterior decompression fusion with pedicle screws and rods. Old, healed left-sided rib fractures. Healing right anterior sixth through eighth rib fractures. No acute rib fractures identified. Small areas of focal fat within the liver adjacent to the falciform ligament. No hepatic or splenic masses. The adrenal glands, pancreas, and gallbladder are unremarkable. Bilateral cortical renal scarring is again noted. No hydronephrosis. The main portal vein is patent. No retroperitoneal lymphadenopathy. Calcified plaque within the normal caliber abdominal aorta. The bladder is not well visualized due to metallic artifact but appears unremarkable. Prior hysterectomy. Trace pelvic free fluid. No evidence for bowel obstruction. Normal appendix. Question of a focal thickening within the proximal descending colon with minimal pericolonic fat stranding best seen on image 127. IMPRESSION: 1. Questionable mild focal circumferential thickening involving the proximal descending colon with minimal adjacent pericolonic fat stranding. This could be due to underdistention or mild focal colitis. Consider follow-up abdomen and pelvis CT with intravenous and oral contrast in 3-6 months to exclude the less likely possibility of a colonic mass. 2. Healing right anterior sixth through eighth rib fractures. No acute fractures identified. 3. Additional findings as described above. ACT 112: Negative or not required by law. Electronically signed by: Sachin Maya M.D. 07/06/2021 12:58 PM Dictated:07/06/21 1246 Transcribed: 07/06/21 1246 Hospital Course (1) Confusion: Drug induced metabolic encephalopathy Likely multifactorial - underlying mild dementia, partially treated UTI, and recent addition of Cymbalta - Admit for additional evaluation and treatment -Urine culture from June 23, positive for pansensitive E. coli, and lactobacillus - current cultx negative - Abx stopped (received IV ceftriaxone since admission) - Monitor mental status closely -mental status seems to be already much improved - Decreased Cymbalta on admission (daughter reports pt was started on for chronic pain) to 30 mg HS, will cont. w/ lower dose - clinically stable (2) Recurrent falls: Persistent deconditioning since COVID in Dec as well as confusion - Pt fell 2 day ago backward - CT head was negative for any abnormality -Lumbar xray showed mild periprosthetic lucency at the L1 pedicle screws has progressed. Mild periprosthetic lucency at the L5 pedicle screws remains unchanged. Posterior decompression and fusion from L1 through L5 with pedicle screws and rods. The hardware appears intact. Severe disc space narrowing at T12-L1 has progressed. - Ortho consulted - Plan to get an MRI of the back - Continue pain control (3) Abnormal CT of the abdomen: May be underdistention vs. colitis vs. mass - f/u CT in 3-6 months. Discussed this recommendation with pt's daughter. Would also include on the discharge summary. Pt denies abdominal pain and diarrhea at present. If develops diarrhea, consider broadening antibiotic coverage to cefepime and metronidazole. (4) Cystitis: Urine culture negative - as outpt has already completed course of cephalexin and partial course of Bactrim (5) CKD (chronic kidney disease), stage III: Appears to be at baseline - Daily labs (6) Diabetes mellitus, type II: Diet-controlled -Most recent hba1c 6.5 on 07/07/21 - Insulin sliding scale while admitted - Diabetic diet (7) Hypertension: (8) Dyslipidemia: (9) Depression: Continue other home medications as appropriate. Code Status: full code - previous hospitalist team discussed with pt and her daughter (who is pt's POA) DVT Prophylaxis: heparin subQ Total Time Total Time Spent Total Time Spent (In Minutes): 35 minutes Discharge Plan Discharge Items Patient Disposition: Transfer Inpatient Rehab Fac Reason For Visit: CONFUSION, UTI, FALLS Discharge Diagnosis: Drug induced metabolic encephalopathy Recurrent falls: Abnormal CT of the abdomen: CKD (chronic kidney disease), stage III: Diabetes mellitus, type II: Hypertension: Dyslipidemia: Depression: Activity: Resume your previous activity Non-emergency contact: Primary Care Provider and Pain Management Call non-emergency contact if: you have any medication questions, your symptoms worsen and your pain is worsening Follow-up/Referrals: Dedrick Restrepo MD [Primary Care Provider] - Diet: Carb Consistent or DM2 and Heart Healthy Addtl Attending Provider Instructions: Follow up with your primary care provider once discharge from rehab Follow up with [facility] pain management ( please call to schedule for the appointment ) Continue physical and occupation therapy You will need follow up CAT scan abdomen in 3-6 months for the mild focal circumferential thickening found on the abdomen. Your provider will need to order the CT scan Continue physical and occupational therapy Please hold tramadol if you develop any lethargy and drowsiness Fall precaution Seek medical attention if your symptoms worsening Pending Studies at Discharge: No Stand-Alone Forms: My [facility] Skilled Items Patient informed of condition?: Yes DNR: No Discharge Level of Care: Acute rehab Communicable Disease: No Discharge Prognosis: Stable Lines: None Urinary Catheter: No Medications and DC Order Prescriptions: New acetaminophen 325 mg Tablet 650 mg PO Q8H PRN (Reason: pain) Qty: 30 RF: 0 lidocaine 5 % Adhesive Patch,Medicated 1 patch transdermal QAM Qty: 5 RF: 0 duloxetine 30 mg Capsule,Delayed Release(Dr/Ec) 30 mg PO HS Qty: 30 RF: 0 Continued enalapril maleate 20 mg tablet 20 mg PO HS RF: 0 cyanocobalamin (vitamin B-12) 1,000 mcg tablet 1,000 mg PO QAM RF: 0 bupropion HCl 200 mg tablet sustained-release 12 hr 200 mg PO BID RF: 0 rosuvastatin 5 mg tablet 2.5 mg PO 2XWK RF: 0 tramadol 50 mg tablet 50 mg PO BID PRN (Reason: Pain) RF: 0 calcium carbonate [Calcium 600] 600 mg calcium (1,500 mg) Tablet 600 mg PO DAILY RF: 0 PreserVision AREDS [id number] Capsule 1 cap PO BID RF: 0 Multivitamin Gummies 200 mcg Tablet,Chewable 0 tab PO QAM RF: 0 aspirin 81 mg Tablet,Delayed Release (Dr/Ec) 81 mg PO QAM RF: 0 Discontinued duloxetine 60 mg capsule,delayed release(DR/EC) 60 mg PO HS RF: 0 sulfamethoxazole-trimethoprim 800-160 mg tablet 1 tab PO BID RF: 0 Discharge Orders: Discharge Order (Routine); Ordered 07/13/21 Ordered By: Martin Cummings Admission Data Admit Date/Time: 07/06/21 14:36 Attending Provider: Martin Cummings Admit Provider: Shruti Minor Primary Care Provider: Dedrick Restrepo Other Providers: Shruti Minor ; [facility],[employer] ; Abrahan Moore ; Mason Bose Other Interventions: Discharge Summary Assessment (RN) Last Done: 07/13/21 15:53
== END 2021-07-13 16:12 | DRG 92 ==
LOC: ED 10:36 → 3N 14:36 → SUATTDRO 14:36 → 3N 15:47
DX: Z79.82 Long term (current) use of aspirin; F32.A Depression, unspecified; B96.89 Other specified bacterial agents as the cause of diseases classified elsewhere; I12.9 Hypertensive chronic kidney disease with stage 1 through stage 4 chronic kidney disease, or unspecified chronic kidney disease; M35.3 Polymyalgia rheumatica; Z88.5 Allergy status to narcotic agent; E11.22 Type 2 diabetes mellitus with diabetic chronic kidney disease; Y92.019 Unspecified place in single-family (private) house as the place of occurrence of the external cause; B96.20 Unspecified Escherichia coli [E. coli] as the cause of diseases classified elsewhere; T43.225A Adverse effect of selective serotonin reuptake inhibitors, initial encounter; R53.1 Weakness; N18.30 Chronic kidney disease, stage 3 unspecified; G93.40 Encephalopathy, unspecified; E78.5 Hyperlipidemia, unspecified; N30.90 Cystitis, unspecified without hematuria; G92.8 Other toxic encephalopathy; F03.90 Unspecified dementia, unspecified severity, without behavioral disturbance, psychotic disturbance, mood disturbance, and anxiety; R29.6 Repeated falls; M48.062 Spinal stenosis, lumbar region with neurogenic claudication